=== PATIENT | male | born 1970 | race Caucasian/White ===

== ENCOUNTER 2016-11-11 21:32 | Emergency (ER) | payer BC ==
[2016-11-11] MEDS ORDERED: ONDANSETRON 4 MG/2 ML VIAL IVP STA (22:09)
[2016-11-11] MEDS ORDERED: SODIUM CHLORIDE 0.9% 1,000 ML IV STA (22:09)
[2016-11-11 22:35] LABS: Basophils # (A) 0.1 k/uL (0-0.2); Basophils % (A) 0 %; CH 33.2; Eosinophils # (A) 0.1 k/uL (0-0.7); Eosinophils % (A) 1 %; HCT 47.8 % (39.0-53.0); HDW 1.95; HGB 15.6 gm/dL (13.0-17.5); Luc # (Auto) 0.15; Luc % (Auto) 1; Lymphocytes # (A) 0.9 k/uL (1.0-4.8); Lymphocytes % (A) 7 %; MCH 32.1 pg (25.0-35.0); MCHC 32.7 g/dL (31.0-37.0); MCV 98.2 fL (80.0-100.0); Mean Platelet Volume 6.5; Monocytes # (A) 0.4 k/uL (0-1.0); Monocytes % (A) 3 %; Neutrophils % (A) 87 %; RBC 4.87 m/uL (4.30-5.90); RDW 12.8 % (11.5-15.5); WBC 12.6 k/uL (3.8-10.6)
[2016-11-11 22:44] LABS: ALT 58 U/L (21-72); AST 74 U/L (17-59); Alkaline Phosphatase 114 U/L (38-126); Amylase 127 U/L (30-110); Anion Gap 23 mmol/L; Blood Urea Nitrogen 3 mg/dL (9-20); Calcium 9.1 mg/dL (8.4-10.2); Carbon Dioxide 16 mmol/L (22-30); Chloride 96 mmol/L (98-107); Glucose 131 mg/dL (74-99); Non-African American GFR(MDRD) >60 (>60 ml/min/1.73 sqM); Potassium 3.7 mmol/L (3.5-5.1); Sodium 135 mmol/L (137-145); Total Bilirubin 0.7 mg/dL (0.2-1.3); Total Protein 7.7 g/dL (6.3-8.2)
--- NOTE | 2016-11-11 22:45 | ED ---
Nausea/Vomiting/Diarrhea HPI - General Chief complaint: Nausea/Vomiting/Diarrhea Stated complaint: Vomiting/Tremors Time Seen by Provider: 11/11/16 21:42 Source: patient Mode of arrival: wheelchair Limitations: no limitations - History of Present Illness MD complaint: nausea, vomiting Onset/Timin -: hour(s) Description of Vomiting: food contents, watery Associated Abdominal Pain: No Improves with: none Worsens with: none - Related Data Previous Rx's Medication Instructions Recorded Ondansetron Odt [Zofran ODT] 4 mg PO Q8HR PRN #10 tab 11/12/16 Allergies Allergy/AdvReac Type Severity Reaction Status Date / Time No Known Allergies Allergy Verified 11/11/16 21:53 Review of Systems ROS Statement: Those systems with pertinent positive or pertinent negative responses have been documented in the HPI. ROS Other: All systems not noted in ROS Statement are negative. Constitutional: Denies: fever, chills Respiratory: Denies: cough, dyspnea Cardiovascular: Denies: chest pain, palpitations, edema, syncope Gastrointestinal: Reports: nausea, vomiting. Denies: abdominal pain, diarrhea, hematemesis, melena, hematochezia Genitourinary: Denies: dysuria, hematuria Musculoskeletal: Denies: back pain Skin: Denies: rash Neurological: Denies: headache Past Medical History Past Medical History: No Reported History Additional Past Medical History / Comment(s): alcoholic History of Any Multi-Drug Resistant Organisms: None Reported Past Surgical History: Hernia Repair, Tonsillectomy Past Psychological History: Anxiety, Depression Smoking Status: Current every day smoker Past Alcohol Use History: Occasional Past Drug Use History: Marijuana General Exam Limitations: no limitations General appearance: alert, in no apparent distress, appears intoxicated Head exam: Present: atraumatic, normocephalic Eye exam: Present: normal appearance. Absent: scleral icterus, conjunctival injection Respiratory exam: Present: normal lung sounds bilaterally. Absent: respiratory distress, wheezes, rales, rhonchi, stridor Cardiovascular Exam: Present: normal rhythm, tachycardia (Heart rate is approximately 108 at my exam), normal heart sounds. Absent: systolic murmur, diastolic murmur, rubs, gallop GI/Abdominal exam: Present: soft. Absent: distended, tenderness, guarding, rebound, mass, pulsatile mass, hernia Extremities exam: Present: normal inspection, normal capillary refill. Absent: pedal edema, calf tenderness Back exam: Absent: CVA tenderness (R), CVA tenderness (L) Neurological exam: Present: alert Skin exam: Present: warm, dry, intact, normal color. Absent: rash Course Vital Signs 11/11/16 11/11/16 21:36 23:07 Temperature 96.7 F L Pulse Rate 106 H 90 Respiratory 22 16 Rate Blood Pressure 126/90 113/68 O2 Sat by Pulse 99 98 Oximetry Medical Decision Making - Lab Data Result diagrams: 11/11/16 22:20 11/11/16 22:20 Lab Results 11/11/16 11/11/16 11/11/16 Range/Units 22:20 22:20 23:00 WBC 12.6 H (3.8-10.6) k/uL RBC 4.87 (4.30-5.90) m/uL Hgb 15.6 (13.0-17.5) gm/dL Hct 47.8 (39.0-53.0) % MCV 98.2 (80.0-100.0) fL MCH 32.1 (25.0-35.0) pg MCHC 32.7 (31.0-37.0) g/dL RDW 12.8 (11.5-15.5) % Plt Count 198 (150-450) k/uL Neutrophils % 87 % Lymphocytes % 7 % Monocytes % 3 % Eosinophils % 1 % Basophils % 0 % Neutrophils # 11.0 H (1.3-7.7) k/uL Lymphocytes # 0.9 L (1.0-4.8) k/uL Monocytes # 0.4 (0-1.0) k/uL Eosinophils # 0.1 (0-0.7) k/uL Basophils # 0.1 (0-0.2) k/uL Sodium 135 L (137-145) mmol/L Potassium 3.7 (3.5-5.1) mmol/L Chloride 96 L (98-107) mmol/L Carbon Dioxide 16 L (22-30) mmol/L Anion Gap 23 mmol/L BUN 3 L (9-20) mg/dL Creatinine 0.77 (0.66-1.25) mg/dL Est GFR (MDRD) Af Amer >60 (>60 ml/min/1.73 sqM) Est GFR (MDRD) Non-Af >60 (>60 ml/min/1.73 sqM) Glucose 131 H (74-99) mg/dL Calcium 9.1 (8.4-10.2) mg/dL Total Bilirubin 0.7 (0.2-1.3) mg/dL AST 74 H (17-59) U/L ALT 58 (21-72) U/L Alkaline Phosphatase 114 (38-126) U/L Total Protein 7.7 (6.3-8.2) g/dL Albumin 4.5 (3.5-5.0) g/dL Amylase 127 H (30-110) U/L Lipase 202 (23-300) U/L Urine Color Light Yellow Urine Appearance Clear (Clear) Urine pH 5.5 (5.0-8.0) Ur Specific [place] 1.006 (1.001-1.035) Urine Protein Negative (Negative) Urine Glucose (UA) Negative (Negative) Urine Ketones 1+ H (Negative) Urine Blood Negative (Negative) Urine Nitrate Negative (Negative) Urine Bilirubin Negative (Negative) Urine Urobilinogen <2.0 (<2.0) mg/dL Ur Leukocyte Esterase Negative (Negative) Disposition Clinical Impression: Gastritis, Alcohol intoxication Disposition: HOME SELF-CARE Condition: Fair Instructions: Acute Nausea and Vomiting (ED) Prescriptions: Ondansetron Odt [Zofran ODT] 4 mg PO Q8HR PRN #10 tab PRN Reason: Nausea Referrals: Javon Anaya MD [Primary Care Provider] - 1-2 days
[2016-11-11 23:17] LABS: Appearance,Urine Clear (Clear); Bilirubin,Urine Negative (Negative); Glucose,Urine (UA) Negative (Negative); Ketones,Urine 1+ (Negative); Leukocyte Esterase,Urine Negative (Negative); Nitrite,Urine Negative (Negative); PH, Urine 5.5 (5.0-8.0); Protein,Urine Negative (Negative); Specific Gravity,Urine 1.006 (1.001-1.035); UA Billing (MACRO vs. MICRO) CHEM; Urobilinogen,Urine <2.0 mg/dL (<2.0)
[2016-11-12] MEDS ORDERED: ONDANSETRON 4 MG/2 ML VIAL IVP STA (01:39)
[2016-11-12 03:14] VITALS: BP 125/75; PULSE 84; RESP 18; TEMP 97.9
== END 2016-11-12 03:00 | disposition home or self-care (01) ==
LOC: EC 21:32
DX: K29.70 Gastritis, unspecified, without bleeding (principal); F10.129 Alcohol abuse with intoxication, unspecified; F17.200 Nicotine dependence, unspecified, uncomplicated
CPT/HCPCS: 36415; 80053; 82150; 83690; 85025; 81003; 99284; 96374; 96376; 96361; J2405 ×2

== ENCOUNTER 2017-09-30 07:13 | Emergency (ER) | payer BC, OTHER ==
[2017-09-30] MEDS ORDERED: LORazepam 2 MG/ML INJ IV STA (07:35)
[2017-09-30] MEDS ORDERED: SODIUM CHLORIDE 0.9% 1,000 ML IV STA (07:35)
[2017-09-30] MEDS ORDERED: FAMOTIDINE 20 MG/2 ML VIAL IV STA (07:38)
[2017-09-30] MEDS ORDERED: ONDANSETRON 4 MG/2 ML VIAL IVP STA (07:38)
--- NOTE | 2017-09-30 07:41 | ED ---
General Adult HPI - General Chief complaint: Alcohol Stated complaint: alcohol withdrawl Time Seen by Provider: 09/30/17 07:24 Source: patient, RN notes reviewed, old records reviewed Mode of arrival: ambulatory Limitations: no limitations - History of Present Illness Initial comments: Patient is a 39-year-old male presenting to the emergency department for alcohol withdrawal. Patient is anxious. Patient stopped drinking last night around 8 or 9 PM. Patient usually drinks around 12 beers per day. Patient has had similar problems previously. Patient has some nausea. - Related Data Home Medications Medication Instructions Recorded Confirmed PHENobarbital [Luminal] 16.2 mg PO TID 09/30/17 09/30/17 Previous Rx's Medication Instructions Recorded chlordiazePOXIDE HCl [Librium] 25 mg PO TID #12 capsule 09/30/17 Allergies Allergy/AdvReac Type Severity Reaction Status Date / Time No Known Allergies Allergy Verified 09/30/17 08:09 Review of Systems ROS Statement: Those systems with pertinent positive or pertinent negative responses have been documented in the HPI. ROS Other: All systems not noted in ROS Statement are negative. Constitutional: Denies: fever Eyes: Denies: eye pain ENT: Denies: ear pain Respiratory: Denies: cough Cardiovascular: Denies: chest pain Endocrine: Denies: fatigue Gastrointestinal: Reports: nausea. Denies: abdominal pain Genitourinary: Denies: dysuria Musculoskeletal: Denies: back pain Skin: Denies: rash Neurological: Denies: headache Psychiatric: Reports: anxiety. Denies: auditory hallucinations, visual hallucinations, homicidal thoughts, suicidal thoughts Past Medical History Past Medical History: No Reported History Additional Past Medical History / Comment(s): alcoholic History of Any Multi-Drug Resistant Organisms: None Reported Past Surgical History: Hernia Repair, Tonsillectomy Past Psychological History: Anxiety, Depression Smoking Status: Current every day smoker Past Alcohol Use History: Abuse, Daily, Heavy Past Drug Use History: Marijuana General Exam Limitations: no limitations General appearance: alert, anxious Head exam: Present: atraumatic Eye exam: Present: normal appearance, PERRL ENT exam: Present: normal oropharynx Neck exam: Present: normal inspection Respiratory exam: Present: normal lung sounds bilaterally Cardiovascular Exam: Present: tachycardia GI/Abdominal exam: Present: soft. Absent: tenderness Extremities exam: Present: normal inspection Neurological exam: Present: alert, oriented X3, CN II-XII intact. Absent: motor sensory deficit Psychiatric exam: Present: anxious Skin exam: Present: normal color Course Vital Signs 09/30/17 07:17 Temperature 98.5 F Pulse Rate 118 H Respiratory 24 Rate Blood Pressure 135/95 O2 Sat by Pulse 99 Oximetry Medical Decision Making - Medical Decision Making Patient reevaluated and significantly improved. No shaking. Patient does feel much better. Patient is comfortable with discharge home. Patient updated on results and need for follow-up. Patient is advised to follow-up with [facility] or other detox facility. List was provided. - Lab Data Result diagrams: 09/30/17 07:35 09/30/17 07:35 Lab Results 09/30/17 09/30/17 Range/Units 07:35 07:35 WBC 9.9 (3.8-10.6) k/uL RBC 4.91 (4.30-5.90) m/uL Hgb 17.0 (13.0-17.5) gm/dL Hct 50.5 (39.0-53.0) % MCV 102.8 H (80.0-100.0) fL MCH 34.6 (25.0-35.0) pg MCHC 33.7 (31.0-37.0) g/dL RDW 13.4 (11.5-15.5) % Plt Count 104 L (150-450) k/uL Neutrophils % 77 % Lymphocytes % 14 % Monocytes % 5 % Eosinophils % 1 % Basophils % 1 % Neutrophils # 7.7 (1.3-7.7) k/uL Lymphocytes # 1.4 (1.0-4.8) k/uL Monocytes # 0.5 (0-1.0) k/uL Eosinophils # 0.1 (0-0.7) k/uL Basophils # 0.1 (0-0.2) k/uL Macrocytosis Slight Sodium 136 L (137-145) mmol/L Potassium 4.5 (3.5-5.1) mmol/L Chloride 100 (98-107) mmol/L Carbon Dioxide 20 L (22-30) mmol/L Anion Gap 16 mmol/L BUN 6 L (9-20) mg/dL Creatinine 0.63 L (0.66-1.25) mg/dL Est GFR (MDRD) Af Amer >60 (>60 ml/min/1.73 sqM) Est GFR (MDRD) Non-Af >60 (>60 ml/min/1.73 sqM) Glucose 123 H (74-99) mg/dL Calcium 9.1 (8.4-10.2) mg/dL Magnesium 1.8 (1.6-2.3) mg/dL Total Bilirubin 0.9 (0.2-1.3) mg/dL AST 211 H (17-59) U/L ALT 112 H (21-72) U/L Alkaline Phosphatase 157 H (38-126) U/L Total Protein 7.5 (6.3-8.2) g/dL Albumin 4.5 (3.5-5.0) g/dL Serum Alcohol 30 mg/dL Disposition Clinical Impression: Alcohol withdrawal syndrome Disposition: HOME SELF-CARE Condition: Stable Instructions: Alcohol Withdrawal (ED) Additional Instructions: Discontinue alcohol use. Please follow-up with rehab facility and/or Alcoholics Anonymous. Please also follow-up with regular doctor in the next day or 2 for recheck. Return for hallucinations, confusion, worsening symptoms or other concerns. Prescriptions: chlordiazePOXIDE HCl [Librium] 25 mg PO TID #12 capsule Referrals: Javon Anaya MD [Primary Care Provider] - 1-2 days Time of Disposition: 08:24
[2017-09-30] MEDS ORDERED: SODIUM CHLORIDE 0.9% 1,000 ML with MVI, ADULT NO.4 WITH VIT K 10 ML, THIAMINE 100 MG, F... IV ONE ×4 (08:00)
[2017-09-30 08:10] LABS: ALT 112 U/L (21-72); AST 211 U/L (17-59); Albumin 4.5 g/dL (3.5-5.0); Alcohol 30 mg/dL; Alkaline Phosphatase 157 U/L (38-126); Anion Gap 16 mmol/L; Blood Urea Nitrogen 6 mg/dL (9-20); Calcium 9.1 mg/dL (8.4-10.2); Carbon Dioxide 20 mmol/L (22-30); Chloride 100 mmol/L (98-107); Glucose 123 mg/dL (74-99); Magnesium 1.8 mg/dL (1.6-2.3); Sodium 136 mmol/L (137-145); Total Bilirubin 0.9 mg/dL (0.2-1.3); Total Protein 7.5 g/dL (6.3-8.2)
[2017-09-30 08:11] LABS: Basophils # (A) 0.1 k/uL (0-0.2); Basophils % (A) 1 %; Eosinophils # (A) 0.1 k/uL (0-0.7); Eosinophils % (A) 1 %; HCT 50.5 % (39.0-53.0); Lymphocytes # (A) 1.4 k/uL (1.0-4.8); Lymphocytes % (A) 14 %; MCH 34.6 pg (25.0-35.0); MCHC 33.7 g/dL (31.0-37.0); MCV 102.8 fL (80.0-100.0); Macrocytosis Slight; Mean Platelet Volume 8.1; Monocytes # (A) 0.5 k/uL (0-1.0); Monocytes % (A) 5 %; Neutrophils # (A) 7.7 k/uL (1.3-7.7); Neutrophils % (A) 77 %; Platelet Count 104 k/uL (150-450); RBC 4.91 m/uL (4.30-5.90); RDW 13.4 % (11.5-15.5); WBC 9.9 k/uL (3.8-10.6)
[2017-09-30 08:18] LABS: Potassium 4.5 mmol/L (3.5-5.1)
[2017-09-30 08:47] VITALS: BP 132/78; PULSE 97; RESP 18; TEMP 98.7
== END 2017-09-30 08:45 | disposition home or self-care (01) ==
LOC: EC 07:13
DX: F10.239 Alcohol dependence with withdrawal, unspecified (principal); F17.200 Nicotine dependence, unspecified, uncomplicated; Z79.899 Other long term (current) drug therapy
CPT/HCPCS: 36415; 80053; 83735; 85025; 80320; 99285; 96374; 96375 ×3; J2060; J3411; J2405

== ENCOUNTER 2018-02-22 13:18 | Emergency (ER) | payer OTHER ==
[2018-02-22 13:29] VITALS: TEMP 97.8
[2018-02-22] MEDS ORDERED: SODIUM CHLORIDE 0.9% 1,000 ML IV STA (13:40)
[2018-02-22] MEDS ORDERED: ONDANSETRON 4 MG/2 ML VIAL IVP STA (13:40)
[2018-02-22] MEDS ORDERED: SODIUM CHLORIDE 0.9% 1,000 ML IV ONE (13:48)
[2018-02-22] MEDS ORDERED: LORazepam 2 MG/ML INJ IV STA (13:49)
--- NOTE | 2018-02-22 13:55 | ED ---
General Adult HPI - General Chief complaint: Nausea/Vomiting/Diarrhea Stated complaint: Withdrawls/Bug bite Time Seen by Provider: 02/22/18 13:36 Source: patient, RN notes reviewed, old records reviewed Mode of arrival: ambulatory Limitations: no limitations - History of Present Illness Initial comments: 48-year-old male presents for evaluation of nausea vomiting and diarrhea. Symptoms have been progressive over the past 12 hours. His had multiple episodes of vomiting. Denies any significant abdominal pain. He does have history of alcoholism and is a daily drinker. Last drink was yesterday evening at approximately 8 PM. Patient denies chest pain or shortness of breath. Denies suicidal thoughts. Denies fever or chills. Patient states he is taken Ativan in the past for withdrawal symptoms however he has not had any to take over the past several days. Patient's second complaint is tick bites, he has several on his leg. He believes this may be related to symptoms. - Related Data Home Medications Medication Instructions Recorded Confirmed LORazepam [Ativan] 0.5 mg PO DAILY PRN 02/22/18 02/22/18 Sertraline [Zoloft] 50 mg PO DAILY 02/22/18 02/22/18 Previous Rx's Medication Instructions Recorded Diazepam [Valium] 5 mg PO TID PRN 3 Days #9 tab 02/22/18 Allergies Allergy/AdvReac Type Severity Reaction Status Date / Time No Known Allergies Allergy Verified 02/22/18 13:56 Review of Systems ROS Statement: Those systems with pertinent positive or pertinent negative responses have been documented in the HPI. ROS Other: All systems not noted in ROS Statement are negative. Past Medical History Past Medical History: No Reported History Additional Past Medical History / Comment(s): alcoholic History of Any Multi-Drug Resistant Organisms: None Reported Past Surgical History: Hernia Repair, Tonsillectomy Past Psychological History: Anxiety, Depression Smoking Status: Current every day smoker Past Alcohol Use History: Abuse, Daily, Heavy Past Drug Use History: Marijuana General Exam Limitations: no limitations General appearance: alert, in no apparent distress Head exam: Present: atraumatic, normocephalic Eye exam: Present: normal appearance, PERRL ENT exam: Present: mucous membranes dry Neck exam: Present: normal inspection. Absent: tenderness, meningismus Respiratory exam: Present: normal lung sounds bilaterally Cardiovascular Exam: Present: normal rhythm, tachycardia GI/Abdominal exam: Present: soft. Absent: distended, tenderness, guarding, rebound Extremities exam: Present: other (Multiple bug bites, no surrounding cellulitis) Neurological exam: Present: alert, oriented X3, CN II-XII intact. Absent: motor sensory deficit Psychiatric exam: Present: anxious. Absent: suicidal ideation Skin exam: Present: warm, dry, intact. Absent: cyanosis, diaphoretic Course Vital Signs 02/22/18 02/22/18 02/22/18 13:27 15:06 15:40 Temperature 97.8 F Pulse Rate 109 H 84 Respiratory 20 18 16 Rate Blood Pressure 121/73 127/67 137/78 O2 Sat by Pulse 99 97 Oximetry Medical Decision Making - Medical Decision Making 48-year-old male with nausea vomiting, dehydration, and concern for alcohol withdrawal. No signs of DTs. Initially tachycardic of this resolves with fluid hydration. Initial labs reveal some alcoholic hepatitis. There is an anion gap metabolic acidosis of 26 and a CO2 of 18. This results with IV hydration. White count and hemoglobin are normal. Urinalysis negative for ketones. KUB is negative for obstruction. On reevaluation is feeling better. Normal vital signs. Trauma. He will be prescribed Valium for withdrawal. He will continue oral hydration at home. - Lab Data Result diagrams: 02/22/18 14:05 02/22/18 15:58 Lab Results 02/22/18 02/22/18 02/22/18 Range/Units 13:12 14:05 14:05 WBC 7.4 (3.8-10.6) k/uL RBC 5.18 (4.30-5.90) m/uL Hgb 16.6 (13.0-17.5) gm/dL Hct 48.1 (39.0-53.0) % MCV 92.8 (80.0-100.0) fL MCH 31.9 (25.0-35.0) pg MCHC 34.4 (31.0-37.0) g/dL RDW 14.7 (11.5-15.5) % Plt Count 148 L (150-450) k/uL Neutrophils % 88 % Lymphocytes % 6 % Monocytes % 4 % Eosinophils % 0 % Basophils % 0 % Neutrophils # 6.6 (1.3-7.7) k/uL Lymphocytes # 0.5 L (1.0-4.8) k/uL Monocytes # 0.3 (0-1.0) k/uL Eosinophils # 0.0 (0-0.7) k/uL Basophils # 0.0 (0-0.2) k/uL Sodium 132 L (137-145) mmol/L Potassium 3.9 (3.5-5.1) mmol/L Chloride 88 L (98-107) mmol/L Carbon Dioxide 18 L (22-30) mmol/L Anion Gap 26 mmol/L BUN 9 (9-20) mg/dL Creatinine 0.76 (0.66-1.25) mg/dL Est GFR (CKD-EPI)AfAm >90 (>60 ml/min/1.73 sqM) Est GFR (CKD-EPI)NonAf >90 (>60 ml/min/1.73 sqM) Glucose 150 H (74-99) mg/dL Calcium 9.9 (8.4-10.2) mg/dL Total Bilirubin 1.4 H (0.2-1.3) mg/dL AST 254 H (17-59) U/L ALT 189 H (21-72) U/L Alkaline Phosphatase 133 H (38-126) U/L Total Protein 8.1 (6.3-8.2) g/dL Albumin 5.1 H (3.5-5.0) g/dL Lipase 202 (23-300) U/L Urine Color Yellow Urine Appearance Clear (Clear) Urine pH 7.0 (5.0-8.0) Ur Specific [place] 1.021 (1.001-1.035) Urine Protein 2+ H (Negative) Urine Glucose (UA) Negative (Negative) Urine Ketones 2+ H (Negative) Urine Blood Trace H (Negative) Urine Nitrite Negative (Negative) Urine Bilirubin Negative (Negative) Urine Urobilinogen <2.0 (<2.0) mg/dL Ur Leukocyte Esterase Negative (Negative) Urine RBC 4 (0-5) /hpf Urine WBC 1 (0-5) /hpf Ur Squamous Epith Cells <1 (0-4) /hpf Hyaline Casts 16 H (0-2) /lpf Urine Mucus Occasional H (None) /hpf Urine Opiates Screen Not Detected (NotDetected) Ur Oxycodone Screen Not Detected (NotDetected) Urine Methadone Screen Not Detected (NotDetected) Ur Propoxyphene Screen Not Detected (NotDetected) Ur Barbiturates Screen Not Detected (NotDetected) U Tricyclic Antidepress Not Detected (NotDetected) Ur Phencyclidine Scrn Not Detected (NotDetected) Ur Amphetamines Screen Not Detected (NotDetected) U Methamphetamines Scrn Not Detected (NotDetected) U Benzodiazepines Scrn Not Detected (NotDetected) Urine Cocaine Screen Not Detected (NotDetected) U Marijuana (THC) Screen Not Detected (NotDetected) Serum Alcohol <10 mg/dL 02/22/18 Range/Units 15:58 WBC (3.8-10.6) k/uL RBC (4.30-5.90) m/uL Hgb (13.0-17.5) gm/dL Hct (39.0-53.0) % MCV (80.0-100.0) fL MCH (25.0-35.0) pg MCHC (31.0-37.0) g/dL RDW (11.5-15.5) % Plt Count (150-450) k/uL Neutrophils % % Lymphocytes % % Monocytes % % Eosinophils % % Basophils % % Neutrophils # (1.3-7.7) k/uL Lymphocytes # (1.0-4.8) k/uL Monocytes # (0-1.0) k/uL Eosinophils # (0-0.7) k/uL Basophils # (0-0.2) k/uL Sodium 132 L (137-145) mmol/L Potassium 3.5 (3.5-5.1) mmol/L Chloride 95 L (98-107) mmol/L Carbon Dioxide 22 (22-30) mmol/L Anion Gap 15 mmol/L BUN 8 L (9-20) mg/dL Creatinine 0.66 (0.66-1.25) mg/dL Est GFR (CKD-EPI)AfAm >90 (>60 ml/min/1.73 sqM) Est GFR (CKD-EPI)NonAf >90 (>60 ml/min/1.73 sqM) Glucose 139 H (74-99) mg/dL Calcium 8.2 L (8.4-10.2) mg/dL Total Bilirubin (0.2-1.3) mg/dL AST (17-59) U/L ALT (21-72) U/L Alkaline Phosphatase (38-126) U/L Total Protein (6.3-8.2) g/dL Albumin (3.5-5.0) g/dL Lipase (23-300) U/L Urine Color Urine Appearance (Clear) Urine pH (5.0-8.0) Ur Specific [place] (1.001-1.035) Urine Protein (Negative) Urine Glucose (UA) (Negative) Urine Ketones (Negative) Urine Blood (Negative) Urine Nitrite (Negative) Urine Bilirubin (Negative) Urine Urobilinogen (<2.0) mg/dL Ur Leukocyte Esterase (Negative) Urine RBC (0-5) /hpf Urine WBC (0-5) /hpf Ur Squamous Epith Cells (0-4) /hpf Hyaline Casts (0-2) /lpf Urine Mucus (None) /hpf Urine Opiates Screen (NotDetected) Ur Oxycodone Screen (NotDetected) Urine Methadone Screen (NotDetected) Ur Propoxyphene Screen (NotDetected) Ur Barbiturates Screen (NotDetected) U Tricyclic Antidepress (NotDetected) Ur Phencyclidine Scrn (NotDetected) Ur Amphetamines Screen (NotDetected) U Methamphetamines Scrn (NotDetected) U Benzodiazepines Scrn (NotDetected) Urine Cocaine Screen (NotDetected) U Marijuana (THC) Screen (NotDetected) Serum Alcohol mg/dL Disposition Clinical Impression: Dehydration, Alcohol abuse Disposition: HOME SELF-CARE Condition: Fair Instructions: Acute Nausea and Vomiting (ED) Prescriptions: Diazepam [Valium] 5 mg PO TID PRN 3 Days #9 tab PRN Reason: Alcohol Withdrawal Is patient prescribed a controlled substance at d/c from ED?: No Referrals: Javon Anaya MD [Primary Care Provider] - 1-2 days Time of Disposition: 16:40
[2018-02-22 14:13] LABS: Basophils % (A) 0 %; Eosinophils % (A) 0 %; HCT 48.1 % (39.0-53.0); HGB 16.6 gm/dL (13.0-17.5); Lymphocytes # (A) 0.5 k/uL (1.0-4.8); Lymphocytes % (A) 6 %; MCH 31.9 pg (25.0-35.0); MCHC 34.4 g/dL (31.0-37.0); MCV 92.8 fL (80.0-100.0); Mean Platelet Volume 7.4; Monocytes # (A) 0.3 k/uL (0-1.0); Monocytes % (A) 4 %; Neutrophils # (A) 6.6 k/uL (1.3-7.7); Neutrophils % (A) 88 %; Platelet Count 148 k/uL (150-450); RBC 5.18 m/uL (4.30-5.90); RDW 14.7 % (11.5-15.5); WBC 7.4 k/uL (3.8-10.6)
[2018-02-22 14:25] LABS: ALT 189 U/L (21-72); AST 254 U/L (17-59); Albumin 5.1 g/dL (3.5-5.0); Alcohol <10 mg/dL; Alkaline Phosphatase 133 U/L (38-126); Anion Gap 26 mmol/L; Blood Urea Nitrogen 9 mg/dL (9-20); Calcium 9.9 mg/dL (8.4-10.2); Carbon Dioxide 18 mmol/L (22-30); Chloride 88 mmol/L (98-107); Glucose 150 mg/dL (74-99); Lipase 202 U/L (23-300); Potassium 3.9 mmol/L (3.5-5.1); Sodium 132 mmol/L (137-145); Total Bilirubin 1.4 mg/dL (0.2-1.3); Total Protein 8.1 g/dL (6.3-8.2)
--- NOTE | 2018-02-22 14:51 | XR ---
EXAMINATION TYPE: XR KUB DATE OF EXAM: 02/22/2018 CLINICAL DATA: 48-year-old male complaining of vomiting and diarrhea, pain, PHH COMPARISON: None FINDINGS: Lung bases are clear. No evidence for free intraperitoneal air. No dilated small bowel or air-fluid levels. Scattered air and stool seen throughout the colon extendi ng distally into the rectum. Very mild stool burden. No suspicious calcifications identified. IMPRESSION: No evidence of bowel obstruction or free intraperitoneal air.
[2018-02-22 15:41] LABS: Appearance,Urine Clear (Clear); Bilirubin,Urine Negative (Negative); Blood,Urine Trace (Negative); Color,Urine Yellow; Glucose,Urine (UA) Negative (Negative); Hyaline Casts,Urine 16 /lpf (0-2); Ketones,Urine 2+ (Negative); Leukocyte Esterase,Urine Negative (Negative); Mucus,Urine Occasional /hpf; Nitrite,Urine Negative (Negative); Protein,Urine 2+ (Negative); RBC,Urine 4 /hpf (0-5); Specific Gravity,Urine 1.021 (1.001-1.035); Squamous Epithelial Cell,Urine <1 /hpf (0-4); Urobilinogen,Urine <2.0 mg/dL (<2.0); WBC,Urine 1 /hpf (0-5)
[2018-02-22 15:47] LABS: Amphetamine Screen,Urine Not Detected (NotDetected); Barbiturate Screen,Urine Not Detected (NotDetected); Benzodiazepines Screen,Urine Not Detected (NotDetected); Cocaine Screen,Urine Not Detected (NotDetected); Methadone Screen, Urine Not Detected (NotDetected); Opiate Screen,Urine Not Detected (NotDetected); Oxycodone Screen, Urine Not Detected (NotDetected); Phencyclidine Screen,Urine Not Detected (NotDetected); Tricyclic Antidepressant,Urine Not Detected (NotDetected); Urn Cannabinoid Scrn Not Detected (NotDetected)
[2018-02-22 16:23] LABS: Anion Gap 15 mmol/L; Blood Urea Nitrogen 8 mg/dL (9-20); Calcium 8.2 mg/dL (8.4-10.2); Carbon Dioxide 22 mmol/L (22-30); Chloride 95 mmol/L (98-107); Glucose 139 mg/dL (74-99); Potassium 3.5 mmol/L (3.5-5.1); Sodium 132 mmol/L (137-145)
[2018-02-22 17:17] VITALS: BP 144/78; PULSE 70; RESP 18
== END 2018-02-22 17:14 | disposition home or self-care (01) ==
LOC: EC 13:18
DX: E86.0 Dehydration (principal); F10.10 Alcohol abuse, uncomplicated; R11.2 Nausea with vomiting, unspecified; R19.7 Diarrhea, unspecified; S80.869A Insect bite (nonvenomous), unspecified lower leg, initial encounter; F41.9 Anxiety disorder, unspecified; F32.9 Major depressive disorder, single episode, unspecified; F17.200 Nicotine dependence, unspecified, uncomplicated; Z79.899 Other long term (current) drug therapy; W57.XXXA Bitten or stung by nonvenomous insect and other nonvenomous arthropods, initial encounter
CPT/HCPCS: 36415; 80053; 80048; 83690; 85025; 81001; 80306; 80320; 74018; 99284; 96374; 96375; 96361 ×2; J2060; J2405

== ENCOUNTER 2018-08-21 01:27 | Emergency (ER) | payer OTHER ==
[2018-08-21 01:50] VITALS: BP 133/89; PULSE 86; RESP 16; TEMP 98.1
== END 2018-08-21 03:00 | disposition home or self-care (01) ==
LOC: EC 01:27
DX: Z02.9 Encounter for administrative examinations, unspecified (principal)
CPT/HCPCS: 82075

== ENCOUNTER 2018-09-04 05:16 | Observation (INO) | payer OTHER ==
[2018-09-04] MEDS ORDERED: SODIUM CHLORIDE 0.9% 1,000 ML IV ONE (06:19)
[2018-09-04] MEDS ORDERED: LORazepam 2 MG/ML INJ IV STA ×2 (06:35→08:30)
[2018-09-04 06:38] LABS: Appearance,Urine Clear (Clear); Bilirubin,Urine Negative (Negative); Blood,Urine Negative (Negative); Color,Urine Yellow; Glucose,Urine (UA) Negative (Negative); Ketones,Urine Negative (Negative); Leukocyte Esterase,Urine Negative (Negative); Nitrite,Urine Negative (Negative); PH, Urine 5.5 (5.0-8.0); Protein,Urine Trace (Negative); Specific Gravity,Urine 1.007 (1.001-1.035); Urobilinogen,Urine <2.0 mg/dL (<2.0)
[2018-09-04 06:49] LABS: Amphetamine Screen,Urine Not Detected (NotDetected); Barbiturate Screen,Urine Not Detected (NotDetected); Benzodiazepines Screen,Urine Not Detected (NotDetected); Cocaine Screen,Urine Not Detected (NotDetected); Methadone Screen, Urine Not Detected (NotDetected); Opiate Screen,Urine Not Detected (NotDetected); Oxycodone Screen, Urine Not Detected (NotDetected); Phencyclidine Screen,Urine Not Detected (NotDetected); Tricyclic Antidepressant,Urine Not Detected (NotDetected); Urn Cannabinoid Scrn Not Detected (NotDetected)
[2018-09-04 06:56] LABS: ALT 67 U/L (21-72); AST 89 U/L (17-59); Albumin 4.6 g/dL (3.5-5.0); Alkaline Phosphatase 88 U/L (38-126); Anion Gap 16 mmol/L; Blood Urea Nitrogen 4 mg/dL (9-20); Calcium 9.7 mg/dL (8.4-10.2); Carbon Dioxide 22 mmol/L (22-30); Chloride 101 mmol/L (98-107); Glucose 147 mg/dL (74-99); Sodium 139 mmol/L (137-145); Total Bilirubin 0.7 mg/dL (0.2-1.3); Total Protein 7.9 g/dL (6.3-8.2)
[2018-09-04 07:06] LABS: Basophils % (A) 0 %; Eosinophils # (A) 0.1 k/uL (0-0.7); Eosinophils % (A) 2 %; HCT 51.1 % (39.0-53.0); HGB 17.5 gm/dL (13.0-17.5); Lymphocytes # (A) 1.3 k/uL (1.0-4.8); Lymphocytes % (A) 24 %; MCH 33.8 pg (25.0-35.0); MCHC 34.3 g/dL (31.0-37.0); MCV 98.7 fL (80.0-100.0); Monocytes # (A) 0.4 k/uL (0-1.0); Monocytes % (A) 7 %; Neutrophils # (A) 3.6 k/uL (1.3-7.7); Neutrophils % (A) 64 %; Platelet Count 170 k/uL (150-450); RBC 5.18 m/uL (4.30-5.90); RDW 13.2 % (11.5-15.5); WBC 5.6 k/uL (3.8-10.6)
[2018-09-04 07:08] LABS: Alcohol 231 mg/dL
--- NOTE | 2018-09-04 07:17 | ED ---
General Adult HPI - General Chief complaint: Alcohol Stated complaint: Alcohol withdrawal Source: patient Mode of arrival: wheelchair Limitations: no limitations - History of Present Illness Initial comments: Dictation was produced using [employer] dictation software. please excuse any grammatical, word or spelling errors. Chief Complaint: 48-year-old male presents with chief complaint of feeling as though he is expecting alcohol withdrawals. History of Present Illness: Now. He states he drinks several ounces of beer a day. He states he drinks 5 BEER on a daily basis. Last episode of EtOH withdrawal was 3 months ago. Patient states she's also been having nausea and diarrhea for the last 2-3 days. Patient was last drink was yesterday morning. Patient denies any other medical problems. No fever, chills or night sweats. Denies any pain complaints. The ROS documented in this emergency department record has been reviewed and confirmed by me. Those systems with pertinent positive or negative responses have been documented in the HPI. All other systems are other negative and/or noncontributory. - Related Data Home Medications Medication Instructions Recorded Confirmed Sertraline [Zoloft] 50 mg PO DAILY 02/22/18 09/04/18 Allergies Allergy/AdvReac Type Severity Reaction Status Date / Time No Known Allergies Allergy Verified 09/04/18 08:49 Review of Systems ROS Statement: Those systems with pertinent positive or pertinent negative responses have been documented in the HPI. ROS Other: All systems not noted in ROS Statement are negative. Past Medical History Past Medical History: No Reported History Additional Past Medical History / Comment(s): alcoholic History of Any Multi-Drug Resistant Organisms: None Reported Past Surgical History: Hernia Repair, Tonsillectomy Past Psychological History: Anxiety, Depression Smoking Status: Current every day smoker Past Alcohol Use History: Abuse, Daily, Heavy Past Drug Use History: None Reported, Marijuana - Past Family History Brother(s) Family Medical History: Osteoarthritis (OA) Mother Additional Family Medical History / Comment(s): pulmonary fibrosis General Exam - General Exam Comments Initial Comments: PHYSICAL EXAM: General Impression: Alert and oriented x3, tremulousness HEENT: Normocephalic atraumatic, extra-ocular movements intact, pupils equal and reactive to light bilaterally, mucous membranes moist. Cardiovascular: Heart regular rate and rhythm, S1&S2 audible, no murmurs, rubs or gallops Chest: Lungs clear to auscultation bilaterally, no rhonchi, no wheeze, no rales Abdomen: Bowel sounds present, abdomen soft, non-tender, non-distended, no organomegaly Musculoskeletal: Pulses present and equal in all extremities, no peripheral edema Motor: Power 5/5 bilaterally, no focal deficits noted Neurological: CN II-XII grossly intact, no focal motor or sensory deficits noted Skin: Intact with no visualized rashes Psych: Normal affect and mood Limitations: no limitations Course Vital Signs 09/04/18 05:40 Temperature 98.2 F Pulse Rate 73 Respiratory 36 H Rate Blood Pressure 124/64 O2 Sat by Pulse 98 Oximetry Medical Decision Making - Medical Decision Making ED course: 48-year-old male presents complaining of possible withdrawal symptoms. Patient also reports secondary complaint of feeling ill. Patient has been nausea and diarrhea. Vital signs upon arrival shows respiratory rate of 36, respiratory signs within acceptable limits. Patient given intravenous fluids and Antivert as previous shift physician. Patient appears comfortable at this time.Laboratory evaluation obtained. CBC, metabolic panel is unremarkable. Glucose 147. Urine unremarkable. The. Drug screen negative. Serum alcohol is 231. After couple hours patient began having withdrawal type symptoms. Patient given Ativan. Given that patient is expressing withdrawal symptoms with 2-31 level of alcohol on his blood that patient admitted for alcohol withdrawal. patient given intravenous fluids and ativan. - Lab Data Result diagrams: 09/04/18 06:15 09/04/18 06:15 Lab Results 09/04/18 09/04/18 09/04/18 Range/Units 06:15 06:15 06:15 WBC 5.6 (3.8-10.6) k/uL RBC 5.18 (4.30-5.90) m/uL Hgb 17.5 (13.0-17.5) gm/dL Hct 51.1 (39.0-53.0) % MCV 98.7 (80.0-100.0) fL MCH 33.8 (25.0-35.0) pg MCHC 34.3 (31.0-37.0) g/dL RDW 13.2 (11.5-15.5) % Plt Count 170 (150-450) k/uL Neutrophils % 64 % Lymphocytes % 24 % Monocytes % 7 % Eosinophils % 2 % Basophils % 0 % Neutrophils # 3.6 (1.3-7.7) k/uL Lymphocytes # 1.3 (1.0-4.8) k/uL Monocytes # 0.4 (0-1.0) k/uL Eosinophils # 0.1 (0-0.7) k/uL Basophils # 0.0 (0-0.2) k/uL Sodium 139 (137-145) mmol/L Potassium 4.0 (3.5-5.1) mmol/L Chloride 101 (98-107) mmol/L Carbon Dioxide 22 (22-30) mmol/L Anion Gap 16 mmol/L BUN 4 L (9-20) mg/dL Creatinine 0.80 (0.66-1.25) mg/dL Est GFR (CKD-EPI)AfAm >90 (>60 ml/min/1.73 sqM) Est GFR (CKD-EPI)NonAf >90 (>60 ml/min/1.73 sqM) Glucose 147 H (74-99) mg/dL Calcium 9.7 (8.4-10.2) mg/dL Magnesium (1.6-2.3) mg/dL Total Bilirubin 0.7 (0.2-1.3) mg/dL AST 89 H (17-59) U/L ALT 67 (21-72) U/L Alkaline Phosphatase 88 (38-126) U/L Total Protein 7.9 (6.3-8.2) g/dL Albumin 4.6 (3.5-5.0) g/dL Lipase (23-300) U/L Urine Color Yellow Urine Appearance Clear (Clear) Urine pH 5.5 (5.0-8.0) Ur Specific Ulmer 1.007 (1.001-1.035) Urine Protein Trace H (Negative) Urine Glucose (UA) Negative (Negative) Urine Ketones Negative (Negative) Urine Blood Negative (Negative) Urine Nitrite Negative (Negative) Urine Bilirubin Negative (Negative) Urine Urobilinogen <2.0 (<2.0) mg/dL Ur Leukocyte Esterase Negative (Negative) Urine Opiates Screen Not Detected (NotDetected) Ur Oxycodone Screen Not Detected (NotDetected) Urine Methadone Screen Not Detected (NotDetected) Ur Propoxyphene Screen Not Detected (NotDetected) Ur Barbiturates Screen Not Detected (NotDetected) U Tricyclic Antidepress Not Detected (NotDetected) Ur Phencyclidine Scrn Not Detected (NotDetected) Ur Amphetamines Screen Not Detected (NotDetected) U Methamphetamines Scrn Not Detected (NotDetected) U Benzodiazepines Scrn Not Detected (NotDetected) Urine Cocaine Screen Not Detected (NotDetected) U Marijuana (THC) Screen Not Detected (NotDetected) Serum Alcohol 231 H* mg/dL 09/04/18 Range/Units 06:15 WBC (3.8-10.6) k/uL RBC (4.30-5.90) m/uL Hgb (13.0-17.5) gm/dL Hct (39.0-53.0) % MCV (80.0-100.0) fL MCH (25.0-35.0) pg MCHC (31.0-37.0) g/dL RDW (11.5-15.5) % Plt Count (150-450) k/uL Neutrophils % % Lymphocytes % % Monocytes % % Eosinophils % % Basophils % % Neutrophils # (1.3-7.7) k/uL Lymphocytes # (1.0-4.8) k/uL Monocytes # (0-1.0) k/uL Eosinophils # (0-0.7) k/uL Basophils # (0-0.2) k/uL Sodium (137-145) mmol/L Potassium (3.5-5.1) mmol/L Chloride (98-107) mmol/L Carbon Dioxide (22-30) mmol/L Anion Gap mmol/L BUN (9-20) mg/dL Creatinine (0.66-1.25) mg/dL Est GFR (CKD-EPI)AfAm (>60 ml/min/1.73 sqM) Est GFR (CKD-EPI)NonAf (>60 ml/min/1.73 sqM) Glucose (74-99) mg/dL Calcium (8.4-10.2) mg/dL Magnesium 2.0 (1.6-2.3) mg/dL Total Bilirubin (0.2-1.3) mg/dL AST (17-59) U/L ALT (21-72) U/L Alkaline Phosphatase (38-126) U/L Total Protein (6.3-8.2) g/dL Albumin (3.5-5.0) g/dL Lipase 197 (23-300) U/L Urine Color Urine Appearance (Clear) Urine pH (5.0-8.0) Ur Specific Ulmer (1.001-1.035) Urine Protein (Negative) Urine Glucose (UA) (Negative) Urine Ketones (Negative) Urine Blood (Negative) Urine Nitrite (Negative) Urine Bilirubin (Negative) Urine Urobilinogen (<2.0) mg/dL Ur Leukocyte Esterase (Negative) Urine Opiates Screen (NotDetected) Ur Oxycodone Screen (NotDetected) Urine Methadone Screen (NotDetected) Ur Propoxyphene Screen (NotDetected) Ur Barbiturates Screen (NotDetected) U Tricyclic Antidepress (NotDetected) Ur Phencyclidine Scrn (NotDetected) Ur Amphetamines Screen (NotDetected) U Methamphetamines Scrn (NotDetected) U Benzodiazepines Scrn (NotDetected) Urine Cocaine Screen (NotDetected) U Marijuana (THC) Screen (NotDetected) Serum Alcohol mg/dL Disposition Clinical Impression: Alcohol withdrawal syndrome Disposition: [facility] Condition: Fair Referrals: None,Stated [Primary Care Provider] - 1-2 days Decision Time: 10:11
[2018-09-04] MEDS ORDERED: THIAMINE 100 MG/ML 2 ML VIAL IM STA (09:19)
[2018-09-04] MEDS ORDERED: LORazepam 2 MG/ML INJ IV PRN ×2 (09:19)
[2018-09-04] MEDS ORDERED: NALOXONE 0.4 MG/ML 1 ML VIAL IV PRN (10:08)
[2018-09-04 11:53] VITALS: BMI 20.7
[2018-09-04] MEDS: LORazepam 2 MG/ML INJ IV PRN ×5 (12:05→21:33)
--- NOTE | 2018-09-04 12:07 | P.HPIM ---
History of Present Illness This is a pleasant 48 he sold male with past medical history of alcoholic liver disease and alcoholic hepatitis, alcohol abuse, alcohol withdrawal, mild pancreatitis, who presents because of signs symptoms of alcohol withdrawal-like tremor and nervousness, patient states at feel horrible. Usually he drinks 5- 10 cans of beer every day of the big size. His last drink was 1 day prior to admission. He has some cough with little bit rapid breathing rate. No chest pain he has some stomach upset. On admission his labs including CBC and BMP were unremarkable, his sugars is controlled, on admission he was dehydrated and he got IV fluids, and he was started with Ativan when necessary. I asked patient for urine drug screen and he agrees Review of Systems CONSTITUTIONAL: No fever, no malaise, no fatigue. HEENT: No recent visual problems or hearing problems. Denied any sore throat. CARDIOVASCULAR: No orthopnea, PND, no palpitations, no syncope. PULMONARY: No shortness of breath, no cough, no hemoptysis. GASTROINTESTINAL: No diarrhea, no nausea, no vomiting, no abdominal pain. Normoactive bowel sounds. NEUROLOGICAL: No headaches, no weakness, no numbness. HEMATOLOGICAL: Denies any bleeding or petechiae. GENITOURINARY: Denies any burning micturition, frequency, or urgency. MUSCULOSKELETAL/RHEUMATOLOGICAL: Denies any joint pain, swelling, or any muscle pain. ENDOCRINE: Denies any polyuria or polydipsia. Past Medical History Past Medical History: No Reported History Additional Past Medical History / Comment(s): alcoholic History of Any Multi-Drug Resistant Organisms: None Reported Past Surgical History: Hernia Repair, Tonsillectomy Past Psychological History: Anxiety, Depression Smoking Status: Current every day smoker Past Alcohol Use History: Abuse, Daily, Heavy Past Drug Use History: None Reported, Marijuana - Past Family History Brother(s) Family Medical History: Osteoarthritis (OA) Mother Additional Family Medical History / Comment(s): pulmonary fibrosis Medications and Allergies Home Medications Medication Instructions Recorded Confirmed Type Sertraline [Zoloft] 50 mg PO DAILY 02/22/18 09/04/18 History Allergies Allergy/AdvReac Type Severity Reaction Status Date / Time No Known Allergies Allergy Verified 09/04/18 08:49 Physical Exam Vitals: Vital Signs Temp Pulse Resp BP Pulse Ox 09/04/18 10:46 97.9 F 88 20 122/72 97 09/04/18 05:40 98.2 F 73 36 H 124/64 98 Intake and Output 09/03/18 09/04/18 09/04/18 22:59 06:59 14:59 Other: Weight 65.771 kg GENERAL: The patient is alert and oriented x3, not in any acute distress. Well developed, well nourished. HEENT: Pupils are round and equally reacting to light. EOMI. No scleral icterus. No conjunctival pallor. Normocephalic, atraumatic. No pharyngeal erythema. No thyromegaly. CARDIOVASCULAR: S1 and S2 present. No murmurs, rubs, or gallops. PULMONARY: Chest is clear to auscultation, no wheezing or crackles. ABDOMEN: Soft, nontender, nondistended, normoactive bowel sounds. No palpable organomegaly. MUSCULOSKELETAL: No joint swelling or deformity. EXTREMITIES: No cyanosis, clubbing, or pedal edema. NEUROLOGICAL: Gross neurological examination did not reveal any focal deficits. SKIN: No rashes. Results CBC & Chem 7: 09/04/18 06:15 09/04/18 06:15 Labs: Abnormal Lab Results - Last 24 Hours (Table) 09/04/18 09/04/18 Range/Units 06:15 06:15 BUN 4 L (9-20) mg/dL Glucose 147 H (74-99) mg/dL AST 89 H (17-59) U/L Urine Protein Trace H (Negative) Serum Alcohol 231 H* mg/dL Assessment and Plan Assessment: Acute alcohol intoxication Severe alcohol abuse Currently everyday smoker Plan: This is a pleasant 48 years old male who presents with alcohol withdrawal. Continue with see what protocol, multivitamin, fluid management and consult psych consult. Labs and medication were reviewed.. Continue same treatment. Continue with symptomatic treatment. Resume home medication. Monitor lytes and vitals. DVT and GI prophylaxis. Further recommendations of the clinical course of the patient DVT prophylaxis: Subcutaneous heparin GI Prophylaxis: Pepcid PT/OT: Pending Prognosis is guarded
[2018-09-04] MEDS: HEPARIN SODIUM,PORCINE 5,000 UNIT/ML 1 ML VIAL SQ SCH ×2 (12:17→21:31)
[2018-09-04] MEDS: THIAMINE 100 MG TAB PO SCH (12:46)
[2018-09-04] MEDS: PANTOPRAZOLE 40 MG/10 ML VIAL IVP SCH (12:46)
--- NOTE | 2018-09-04 13:46 | XR ---
EXAMINATION TYPE: XR chest 1V DATE OF EXAM: 09/04/2018 COMPARISON: 04/28/2016 INDICATION: Coughing TECHNIQUE: Single frontal view of the chest is obtained. FINDINGS: The heart size is normal. The pulmonary vasculature is normal. The lungs are clear. IMPRESSION: 1. No acute pulmonary process.
[2018-09-04] MEDS: ONDANSETRON 4 MG/2 ML VIAL IVP PRN (18:08)
[2018-09-04] MEDS: metroNIDAZOLE 500 MG TAB PO SCH (21:31)
[2018-09-05] MEDS: LORazepam 2 MG/ML INJ IV PRN ×7 (03:38→21:14)
[2018-09-05] MEDS: ONDANSETRON 4 MG/2 ML VIAL IVP PRN (03:38)
[2018-09-05] MEDS ORDERED: GABAPENTIN 100 MG CAP PO STA (07:56)
[2018-09-05] MEDS ORDERED: DIAZEPAM 5 MG TAB PO STA (08:01)
[2018-09-05] MEDS: metroNIDAZOLE 500 MG TAB PO SCH ×3 (08:24→21:14)
[2018-09-05] MEDS: HEPARIN SODIUM,PORCINE 5,000 UNIT/ML 1 ML VIAL SQ SCH ×2 (08:24→21:14)
[2018-09-05] MEDS: PANTOPRAZOLE 40 MG/10 ML VIAL IVP SCH (08:24)
[2018-09-05] MEDS: MULTIVITAMINS, THERA 1 EACH TAB PO SCH (08:25)
[2018-09-05 08:27] LABS: Anion Gap 9 mmol/L; Blood Urea Nitrogen 6 mg/dL (9-20); Calcium 9.2 mg/dL (8.4-10.2); Carbon Dioxide 27 mmol/L (22-30); Chloride 100 mmol/L (98-107); Glucose 104 mg/dL (74-99); Magnesium 1.8 mg/dL (1.6-2.3); Potassium 3.9 mmol/L (3.5-5.1); Sodium 136 mmol/L (137-145)
[2018-09-05] MEDS: GABAPENTIN 100 MG CAP PO SCH ×2 (09:24→21:14)
[2018-09-05] MEDS: THIAMINE 100 MG TAB PO SCH ×2 (09:24→15:29)
[2018-09-05] MEDS: FOLIC ACID 1 MG TAB PO SCH (09:24)
--- NOTE | 2018-09-05 11:03 | P.PN ---
Subjective This is a pleasant 48 he sold male with past medical history of alcoholic liver disease and alcoholic hepatitis, alcohol abuse, alcohol withdrawal, mild pancreatitis, who presents because of signs symptoms of alcohol withdrawal-like tremor and nervousness, patient states at feel horrible. Usually he drinks 5- 10 cans of beer every day of the big size. His last drink was 1 day prior to admission. He has some cough with little bit rapid breathing rate. No chest pain he has some stomach upset. On admission his labs including CBC and BMP were unremarkable, his sugars is controlled, on admission he was dehydrated and he got IV fluids, and he was started with Ativan when necessary. I asked patient for urine drug screen and he agrees 09/05/2018 Patient is more agitated and anxious today with shakiness in his hands. Patient states that he wanted to leave because he didn't want to lose his job, I told the patient today is Thursday, however he wants his benzodiazepine dose to be increased, we given 1 extra dose of Valium 5 mg and he agrees to stay today. Patient denies suicidal ideations or hallucinations or delusions. He still have some mild cough but his breathing looks fine. He has still some gastric upset we increased his Protonix dose temporarily. Patient still has diarrhea however his abdominal pain from yesterday is improved. Patient is on Flagyl and C. diff is negative. Further stool studies like leukocytes and culture are still pending. Patient is updated with the treatment plan and he agrees. Sodium is 136. Creatinine 0.7. Magnesium 1.8 Objective - Vital Signs Vital signs: Vital Signs Temp 98.1 F 09/04/18 21:30 Pulse 102 H 09/04/18 21:30 Resp 17 09/04/18 21:30 BP 122/79 09/04/18 21:30 Pulse Ox 98 09/04/18 21:30 Intake & Output 09/04/18 09/05/18 09/05/18 18:59 06:59 18:59 Intake Total 0 Balance 0 Weight 65.771 kg 65.771 kg Intake: Oral 0 Other: Voiding Method Toilet Toilet # Voids 1 - Exam -GENERAL: The patient is alert and oriented x3, not in any acute distress. Patient looks anxious and slightly agitated. HEENT: Pupils are round and equally reacting to light. EOMI. No scleral icterus. No conjunctival pallor. Normocephalic, atraumatic. No pharyngeal erythema. No thyromegaly. CARDIOVASCULAR: S1 and S2 present. No murmurs, rubs, or gallops. PULMONARY: Chest is clear to auscultation, no wheezing or crackles. ABDOMEN: Soft, nontender, nondistended, normoactive bowel sounds. No palpable organomegaly. MUSCULOSKELETAL: No joint swelling or deformity. -EXTREMITIES: No cyanosis, clubbing, or pedal edema. Patient has shakiness and tremor in his arms NEUROLOGICAL: Gross neurological examination did not reveal any focal deficits. SKIN: No rashes. - Labs CBC & Chem 7: 09/04/18 06:15 09/05/18 07:02 Assessment and Plan Assessment: Acute alcohol intoxication Severe alcohol abuse Gastroenteritis Currently everyday smoker Plan: This is a pleasant 48 years old male who presents with alcohol withdrawal. Continue with see what protocol, multivitamin, fluid management and consult psych consult. Labs and medication were reviewed.. Continue same treatment. Continue with symptomatic treatment. Resume home medication. Monitor lytes and vitals. DVT and GI prophylaxis. Further recommendations of the clinical course of the patient DVT prophylaxis: Subcutaneous heparin GI Prophylaxis: Pepcid PT/OT: Pending Prognosis is guarded
[2018-09-05] MEDS ORDERED: PANTOPRAZOLE 40 MG TABLET PO SCH (21:00)
[2018-09-06 07:56] LABS: Anion Gap 7 mmol/L; Blood Urea Nitrogen 7 mg/dL (9-20); Calcium 9.4 mg/dL (8.4-10.2); Carbon Dioxide 27 mmol/L (22-30); Chloride 103 mmol/L (98-107); Glucose 110 mg/dL (74-99); Magnesium 1.9 mg/dL (1.6-2.3); Potassium 4.6 mmol/L (3.5-5.1); Sodium 137 mmol/L (137-145)
[2018-09-06] MEDS: metroNIDAZOLE 500 MG TAB PO SCH (08:12)
[2018-09-06] MEDS: HEPARIN SODIUM,PORCINE 5,000 UNIT/ML 1 ML VIAL SQ SCH (08:12)
[2018-09-06] MEDS: THIAMINE 100 MG TAB PO SCH (08:13)
[2018-09-06] MEDS: GABAPENTIN 100 MG CAP PO SCH (08:13)
[2018-09-06] MEDS: FOLIC ACID 1 MG TAB PO SCH (08:13)
[2018-09-06] MEDS: MULTIVITAMINS, THERA 1 EACH TAB PO SCH (08:13)
--- NOTE | 2018-09-06 09:55 | CONS ---
CONSULTATION DATE OF SERVICE: 09/04/2018 PURPOSE OF CONSULTATION: Evaluate for substance use disorder. HISTORY OF PRESENT ILLNESS: Patient is a 48-year-old male. He was admitted for acute alcohol withdrawal. He has a diagnosis of alcoholic liver disease, alcoholic hepatitis, mild pancreatitis. 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 When I saw the patient, he indicated that he has had alcohol use going back to his late teens. He said that he has not had any significant periods of sobriety, at most he may have stopped drinking for 1 months at a time, though he was not able to tell me the last time he went even for that period of time without drinking. He was vague about how much he has been drinking on a daily basis, though suggested he drinks about 10 large size beers per day. He stated that he has not had substance use issues with any other abusive substances. He was vague about any past treatment. Patient did state that he is not aware of having had a diagnosis of delirium tremens. He says he has had some episodes during withdrawal, where he was shaking quite a bit, though he did not give any information that indicated that he may have had a withdrawal related seizure. One concern he has about his current situation is that he is trying to obtain a new job and that there would be drug testing which would be impacted by his current need to be on Ativan. When I talked to the patient, he was disorganized in his thoughts to where it was difficult to get much reliable information from him. It is noted that since admission, his vital signs have remained stable. His last blood pressure was 125/74 with a pulse of 85. His temperature was 98.9. Since admission, his vital signs have remained in that range. Patient does have some tremors and restlessness. When I reviewed issues with nursing, indicated that the patient has been cooperative. He has not had significant issues with elevated CIWA scores. He has been restless. Nurses also note that he has been disorganized in his thoughts and does not seem to be able to provide very reliable information about his history. MENTAL STATUS: Patient was lying in bed on his side. He was somewhat restless in the bed. He gave fair eye contact. He answered questions with brief responses. His thoughts were clear, though he did not seem to be able to provide much reliable details. He often would hesitate for a minute before responding and then make some comment about not being clear on the details. His affect was anxious, his mood withdrawn. He seemed somewhat distressed. ASSESSMENT: This 48-year-old male is diagnosed with alcohol dependence and acute alcohol withdrawal. He is at significant risk for developing delirium tremens given his long- term alcohol use. Nursing is providing close observation and support. He is on an appropriate withdrawal protocol. Records indicate that he had previously been on Zoloft though it was not clear when his last dose was. At this point, it is reasonable to continue him off antidepressants. The main issue in terms of mood issues relate to alcohol withdrawal, which will persist over the next 4 to 6 weeks. Antidepressants are not likely to be beneficial until after 6 weeks of acute withdrawal. I had a brief mention of use of Vivitrol or Rivea though it was clear the patient was not at a point in his mentation to gain much out of that discussion. That would be an appropriate issue down the road in follow up. I will continue to follow. JANETT / HALIE: [id number] /
--- NOTE | 2018-09-06 10:16 | CONS ---
CONSULTATION DATE OF CONSULTATION: 09/05/2018 PURPOSE OF CONSULTATION: Evaluate for alcohol dependence and alcohol withdrawal. INTERVAL HISTORY: Patient has been doing fair. He had a quiet evening last night. He sleeps fair, he wakes intermittently. When I saw the patient today, he was somewhat calmer than he was yesterday. He continues to be somewhat disorganized in his thoughts and does not provide the most reliable information. He made mention today about hoping to get out of the hospital soon because of job issues. He was unclear on the details. He has not shown significant withdrawal issues other than his general level of distress. Vital signs remain stable. His last blood pressure was 120/73 with a pulse of 84, temperature is 97.1. His highest pulse rate was yesterday evening at 102, otherwise his pulse has been in the normal range as well. He has not shown any elevation in temperature, which is the most concerning vital sign. His CIWA score is close to 0. Patient continues to describe some anxiety and sense of restlessness. Overall, he seems to be managing early acute withdrawal adequately. When I talked to the patient, he talked briefly about some discharge planning issues. We talked some about his drinking history. His manner providing information was not dissimilar from yesterday where he was vague on details. He confirmed again that his level of drinking has been about 10 large beers per day, in addition he reports that he has not had issues with other abusive substances. He has not received any Ativan so far for signs of alcohol withdrawal. When I talked to the patient, he gave fair eye contact. He was a little restless. He did not show tremors or diaphoresis. He answered questions with brief responses. He was vague on most information he provided. His mood was somewhat down. He seemed a little less distressed compared to yesterday. ASSESSMENT: I will continue the current diagnosis and treatment plan. We will continue treatment the same. Nursing is providing close observation support for risks of serious withdrawal issues. The patient has shown no signs of serious withdrawal. I again made mention to the patient of possible use of Vivitrol or Rivea as a help in reducing alcohol relapse. I made mention of treatment options. The patient indicated that he was not looking towards an inpatient substance abuse rehab program because of his job situation. He would consider getting involved in outpatient follow up. I will continue to follow. MMODL / IJN: [id number] /
[2018-09-06 12:26] VITALS: BP 122/79; PULSE 87; RESP 22; TEMP 97.7
--- NOTE | 2018-09-13 22:53 | P.DS ---
Providers Date of admission: 09/04/18 10:10 Expected date of discharge: 09/06/18 Attending physician: Emeterio Marcano Consults: 09/04/18 12:20 Consult Physician Routine Consulting Provider: Kaushik Shay Consult Reason/Comments: ETOH/delirium Do you want consulting provider notified?: Already Contacted Primary care physician: Stated None Hospital Course: Discharge diagnosis Acute alcohol intoxication on admission. Acute alcohol withdrawal symptoms Severe alcohol abuse Gastroenteritis Currently everyday smoker. Counseled extensively Hospital course This is a pleasant 48 he sold male with past medical history of alcoholic liver disease and alcoholic hepatitis, alcohol abuse, alcohol withdrawal, mild pancreatitis, who presents because of signs symptoms of alcohol withdrawal-like tremor and nervousness, patient states at feel horrible. Usually he drinks 5- 10 cans of beer every day of the big size. His last drink was 1 day prior to admission. He has some cough with little bit rapid breathing rate. No chest pain he has some stomach upset. On admission his labs including CBC and BMP were unremarkable, his sugars is controlled, on admission he was dehydrated and he got IV fluids, and he was started with Ativan when necessary. I asked patient for urine drug screen and he agrees 09/05/2018 Patient is more agitated and anxious today with shakiness in his hands. Patient states that he wanted to leave because he didn't want to lose his job, I told the patient today is Thursday, however he wants his benzodiazepine dose to be increased, we given 1 extra dose of Valium 5 mg and he agrees to stay today. Patient denies suicidal ideations or hallucinations or delusions. He still have some mild cough but his breathing looks fine. He has still some gastric upset we increased his Protonix dose temporarily. Patient still has diarrhea however his abdominal pain from yesterday is improved. Patient is on Flagyl and C. diff is negative. Further stool studies like leukocytes and culture are still pending. Patient is updated with the treatment plan and he agrees. Sodium is 136. Creatinine 0.7. Magnesium 1.8 09/06/2018 Patient is more awake and oriented. Requiring less doses of Ativan IV. Denied any complaints of chest pain or shortness of breath. No nausea vomiting or abdominal pain. Patient was be discharged home. Patient will be given Librium 5 mg tablets for next 3 days every 6 hourly when necessary for withdrawal symptoms. Smoking and alcohol abuse has been counseled extensively. PHYSICAL EXAMINATION: Patient is lying in the bed comfortably, no acute distress, awake alert and oriented.. HEENT: Normocephalic. Neck is supple. Pupils reactive. Nostrils clear. Oral cavity is moist. Ears reveal no drainage. Neck reveals no JVD, carotid bruits, or thyromegaly. CHEST EXAMINATION: Trachea is central. Symmetrical expansion. Lung pierre clear to auscultation and percussion. CARDIAC: Normal S1, S2 with no gallops. No murmurs ABDOMEN: Soft. Bowel sounds normal. No organomegaly. No abdominal bruits. Extremities: reveal no edema. No clubbing or cyanosis Neurologically awake, alert, oriented x3 with well-coordinated movements. No focal deficits noted Skin: No rash or skin lesions. Psychiatric: Coperative. Nonsuicidal Musculoskeletal: No joint swelling or deformity. Normal range of motion. Discharge vitals reviewed Patient Condition at Discharge: Fair Plan - Discharge Summary New Discharge Prescriptions: New Folic Acid 1 mg PO DAILY@1200 #30 tab Thiamine [Vitamin B-1] 100 mg PO DAILY #30 tab chlordiazePOXIDE HCL [Librium] 5 mg PO QID 3 Days #12 cap Pantoprazole [Protonix] 40 mg PO AC-BRKFST #30 tablet. Discharge Medication List Folic Acid 1 mg PO DAILY@1200 #30 tab 09/06/18 [Rx] Pantoprazole [Protonix] 40 mg PO AC-BRKFST #30 tablet. 09/06/18 [Rx] Thiamine [Vitamin B-1] 100 mg PO DAILY #30 tab 09/06/18 [Rx] chlordiazePOXIDE HCL [Librium] 5 mg PO QID 3 Days #12 cap 09/06/18 [Rx] Follow up Appointment(s)/Referral(s): None,Stated [Primary Care Provider] - 1-2 days Javon Anaya MD [REFERRING] - 1 Week Patient Instructions/Handouts: Alcohol Withdrawal (DC) Discharge Disposition: HOME SELF-CARE
== END 2018-09-06 14:47 | disposition home or self-care (01) ==
LOC: EC 05:16 → 3NMEDONC 10:10 → INTOOBSV 10:10 → UNDODISIN 09-06 14:47
PROVIDERS: ADMIT Internal Medicine; ATTEND Internal Medicine
DX: F10.239 Alcohol dependence with withdrawal, unspecified (principal); F10.229 Alcohol dependence with intoxication, unspecified; K70.10 Alcoholic hepatitis without ascites; E86.0 Dehydration; K85.90 Acute pancreatitis without necrosis or infection, unspecified; K52.9 Noninfective gastroenteritis and colitis, unspecified; Y90.7 Blood alcohol level of 200-239 mg/100 ml; F17.200 Nicotine dependence, unspecified, uncomplicated; F32.9 Major depressive disorder, single episode, unspecified; F41.9 Anxiety disorder, unspecified; K70.9 Alcoholic liver disease, unspecified; Z79.899 Other long term (current) drug therapy; Z82.61 Family history of arthritis; Z83.6 Family history of other diseases of the respiratory system
CPT/HCPCS: 96376 ×3; 96372 ×2; 96375; 96361; 96374; 99285; 36415; 80053; 80048 ×2; 83690; 83735 ×3; 85025; 81003; 87324; 80306; 71045; G0378 ×3; G0480; J2060 ×2; J1644 ×2; J2405 ×2; C9113 ×2; 80320; 99284

== ENCOUNTER 2018-09-11 06:37 | Emergency (ER) | payer OTHER ==
[2018-09-11 06:45] VITALS: RESP 20; TEMP 98.3
[2018-09-11] MEDS ORDERED: ONDANSETRON 4 MG/2 ML VIAL IVP STA (08:58)
[2018-09-11] MEDS ORDERED: SODIUM CHLORIDE 0.9% 1,000 ML IV STA (08:58)
[2018-09-11] MEDS ORDERED: LORazepam 1 MG TAB PO STA (08:58)
[2018-09-11] MEDS ORDERED: LORazepam 2 MG/ML INJ IV STA (09:05)
--- NOTE | 2018-09-11 09:08 | ED ---
General Adult HPI - General Chief complaint: Recheck/Abnormal Lab/Rx Stated complaint: ETOH Withdrawl Time Seen by Provider: 09/11/18 07:06 Source: patient, RN notes reviewed Mode of arrival: ambulatory Limitations: no limitations - History of Present Illness Initial comments: Patient is a pleasant 48-year-old male presenting to the emergency department concern for alcohol withdrawal. states he normally is a fairly big drinker. Patient last drink yesterday evening. Patient is concerned that he is going to go through withdrawals. Patient feels nauseated. Patient has spit up a little bit. Patient does not feel confused. - Related Data Home Medications Medication Instructions Recorded Confirmed Sertraline [Zoloft] 50 mg PO DAILY 02/22/18 09/04/18 Previous Rx's Medication Instructions Recorded Folic Acid 1 mg PO DAILY@1200 #30 tab 09/06/18 Pantoprazole [Protonix] 40 mg PO AC-BRKFST #30 tablet. 09/06/18 Thiamine [Vitamin B-1] 100 mg PO DAILY #30 tab 09/06/18 chlordiazePOXIDE HCL [Librium] 5 mg PO QID 3 Days #12 cap 09/06/18 Allergies Allergy/AdvReac Type Severity Reaction Status Date / Time No Known Allergies Allergy Verified 09/11/18 06:44 Review of Systems ROS Statement: Those systems with pertinent positive or pertinent negative responses have been documented in the HPI. ROS Other: All systems not noted in ROS Statement are negative. Constitutional: Denies: fever Eyes: Denies: eye pain ENT: Denies: ear pain Respiratory: Denies: cough Cardiovascular: Reports: palpitations. Denies: chest pain Endocrine: Denies: fatigue Gastrointestinal: Reports: nausea, vomiting Genitourinary: Denies: dysuria Musculoskeletal: Denies: back pain Skin: Denies: rash Neurological: Denies: weakness Psychiatric: Reports: anxiety Past Medical History Past Medical History: No Reported History Additional Past Medical History / Comment(s): alcoholic History of Any Multi-Drug Resistant Organisms: None Reported Past Surgical History: Hernia Repair, Tonsillectomy Past Anesthesia/Blood Transfusion Reactions: No Reported Reaction Past Psychological History: Anxiety, Depression Smoking Status: Current every day smoker Past Alcohol Use History: Abuse, Daily, Heavy Past Drug Use History: Marijuana - Past Family History Brother(s) Family Medical History: Osteoarthritis (OA) Mother Additional Family Medical History / Comment(s): pulmonary fibrosis General Exam Limitations: no limitations General appearance: alert, in no apparent distress Head exam: Present: atraumatic Eye exam: Present: normal appearance, PERRL ENT exam: Present: normal oropharynx Neck exam: Present: normal inspection Respiratory exam: Present: normal lung sounds bilaterally Cardiovascular Exam: Present: tachycardia GI/Abdominal exam: Present: soft. Absent: tenderness Extremities exam: Present: normal inspection Neurological exam: Present: alert Psychiatric exam: Present: anxious Skin exam: Present: normal color Course Vital Signs 09/11/18 06:42 Temperature 98.3 F Pulse Rate 121 H Respiratory 20 Rate Blood Pressure 132/90 O2 Sat by Pulse 99 Oximetry Medical Decision Making - Medical Decision Making Patient reevaluated and improved. Patient is comfortable with discharge home. Patient is advised to follow-up with [facility]. Patient Is receptive to this. - Lab Data Result diagrams: 09/11/18 07:06 09/11/18 07:06 Lab Results 09/11/18 09/11/18 Range/Units 07:06 07:06 WBC 7.1 (3.8-10.6) k/uL RBC 5.00 (4.30-5.90) m/uL Hgb 16.6 (13.0-17.5) gm/dL Hct 50.3 (39.0-53.0) % MCV 100.6 H (80.0-100.0) fL MCH 33.2 (25.0-35.0) pg MCHC 33.0 (31.0-37.0) g/dL RDW 13.6 (11.5-15.5) % Plt Count 230 (150-450) k/uL Neutrophils % 60 % Lymphocytes % 28 % Monocytes % 7 % Eosinophils % 2 % Basophils % 0 % Neutrophils # 4.3 (1.3-7.7) k/uL Lymphocytes # 2.0 (1.0-4.8) k/uL Monocytes # 0.5 (0-1.0) k/uL Eosinophils # 0.1 (0-0.7) k/uL Basophils # 0.0 (0-0.2) k/uL Sodium 142 (137-145) mmol/L Potassium 4.8 (3.5-5.1) mmol/L Chloride 106 (98-107) mmol/L Carbon Dioxide 21 L (22-30) mmol/L Anion Gap 15 mmol/L BUN 4 L (9-20) mg/dL Creatinine 0.70 (0.66-1.25) mg/dL Est GFR (CKD-EPI)AfAm >90 (>60 ml/min/1.73 sqM) Est GFR (CKD-EPI)NonAf >90 (>60 ml/min/1.73 sqM) Glucose 89 (74-99) mg/dL Calcium 8.9 (8.4-10.2) mg/dL Total Bilirubin 0.5 (0.2-1.3) mg/dL AST 93 H (17-59) U/L ALT 91 H (21-72) U/L Alkaline Phosphatase 83 (38-126) U/L Total Protein 7.8 (6.3-8.2) g/dL Albumin 4.5 (3.5-5.0) g/dL Disposition Clinical Impression: Alcohol withdrawal syndrome Disposition: HOME SELF-CARE Condition: Stable Instructions: Abuse of Alcohol (ED), Alcohol Withdrawal (ED) Additional Instructions: Gradually discontinue alcohol use. Follow-up with AA or [facility]. Return for confusion or seizures or worsening symptoms or other concerns. Is patient prescribed a controlled substance at d/c from ED?: No Referrals: Radha Lozoya MD [STAFF PHYSICIAN] - 1-2 days Time of Disposition: 10:22
[2018-09-11 09:12] LABS: Basophils % (A) 0 %; Eosinophils # (A) 0.1 k/uL (0-0.7); Eosinophils % (A) 2 %; HCT 50.3 % (39.0-53.0); HGB 16.6 gm/dL (13.0-17.5); Lymphocytes % (A) 28 %; MCH 33.2 pg (25.0-35.0); MCV 100.6 fL (80.0-100.0); Mean Platelet Volume 7.1; Monocytes # (A) 0.5 k/uL (0-1.0); Monocytes % (A) 7 %; Neutrophils # (A) 4.3 k/uL (1.3-7.7); Neutrophils % (A) 60 %; Platelet Count 230 k/uL (150-450); RDW 13.6 % (11.5-15.5); WBC 7.1 k/uL (3.8-10.6)
[2018-09-11 09:21] LABS: ALT 91 U/L (21-72); AST 93 U/L (17-59); Albumin 4.5 g/dL (3.5-5.0); Alkaline Phosphatase 83 U/L (38-126); Anion Gap 15 mmol/L; Blood Urea Nitrogen 4 mg/dL (9-20); Calcium 8.9 mg/dL (8.4-10.2); Carbon Dioxide 21 mmol/L (22-30); Chloride 106 mmol/L (98-107); Glucose 89 mg/dL (74-99); Potassium 4.8 mmol/L (3.5-5.1); Sodium 142 mmol/L (137-145); Total Bilirubin 0.5 mg/dL (0.2-1.3); Total Protein 7.8 g/dL (6.3-8.2)
[2018-09-11 11:01] VITALS: BP 118/76; PULSE 90
== END 2018-09-11 10:55 | disposition home or self-care (01) ==
LOC: EC 06:37
DX: F10.239 Alcohol dependence with withdrawal, unspecified (principal); F41.9 Anxiety disorder, unspecified; F32.9 Major depressive disorder, single episode, unspecified; F17.200 Nicotine dependence, unspecified, uncomplicated; Z79.899 Other long term (current) drug therapy; Z53.8 Procedure and treatment not carried out for other reasons
CPT/HCPCS: 82075; 36415; 80053; 85025; 99284; 96374; 96375; 96361 ×2; J2060; J2405

== ENCOUNTER 2018-09-19 12:53 | Emergency (ER) | payer OTHER ==
[2018-09-19] MEDS ORDERED: LORazepam 2 MG/ML INJ IV STA (13:04)
[2018-09-19] MEDS ORDERED: SODIUM CHLORIDE 0.9% 1,000 ML IV STA (13:04)
[2018-09-19] MEDS ORDERED: ONDANSETRON 4 MG/2 ML VIAL IVP STA (13:04)
[2018-09-19] MEDS ORDERED: FAMOTIDINE 20 MG/2 ML VIAL IV STA (13:04)
--- NOTE | 2018-09-19 13:06 | ED ---
General Adult HPI - General Chief complaint: Nausea/Vomiting/Diarrhea Stated complaint: ETOH Time Seen by Provider: 09/19/18 12:59 Source: patient, RN notes reviewed Mode of arrival: ambulatory Limitations: no limitations - History of Present Illness Initial comments: Patient 48-year-old male with significant past medical history for alcoholism, presenting to the emergency room today with a chief complaint of increased nausea and some vomiting. Patient does admit that he's been trying to stop drinking. He does admit that he's been drinking approximately a case of beer a day. States that he stopped drinking at midnight last night. States he's felt shaky this morning has been nauseated. States he has been spitting up some. Patient denies any specific abdominal pain or any other complaint. Patient denies any recent fever, chills, shortness of breath, chest pain, back pain, numbness or tingling, dysuria or hematuria, constipation, headaches or visual changes, or any other complaints. - Related Data Home Medications Medication Instructions Recorded Confirmed Acetaminophen Tab [Tylenol] 500 mg PO DAILY 09/19/18 09/19/18 Previous Rx's Medication Instructions Recorded Pantoprazole [Protonix] 40 mg PO AC-BRKFST #30 tablet. 09/06/18 Thiamine [Vitamin B-1] 100 mg PO DAILY #30 tab 09/06/18 LORazepam [Ativan] 1 mg PO TID 3 Days #9 tab 09/19/18 Ondansetron Odt [Zofran ODT] 4 mg PO Q8HR PRN #20 tab 09/19/18 cloNIDine HCL [Catapres] 0.1 mg PO BID #6 tab 09/19/18 Allergies Allergy/AdvReac Type Severity Reaction Status Date / Time No Known Allergies Allergy Verified 09/19/18 13:44 Review of Systems ROS Statement: Those systems with pertinent positive or pertinent negative responses have been documented in the HPI. ROS Other: All systems not noted in ROS Statement are negative. Past Medical History Past Medical History: No Reported History Additional Past Medical History / Comment(s): alcoholic History of Any Multi-Drug Resistant Organisms: None Reported Past Surgical History: Hernia Repair, Tonsillectomy Past Anesthesia/Blood Transfusion Reactions: No Reported Reaction Past Psychological History: Anxiety, Depression Smoking Status: Current every day smoker Past Alcohol Use History: Abuse, Daily, Heavy Past Drug Use History: Marijuana - Past Family History Brother(s) Family Medical History: Osteoarthritis (OA) Mother Additional Family Medical History / Comment(s): pulmonary fibrosis General Exam - General Exam Comments Initial Comments: General: The patient is awake and alert, in no distress, and does not appear acutely ill. Eye: There is normal conjunctiva bilaterally. No signs of icterus. Ears, nose, mouth and throat: There are moist mucous membranes and no oral lesions. Neck: The neck is supple, there is no tenderness or JVD. Cardiovascular: There is a regular rate and rhythm. No murmur, rub or gallop is appreciated. Respiratory: Lungs are clear to auscultation, respirations are non-labored, breath sounds are equal. No wheezes, stridor, rales, or rhonchi. Gastrointestinal: Abdomen soft on palpation. Nontender. Musculoskeletal: Normal ROM, no tenderness. Neurological: A&O x 3. CN II-XII intact, There are no obvious motor or sensory deficits. Coordination appears grossly intact. Speech is normal. Skin: Skin is warm and dry and no rashes or lesions are noted. Psychiatric: Cooperative, appropriate mood & affect, normal judgment. Limitations: no limitations Course Vital Signs 09/19/18 12:54 Temperature 98.3 F Pulse Rate 115 H Respiratory 24 Rate Blood Pressure 116/76 O2 Sat by Pulse 100 Oximetry Medical Decision Making - Medical Decision Making Patient reexamined at this time shows no signs of distress. His blood work has been reviewed. Case was discussed with attending physician Dr. Valentino. Patient doing well at this time is resting comfortable. Was discussed with patient that he does want to stop drinking. He is looking into getting into a rehab program. Patient will be given a prescription for Zofran, clonidine, Ativan for withdrawal symptoms. He is advised to follow-up with rehab. Advised return if symptoms increase worsen. - Lab Data Result diagrams: 09/19/18 13:21 09/19/18 13:21 Lab Results 09/19/18 09/19/18 Range/Units 13:21 13:21 WBC 9.0 (3.8-10.6) k/uL RBC 5.19 (4.30-5.90) m/uL Hgb 17.5 (13.0-17.5) gm/dL Hct 50.9 (39.0-53.0) % MCV 98.0 (80.0-100.0) fL MCH 33.7 (25.0-35.0) pg MCHC 34.4 (31.0-37.0) g/dL RDW 15.6 H (11.5-15.5) % Plt Count 128 L (150-450) k/uL Neutrophils % 80 % Lymphocytes % 14 % Monocytes % 3 % Eosinophils % 1 % Basophils % 0 % Neutrophils # 7.2 (1.3-7.7) k/uL Lymphocytes # 1.2 (1.0-4.8) k/uL Monocytes # 0.3 (0-1.0) k/uL Eosinophils # 0.1 (0-0.7) k/uL Basophils # 0.0 (0-0.2) k/uL Sodium 130 L (137-145) mmol/L Potassium 4.0 (3.5-5.1) mmol/L Chloride 95 L (98-107) mmol/L Carbon Dioxide 20 L (22-30) mmol/L Anion Gap 15 mmol/L BUN 5 L (9-20) mg/dL Creatinine 0.62 L (0.66-1.25) mg/dL Est GFR (CKD-EPI)AfAm >90 (>60 ml/min/1.73 sqM) Est GFR (CKD-EPI)NonAf >90 (>60 ml/min/1.73 sqM) Glucose 129 H (74-99) mg/dL Calcium 9.6 (8.4-10.2) mg/dL Total Bilirubin 1.8 H (0.2-1.3) mg/dL AST 298 H (17-59) U/L ALT 193 H (21-72) U/L Alkaline Phosphatase 143 H (38-126) U/L Total Protein 8.1 (6.3-8.2) g/dL Albumin 4.8 (3.5-5.0) g/dL Amylase 121 H (30-110) U/L Lipase 223 (23-300) U/L Disposition Clinical Impression: Alcohol withdrawal Disposition: HOME SELF-CARE Condition: Good Instructions: Alcohol Withdrawal (ED) Additional Instructions: Please use medication as discussed. Please follow-up with rehab program as discussed. Please return to emergency room if the symptoms increase or worsen or for any other concerns. Prescriptions: cloNIDine HCL [Catapres] 0.1 mg PO BID #6 tab LORazepam [Ativan] 1 mg PO TID 3 Days #9 tab Ondansetron Odt [Zofran ODT] 4 mg PO Q8HR PRN #20 tab PRN Reason: Nausea Is patient prescribed a controlled substance at d/c from ED?: No Referrals: None,Stated [Primary Care Provider] - 1-2 days Time of Disposition: 14:42
[2018-09-19 13:35] LABS: Basophils % (A) 0 %; Eosinophils # (A) 0.1 k/uL (0-0.7); Eosinophils % (A) 1 %; HCT 50.9 % (39.0-53.0); HGB 17.5 gm/dL (13.0-17.5); Lymphocytes # (A) 1.2 k/uL (1.0-4.8); Lymphocytes % (A) 14 %; MCH 33.7 pg (25.0-35.0); MCHC 34.4 g/dL (31.0-37.0); Mean Platelet Volume 8.8; Monocytes # (A) 0.3 k/uL (0-1.0); Monocytes % (A) 3 %; Neutrophils # (A) 7.2 k/uL (1.3-7.7); Neutrophils % (A) 80 %; Platelet Count 128 k/uL (150-450); RBC 5.19 m/uL (4.30-5.90); RDW 15.6 % (11.5-15.5)
[2018-09-19 13:44] LABS: ALT 193 U/L (21-72); AST 298 U/L (17-59); Albumin 4.8 g/dL (3.5-5.0); Alkaline Phosphatase 143 U/L (38-126); Amylase 121 U/L (30-110); Anion Gap 15 mmol/L; Blood Urea Nitrogen 5 mg/dL (9-20); Calcium 9.6 mg/dL (8.4-10.2); Carbon Dioxide 20 mmol/L (22-30); Chloride 95 mmol/L (98-107); Glucose 129 mg/dL (74-99); Lipase 223 U/L (23-300); Sodium 130 mmol/L (137-145); Total Bilirubin 1.8 mg/dL (0.2-1.3); Total Protein 8.1 g/dL (6.3-8.2)
[2018-09-19] MEDS ORDERED: LORazepam 1 MG TAB PO STA (14:49)
[2018-09-19 14:50] VITALS: BP 132/81; PULSE 95; RESP 18; TEMP 98.2
[2018-09-19 15:14] LABS: Appearance,Urine Clear (Clear); Bacteria,Urine Rare /hpf; Bilirubin,Urine Negative (Negative); Blood,Urine Negative (Negative); Color,Urine Yellow; Glucose,Urine (UA) Negative (Negative); Hyaline Casts,Urine 4 /lpf (0-2); Ketones,Urine 2+ (Negative); Leukocyte Esterase,Urine Negative (Negative); Mucus,Urine Many /hpf; Nitrite,Urine Negative (Negative); Protein,Urine 1+ (Negative); RBC,Urine 1 /hpf (0-5); Specific Gravity,Urine 1.016 (1.001-1.035)
== END 2018-09-19 14:59 | disposition home or self-care (01) ==
LOC: EC 12:53
DX: F10.239 Alcohol dependence with withdrawal, unspecified (principal); R19.7 Diarrhea, unspecified; F17.200 Nicotine dependence, unspecified, uncomplicated; Z79.899 Other long term (current) drug therapy
CPT/HCPCS: 36415; 80053; 82150; 83690; 85025; 81001; 99284; 96374; 96375 ×2; 96361; J2060; J2405

== ENCOUNTER 2018-12-09 03:08 | Inpatient (IN) | payer OTHER ==
--- NOTE | 2018-12-09 03:12 | ED ---
General Adult HPI - General Stated complaint: Alcohol withdrawl - History of Present Illness Initial comments: Addison is a 48-year-old alcoholic male who presents to the emergency department today for evaluation of alcohol withdrawal. Patient believes his last drink was yesterday morning the night before. He reports at this time he feels very shaky anxious. Patient has been through alcohol withdrawal multiple times in the past. When asked the patient why he hadn't been drinking and if he intended to quit he stated that he didn't know - Related Data Home Medications Medication Instructions Recorded Confirmed Acetaminophen Tab [Tylenol] 500 mg PO DAILY 09/19/18 09/19/18 Previous Rx's Medication Instructions Recorded Pantoprazole [Protonix] 40 mg PO AC-BRKFST #30 tablet. 09/06/18 Thiamine [Vitamin B-1] 100 mg PO DAILY #30 tab 09/06/18 LORazepam [Ativan] 1 mg PO TID 3 Days #9 tab 09/19/18 Ondansetron Odt [Zofran ODT] 4 mg PO Q8HR PRN #20 tab 09/19/18 cloNIDine HCL [Catapres] 0.1 mg PO BID #6 tab 09/19/18 Allergies Allergy/AdvReac Type Severity Reaction Status Date / Time No Known Allergies Allergy Verified 12/09/18 03:16 Review of Systems ROS Statement: Those systems with pertinent positive or pertinent negative responses have been documented in the HPI. ROS Other: All systems not noted in ROS Statement are negative. Past Medical History Past Medical History: No Reported History Additional Past Medical History / Comment(s): alcoholic History of Any Multi-Drug Resistant Organisms: None Reported Past Surgical History: Hernia Repair, Tonsillectomy Past Anesthesia/Blood Transfusion Reactions: No Reported Reaction Past Psychological History: Anxiety, Depression Smoking Status: Current every day smoker Past Alcohol Use History: Abuse, Daily, Heavy Past Drug Use History: Marijuana - Past Family History Brother(s) Family Medical History: Osteoarthritis (OA) Mother Additional Family Medical History / Comment(s): pulmonary fibrosis General Exam - General Exam Comments Initial Comments: Physical Exam GENERAL: Chronically ill appearing, appears older than stated age Plantar acutely distressed patient is sweating and shaking HENT: Normocephalic, Atraumatic. EYES: PERRL, EOMI PULMONARY: Tachypnea CARDIOVASCULAR: There is a regular rate and rhythm without any murmurs gallops or rubs. ABDOMEN: Soft and nontender with normal bowel sounds. Thin SKIN: Skin is clear with no lesions or rashes and otherwise unremarkable. : Deferred NEUROLOGIC: Alert to person and place, Confused about dates and timeline from the past 2 days MUSCULOSKELETAL: Normal extremities with adequate strength and full range of motion. No lower extremity swelling or edema. No calf tenderness. PSYCHIATRIC: Anxious Limitations: no limitations Course Vital Signs 12/09/18 12/09/18 12/09/18 03:12 03:46 04:44 Temperature 98.7 F Pulse Rate 116 H 99 80 Respiratory 24 20 16 Rate Blood Pressure 119/73 128/89 119/83 O2 Sat by Pulse 97 98 97 Oximetry 12/09/18 06:45 Temperature Pulse Rate 79 Respiratory 14 Rate Blood Pressure O2 Sat by Pulse 96 Oximetry EKG Findings - EKG Comments: EKG Findings:: CT was obtained at 3:36 AM, rate is 99 rhythm is sinus there is normal axis are normal intervals, TX 132, QRS 100, QTC 451no acute ST elevations or depressions no evidence of acute ischemia or infarction Medical Decision Making - Medical Decision Making The patient was seen and evaluated upon arrival emergency department, patient's initial evaluation is concerning for acute withdrawal the patient is shaking, confused, diaphoretic though his vital signs do appear well Patient's labs were ordered he has no signs of head trauma to For the confusion at this time and no feel there is any indication for imaging Patient continued to be symptomatic after initial dose of Ativan patient's labs did reveal an elevated alcohol level considering that the patient is exhibiting signs of withdrawal while having such a significant amount of alcohol remaining in his system I do have concern for impending DTs. We'll plan to admit the patient for alcohol withdrawal. - Lab Data Result diagrams: 12/09/18 03:45 12/09/18 03:45 Lab Results 12/09/18 12/09/18 Range/Units 03:45 03:45 WBC 6.2 (3.8-10.6) k/uL RBC 4.64 (4.30-5.90) m/uL Hgb 15.1 (13.0-17.5) gm/dL Hct 44.0 (39.0-53.0) % MCV 94.9 (80.0-100.0) fL MCH 32.5 (25.0-35.0) pg MCHC 34.3 (31.0-37.0) g/dL RDW 15.9 H (11.5-15.5) % Plt Count 131 L (150-450) k/uL Neutrophils % 75 % Lymphocytes % 16 % Monocytes % 5 % Eosinophils % 2 % Basophils % 0 % Neutrophils # 4.7 (1.3-7.7) k/uL Lymphocytes # 1.0 (1.0-4.8) k/uL Monocytes # 0.3 (0-1.0) k/uL Eosinophils # 0.1 (0-0.7) k/uL Basophils # 0.0 (0-0.2) k/uL Sodium 134 L (137-145) mmol/L Potassium 3.7 (3.5-5.1) mmol/L Chloride 93 L (98-107) mmol/L Carbon Dioxide 23 (22-30) mmol/L Anion Gap 18 mmol/L BUN 7 L (9-20) mg/dL Creatinine 0.51 L (0.66-1.25) mg/dL Est GFR (CKD-EPI)AfAm >90 (>60 ml/min/1.73 sqM) Est GFR (CKD-EPI)NonAf >90 (>60 ml/min/1.73 sqM) Glucose 91 (74-99) mg/dL Calcium 9.0 (8.4-10.2) mg/dL Total Bilirubin 0.8 (0.2-1.3) mg/dL AST 298 H (17-59) U/L ALT 187 H (21-72) U/L Alkaline Phosphatase 137 H (38-126) U/L Total Protein 6.9 (6.3-8.2) g/dL Albumin 4.3 (3.5-5.0) g/dL Serum Alcohol 211 H* mg/dL Disposition Clinical Impression: Alcoholic intoxication, Alcohol withdrawal delirium, Smoker Disposition: ADMITTED IP TO THIS HOSP
[2018-12-09] MEDS ORDERED: LORazepam 2 MG/ML INJ IV STA (03:23)
[2018-12-09 03:57] LABS: Basophils % (A) 0 %; Eosinophils # (A) 0.1 k/uL (0-0.7); Eosinophils % (A) 2 %; HGB 15.1 gm/dL (13.0-17.5); Lymphocytes % (A) 16 %; MCH 32.5 pg (25.0-35.0); MCHC 34.3 g/dL (31.0-37.0); MCV 94.9 fL (80.0-100.0); Mean Platelet Volume 7.9; Monocytes # (A) 0.3 k/uL (0-1.0); Monocytes % (A) 5 %; Neutrophils # (A) 4.7 k/uL (1.3-7.7); Neutrophils % (A) 75 %; Platelet Count 131 k/uL (150-450); RBC 4.64 m/uL (4.30-5.90); RDW 15.9 % (11.5-15.5); WBC 6.2 k/uL (3.8-10.6)
[2018-12-09 04:30] LABS: ALT 187 U/L (21-72); AST 298 U/L (17-59); Albumin 4.3 g/dL (3.5-5.0); Alkaline Phosphatase 137 U/L (38-126); Anion Gap 18 mmol/L; Blood Urea Nitrogen 7 mg/dL (9-20); Carbon Dioxide 23 mmol/L (22-30); Chloride 93 mmol/L (98-107); Glucose 91 mg/dL (74-99); Potassium 3.7 mmol/L (3.5-5.1); Sodium 134 mmol/L (137-145); Total Bilirubin 0.8 mg/dL (0.2-1.3); Total Protein 6.9 g/dL (6.3-8.2)
[2018-12-09 04:36] LABS: Alcohol 211 mg/dL
[2018-12-09] MEDS ORDERED: NALOXONE 0.4 MG/ML 1 ML VIAL IV PRN (05:04)
[2018-12-09] MEDS ORDERED: THIAMINE 100 MG/ML 2 ML VIAL IM STA (05:04)
[2018-12-09] MEDS: SODIUM CHLORIDE 0.9% 1,000 ML IV SCH ×2 (07:15→18:28)
[2018-12-09] MEDS: LORazepam 2 MG/ML INJ IV PRN ×6 (11:24→22:52)
[2018-12-09] MEDS: NICOTINE 21MG/24HR PATCH TRANSDERM SCH (12:20)
[2018-12-09] MEDS: MULTIVITAMINS, THERA 1 EACH TAB PO SCH (13:04)
[2018-12-09] MEDS: THIAMINE 100 MG TAB PO SCH ×2 (13:04→18:00)
[2018-12-09] MEDS: ONDANSETRON 4 MG/2 ML VIAL IVP PRN (15:27)
[2018-12-09 17:06] LABS: Glucose,Whole Blood 146 mg/dL (75-99)
--- NOTE | 2018-12-09 22:14 | P.HPIM ---
History of Present Illness H&P Date: 12/09/18 Chief Complaint: Acute alcohol intoxication Patient is a 48-year-old male with a known history of anxiety/depression, nicotine addiction, heavy alcohol abuse, marijuana use was brought to the hospital due to acute alcohol intoxication. Patient came to the hospital due to alcohol withdrawal symptoms. Patient says that his last drink was yesterday night. Patient has been very shaky and anxious and is developing withdrawal symptoms persist made him come to the hospital. Patient says that he lost his truck and felt very depressed. Patient was to quit alcohol. Otherwise denied any complaints of chest pain or shortness of breath. No nausea vomiting or diarrhea. No headache or dizziness or lightheadedness. Patient is still intoxicated but currently waking up. No fever no chills. EKG showed normal sinus rhythm. Review of Systems Constitutional: Patient denies any fever or chills . No generalized weakness or weight loss. Abdomen: Patient denied nausea vomiting and diarrhea and abdominal pain. Cardiovascular: Patient denies any chest pain or short of breath no palpitations. Respiratory: patient denied any cough is from production. No shortness of breath Neurologic: Patient denied any numbness or tingling headache. Musculoskeletal: Patient denies any complaints of joint swelling or deformity. Skin: Negative Psychiatric: Anxious Endocrine: No heat or cold intolerance. No recent weight gain. Genitourinary: No dysuria or hematuria. All other 14 point ROS negative except the above Past Medical History Past Medical History: No Reported History Additional Past Medical History / Comment(s): alcoholic History of Any Multi-Drug Resistant Organisms: None Reported Past Surgical History: Hernia Repair, Tonsillectomy Past Anesthesia/Blood Transfusion Reactions: No Reported Reaction Past Psychological History: Anxiety, Depression Smoking Status: Current every day smoker Past Alcohol Use History: Abuse, Daily, Heavy Past Drug Use History: Marijuana - Past Family History Brother(s) Family Medical History: Osteoarthritis (OA) Mother Additional Family Medical History / Comment(s): pulmonary fibrosis Medications and Allergies Home Medications Medication Instructions Recorded Confirmed Type Multivitamins, Thera [Multivitamin 1 tab PO DAILY 12/09/18 12/09/18 History (formulary)] Allergies Allergy/AdvReac Type Severity Reaction Status Date / Time No Known Allergies Allergy Verified 12/09/18 10:00 Physical Exam Vitals: Vital Signs Temp Pulse Pulse Resp BP BP Pulse Ox 12/09/18 14:12 90 18 12/09/18 13:00 98.1 F 90 18 136/79 96 12/09/18 12:43 80 18 117/89 97 12/09/18 08:25 90 18 12/09/18 07:26 79 18 122/77 97 12/09/18 07:18 88 16 117/79 97 12/09/18 06:45 79 14 96 12/09/18 04:44 80 16 119/83 97 12/09/18 03:46 99 20 128/89 98 12/09/18 03:12 98.7 F 116 H 24 119/73 97 Intake and Output 12/09/18 12/09/18 12/09/18 06:59 14:59 22:59 Intake Total 360 Balance 360 Intake: Oral 360 Other: # Voids 5 Weight 68.039 kg PHYSICAL EXAMINATION: Patient is lying in the bed comfortably, no acute distress, awake alert and oriented.. HEENT: Normocephalic. Neck is supple. Pupils reactive. Nostrils clear. Oral cavity is moist. Ears reveal no drainage. Neck reveals no JVD, carotid bruits, or thyromegaly. CHEST EXAMINATION: Trachea is central. Symmetrical expansion. Lung pierre clear to auscultation and percussion. CARDIAC: Normal S1, S2 with no gallops. No murmurs ABDOMEN: Soft. Bowel sounds normal. No organomegaly. No abdominal bruits. Extremities: reveal no edema. No clubbing or cyanosis Neurologically awake, alert, oriented x3 with well-coordinated movements. No focal deficits noted Skin: No rash or skin lesions. Psychiatric: Coperative. Nonsuicidal. Anxious and shaky. Musculoskeletal: No joint swelling or deformity. Normal range of motion. Results CBC & Chem 7: 12/09/18 03:45 12/09/18 03:45 Labs: Abnormal Lab Results - Last 24 Hours (Table) 12/09/18 12/09/18 Range/Units 03:45 03:45 RDW 15.9 H (11.5-15.5) % Plt Count 131 L (150-450) k/uL Sodium 134 L (137-145) mmol/L Chloride 93 L (98-107) mmol/L BUN 7 L (9-20) mg/dL Creatinine 0.51 L (0.66-1.25) mg/dL AST 298 H (17-59) U/L ALT 187 H (21-72) U/L Alkaline Phosphatase 137 H (38-126) U/L Serum Alcohol 211 H* mg/dL Thrombosis Risk Factor Assmnt - DVT/VTE Prophylaxis DVT/VTE Prophylaxis: Pharmacologic Prophylaxis ordered - Choose All That Apply Each Factor Represents 1 point: Age 41-60 years Thrombosis Risk Factor Assessment Total Risk Factor Score: 1 Thrombosis Risk Factor Assessment Level: Low Risk Assessment and Plan Assessment: Acute alcohol intoxication with level 211 Elevated liver enzymes likely due to alcoholic hepatitis. DVT prophylaxis Acute alcohol withdrawal symptoms Anxiety/depression Nicotine addiction Severe alcohol abuse Marijuana use Mild thrombocytopenia secondary to alcohol abuse DVT prophylaxis Plan: Patient be continued on IV hydration. Continue with thiamine and multivitamins. Monitor for alcohol withdrawal symptoms and follow up closely. Follow up liver enzymes. Further recommendations based on the clinical course. Social work will be consulted for alcohol rehab. Time with Patient: Greater than 30
[2018-12-10 01:04] LABS: Glucose,Whole Blood 95 mg/dL (75-99)
[2018-12-10 02:19] LABS: Glucose,Whole Blood 91 mg/dL (75-99)
[2018-12-10] MEDS: LORazepam 2 MG/ML INJ IV PRN ×8 (02:40→22:20)
[2018-12-10 07:25] LABS: Glucose,Whole Blood 89 mg/dL (75-99)
[2018-12-10] MEDS: NICOTINE 21MG/24HR PATCH TRANSDERM SCH (08:10)
[2018-12-10] MEDS: ONDANSETRON 4 MG/2 ML VIAL IVP PRN ×2 (08:10→14:03)
[2018-12-10 08:33] LABS: Anisocytosis Slight; Basophils % (A) 0 %; Eosinophils # (A) 0.1 k/uL (0-0.7); Eosinophils % (A) 4 %; HCT 44.5 % (39.0-53.0); HGB 14.7 gm/dL (13.0-17.5); Lymphocytes # (A) 0.6 k/uL (1.0-4.8); Lymphocytes % (A) 18 %; MCH 31.5 pg (25.0-35.0); MCV 95.4 fL (80.0-100.0); Mean Platelet Volume 9.6; Monocytes # (A) 0.1 k/uL (0-1.0); Monocytes % (A) 3 %; Neutrophils # (A) 2.6 k/uL (1.3-7.7); Neutrophils % (A) 74 %; RBC 4.67 m/uL (4.30-5.90); RDW 16.1 % (11.5-15.5); WBC 3.5 k/uL (3.8-10.6)
[2018-12-10 08:39] LABS: ALT 281 U/L (21-72); AST 391 U/L (17-59); Albumin 3.7 g/dL (3.5-5.0); Alkaline Phosphatase 132 U/L (38-126); Anion Gap 10 mmol/L; Blood Urea Nitrogen 9 mg/dL (9-20); Calcium 9.1 mg/dL (8.4-10.2); Carbon Dioxide 25 mmol/L (22-30); Chloride 101 mmol/L (98-107); Glucose 89 mg/dL (74-99); Potassium 3.7 mmol/L (3.5-5.1); Sodium 136 mmol/L (137-145); Total Bilirubin 1.4 mg/dL (0.2-1.3); Total Protein 6.4 g/dL (6.3-8.2)
[2018-12-10] MEDS: SODIUM CHLORIDE 0.9% 1,000 ML IV SCH ×2 (10:33→20:35)
[2018-12-10 10:41] LABS: Platelet Count 84 k/uL (150-450); Target Cells Present
[2018-12-10 11:51] LABS: Glucose,Whole Blood 112 mg/dL (75-99)
[2018-12-10] MEDS: MULTIVITAMINS, THERA 1 EACH TAB PO SCH (12:05)
[2018-12-10] MEDS: THIAMINE 100 MG TAB PO SCH ×2 (12:05→16:48)
[2018-12-10] MEDS: PANTOPRAZOLE 40 MG TABLET PO SCH (14:43)
[2018-12-10 17:31] LABS: Glucose,Whole Blood 117 mg/dL (75-99)
[2018-12-10 20:49] LABS: Glucose,Whole Blood 160 mg/dL (75-99)
[2018-12-11] MEDS: LORazepam 2 MG/ML INJ IV PRN ×8 (00:20→23:02)
[2018-12-11] MEDS: SODIUM CHLORIDE 0.9% 1,000 ML IV SCH ×2 (04:30→21:31)
[2018-12-11 06:49] LABS: Glucose,Whole Blood 96 mg/dL (75-99)
[2018-12-11] MEDS: NICOTINE 21MG/24HR PATCH TRANSDERM SCH (09:57)
[2018-12-11] MEDS: PANTOPRAZOLE 40 MG TABLET PO SCH (09:57)
[2018-12-11] MEDS: MULTIVITAMINS, THERA 1 EACH TAB PO SCH (11:26)
[2018-12-11] MEDS: THIAMINE 100 MG TAB PO SCH ×2 (11:26→16:13)
[2018-12-11 11:29] LABS: Glucose,Whole Blood 110 mg/dL (75-99)
[2018-12-11 13:56] VITALS: BMI 21.5
[2018-12-11 17:55] LABS: Glucose,Whole Blood 125 mg/dL (75-99)
[2018-12-11 19:56] LABS: Glucose,Whole Blood 113 mg/dL (75-99)
[2018-12-11 22:21] VITALS: BP 130/85; PULSE 89; RESP 16; TEMP 98
[2018-12-12] MEDS: LORazepam 2 MG/ML INJ IV PRN (00:17)
--- NOTE | 2018-12-12 01:14 | P.PN ---
Subjective Progress Note Date: 12/11/18 Principal diagnosis: Acute alcohol intoxication Alcoholic hepatitis Patient is a 48-year-old male with a known history of anxiety/depression, nicotine addiction, heavy alcohol abuse, marijuana use was brought to the hospital due to acute alcohol intoxication. Patient came to the hospital due to alcohol withdrawal symptoms. Patient says that his last drink was yesterday night. Patient has been very shaky and anxious and is developing withdrawal symptoms persist made him come to the hospital. Patient says that he lost his truck and felt very depressed. Patient was to quit alcohol. Otherwise denied any complaints of chest pain or shortness of breath. No nausea vomiting or diarrhea. No headache or dizziness or lightheadedness. Patient is still intoxicated but currently waking up. No fever no chills. EKG showed normal sinus rhythm. 12/11/2018 Patient is awake and alert and oriented. Did not require IV Ativan and this morning. Otherwise patient is generally weak and unable to ambulate without support. PT OT will be consulted. Continue to monitor for withdrawal symptoms. Repeat LFTs tomorrow. No complaints of chest pain or shortness of breath. No nausea vomiting or diarrhea. Tolerating oral diet. Current medications reviewed. Objective - Vital Signs Vital signs: Vital Signs Temp 98.0 F 12/11/18 21:00 Pulse 89 12/11/18 21:00 Resp 16 12/11/18 21:00 BP 130/85 12/11/18 21:00 Pulse Ox 97 12/11/18 21:00 Intake & Output 12/11/18 12/11/18 12/12/18 06:59 18:59 06:59 Intake Total 1425 240 Output Total 1153 Balance 1425 -913 Weight 68.039 kg Intake: Intake, IV Titration 900 Amount Sodium Chloride 0.9% 1, 900 000 ml @ 100 mls/hr IV . Q10H [facility] Rx#:[id number] Oral 525 240 Output: Urine 1150 Stool 3 Other: Voiding Method Bedside Commode Bedside Commode Diaper Diaper # Voids 1 2 # Bowel Movements 2 - Exam PHYSICAL EXAMINATION: Patient is lying in the bed comfortably, no acute distress, awake alert and oriented. Generalized weakness. HEENT: Normocephalic. Neck is supple. Pupils reactive. Nostrils clear. Oral cav ity is moist. Ears reveal no drainage. Neck reveals no JVD, carotid bruits, or thyromegaly. CHEST EXAMINATION: Trachea is central. Symmetrical expansion. Lung pierre clear to auscultation and percussion. CARDIAC: Normal S1, S2 with no gallops. No murmurs ABDOMEN: Soft. Bowel sounds normal. No organomegaly. No abdominal bruits. Extremities: reveal no edema. No clubbing or cyanosis Neurologically awake, alert, oriented x3 with well-coordinated movements. No focal deficits noted Skin: No rash or skin lesions. Psychiatric: Coperative. Nonsuicidal Musculoskeletal: No joint swelling or deformity. Normal range of motion. - Labs CBC & Chem 7: 12/10/18 07:34 12/10/18 07:34 Labs: Abnormal Lab Results - Last 24 Hours (Table) 12/11/18 12/11/18 12/11/18 Range/Units 11:19 17:54 19:55 POC Glucose (mg/dL) 110 H 125 H 113 H (75-99) mg/dL Microbiology - Last 24 Hours (Table) 12/10/18 17:23 Stool Culture - Preliminary Stool Assessment and Plan Assessment: Acute alcohol intoxication with level 211 Elevated liver enzymes likely due to alcoholic hepatitis. DVT prophylaxis Acute alcohol withdrawal symptoms Anxiety/depression Nicotine addiction Severe alcohol abuse Marijuana use Mild thrombocytopenia secondary to alcohol abuse DVT prophylaxis Plan: Patient be continued on IV hydration. Continue with thiamine and multivitamins. Monitor for alcohol withdrawal symptoms and follow up closely. Follow up liver enzymes. Further recommendations based on the clinical course. Social work will be consulted for alcohol rehab. Time with Patient: Greater than 30
--- NOTE | 2018-12-12 01:15 | P.PN ---
Subjective Progress Note Date: 12/10/18 Principal diagnosis: Acute alcohol intoxication Alcoholic hepatitis Patient is a 48-year-old male with a known history of anxiety/depression, nicotine addiction, heavy alcohol abuse, marijuana use was brought to the hospital due to acute alcohol intoxication. Patient came to the hospital due to alcohol withdrawal symptoms. Patient says that his last drink was yesterday night. Patient has been very shaky and anxious and is developing withdrawal symptoms persist made him come to the hospital. Patient says that he lost his truck and felt very depressed. Patient was to quit alcohol. Otherwise denied any complaints of chest pain or shortness of breath. No nausea vomiting or diarrhea. No headache or dizziness or lightheadedness. Patient is still intoxicated but currently waking up. No fever no chills. EKG showed normal sinus rhythm. 12/10/2018 Patient is awake and alert and oriented. Patient is requiring IV Ativan.. Otherwise patient is generally weak and unable to ambulate without support. PT OT will be consulted. Continue to monitor for withdrawal symptoms. Repeat LFTs tomorrow. No complaints of chest pain or shortness of breath. No nausea vomiting or diarrhea. Tolerating oral diet. Current medications reviewed. Objective - Vital Signs Vital signs: Vital Signs Temp 97.6 F 12/10/18 19:49 Pulse 85 12/10/18 19:49 Resp 16 12/10/18 19:49 BP 123/75 12/10/18 19:49 Pulse Ox 99 12/10/18 19:49 Intake & Output 12/10/18 12/10/18 12/11/18 06:59 18:59 06:59 Intake Total 1140 525 Output Total 8 Balance 1140 -8 525 Intake: Intake, IV Titration 900 Amount Sodium Chloride 0.9% 1, 900 000 ml @ 100 mls/hr IV . Q10H [facility] Rx#:[id number] Oral 240 525 Output: Stool 8 Other: Voiding Method Bedside Commode Bedside Commode Incontinent Diaper # Voids 2 5 1 # Bowel Movements 2 2 - Exam PHYSICAL EXAMINATION: Patient is lying in the bed comfortably, no acute distress, awake alert and oriented. Generalized weakness. HEENT: Normocephalic. Neck is supple. Pupils reactive. Nostrils clear. Oral cavity is moist. Ears reveal no drainage. Neck reveals no JVD, carotid bruits, or thyromegaly. CHEST EXAMINATION: Trachea is central. Symmetrical expansion. Lung pierre clear to auscultation and percussion. CARDIAC: Normal S1, S2 with no gallops. No murmurs ABDOMEN: Soft. Bowel sounds normal. No organomegaly. No abdominal bruits. Extremities: reveal no edema. No clubbing or cyanosis Neurologically awake, alert, oriented x3 with well-coordinated movements. No focal deficits noted Skin: No rash or skin lesions. Psychiatric: Coperative. Nonsuicidal Musculoskeletal: No joint swelling or deformity. Normal range of motion. - Labs CBC & Chem 7: 12/10/18 07:34 12/10/18 07:34 Labs: Abnormal Lab Results - Last 24 Hours (Table) 12/10/18 12/10/18 12/10/18 Range/Units 07:34 07:34 11:48 WBC 3.5 L (3.8-10.6) k/uL RDW 16.1 H (11.5-15.5) % Plt Count 84 L (150-450) k/uL Lymphocytes # 0.6 L (1.0-4.8) k/uL Sodium 136 L (137-145) mmol/L Creatinine 0.57 L (0.66-1.25) mg/dL POC Glucose (mg/dL) 112 H (75-99) mg/dL Total Bilirubin 1.4 H (0.2-1.3) mg/dL AST 391 H (17-59) U/L ALT 281 H (21-72) U/L Alkaline Phosphatase 132 H (38-126) U/L 12/10/18 12/10/18 Range/Units 17:30 20:45 WBC (3.8-10.6) k/uL RDW (11.5-15.5) % Plt Count (150-450) k/uL Lymphocytes # (1.0-4.8) k/uL Sodium (137-145) mmol/L Creatinine (0.66-1.25) mg/dL POC Glucose (mg/dL) 117 H 160 H (75-99) mg/dL Total Bilirubin (0.2-1.3) mg/dL AST (17-59) U/L ALT (21-72) U/L Alkaline Phosphatase (38-126) U/L Microbiology - Last 24 Hours (Table) 12/10/18 17:23 Stool Culture - Preliminary Stool Assessment and Plan Assessment: Acute alcohol intoxication with level 211 Elevated liver enzymes likely due to alcoholic hepatitis. DVT prophylaxis Acute alcohol withdrawal symptoms Anxiety/depression Nicotine addiction Severe alcohol abuse Marijuana use Mild thrombocytopenia secondary to alcohol abuse DVT prophylaxis Plan: Patient be continued on IV hydration. Continue with thiamine and multivitamins. Monitor for alcohol withdrawal symptoms and follow up closely. Follow up liver enzymes. Further recommendations based on the clinical course. Social work will be consulted for alcohol rehab. Time with Patient: Greater than 30
== END 2018-12-12 01:25 | disposition left against medical advice (07) | DRG 894 ==
LOC: EC 03:08 → 3NMEDONC 05:35
PROVIDERS: ADMIT Internal Medicine; ATTEND Internal Medicine
DX: F10.229 Alcohol dependence with intoxication, unspecified (principal); Y90.7 Blood alcohol level of 200-239 mg/100 ml; D69.59 Other secondary thrombocytopenia; F10.231 Alcohol dependence with withdrawal delirium; F17.210 Nicotine dependence, cigarettes, uncomplicated; F32.9 Major depressive disorder, single episode, unspecified; F41.9 Anxiety disorder, unspecified; K70.10 Alcoholic hepatitis without ascites; Z82.61 Family history of arthritis; Z83.6 Family history of other diseases of the respiratory system; Z79.899 Other long term (current) drug therapy
CPT/HCPCS: 36415; 80053; 80320; 83993; 85025; 87045; 87046; 96372; 96374; 96376; 99285

== ENCOUNTER 2018-12-12 03:02 | Emergency (ER) | payer OTHER ==
[2018-12-12 03:10] VITALS: RESP 18; TEMP 97.7
--- NOTE | 2018-12-12 03:17 | ED ---
Alcohol HPI - General Chief Complaint: Alcohol Stated Complaint: ETOH, Returning Post AMA [facility] Time Seen by Provider: 12/12/18 03:16 Source: patient Mode of arrival: ambulatory Limitations: no limitations - History of Present Illness Initial Comments: Addison is a 48-year-old alcoholic gentleman who presents to the emergency department today for evaluation of alcohol withdrawal. Patient was admitted to our hospital 3 days ago, he left AMA from the floor last night stating that he felt like if he just went home and had a drink he would feel better he reports he had one beer but didn't feel much better so he came back to the ER. Patient states he feels like he just needs some medications to help get him through. Patient states he does not want to be admitted at this time. - Related Data Home Medications Medication Instructions Recorded Confirmed Multivitamins, Thera [Multivitamin 1 tab PO DAILY 12/09/18 12/09/18 (formulary)] Previous Rx's Medication Instructions Recorded Thiamine [Vitamin B-1] 100 mg PO DAILY #30 tab 12/11/18 chlordiazePOXIDE HCL [Librium] 5 mg PO QID PRN 3 Days #12 cap 12/11/18 Allergies Allergy/AdvReac Type Severity Reaction Status Date / Time No Known Allergies Allergy Verified 12/09/18 10:00 Review of Systems ROS Statement: Those systems with pertinent positive or pertinent negative responses have been documented in the HPI. ROS Other: All systems not noted in ROS Statement are negative. Past Medical History Past Medical History: No Reported History Additional Past Medical History / Comment(s): alcoholic History of Any Multi-Drug Resistant Organisms: None Reported Past Surgical History: Hernia Repair, Tonsillectomy Past Anesthesia/Blood Transfusion Reactions: No Reported Reaction Past Psychological History: Anxiety, Depression Smoking Status: Current every day smoker Past Alcohol Use History: Abuse, Daily, Heavy Past Drug Use History: Marijuana - Past Family History Brother(s) Family Medical History: Osteoarthritis (OA) Mother Additional Family Medical History / Comment(s): pulmonary fibrosis General Exam - General Exam Comments Initial Comments: Physical Exam GENERAL: Chronically ill appearing, alcoholic Patient is nontoxic and well-hydrated and is in no distress. HENT: Normocephalic, Atraumatic. EYES: PERRL, EOMI PULMONARY: Unlabored respirations. CARDIOVASCULAR: Tachycardic, regular ABDOMEN: Soft and nontender with normal bowel sounds. SKIN: Skin is clear with no lesions or rashes and otherwise unremarkable. No diaphoresis : Deferred NEUROLOGIC: Patient is alert and oriented x3. Moving all extremities spontaneously MUSCULOSKELETAL: Normal extremities with adequate strength and full range of motion. No lower extremity swelling or edema. No calf tenderness. PSYCHIATRIC: Normal psychiatric evaluation. No delirium Limitations: no limitations Limitations: no limitations Course Vital Signs 12/12/18 12/12/18 03:04 04:15 Temperature 97.7 F Pulse Rate 118 H 100 Respiratory 18 18 Rate Blood Pressure 138/88 121/86 O2 Sat by Pulse 98 98 Oximetry Medical Decision Making - Medical Decision Making Patient was seen and evaluated history was obtained from the patient and signed patient is hemodynamically stable concerned that he will have alcohol withdrawal is not treated given that the patient does plan to continue drinking alcohol I will only treat his acute symptoms with a single dose of Librium and discharged home. Patient's agreeable to this plan. All questions pertaining care were answered return parameters were discussed patient was discharged home Disposition Clinical Impression: Alcohol withdrawal syndrome Disposition: HOME SELF-CARE Condition: Stable Instructions (If sedation given, give patient instructions): Alcohol Withdrawal (ED) Is patient prescribed a controlled substance at d/c from ED?: No Referrals: None,Stated [Primary Care Provider] - 1-2 days
[2018-12-12] MEDS ORDERED: chlordiazePOXIDE 25 MG CAP PO ONE (04:00)
[2018-12-12 04:16] VITALS: BP 121/86; PULSE 100
== END 2018-12-12 04:20 | disposition home or self-care (01) ==
LOC: EC 03:02
DX: F10.239 Alcohol dependence with withdrawal, unspecified (principal); F17.200 Nicotine dependence, unspecified, uncomplicated
CPT/HCPCS: 82075; 99284

== ENCOUNTER 2018-12-20 23:08 | Inpatient (IN) | payer OTHER ==
--- NOTE | 2018-12-20 23:30 | ED ---
General Adult HPI - General Stated complaint: ETOH Time Seen by Provider: 12/20/18 23:12 Source: patient, police, EMS Mode of arrival: EMS Limitations: altered mental status - History of Present Illness Initial comments: Addison is a pleasantly intoxicated 48-year-old male very well-known to our emergency department for his frequent visits for alcohol intoxication. Patient was brought in today by EMS after he was found rolling in the street. Police were called because he was laying in the street, upon their arrival he was rolling down the street he stated that he was drunk and he needed to go to the emergency department. Patient complains of abdominal pain from drinking too much alcohol and states that he is thirsty he would like a glass of milk and a sleeping pill. Patient cannot account for his multiple injuries and multiple stages of healing noted on his face, head, hips arms and legs. - Related Data Home Medications Medication Instructions Recorded Confirmed Multivitamins, Thera [Multivitamin 1 tab PO DAILY 12/09/18 12/09/18 (formulary)] Previous Rx's Medication Instructions Recorded Thiamine [Vitamin B-1] 100 mg PO DAILY #30 tab 12/11/18 chlordiazePOXIDE HCL [Librium] 5 mg PO QID PRN 3 Days #12 cap 12/11/18 Allergies Allergy/AdvReac Type Severity Reaction Status Date / Time No Known Allergies Allergy Verified 12/09/18 10:00 Review of Systems ROS Statement: Those systems with pertinent positive or pertinent negative responses have been documented in the HPI. ROS Other: All systems not noted in ROS Statement are negative. Past Medical History Past Medical History: No Reported History Additional Past Medical History / Comment(s): alcoholic History of Any Multi-Drug Resistant Organisms: None Reported Past Surgical History: Hernia Repair, Tonsillectomy Past Anesthesia/Blood Transfusion Reactions: No Reported Reaction Past Psychological History: Anxiety, Depression Smoking Status: Current every day smoker Past Alcohol Use History: Abuse, Daily, Heavy Past Drug Use History: Marijuana - Past Family History Brother(s) Family Medical History: Osteoarthritis (OA) Mother Additional Family Medical History / Comment(s): pulmonary fibrosis General Exam - General Exam Comments Initial Comments: Physical Exam GENERAL: Chronically ill-appearing alcoholic Underweight HENT: Well healing laceration to the pinna of the left ear with surrounding contusion no signs of infection Contusion to the left side of the face with 1.5cm diameter abrasion and fear lateral to the eye Poor dentition EYES: PERRL, EOMI PULMONARY: Unlabored respirations CARDIOVASCULAR: Tachycardic regular ABDOMEN: Scaphoid Soft and nontender with normal bowel sounds. SKIN: Multiple contusions and abrasions on the bilateral upper and lower extremities Stage II pressure ulcer on the right hip which appears to be healing : Normal external genitalia NEUROLOGIC: Oriented to person and place MUSCULOSKELETAL: Generalized muscle atrophy PSYCHIATRIC: Intoxicated nonsuicidal Limitations: no limitations Limitations: altered mental status Course Vital Signs 12/20/18 23:11 Temperature 97.9 F Pulse Rate 113 H Respiratory 19 Rate Blood Pressure 155/97 O2 Sat by Pulse 97 Oximetry Medical Decision Making - Medical Decision Making Patient was seen and evaluated history the patient police and EMS Breath alcohol 320 This is intoxicated 48-year-old gentleman multiple injuries and multiple stages of healing presenting with alcohol intoxication Labs and imaging ordered CT head with no acute findings Labs with multiple significant abnormalities including elevated alcohol level, elevated CPK consistent with acute rhabdo - IVF ordered At this time I will plan to admit the patient for alcohol intoxication with impending withdrawal as well as acute rhabdo CIWA protocol ordered - Lab Data Result diagrams: 12/21/18 00:02 12/21/18 00:02 Lab Results 12/21/18 12/21/18 Range/Units 00:02 00:02 WBC 3.8 (3.8-10.6) k/uL RBC 4.46 (4.30-5.90) m/uL Hgb 14.6 (13.0-17.5) gm/dL Hct 43.3 (39.0-53.0) % MCV 97.1 (80.0-100.0) fL MCH 32.6 (25.0-35.0) pg MCHC 33.6 (31.0-37.0) g/dL RDW 16.4 H (11.5-15.5) % Plt Count 167 D (150-450) k/uL Neutrophils % 71 % Lymphocytes % 19 % Monocytes % 6 % Eosinophils % 1 % Basophils % 1 % Neutrophils # 2.7 (1.3-7.7) k/uL Lymphocytes # 0.7 L (1.0-4.8) k/uL Monocytes # 0.2 (0-1.0) k/uL Eosinophils # 0.0 (0-0.7) k/uL Basophils # 0.0 (0-0.2) k/uL Anisocytosis Slight Sodium 131 L (137-145) mmol/L Potassium 3.6 (3.5-5.1) mmol/L Chloride 91 L (98-107) mmol/L Carbon Dioxide 21 L (22-30) mmol/L Anion Gap 19 mmol/L BUN 10 (9-20) mg/dL Creatinine 0.57 L (0.66-1.25) mg/dL Est GFR (CKD-EPI)AfAm >90 (>60 ml/min/1.73 sqM) Est GFR (CKD-EPI)NonAf >90 (>60 ml/min/1.73 sqM) Glucose 122 H (74-99) mg/dL Calcium 8.3 L (8.4-10.2) mg/dL Total Bilirubin 0.7 (0.2-1.3) mg/dL AST 313 H (17-59) U/L ALT 240 H (21-72) U/L Alkaline Phosphatase 153 H (38-126) U/L Creatine Kinase 2477 H* (55-170) U/L Total Protein 6.7 (6.3-8.2) g/dL Albumin 4.3 (3.5-5.0) g/dL Lipase 471 H (23-300) U/L Serum Alcohol 375 H* mg/dL Disposition Clinical Impression: Alcoholic hepatitis, Elevated ETOH level, Smoker, Alcoholic intoxication, Rhabdomyolysis Disposition: ADMITTED IP TO THIS [facility] Condition: Serious Referrals: None,Stated [Primary Care Provider] - 1-2 days
--- NOTE | 2018-12-21 00:28 | CT ---
History: ITS.REASON CT Reason: drunk, obvious trauma Exam: CT HEAD Without Contrast Technique more: CTDI is 45.2 mGy and DLP is 1137 mGy-cm. Technique more: This CT exam was performed using one or more of the following dose reduction techniques: automated exposure control, adjustment of the mA and/or kV according to patient size, and/or use of iterative reconstruction technique. Comparison: None available FINDINGS: No intracranial hemorrhage, mass effect or calvarial fracture. Left periorbital and facial soft tissue swelling. Ventricles are within limits and midline. The tam-white differentiation appears within limits. The paranasal sinuses, mastoids and orbits appear within limits IMPRESSION: No intracranial hemorrhage, mass effect or calvarial fracture. Left periorbital and facial soft tissue swelling. Exam: CT C SPINE Without Contrast Technique more: CTDI is 6 mGy and DLP is 204.4 mGy-cm. Technique more: This CT exam was performed using one or more of the following dose reduction techniques: automated exposure control, adjustment of the mA and/or kV according to patient size, and/or use of iterative reconstruction technique. Comparison: None available FINDINGS: No fracture or malalignment. The disc spaces appear within limits. No prevertebral soft tissue swelling. Apical emphysema with pleural parenchymal scarring IMPRESSION: No fracture or malalignment. Apical emphysema with pleural parenchymal scarring
[2018-12-21 00:48] LABS: Anisocytosis Slight; Basophils % (A) 1 %; Eosinophils % (A) 1 %; HCT 43.3 % (39.0-53.0); HGB 14.6 gm/dL (13.0-17.5); Lymphocytes # (A) 0.7 k/uL (1.0-4.8); Lymphocytes % (A) 19 %; MCH 32.6 pg (25.0-35.0); MCHC 33.6 g/dL (31.0-37.0); MCV 97.1 fL (80.0-100.0); Monocytes # (A) 0.2 k/uL (0-1.0); Monocytes % (A) 6 %; Neutrophils # (A) 2.7 k/uL (1.3-7.7); Neutrophils % (A) 71 %; RBC 4.46 m/uL (4.30-5.90); RDW 16.4 % (11.5-15.5); WBC 3.8 k/uL (3.8-10.6)
[2018-12-21 00:52] LABS: ALT 240 U/L (21-72); AST 313 U/L (17-59); Albumin 4.3 g/dL (3.5-5.0); Alkaline Phosphatase 153 U/L (38-126); Anion Gap 19 mmol/L; Blood Urea Nitrogen 10 mg/dL (9-20); Calcium 8.3 mg/dL (8.4-10.2); Carbon Dioxide 21 mmol/L (22-30); Chloride 91 mmol/L (98-107); Glucose 122 mg/dL (74-99); Lipase 471 U/L (23-300); Potassium 3.6 mmol/L (3.5-5.1); Sodium 131 mmol/L (137-145); Total Bilirubin 0.7 mg/dL (0.2-1.3); Total Protein 6.7 g/dL (6.3-8.2)
[2018-12-21 01:04] LABS: Platelet Count 167 k/uL (150-450)
[2018-12-21] MEDS ORDERED: SODIUM CHLORIDE 0.9% 2,000 ML IV STA (01:04)
[2018-12-21] MEDS ORDERED: NICOTINE 21MG/24HR PATCH TRANSDERM STA (01:07)
[2018-12-21 01:09] LABS: Creatine Kinase 2477 U/L (55-170)
[2018-12-21 01:10] LABS: Alcohol 375 mg/dL
[2018-12-21] MEDS ORDERED: NALOXONE 0.4 MG/ML 1 ML VIAL IV PRN (01:16)
[2018-12-21] MEDS ORDERED: IBUPROFEN 400 MG TAB PO PRN (01:16)
[2018-12-21] MEDS ORDERED: THIAMINE 100 MG/ML 2 ML VIAL IM STA (01:20)
[2018-12-21] MEDS ORDERED: LORazepam 2 MG/ML INJ IV PRN (01:20)
[2018-12-21] MEDS: LORazepam 2 MG/ML INJ IV PRN ×8 (01:38→22:36)
[2018-12-21] MEDS: SODIUM CHLORIDE 0.9% 1,000 ML IV SCH ×4 (02:48→22:37)
[2018-12-21 06:17] LABS: Appearance,Urine Clear (Clear); Bilirubin,Urine Negative (Negative); Blood,Urine Negative (Negative); Color,Urine Light Yellow; Glucose,Urine (UA) Negative (Negative); Ketones,Urine Trace (Negative); Leukocyte Esterase,Urine Negative (Negative); Nitrite,Urine Negative (Negative); PH, Urine 6.5 (5.0-8.0); Protein,Urine Negative (Negative); Specific Gravity,Urine 1.004 (1.001-1.035); Urobilinogen,Urine <2.0 mg/dL (<2.0)
[2018-12-21 06:23] LABS: Amphetamine Screen,Urine Not Detected (NotDetected); Barbiturate Screen,Urine Not Detected (NotDetected); Benzodiazepines Screen,Urine Not Detected (NotDetected); Cocaine Screen,Urine Not Detected (NotDetected); Methadone Screen, Urine Not Detected (NotDetected); Opiate Screen,Urine Not Detected (NotDetected); Oxycodone Screen, Urine Not Detected (NotDetected); Phencyclidine Screen,Urine Not Detected (NotDetected); Tricyclic Antidepressant,Urine Not Detected (NotDetected); Urn Cannabinoid Scrn Not Detected (NotDetected)
--- NOTE | 2018-12-21 08:05 | P.HPIM ---
History of Present Illness This is a pleasant 48 years old male with past medical history of alcohol abuse, smoker, anxiety depression. History of substance abuse including marijuana. He was brought by the police because patient was found rolling in the Street. Patient was complaining of from abdominal pain. Patient could not remember what happened exactly what he says he drinks usually fifth of whiskey every day besides 2 large chance of beer, he drinks every day through the week. He smokes cigarettes and uses marijuana as well. When I saw him patient denies chest pain or abdominal pain. He had generalized body aches and some shakiness but these are mild, his CIWA score this morning is 7. Has some nausea but no vomiting. He is tolerated his breakfast well. No weakness or abnormal sensation. However patient states that he feels depressed, however he denies current or past suicidal ideation or homicidal ideation however patient was asking to see a psychiatrist Vitas looks stable, however is tachycardic. His CBC was unremarkable. Sodium 131, potassium 3.6. Creatinine 0.5. CPK 2477, liver enzymes mostly elevated with AST 313 and ALT 240. Total bilirubin is within normal limits at 0.7. Mildly elevated lipase at 471. Serum alcohol was elevated at 375. Review of Systems CONSTITUTIONAL: No fever, no malaise, no fatigue. HEENT: No recent visual problems or hearing problems. Denied any sore throat. CARDIOVASCULAR: No orthopnea, PND, no palpitations, no syncope. PULMONARY: No shortness of breath, no cough, no hemoptysis. GASTROINTESTINAL: No diarrhea, no nausea, no vomiting, no abdominal pain. Normoactive bowel sounds. NEUROLOGICAL: No headaches, no weakness, no numbness. HEMATOLOGICAL: Denies any bleeding or petechiae. GENITOURINARY: Denies any burning micturition, frequency, or urgency. MUSCULOSKELETAL/RHEUMATOLOGICAL: Denies any joint pain, swelling, or any muscle pain. ENDOCRINE: Denies any polyuria or polydipsia. Past Medical History Past Medical History: No Reported History Additional Past Medical History / Comment(s): ETOH abuse, smoker, History of Any Multi-Drug Resistant Organisms: None Reported Past Surgical History: Hernia Repair, Tonsillectomy Past Anesthesia/Blood Transfusion Reactions: No Reported Reaction Past Psychological History: Anxiety, Depression Smoking Status: Current every day smoker Past Alcohol Use History: Abuse, Daily, Heavy Additional Past Alcohol Use History / Comment(s): Patient states he has been drinking fifths and cases of beer, he cannot recall how much how often. States his last drink was around noon. Patient states he smokes cigarattes daily, doesn't recall how much. Past Drug Use History: Marijuana Additional Drug Use History / Comment(s): Patient states he last smoked 8 months ago. - Past Family History Brother(s) Family Medical History: Osteoarthritis (OA) Mother Additional Family Medical History / Comment(s): pulmonary fibrosis Medications and Allergies Home Medications Medication Instructions Recorded Confirmed Type Multivitamins, Thera [Multivitamin 1 tab PO DAILY 12/09/18 12/09/18 History (formulary)] Thiamine [Vitamin B-1] 100 mg PO DAILY #30 tab 12/11/18 Rx chlordiazePOXIDE HCL [Librium] 5 mg PO QID PRN 3 Days #12 cap 12/11/18 Rx Allergies Allergy/AdvReac Type Severity Reaction Status Date / Time No Known Allergies Allergy Verified 12/09/18 10:00 Physical Exam Vitals: Vital Signs Temp Pulse Pulse Resp BP BP Pulse Ox 12/21/18 05:00 98 F 102 H 19 130/70 96 12/21/18 02:16 98.1 F 89 12 118/66 99 12/21/18 02:02 19 12/20/18 23:11 97.9 F 113 H 19 155/97 97 Intake and Output 12/20/18 12/21/18 12/21/18 22:59 06:59 14:59 Intake Total 2740 Balance 2740 Intake: Intake, IV Titration 2500 Amount Sodium Chloride 0.9% 1, 500 000 ml @ 125 mls/hr IV . Q8H [facility] Rx#:[id number] Sodium Chloride 0.9% 2, 2000 000 ml @ 999 mls/hr IV . Q2H1M [facility] Rx#:[id number] Oral 240 Other: Voiding Method Urinal Diaper Incontinent # Voids 4 Weight 68.039 kg GENERAL: The patient is alert and oriented x3, not in any acute distress. Well developed, well nourished. HEENT: Pupils are round and equally reacting to light. EOMI. No scleral icterus. No conjunctival pallor. Normocephalic, atraumatic. No pharyngeal erythema. No thyromegaly. CARDIOVASCULAR: S1 and S2 present. No murmurs, rubs, or gallops. PULMONARY: Chest is clear to auscultation, no wheezing or crackles. ABDOMEN: Soft, nontender, nondistended, normoactive bowel sounds. No palpable organomegaly. MUSCULOSKELETAL: No joint swelling or deformity. EXTREMITIES: No cyanosis, clubbing, or pedal edema. -NEUROLOGICAL: Gross neurological examination did not reveal any focal deficits. Tremor SKIN: No rashes. Results CBC & Chem 7: 12/21/18 00:02 12/21/18 00:02 Labs: Abnormal Lab Results - Last 24 Hours (Table) 12/21/18 12/21/18 12/21/18 Range/Units 00:02 00:02 02:40 RDW 16.4 H (11.5-15.5) % Lymphocytes # 0.7 L (1.0-4.8) k/uL Sodium 131 L (137-145) mmol/L Chloride 91 L (98-107) mmol/L Carbon Dioxide 21 L (22-30) mmol/L Creatinine 0.57 L (0.66-1.25) mg/dL Glucose 122 H (74-99) mg/dL Calcium 8.3 L (8.4-10.2) mg/dL AST 313 H (17-59) U/L ALT 240 H (21-72) U/L Alkaline Phosphatase 153 H (38-126) U/L Creatine Kinase 2477 H* (55-170) U/L Lipase 471 H (23-300) U/L Urine Ketones Trace H (Negative) Serum Alcohol 375 H* mg/dL Thrombosis Risk Factor Assmnt - Choose All That Apply Each Factor Represents 1 point: Age 41-60 years Other Risk Factors: No Other congenital or acquired thrombophilia - If yes, enter type in comment: No Thrombosis Risk Factor Assessment Total Risk Factor Score: 1 Thrombosis Risk Factor Assessment Level: Low Risk Assessment and Plan Assessment: Acute pancreatitis Alcohol withdrawal Alcoholic hepatitis Patient film depressed, with no suicidal ideation Generalized weakness Mild hyponatremia Possible rhabdomyolysis. History of alcohol intoxication Cigarette smoker Substance abuse, marijuana Plan: This is a pleasant 48 years old male who presents with mild acute pancreatitis and alcohol intoxication. Continue with IV hydration. Continue with CIWA protocol. Continue with vitamins. Labs and medication were reviewed.. Continue same treatment. Continue with symptomatic treatment. Resume home medication. Monitor lytes and vitals. DVT and GI prophylaxis. Further recommendations of the clinical course of the patient DVT prophylaxis: Subcutaneous heparin GI Prophylaxis: Pepcid PT/OT: Pending Prognosis is guarded
[2018-12-21] MEDS ORDERED: FAMOTIDINE 20 MG/2 ML VIAL IV SCH (09:00)
[2018-12-21] MEDS: THIAMINE 100 MG TAB PO SCH ×2 (09:33→15:13)
[2018-12-21] MEDS: FOLIC ACID 1 MG TAB PO SCH (09:33)
[2018-12-21] MEDS: HEPARIN SODIUM,PORCINE 5,000 UNIT/ML 1 ML VIAL SQ SCH ×2 (09:33→22:36)
[2018-12-21] MEDS: MULTIVITAMINS, THERA 1 EACH TAB PO SCH (09:36)
[2018-12-21 10:45] VITALS: BMI 21.5
[2018-12-21] MEDS: NICOTINE 21MG/24HR PATCH TRANSDERM SCH (12:39)
[2018-12-21] MEDS: FAMOTIDINE 20 MG TAB PO SCH (22:37)
[2018-12-22] MEDS: SODIUM CHLORIDE 0.9% 1,000 ML IV SCH (04:59)
[2018-12-22] MEDS: LORazepam 2 MG/ML INJ IV PRN ×5 (04:59→14:55)
[2018-12-22 06:02] VITALS: RESP 16
[2018-12-22] MEDS: HEPARIN SODIUM,PORCINE 5,000 UNIT/ML 1 ML VIAL SQ SCH (07:37)
[2018-12-22] MEDS: NICOTINE 21MG/24HR PATCH TRANSDERM SCH (07:37)
[2018-12-22] MEDS: FOLIC ACID 1 MG TAB PO SCH (07:37)
[2018-12-22] MEDS: MULTIVITAMINS, THERA 1 EACH TAB PO SCH (07:37)
[2018-12-22] MEDS: FAMOTIDINE 20 MG TAB PO SCH (07:37)
[2018-12-22] MEDS: THIAMINE 100 MG TAB PO SCH ×2 (07:37→14:55)
[2018-12-22 07:39] LABS: ALT 211 U/L (21-72); AST 225 U/L (17-59); Albumin 3.9 g/dL (3.5-5.0); Alkaline Phosphatase 158 U/L (38-126); Anion Gap 7 mmol/L; Blood Urea Nitrogen 7 mg/dL (9-20); Calcium 8.7 mg/dL (8.4-10.2); Carbon Dioxide 31 mmol/L (22-30); Chloride 96 mmol/L (98-107); Creatine Kinase 955 U/L (55-170); Glucose 105 mg/dL (74-99); Potassium 3.2 mmol/L (3.5-5.1); Sodium 134 mmol/L (137-145); Total Protein 6.5 g/dL (6.3-8.2)
[2018-12-22 08:32] LABS: Anisocytosis Slight; Basophils % (A) 0 %; Eosinophils # (A) 0.1 k/uL (0-0.7); Eosinophils % (A) 1 %; HCT 42.4 % (39.0-53.0); Lymphocytes # (A) 0.9 k/uL (1.0-4.8); Lymphocytes % (A) 28 %; MCH 32.9 pg (25.0-35.0); MCV 99.6 fL (80.0-100.0); Macrocytosis Slight; Mean Platelet Volume 8.7; Monocytes # (A) 0.1 k/uL (0-1.0); Monocytes % (A) 3 %; Neutrophils # (A) 2.2 k/uL (1.3-7.7); Neutrophils % (A) 66 %; RBC 4.26 m/uL (4.30-5.90); RDW 16.4 % (11.5-15.5); WBC 3.3 k/uL (3.8-10.6)
[2018-12-22 08:57] LABS: Platelet Count 98 k/uL (150-450)
[2018-12-22 08:58] LABS: Poikilocytosis (M) Present
[2018-12-22] MEDS ORDERED: Potassium Replacement Protocol 1 EACH MISC MISCELLANE PRN (09:01)
[2018-12-22] MEDS ORDERED: SODIUM CHLORIDE 0.9% 500 ML 500 ML IV ONE ×2 (09:28→10:13)
[2018-12-22] MEDS: POTASSIUM CHLORIDE ER 20 MEQ TAB.ER PO SCH ×4 (09:43→17:14)
--- NOTE | 2018-12-22 09:56 | P.PN ---
Subjective Pleasant 48-year-old gentleman with a past medical history significant for multiple admissions in the past for alcohol abuse, history of anxiety and depression is brought in by the police because of he was found rolling in the street. He was complaining of abdominal pain initially. 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 He was admitted for alcohol pancreatitis. He was also admitted for all cause withdrawals and rha bdomyolysis. 12/22/2018 Patient says that he is doing fine. He has some delayed response which I think is his baseline. At this time is denying any abdominal pain, he is not having any nausea vomiting, no diarrhea constipation, no tingling numbness of any extremities, no itch or rash Objective - Vital Signs Vital signs: Vital Signs Temp 97.9 F 12/22/18 06:00 Pulse 88 12/22/18 06:00 Resp 16 12/22/18 06:00 BP 129/75 12/22/18 06:00 Pulse Ox 99 12/22/18 06:00 Intake & Output 12/21/18 12/22/18 12/22/18 18:59 06:59 18:59 Intake Total 1000 Output Total 300 Balance 700 Weight 68.039 kg Intake: Intake, IV Titration 1000 Amount Sodium Chloride 0.9% 1, 1000 000 ml @ 125 mls/hr IV . Q8H [facility] Rx#:[id number] Output: Urine 300 Other: Voiding Method Urinal Bedside Commode Urinal Diaper Urinal Incontinent Diaper Incontinent # Voids 2 3 # Bowel Movements 4 - Exam On exam, alert and oriented x3. HEENT: Conjunctivae normal. eyes normal. NECK: No JVD. No thyroid enlargement. No LNs CARDIOVASCULAR: S1-S2 positive RESPIRATION: Breath sounds diminished in the bases. No rhonchi or crackles. No bronchial breathing. ABDOMEN: Soft, nontender . No guarding. no masses palpable. No ascites, No hepatosplenomegaly.Bowel sounds heard. LEGS: No edema. no swelling NERVOUS SYSTEM: Cranial N 2-12 grossly normal. Moves all 4 limbs. No focal deficits. No sensory deficit. No signs of cerebellar dysfucntion. Skin: no ulcer no rash Lymphatic system. No LN neck axilla or groin. - Labs CBC & Chem 7: 12/22/18 06:53 12/22/18 06:53 Labs: Abnormal Lab Results - Last 24 Hours (Table) 12/22/18 12/22/18 Range/Units 06:53 06:53 WBC 3.3 L (3.8-10.6) k/uL RBC 4.26 L (4.30-5.90) m/uL RDW 16.4 H (11.5-15.5) % Plt Count 98 L (150-450) k/uL Lymphocytes # 0.9 L (1.0-4.8) k/uL Sodium 134 L (137-145) mmol/L Potassium 3.2 L (3.5-5.1) mmol/L Chloride 96 L (98-107) mmol/L Carbon Dioxide 31 H (22-30) mmol/L BUN 7 L (9-20) mg/dL Creatinine 0.50 L (0.66-1.25) mg/dL Glucose 105 H (74-99) mg/dL AST 225 H (17-59) U/L ALT 211 H (21-72) U/L Alkaline Phosphatase 158 H (38-126) U/L Creatine Kinase 955 H (55-170) U/L Assessment and Plan Assessment: - Acute alcoholic pancreatitis - Acute rhabdomyolysis - Alcohol withdrawal - Dehydration - Generalized weakness - Depression Plan: At this time, the patient apparently is doing good. He still on CIWA protocol but is seen a scores are 7-8 He has no more abdominal pain We'll continue the IV fluids Patient will probably go to rehab once stable from the withdrawal point of view We will follow up the patient Time with Patient: Greater than 30
[2018-12-22 11:38] VITALS: BP 144/78; PULSE 77; TEMP 98
[2018-12-22] MEDS ORDERED: SODIUM CHLORIDE 0.9% 1,000 ML IV SCH (13:00)
--- NOTE | 2018-12-22 13:45 | P.CN ---
Psychiatric Consult - . Consult date: 12/22/18 Consult:: 12/22/18 10:08 Alcohol and depression Assessment and Plan Assessment: This is a pleasant 48 years old male with past medical history of alcohol abuse, smoker, anxiety depression. History of substance abuse including marijuana. He was brought by the police because patient was found rolling in the Street. Patient was complaining of from abdominal pain. Patient could not remember what happened exactly what he says he drinks usually fifth of whiskey every day besides 2 large chance of beer, he drinks every day through the week. He smokes cigarettes and uses marijuana as well. When I saw him patient denies chest pain or abdominal pain. He had generalized body aches and some shakiness but these are mild, his CIWA score this morning is 7. Has some nausea but no vomiting. He is tolerated his breakfast well. No weakness or abnormal sensation. However patient states that he feels depressed, however he denies current or past suicidal ideation or homicidal ideation however patient was asking to see a psychiatrist Caesaras looks stable, however is tachycardic. His CBC was unremarkable. Sodium 131, potassium 3.6. Creatinine 0.5. CPK 2477, liver enzymes mostly elevated with AST 313 and ALT 240. Total bilirubin is within normal limits at 0.7. Mildly elevated lipase at 471. Serum alcohol was elevated at 375. Past Medical History Past Medical History: No Reported History Additional Past Medical History / Comment(s): ETOH abuse, smoker, History of Any Multi-Drug Resistant Organisms: None Reported Past Surgical History: Hernia Repair, Tonsillectomy Past Anesthesia/Blood Transfusion Reactions: No Reported Reaction Past Psychological History: Anxiety, Depression Smoking Status: Current every day smoker Past Alcohol Use History: Abuse, Daily, Heavy Additional Past Alcohol Use History / Comment(s): Patient states he has been drinking fifths and cases of beer, he cannot recall how much how often. States h is last drink was around noon. Patient states he smokes cigarattes daily, doesn't recall how much. Past Drug Use History: Marijuana Additional Drug Use History / Comment(s): Patient states he last smoked 8 months ago. - Past Family History Brother(s) Family Medical History: Osteoarthritis (OA) Mother Additional Family Medical History / Comment(s): pulmonary fibrosis Medications and Allergies Home Medications Medication Instructions Recorded Confirmed Type Multivitamins, Thera [Multivitamin 1 tab PO DAILY 12/09/18 12/09/18 History (formulary)] Thiamine [Vitamin B-1] 100 mg PO DAILY #30 tab 12/11/18 Rx chlordiazePOXIDE HCL [Librium] 5 mg PO QID PRN 3 Days #12 cap 12/11/18 Rx Allergies Allergy/AdvReac Type Severity Reaction Status Date / Time No Known Allergies Allergy Verified 12/09/18 10:00 Mental status examination: This is a 48-year-old cachectic looking male who was seen in his room with the sitter due to his inability to focus on concentrate. He states he has a history of depression but is not suicidal homicidal today. He states she's been alcoholic for many years and has difficulty and stopping and has lost numerous jobs due to his alcohol. His general appearance is disheveled bizarre appears older than his stated age. Speech is slow slurred rambling hesitant soft in nature. Attitude and behavior is guarded. Mood depressed and anxious. Affect flat and constricted. He is not oriented to time that he is to person place and situation. When I asked him about has had treatment for alcohol use "well I come to the hospital and get detoxified isn't that treatment" he lacks insight. Thought content does not demonstrate any delusions. Risk factory denies suicidal or homicidal ideation. Perception he denies any auditory visual or tactile hallucinations. Not process concrete and circumstantial. Concentration and attention is impaired per observation and interview with the patient. Remote memory is impaired can't do 0 out of 3 in 3 minutes. Remote memory within normal. His intelligence is below average a stye on history based on vocabulary syntax grammar and content. Judgment is poor per patient's behavior history or pertinent illness. Insight poor he has little understanding of the severity of his alcohol use disorder and history of the present illness. Psychiatric impression: Alcohol use disorder severe and in early remission; alcohol-induced depression Psychiatric recommendations: He is not patient for 3 [facility] and really needs social work to give him referrals to long-term residential substance abuse program such as [facility] in [place]. Thank you for the consult Kaushik Shay D.O. PhD (1) Alcoholic intoxication Current Visit: Yes Status: Acute Priority: Low Code(s): F10.929 - ALCOHOL USE, UNSPECIFIED WITH INTOXICATION, UNSPECIFIED SNOMED Code(s): 55388480 (2) Alcohol withdrawal syndrome Current Visit: No Status: Acute Priority: High Code(s): F10.239 - ALCOHOL DEPENDENCE WITH WITHDRAWAL, UNSPECIFIED SNOMED Code(s): 034742462
== END 2018-12-22 19:30 | disposition left against medical advice (07) | DRG 894 ==
LOC: EC 23:08 → 3NMEDONC 12-21 01:16
PROVIDERS: ADMIT Internal Medicine; ATTEND Internal Medicine
DX: F10.229 Alcohol dependence with intoxication, unspecified (principal); K85.20 Alcohol induced acute pancreatitis without necrosis or infection; E87.1 Hypo-osmolality and hyponatremia; M62.82 Rhabdomyolysis; R64 Cachexia; F10.239 Alcohol dependence with withdrawal, unspecified; F17.210 Nicotine dependence, cigarettes, uncomplicated; F12.10 Cannabis abuse, uncomplicated; E86.0 Dehydration; F10.24 Alcohol dependence with alcohol-induced mood disorder; K70.10 Alcoholic hepatitis without ascites; Y90.8 Blood alcohol level of 240 mg/100 ml or more; F32.9 Major depressive disorder, single episode, unspecified; F41.9 Anxiety disorder, unspecified; Z68.21 Body mass index [BMI] 21.0-21.9, adult; Z82.61 Family history of arthritis; Z83.6 Family history of other diseases of the respiratory system; L89.212 Pressure ulcer of right hip, stage 2; S01.312A Laceration without foreign body of left ear, initial encounter; S01.112A Laceration without foreign body of left eyelid and periocular area, initial encounter; S00.83XA Contusion of other part of head, initial encounter; S80.12XA Contusion of left lower leg, initial encounter; S80.11XA Contusion of right lower leg, initial encounter; S40.022A Contusion of left upper arm, initial encounter; S40.021A Contusion of right upper arm, initial encounter
CPT/HCPCS: 36415; 70450; 72125; 80053; 80306; 80320; 81003; 82075; 82550; 83690; 84132; 85025; 96361; 96372; 96374; 99285

== ENCOUNTER 2018-12-26 08:38 | Observation (INO) | payer OTHER ==
--- NOTE | 2018-12-26 08:49 | ED ---
Alcohol HPI - General Stated Complaint: ETOH Time Seen by Provider: 12/26/18 08:38 Source: patient, EMS, RN notes reviewed, old records reviewed Mode of arrival: EMS Limitations: physical limitation - History of Present Illness Initial Comments: This is a 48-year-old male with a history of alcohol abuse and alcoholism and recent visits to the hospital for the same as well as for rhabdomyolysis recently who is brought in by EMS due to not feeling well after drinking whiskey and beer all last night. He states he has had falls in the past with no recent falls he denies any head neck or back pain. Refuses an IV to be started by paramedics. No nausea vomiting reported after patient contacted did appear to have some dried emesis in his mouth. No other complaints no other modifying factors and again no recent trauma reported. MD Complaint: alcohol intoxication - Related Data Home Medications Medication Instructions Recorded Confirmed Multivitamins, Thera [Multivitamin 1 tab PO DAILY 12/09/18 12/26/18 (formulary)] Previous Rx's Medication Instructions Recorded Thiamine [Vitamin B-1] 100 mg PO DAILY #30 tab 12/11/18 Allergies Allergy/AdvReac Type Severity Reaction Status Date / Time No Known Allergies Allergy Verified 12/26/18 09:43 Review of Systems ROS Statement: Those systems with pertinent positive or pertinent negative responses have been documented in the HPI. ROS Other: All systems not noted in ROS Statement are negative. Past Medical History Past Medical History: No Reported History Additional Past Medical History / Comment(s): ETOH abuse, smoker, History of Any Multi-Drug Resistant Organisms: None Reported Past Surgical History: Hernia Repair, Tonsillectomy Past Anesthesia/Blood Transfusion Reactions: No Reported Reaction Past Psychological History: Anxiety, Depression Smoking Status: Current every day smoker Past Alcohol Use History: Abuse, Daily, Heavy Additional Past Alcohol Use History / Comment(s): Patient states he has been drinking fifths and cases of beer, he cannot recall how much how often. States his last drink was around noon. Patient states he smokes cigarattes daily, doesn't recall how much. Past Drug Use History: Marijuana Additional Drug Use History / Comment(s): Patient states he last smoked 8 months ago. - Past Family History Brother(s) Family Medical History: Osteoarthritis (OA) Mother Additional Family Medical History / Comment(s): pulmonary fibrosis General Exam - General Exam Comments Initial Comments: This is a well-developed asthenic appearing male who does have the smell of alcohol conjoiners on his breath. He is awake alert oriented 3 Limitations: physical limitation General appearance: alert, lethargic Head exam: Present: atraumatic, normocephalic, normal inspection Eye exam: Present: normal appearance, PERRL, EOMI. Absent: scleral icterus, con junctival injection, periorbital swelling ENT exam: Present: mucous membranes dry, other (Healing abrasions of the face and left ear.) Neck exam: Present: normal inspection, full ROM, other (No stridor JVD or bruits). Absent: tenderness, meningismus, lymphadenopathy Respiratory exam: Present: normal lung sounds bilaterally, other (Left lateral chest wall abrasion is no step-off or crepitation no tenderness palpation at t his time). Absent: respiratory distress, wheezes, rales, rhonchi, stridor Cardiovascular Exam: Present: regular rate, normal rhythm, normal heart sounds. Absent: systolic murmur, diastolic murmur, rubs, gallop, clicks GI/Abdominal exam: Present: soft, normal bowel sounds. Absent: distended, tenderness, guarding, rebound, rigid, bruit, pulsatile mass Extremities exam: Present: full ROM, normal capillary refill, other (Multiple abrasions and contusions noted of various ages nothing that appears to be recent). Absent: tenderness, pedal edema, joint swelling, calf tenderness Back exam: Present: normal inspection Neurological exam: Present: alert, oriented X3, CN II-XII intact Psychiatric exam: Present: normal affect, normal mood Skin exam: Present: warm, dry, normal color, other (Multiple abrasions and bruises of various stages seen on the torso and extremities.). Absent: rash Course Vital Signs 12/26/18 08:40 Temperature 97.6 F Pulse Rate 115 H Respiratory 18 Rate Blood Pressure 130/97 O2 Sat by Pulse 97 Oximetry - Reevaluation(s) Reevaluation #1: 12/26/18 09:13 The patient later stated he is suicidal he has no plan at this time. Reevaluation #2: 12/26/18 10:14 Reevaluation patient reveals he is anxious. Alcohol level is 398 and CPK was 27,509. I did discuss case with Dr. Marcano prior to the CPK results. Patient will be admitted for rehydration and evaluation treatment of alcohol intoxication as well as depression and suicidal ideation. Medical Decision Making - Lab Data Result diagrams: 12/26/18 09:00 12/26/18 09:00 Lab Results 12/26/18 12/26/18 12/26/18 Range/Units 09:00 09:00 09:00 WBC (3.8-10.6) k/uL RBC (4.30-5.90) m/uL Hgb (13.0-17.5) gm/dL Hct (39.0-53.0) % MCV (80.0-100.0) fL MCH (25.0-35.0) pg MCHC (31.0-37.0) g/dL RDW (11.5-15.5) % Plt Count (150-450) k/uL Neutrophils % % Lymphocytes % % Monocytes % % Eosinophils % % Basophils % % Neutrophils # (1.3-7.7) k/uL Lymphocytes # (1.0-4.8) k/uL Monocytes # (0-1.0) k/uL Eosinophils # (0-0.7) k/uL Basophils # (0-0.2) k/uL Anisocytosis Sodium 137 (137-145) mmol/L Potassium 4.6 (3.5-5.1) mmol/L Chloride 100 (98-107) mmol/L Carbon Dioxide 21 L (22-30) mmol/L Anion Gap 16 mmol/L BUN 7 L (9-20) mg/dL Creatinine 0.51 L (0.66-1.25) mg/dL Est GFR (CKD-EPI)AfAm >90 (>60 ml/min/1.73 sqM) Est GFR (CKD-EPI)NonAf >90 (>60 ml/min/1.73 sqM) Glucose 150 H (74-99) mg/dL Calcium 8.0 L (8.4-10.2) mg/dL Magnesium 1.7 (1.6-2.3) mg/dL Total Bilirubin 1.0 (0.2-1.3) mg/dL AST 692 H (17-59) U/L ALT 449 H (21-72) U/L Alkaline Phosphatase 159 H (38-126) U/L Ammonia 43 H (<30) umol/L Total Creatine Kinase 63078 H* (55-170) U/L CK-MB (CK-2) 77.0 H (0.0-2.4) ng/mL CK-MB (CK-2) Rel Index Total Protein 7.6 (6.3-8.2) g/dL Albumin 4.4 (3.5-5.0) g/dL Serum Alcohol 398 H* mg/dL 12/26/18 Range/Units 09:00 WBC 7.1 (3.8-10.6) k/uL RBC 5.71 (4.30-5.90) m/uL Hgb 18.7 H D (13.0-17.5) gm/dL Hct 55.8 H (39.0-53.0) % MCV 97.6 (80.0-100.0) fL MCH 32.7 (25.0-35.0) pg MCHC 33.5 (31.0-37.0) g/dL RDW 16.8 H (11.5-15.5) % Plt Count 215 D (150-450) k/uL Neutrophils % 75 % Lymphocytes % 16 % Monocytes % 7 % Eosinophils % 1 % Basophils % 0 % Neutrophils # 5.3 (1.3-7.7) k/uL Lymphocytes # 1.1 (1.0-4.8) k/uL Monocytes # 0.5 (0-1.0) k/uL Eosinophils # 0.1 (0-0.7) k/uL Basophils # 0.0 (0-0.2) k/uL Anisocytosis Slight Sodium (137-145) mmol/L Potassium (3.5-5.1) mmol/L Chloride (98-107) mmol/L Carbon Dioxide (22-30) mmol/L Anion Gap mmol/L BUN (9-20) mg/dL Creatinine (0.66-1.25) mg/dL Est GFR (CKD-EPI)AfAm (>60 ml/min/1.73 sqM) Est GFR (CKD-EPI)NonAf (>60 ml/min/1.73 sqM) Glucose (74-99) mg/dL Calcium (8.4-10.2) mg/dL Magnesium (1.6-2.3) mg/dL Total Bilirubin (0.2-1.3) mg/dL AST (17-59) U/L ALT (21-72) U/L Alkaline Phosphatase (38-126) U/L Ammonia (<30) umol/L Total Creatine Kinase (55-170) U/L CK-MB (CK-2) (0.0-2.4) ng/mL CK-MB (CK-2) Rel Index Total Protein (6.3-8.2) g/dL Albumin (3.5-5.0) g/dL Serum Alcohol mg/dL Critical Care Time Critical Care Time: Yes Critical Care Time: Critical care time: 35 minutes of critical care time which includes initial presentation with history physical labs x-rays multiple re-evaluations of the patient. Review of old charting was available discussed with the lab on 2 occasions regarding findings. Discussion with the admitting physician Dr. Marcano admission orders and documentation of the above Disposition Clinical Impression: Alcoholic intoxication, Rhabdomyolysis, Alcoholic hepatitis, Dehydration, Depression, Suicidal ideation Disposition: ADMITTED IP TO THIS [facility] Condition: Fair Referrals: Javon Anaya MD [Primary Care Provider] - 1-2 days
[2018-12-26] MEDS: 1: MVI, ADULT NO.4 WITH VIT K 10 ML, THIAMINE 100 MG, FOLIC ACID 1 MG in SODIUM CHLORIDE IV SCH ×8 (09:07→19:32)
[2018-12-26 09:17] LABS: Anisocytosis Slight; Basophils % (A) 0 %; Eosinophils # (A) 0.1 k/uL (0-0.7); Eosinophils % (A) 1 %; Lymphocytes # (A) 1.1 k/uL (1.0-4.8); Lymphocytes % (A) 16 %; MCH 32.7 pg (25.0-35.0); MCHC 33.5 g/dL (31.0-37.0); MCV 97.6 fL (80.0-100.0); Mean Platelet Volume 7.7; Monocytes # (A) 0.5 k/uL (0-1.0); Monocytes % (A) 7 %; Neutrophils # (A) 5.3 k/uL (1.3-7.7); Neutrophils % (A) 75 %; Platelet Count 215 k/uL (150-450); RBC 5.71 m/uL (4.30-5.90); RDW 16.8 % (11.5-15.5); WBC 7.1 k/uL (3.8-10.6)
--- NOTE | 2018-12-26 09:19 | XR ---
EXAMINATION TYPE: XR chest 2V DATE OF EXAM: 12/26/2018 COMPARISON: 09/04/18 HISTORY: Shortness of breath TECHNIQUE: Frontal and lateral views of the chest are obtained. FINDINGS: Scattered senescent parenchymal changes noted. Hyperinflation compatible with COPD. No evidence for infiltrate. No evidence for atelectasis. Heart size is stable. Mediastinal structures are stable and grossly unremarkable. No evidence for hilar prominence. Degenerative changes dorsal spine. IMPRESSION: 1. No evidence for acute pulmonary disease.
[2018-12-26 09:21] LABS: HCT 55.8 % (39.0-53.0); HGB 18.7 gm/dL (13.0-17.5)
[2018-12-26 09:22] LABS: Anion Gap 16 mmol/L; Blood Urea Nitrogen 7 mg/dL (9-20); Carbon Dioxide 21 mmol/L (22-30); Chloride 100 mmol/L (98-107); Glucose 150 mg/dL (74-99); Sodium 137 mmol/L (137-145)
[2018-12-26 09:53] LABS: Albumin 4.4 g/dL (3.5-5.0); Magnesium 1.7 mg/dL (1.6-2.3); Potassium 4.6 mmol/L (3.5-5.1); Total Protein 7.6 g/dL (6.3-8.2)
[2018-12-26 09:54] LABS: ALT 449 U/L (21-72); AST 692 U/L (17-59); Alcohol 398 mg/dL; Alkaline Phosphatase 159 U/L (38-126)
[2018-12-26] MEDS ORDERED: LORazepam 2 MG/ML INJ IV STA (09:58)
[2018-12-26] MEDS ORDERED: SODIUM CHLORIDE 0.9% 2,000 ML IV ONE (10:12)
[2018-12-26] MEDS ORDERED: NALOXONE 0.4 MG/ML 1 ML VIAL IV PRN (10:18)
[2018-12-26] MEDS ORDERED: ONDANSETRON 4 MG/2 ML VIAL IVP PRN (10:18)
[2018-12-26] MEDS ORDERED: THIAMINE 100 MG/ML 2 ML VIAL IM STA (10:21)
[2018-12-26] MEDS ORDERED: LORazepam 2 MG/ML INJ IV PRN ×2 (10:21)
[2018-12-26 10:33] LABS: INR 0.9 (<1.2)
[2018-12-26 10:38] LABS: Prothrombin Time 9.5 sec (9.0-12.0)
[2018-12-26] MEDS: SODIUM CHLORIDE 0.9% 1,000 ML IV SCH ×2 (12:01→19:32)
[2018-12-26] MEDS ORDERED: HALOPERIDOL LACTATE 5 MG/ML 1 ML VIAL IM PRN (13:31)
[2018-12-26] MEDS ORDERED: NICOTINE 21MG/24HR PATCH TRANSDERM STA (13:49)
[2018-12-26] MEDS ORDERED: ZIPRASIDONE 20 MG VIAL IM STA (15:37)
[2018-12-26] MEDS: LORazepam 2 MG/ML INJ IV PRN ×2 (19:31→23:45)
[2018-12-26] MEDS: THIAMINE 100 MG TAB PO SCH (23:45)
--- NOTE | 2018-12-27 00:02 | P.HPIM ---
History of Present Illness H&P Date: 12/26/18 Chief Complaint: Acute alcohol intoxication Patient is a 48-year-old male with a known history of anxiety/depression, nicotine addiction, heavy alcohol abuse, marijuana use was brought to the hospital due to acute alcohol intoxication. Patient came to the hospital due to alcohol withdrawal symptoms. Patient was recently admitted to hospital for acute rhabdomyolysis. Denied any trauma. Patient was brought to the hospital by EMS. Patient states that he has had falls in the past. No recent falls. Denied any head injury or back pain and neck pain or any other pain. Patient denied any vomiting. Does have nausea. Otherwise denied any complaints of chest pain or shortness of breath. No nausea vomiting or diarrhea. No headache or dizziness or lightheadedness. Patient is still intoxicated but currently waking up. No fever no chills. Denied any abdominal pain. EKG showed normal sinus rhythm. Chest x-ray showed no acute cardio pulmonary process CPK 27, 509 398 EtOH level Liver enzymes and alk phos elevated. Review of Systems Constitutional: Patient denies any fever or chills . No generalized weakness or weight loss. Abdomen: Patient denied nausea vomiting and diarrhea and abdominal pain. Cardiovascular: Patient denies any chest pain or short of breath no palpitations. Respiratory: patient denied any cough is from production. No shortness of breath Neurologic: Patient denied any numbness or tingling headache. Patient is still drowsy and intoxicated. Complete review of systems could not be obtained from the patient. Past Medical History Past Medical History: No Reported History Additional Past Medical History / Comment(s): ETOH abuse, smoker, History of Any Multi-Drug Resistant Organisms: None Reported Past Surgical History: Hernia Repair, Tonsillectomy Past Anesthesia/Blood Transfusion Reactions: No Reported Reaction Past Psychological History: Anxiety, Depression Smoking Status: Current every day smoker Past Alcohol Use History: Abuse, Daily, Heavy Additional Past Alcohol Use History / Comment(s): Patient states he has been dri nking fifths and cases of beer, he cannot recall how much how often. States his last drink was around noon. Patient states he smokes cigarattes daily, doesn't recall how much. Past Drug Use History: Marijuana Additional Drug Use History / Comment(s): Patient states he last smoked 8 months ago. - Past Family History Brother(s) Family Medical History: Osteoarthritis (OA) Mother Additional Family Medical History / Comment(s): pulmonary fibrosis Medications and Allergies Home Medications Medication Instructions Recorded Confirmed Type Multivitamins, Thera [Multivitamin 1 tab PO DAILY 12/09/18 12/26/18 History (formulary)] Thiamine [Vitamin B-1] 100 mg PO DAILY #30 tab 12/11/18 12/26/18 Rx Allergies Allergy/AdvReac Type Severity Reaction Status Date / Time No Known Allergies Allergy Verified 12/26/18 09:43 Physical Exam Vitals: Vital Signs Temp Pulse Resp BP Pulse Ox 12/26/18 08:40 97.6 F 115 H 18 130/97 97 Intake and Output 12/25/18 12/26/18 12/26/18 22:59 06:59 14:59 Other: Weight 68.039 kg PHYSICAL EXAMINATION: Patient is lying in the bed comfortably, no acute distress, awake alert and oriented. Drowsy lethargic and intoxicated. HEENT: Normocephalic. Neck is supple. Pupils reactive. Nostrils clear. Oral cavity is moist. Ears reveal no drainage. Neck reveals no JVD, carotid bruits, or thyromegaly. CHEST EXAMINATION: Trachea is central. Symmetrical expansion. Lung pierre clear to auscultation and percussion. CARDIAC: Normal S1, S2 with no gallops. No murmurs ABDOMEN: Soft. Bowel sounds normal. No organomegaly. No abdominal bruits. Extremities: reveal no edema. No clubbing or cyanosis Neurologically awake, alert, oriented x3 with well-coordinated movements. No focal deficits noted Skin: No rash or skin lesions. Psychiatric: Coperative. Could not be assessed completely. Musculoskeletal: No joint swelling or deformity. Normal range of motion. Results CBC & Chem 7: 12/26/18 09:00 12/26/18 09:00 Labs: Abnormal Lab Results - Last 24 Hours (Table) 12/26/18 12/26/18 12/26/18 Range/Units 09:00 09:00 09:00 Hgb (13.0-17.5) gm/dL Hct (39.0-53.0) % RDW (11.5-15.5) % Carbon Dioxide 21 L (22-30) mmol/L BUN 7 L (9-20) mg/dL Creatinine 0.51 L (0.66-1.25) mg/dL Glucose 150 H (74-99) mg/dL Calcium 8.0 L (8.4-10.2) mg/dL AST 692 H (17-59) U/L ALT 449 H (21-72) U/L Alkaline Phosphatase 159 H (38-126) U/L Ammonia 43 H (<30) umol/L Total Creatine Kinase 53279 H* (55-170) U/L CK-MB (CK-2) 77.0 H (0.0-2.4) ng/mL Serum Alcohol 398 H* mg/dL 12/26/18 Range/Units 09:00 Hgb 18.7 H D (13.0-17.5) gm/dL Hct 55.8 H (39.0-53.0) % RDW 16.8 H (11.5-15.5) % Carbon Dioxide (22-30) mmol/L BUN (9-20) mg/dL Creatinine (0.66-1.25) mg/dL Glucose (74-99) mg/dL Calcium (8.4-10.2) mg/dL AST (17-59) U/L ALT (21-72) U/L Alkaline Phosphatase (38-126) U/L Ammonia (<30) umol/L Total Creatine Kinase (55-170) U/L CK-MB (CK-2) (0.0-2.4) ng/mL Serum Alcohol mg/dL Thrombosis Risk Factor Assmnt - DVT/VTE Prophylaxis DVT/VTE Prophylaxis: Pharmacologic Prophylaxis ordered Assessment and Plan Assessment: Acute alcohol intoxication with level 398 Acute rhabdomyolysis due to multiple falls Elevated liver enzymes likely due to alcoholic hepatitis. Acute alcohol withdrawal symptoms Anxiety/depression Nicotine addiction Severe alcohol abuse Marijuana use Mild thrombocytopenia secondary to alcohol abuse DVT prophylaxis Plan: Patient be continued on IV hydration. Continue with thiamine and multivitamins. The CPK level. Monitor for alcohol withdrawal symptoms and follow up closely. Follow up liver enzymes. Further recommendations based on the clinical course. Social work will be consulted for alcohol rehab. Time with Patient: Greater than 30
[2018-12-27] MEDS: LORazepam 2 MG/ML INJ IV PRN ×7 (04:47→22:56)
[2018-12-27] MEDS: SODIUM CHLORIDE 0.9% 1,000 ML IV SCH ×4 (04:47→20:36)
[2018-12-27] MEDS: 1: MVI, ADULT NO.4 WITH VIT K 10 ML, THIAMINE 100 MG, FOLIC ACID 1 MG in SODIUM CHLORIDE IV SCH ×8 (05:30→14:37)
[2018-12-27 06:03] VITALS: RESP 16
[2018-12-27 08:30] LABS: Anisocytosis Slight; Basophils % (A) 0 %; Eosinophils # (A) 0.1 k/uL (0-0.7); Eosinophils % (A) 1 %; HCT 39.6 % (39.0-53.0); Lymphocytes # (A) 0.9 k/uL (1.0-4.8); Lymphocytes % (A) 18 %; MCH 33.6 pg (25.0-35.0); MCHC 34.5 g/dL (31.0-37.0); MCV 97.4 fL (80.0-100.0); Mean Platelet Volume 8.1; Monocytes # (A) 0.3 k/uL (0-1.0); Monocytes % (A) 7 %; Neutrophils # (A) 3.7 k/uL (1.3-7.7); Neutrophils % (A) 73 %; Platelet Count 149 k/uL (150-450); RBC 4.06 m/uL (4.30-5.90); RDW 16.3 % (11.5-15.5)
[2018-12-27 08:38] LABS: ALT 319 U/L (21-72); AST 502 U/L (17-59); Albumin 3.3 g/dL (3.5-5.0); Alkaline Phosphatase 147 U/L (38-126); Anion Gap 3 mmol/L; Blood Urea Nitrogen 7 mg/dL (9-20); Calcium 8.3 mg/dL (8.4-10.2); Carbon Dioxide 29 mmol/L (22-30); Chloride 101 mmol/L (98-107); Glucose 113 mg/dL (74-99); Potassium 3.4 mmol/L (3.5-5.1); Sodium 133 mmol/L (137-145); Total Protein 5.8 g/dL (6.3-8.2)
[2018-12-27 08:52] LABS: HGB 13.7 gm/dL (13.0-17.5)
[2018-12-27] MEDS ORDERED: PANTOPRAZOLE 40 MG/10 ML VIAL IV SCH (09:00)
[2018-12-27] MEDS: THIAMINE 100 MG TAB PO SCH ×2 (11:57→17:11)
[2018-12-27] MEDS ORDERED: NICOTINE 14MG/24HR PATCH TRANSDERM SCH (14:30)
--- NOTE | 2018-12-27 15:08 | P.CN ---
Psychiatric Consult - . Consult date: 12/27/18 Consult:: 12/27/18 13:46 alcohol Assessment and Plan Assessment: This is a 48-year-old male with a history of alcohol abuse and alcoholism and recent visits to the hospital for the same as well as for rhabdomyolysis recently who is brought in by EMS due to not feeling well after drinking whiskey and beer all last night. He states he has had falls in the past with no recent falls he denies any head neck or back pain. Refuses an IV to be started by paramedics. No nausea vomiting reported after patient contacted did appear to have some dried emesis in his mouth. No other complaints no other modifying factors and again no recent trauma reported. MD Complaint: alcohol intoxication - Related Data Home Medications Medication Instructions Recorded Confirmed Multivitamins, Thera [Multivitamin 1 tab PO DAILY 12/09/18 12/26/18 (formulary)] Previous Rx's Medication Instructions Recorded Thiamine [Vitamin B-1] 100 mg PO DAILY #30 tab 12/11/18 Allergies Allergy/AdvReac Type Severity Reaction Status Date / Time No Known Allergies Allergy Verified 12/26/18 09:43 Past Medical History Past Medical History: No Reported History Additional Past Medical History / Comment(s): ETOH abuse, smoker, History of Any Multi-Drug Resistant Organisms: None Reported Past Surgical History: Hernia Repair, Tonsillectomy Past Anesthesia/Blood Transfusion Reactions: No Reported Reaction Past Psychological History: Anxiety, Depression Smoking Status: Current every day smoker Past Alcohol Use History: Abuse, Daily, Heavy Additional Past Alcohol Use History / Comment(s): Patient states he has been drinking fifths and cases of beer, he cannot recall how much how often. States his last drink was around noon. Patient states he smokes cigarattes daily, doesn't recall how much. Past Drug Use History: Marijuana Additional Drug Use History / Comment(s): Patient states he last smoked 8 months ago. - Past Family History Brother(s) Family Medical History: Osteoarthritis (OA) Mother Additional Family Medical History / Comment(s): pulmonary fibrosis Mental status examination: same as 5 days ago This is a 48-year-old cachectic looking male who was seen in his room with the sitter due to his inability to focus on concentrate. He states he has a history of depression but is not suicidal homicidal today. He states she's been alcoholic for many years and has difficulty and stopping and has lost numerous jobs due to his alcohol. His general appearance is disheveled bizarre appears older than his stated age. Speech is slow slurred rambling hesitant soft in nature. Attitude and behavior is guarded. Mood depressed and anxious. Affect flat and constricted. He is not oriented to time that he is to person place and situation. When I asked him about has had treatment for alcohol use "well I come to the hospital and get detoxified isn't that treatment" he lacks insight. Thought content does not demonstrate any delusions. [employer] denies suicidal or homicidal ideation. Perception he denies any auditory visual or tactile hallucinations. Not process concrete and circumstantial. Concentration and attention is impaired per observation and interview with the patient. Remote memory is impaired can't do 0 out of 3 in 3 minutes. Remote memory within normal. His intelligence is below average a stye on history based on vocabulary syntax grammar and content. Judgment is poor per patient's behavior history or pertinent illness. Insight poor he has little understanding of the severity of his alcohol use disorder and history of the present illness. Psychiatric impression: Alcohol use disorder severe and in early remission; alcohol-induced depression Psychiatric recommendations: He is not patient for [address] [place] [address] and really needs social work to give him referrals to long-term residential substance abuse program such as [facility] in [place]. Thank you for the consult Kaushik Shay D.O. PhD (1) Alcoholic intoxication Current Visit: Yes Status: Acute Priority: Low Code(s): F10.929 - ALCOHOL USE, UNSPECIFIED WITH INTOXICATION, UNSPECIFIED SNOMED Code(s): 27723473 Time with Patient: Less than 30
[2018-12-27 21:41] VITALS: TEMP 97.9
--- NOTE | 2018-12-27 23:46 | P.PN ---
Subjective Progress Note Date: 12/27/18 Principal diagnosis: Acute alcohol intoxication Patient is a 48-year-old male with a known history of anxiety/depression, nicotine addiction, heavy alcohol abuse, marijuana use was brought to the hospital due to acute alcohol intoxication. Patient came to the hospital due to alcohol withdrawal symptoms. Patient was recently admitted to hospital for acute rhabdomyolysis. Denied any trauma. Patient was brought to the hospital by EMS. Patient states that he has had falls in the past. No recent falls. Denied any head injury or back pain and neck pain or any other pain. Patient denied any vomiting. Does have nausea. Otherwise denied any complaints of chest pain or shortness of breath. No nausea vomiting or diarrhea. No headache or dizziness or lightheadedness. Patient is still intoxicated but currently waking up. No fever no chills. Denied any abdominal pain. EKG showed normal sinus rhythm. Chest x-ray showed no acute cardio pulmonary process CPK 27, 509 398 EtOH level Liver enzymes and alk phos elevated. 12/27/2018 Patient is still very shaky today. Requiring IV Ativan. Nicotine patch was placed. Liver enzymes are still elevated but improving. CK level is still critical. Continue with aggressive IV hydration. Follow up closely. Continued with sitter. No commerce of chest pain or shortness of breath or abdominal pain. No diarrhea. Current medications reviewed. Objective - Vital Signs Vital signs: Vital Signs Temp 97.9 F 12/27/18 21:00 Pulse 98 12/27/18 21:00 Resp 16 12/27/18 21:00 BP 127/76 12/27/18 21:00 Pulse Ox 96 12/27/18 21:00 Intake & Output 12/27/18 12/27/18 12/28/18 06:59 18:59 06:59 Intake Total 1551.2 480 Output Total 350 Balance 1551.2 -350 480 Intake: Intake, IV Titration 1011.2 Amount Mvi, Adult No.4 with Vit 1011.2 K 10 ml Thiamine 100 mg Folic Acid 1 mg In Sodium Chloride 0.9% 1,000 ml @ 100 mls/hr IV .BY DURATION PRASAD Rx#: [id number] Oral 540 480 Output: Urine 350 Other: # Voids 2 3 # Bowel Movements 1 2 - Exam PHYSICAL EXAMINATION: Patient is lying in the bed comfortably, no acute distress, awake alert and oriented. Anxious and shaky. HEENT: Normocephalic. Neck is supple. Pupils reactive. Nostrils clear. Oral cavity is moist. Ears reveal no drainage. Neck reveals no JVD, carotid bruits, or thyromegaly. CHEST EXAMINATION: Trachea is central. Symmetrical expansion. Lung pierre clear to auscultation and percussion. CARDIAC: Normal S1, S2 with no gallops. No murmurs ABDOMEN: Soft. Bowel sounds normal. No organomegaly. No abdominal bruits. Extremities: reveal no edema. No clubbing or cyanosis Neurologically awake, alert, oriented x3 with well-coordinated movements. No focal deficits noted Skin: No rash or skin lesions. Psychiatric: Coperative. Nonsuicidal Musculoskeletal: No joint swelling or deformity. Normal range of motion. - Labs CBC & Chem 7: 12/27/18 07:58 12/27/18 07:58 Labs: Abnormal Lab Results - Last 24 Hours (Table) 12/27/18 12/27/18 Range/Units 07:58 07:58 RBC 4.06 L (4.30-5.90) m/uL RDW 16.3 H (11.5-15.5) % Plt Count 149 L (150-450) k/uL Lymphocytes # 0.9 L (1.0-4.8) k/uL Sodium 133 L (137-145) mmol/L Potassium 3.4 L (3.5-5.1) mmol/L BUN 7 L (9-20) mg/dL Creatinine 0.45 L (0.66-1.25) mg/dL Glucose 113 H (74-99) mg/dL Calcium 8.3 L (8.4-10.2) mg/dL AST 502 H (17-59) U/L ALT 319 H (21-72) U/L Alkaline Phosphatase 147 H (38-126) U/L Total Protein 5.8 L (6.3-8.2) g/dL Albumin 3.3 L (3.5-5.0) g/dL Assessment and Plan Assessment: Acute alcohol intoxication with level 398 Acute rhabdomyolysis due to multiple falls Elevated liver enzymes likely due to alcoholic hepatitis. Acute alcohol withdrawal symptoms Anxiety/depression Nicotine addiction Severe alcohol abuse Marijuana use Mild thrombocytopenia secondary to alcohol abuse DVT prophylaxis Plan: Patient be continued on IV hydration. Continue with thiamine and multivitamins. Repeat CPK level. Continue with Ativan IV for withdrawal symptoms and follow up closely. Follow up liver enzymes. Further recommendations based on the clinical course. Social work will be consulted for alcohol rehab. Patient was seen by psychiatry as well. Time with Patient: Greater than 30
[2018-12-28] MEDS: LORazepam 2 MG/ML INJ IV PRN ×2 (01:02→03:31)
[2018-12-28] MEDS: SODIUM CHLORIDE 0.9% 1,000 ML IV SCH (01:59)
[2018-12-28] MEDS: 1: MVI, ADULT NO.4 WITH VIT K 10 ML, THIAMINE 100 MG, FOLIC ACID 1 MG in SODIUM CHLORIDE IV SCH ×4 (02:00)
[2018-12-28 05:05] VITALS: BP 115/71; PULSE 93
[2018-12-28] MEDS ORDERED: PANTOPRAZOLE 40 MG TABLET PO SCH (07:30)
[2018-12-28] MEDS ORDERED: LACTULOSE 20 GM/30 ML CUP PO ONE (09:00)
--- NOTE | 2019-01-03 10:10 | P.DS ---
Providers Date of admission: 12/26/18 10:18 Expected date of discharge: 12/28/18 Attending physician: Emeterio Marcano Consults: 12/27/18 11:52 Consult Physician Routine Consulting Provider: Kaushik Shay Consult Reason/Comments: depression, suicidal on admission, etoh Do you want consulting provider notified?: Already Contacted Primary care physician: Héctor Alejandro Hospital Course: Discharge diagnosis Acute alcohol intoxication with level 398 Acute rhabdomyolysis due to multiple falls Elevated liver enzymes likely due to alcoholic hepatitis. Acute alcohol withdrawal symptoms Anxiety/depression Nicotine addiction Severe alcohol abuse Marijuana use Mild thrombocytopenia secondary to alcohol abuse DVT prophylaxis Hospital course Patient is a 48-year-old male with a known history of anxiety/depression, nicotine addiction, heavy alcohol abuse, marijuana use was brought to the hospital due to acute alcohol intoxication. Patient came to the hospital due to alcohol withdrawal symptoms. Patient was recently admitted to hospital for acute rhabdomyolysis. Denied any trauma. Patient was brought to the hospital by EMS. Patient states that he has had falls in the past. No recent falls. Denied any head injury or back pain and neck pain or any other pain. Patient denied any vomiting. Does have nausea. Otherwise denied any complaints of chest pain or shortness of breath. No nausea vomiting or diarrhea. No headache or dizziness or lightheadedness. Patient is still intoxicated but currently waking up. No fever no chills. Denied any abdominal pain. EKG showed normal sinus rhythm. Chest x-ray showed no acute cardio pulmonary process CPK 27, [id number] EtOH level Liver enzymes and alk phos elevated. 12/27/2018 Patient is still very shaky today. Requiring IV Ativan. Nicotine patch was placed. Liver enzymes are still elevated but improving. CK level is still critical. Continue with aggressive IV hydration. Follow up closely. Continued with sitter. No commerce of chest pain or shortness of breath or abdominal pain. No diarrhea. 12/28/2018 Patient left AMA Patient Condition at Discharge: Poor Plan - Discharge Summary Discharge Rx Participant: No New Discharge Prescriptions: No Action Thiamine [Vitamin B-1] 100 mg PO DAILY Clindamycin [Cleocin] 150 mg PO QID 7 Days #28 cap Folic Acid 1 mg PO DAILY@1200 #30 tab Multivitamins, Thera [Multivitamin (formulary)] 1 each PO DAILY@1200 #30 tab Famotidine [Pepcid] 20 mg PO Q12HR #60 tab Acetaminophen Tab [Tylenol] 650 mg PO Q6HR PRN #20 tab PRN Reason: Fever And/ Or Pain Thiamine [Vitamin B-1] 100 mg PO BID@1200,1700 30 Days #60 tab Discharge Medication List Thiamine [Vitamin B-1] 100 mg PO DAILY 12/29/18 [History] Acetaminophen Tab [Tylenol] 650 mg PO Q6HR PRN #20 tab 12/31/18 [Rx] Clindamycin [Cleocin] 150 mg PO QID 7 Days #28 cap 12/31/18 [Rx] Famotidine [Pepcid] 20 mg PO Q12HR #60 tab 12/31/18 [Rx] Folic Acid 1 mg PO DAILY@1200 #30 tab 12/31/18 [Rx] Multivitamins, Thera [Multivitamin (formulary)] 1 each PO DAILY@1200 #30 tab 12/31/18 [Rx] Thiamine [Vitamin B-1] 100 mg PO BID@1200,1700 30 Days #60 tab 12/31/18 [Rx] Follow up Appointment(s)/Referral(s): Javon Anaya MD [Primary Care Provider] - 1-2 days Patient Instructions/Handouts: How to Stop Smoking (DC), Depression (DC), Abuse of Alcohol (DC), Anxiety (GEN) Discharge Disposition: Left Against Medical Advice
== END 2018-12-28 06:30 | disposition left against medical advice (07) ==
LOC: EC 08:38 → 4SSUR 10:18 → UNDOADMIN 10:18 → INTOOBSV 10:18 → 4SSUR 17:55 → 3NMEDONC 17:55
PROVIDERS: ADMIT Internal Medicine; ATTEND Internal Medicine
DX: F10.239 Alcohol dependence with withdrawal, unspecified (principal); M62.82 Rhabdomyolysis; R45.851 Suicidal ideations; F10.229 Alcohol dependence with intoxication, unspecified; E86.0 Dehydration; F41.9 Anxiety disorder, unspecified; Y90.8 Blood alcohol level of 240 mg/100 ml or more; F17.210 Nicotine dependence, cigarettes, uncomplicated; K70.10 Alcoholic hepatitis without ascites; R29.6 Repeated falls; F32.9 Major depressive disorder, single episode, unspecified; D69.59 Other secondary thrombocytopenia; F10.24 Alcohol dependence with alcohol-induced mood disorder; T51.0X1A Toxic effect of ethanol, accidental (unintentional), initial encounter; Z82.61 Family history of arthritis; Z83.6 Family history of other diseases of the respiratory system
CPT/HCPCS: 96376 ×3; 96361 ×3; 96366 ×2; 96375 ×2; 96365; 96372; 99291; 36415; 80053 ×2; 82140; 82550 ×2; 82553; 83735; 85025 ×2; 85610; 71046; G0480; S4990 ×2; J2060 ×3; J1630; J3411 ×3; J3486; C9113; 80320

== ENCOUNTER 2018-12-29 02:18 | Observation (INO) | payer OTHER ==
[2018-12-29] MEDS ORDERED: SODIUM CHLORIDE 0.9% 1,000 ML IV STA ×2 (03:11→04:35)
--- NOTE | 2018-12-29 03:28 | ED ---
Alcohol HPI - General Source: patient Mode of arrival: ambulatory <Nathaly Peña - Last Filed: 12/29/18 03:24> <Jase Cárdenas - Last Filed: 12/29/18 04:39> - General Chief Complaint: Alcohol Stated Complaint: Alcohol withdrawl Time Seen by Provider: 12/29/18 02:31 - History of Present Illness Initial Comments: 48-year-old male patient presents to the emergency department today for evaluation of alcohol withdrawal. Patient states that he left AGAINST MEDICAL ADVICE from the selective care unit earlier today. Patient states he did this week ago and have a beer. Patient states he did drink several beers and returned here for alcohol withdrawal. Patient states he would like to be admitted until Thursday when he can go to [facility]. Patient is currently reporting nausea. He denies any recent vomiting. Denies any abdominal pain. Patient was admitted to the selective care unit initially for rhabdomyolysis and alcohol intoxication. Patient denies any recent rash, fever, chills, shortness breath, chest pain, diarrhea, constipation, back pain, numbness, tingling, dizziness, weakness, hematuria, dysuria, urinary urgency, urinary frequency, headache, visual changes, or any other complaints. (Nathaly Peña) - Related Data Home Medications Medication Instructions Recorded Confirmed Multivitamins, Thera [Multivitamin 1 tab PO DAILY 12/09/18 12/26/18 (formulary)] Previous Rx's Medication Instructions Recorded Thiamine [Vitamin B-1] 100 mg PO DAILY #30 tab 12/11/18 Allergies Allergy/AdvReac Type Severity Reaction Status Date / Time No Known Allergies Allergy Verified 12/26/18 09:43 Review of Systems ROS Other: All systems not noted in ROS Statement are negative. <Nathaly Peña - Last Filed: 12/29/18 03:24> ROS Other: All systems not noted in ROS Statement are negative. <Jase Cárdenas - Last Filed: 12/29/18 04:39> ROS Statement: Those systems with pertinent positive or pertinent negative responses have been documented in the HPI. Past Medical History Past Medical History: No Reported History Additional Past Medical History / Comment(s): ETOH abuse, smoker, History of Any Multi-Drug Resistant Organisms: None Reported Past Surgical History: Hernia Repair, Tonsillectomy Past Anesthesia/Blood Transfusion Reactions: No Reported Reaction Past Psychological History: Anxiety, Depression Smoking Status: Current every day smoker Past Alcohol Use History: Abuse, Daily, Heavy Past Drug Use History: Marijuana - Past Family History Brother(s) Family Medical History: Osteoarthritis (OA) Mother Additional Family Medical History / Comment(s): pulmonary fibrosis <Nathaly Peña - Last Filed: 12/29/18 03:24> General Exam General appearance: alert, in no apparent distress, appears intoxicated, other (Physical well-developed, well-nourished adult male patient in no acute distress. Vital signs upon presentation are temperature 98.8F, pulse 113, respirations 18, blood pressure 110/73, pulse ox 99% on room air) Eye exam: Present: normal appearance, PERRL, EOMI. Absent: scleral icterus, conjunctival injection, periorbital swelling ENT exam: Present: normal exam, normal oropharynx, mucous membranes moist Respiratory exam: Present: normal lung sounds bilaterally. Absent: respiratory distress, wheezes, rales, rhonchi, stridor Cardiovascular Exam: Present: normal rhythm, tachycardia, normal heart sounds. Absent: systolic murmur, diastolic murmur, rubs, gallop, clicks GI/Abdominal exam: Present: soft, normal bowel sounds. Absent: distended, tenderness, guarding, rebound, rigid Neurological exam: Present: alert, oriented X3, CN II-XII intact Psychiatric exam: Present: normal affect, normal mood Skin exam: Present: warm, dry, intact, normal color. Absent: rash <Nathaly Peña M - Last Filed: 12/29/18 03:24> Course Vital Signs 12/29/18 12/29/18 02:25 04:06 Temperature 98.8 F Pulse Rate 113 H 86 Respiratory 18 16 Rate Blood Pressure 110/73 114/75 O2 Sat by Pulse 99 100 Oximetry Medical Decision Making - Lab Data Result diagrams: 12/29/18 03:33 12/29/18 03:33 <Jase Cárdenas - Last Filed: 12/29/18 04:39> - Medical Decision Making 48-year-old male history of alcohol abuse presenting with complaint of alcohol withdrawal. Patient recent admission with rhabdomyolysis, CKs repeated in the emergency department, this is 7000. Patient will be admitted for IV fluids. He was laced on Ativan for alcohol withdrawal. (Jase Cárdenas) - Lab Data Lab Results 12/29/18 12/29/18 12/29/18 Range/Units 03:33 03:33 03:33 WBC 4.2 (3.8-10.6) k/uL RBC 4.15 L (4.30-5.90) m/uL Hgb 13.5 (13.0-17.5) gm/dL Hct 41.5 (39.0-53.0) % MCV 99.9 (80.0-100.0) fL MCH 32.6 (25.0-35.0) pg MCHC 32.6 (31.0-37.0) g/dL RDW 16.6 H (11.5-15.5) % Plt Count 200 (150-450) k/uL Neutrophils % 59 % Lymphocytes % 27 % Monocytes % 10 % Eosinophils % 2 % Basophils % 0 % Neutrophils # 2.5 (1.3-7.7) k/uL Lymphocytes # 1.1 (1.0-4.8) k/uL Monocytes # 0.4 (0-1.0) k/uL Eosinophils # 0.1 (0-0.7) k/uL Basophils # 0.0 (0-0.2) k/uL Anisocytosis Slight Macrocytosis Slight Sodium 138 (137-145) mmol/L Potassium 3.4 L (3.5-5.1) mmol/L Chloride 105 (98-107) mmol/L Carbon Dioxide 24 (22-30) mmol/L Anion Gap 9 mmol/L BUN 7 L (9-20) mg/dL Creatinine 0.45 L (0.66-1.25) mg/dL Est GFR (CKD-EPI)AfAm >90 (>60 ml/min/1.73 sqM) Est GFR (CKD-EPI)NonAf >90 (>60 ml/min/1.73 sqM) Glucose 94 (74-99) mg/dL Calcium 8.6 (8.4-10.2) mg/dL Phosphorus 3.9 (2.5-4.5) mg/dL Magnesium 1.8 (1.6-2.3) mg/dL Total Bilirubin 0.7 (0.2-1.3) mg/dL AST 406 H (17-59) U/L ALT 281 H (21-72) U/L Alkaline Phosphatase 122 (38-126) U/L Creatine Kinase 7628 H* (55-170) U/L Total Protein 6.3 (6.3-8.2) g/dL Albumin 3.6 (3.5-5.0) g/dL Amylase 151 H (30-110) U/L Lipase 401 H (23-300) U/L Urine Color Yellow Urine Appearance Clear (Clear) Urine pH 5.5 (5.0-8.0) Ur Specific [place] 1.019 (1.001-1.035) Urine Protein 1+ H (Negative) Urine Glucose (UA) Negative (Negative) Urine Ketones Negative (Negative) Urine Blood Negative (Negative) Urine Nitrite Negative (Negative) Urine Bilirubin Negative (Negative) Urine Urobilinogen <2.0 (<2.0) mg/dL Ur Leukocyte Esterase Negative (Negative) Urine RBC 1 (0-5) /hpf Urine WBC 4 (0-5) /hpf Hyaline Casts 2 (0-2) /lpf Urine Mucus Many H (None) /hpf Disposition <Nathaly Peña - Last Filed: 12/29/18 03:24> Is patient prescribed a controlled substance at d/c from ED?: No Decision to Admit Reason: Admit from EC Decision Date: 12/29/18 Decision Time: 04:39 <Jase Cárdenas - Last Filed: 12/29/18 04:39> Clinical Impression: Rhabdomyolysis, Dehydration, Alcohol withdrawal syndrome Disposition: ADMITTED IP TO THIS [facility] Condition: Stable Referrals: Javon Anaya MD [Primary Care Provider] - 1-2 days
[2018-12-29 03:42] LABS: Anisocytosis Slight; Basophils % (A) 0 %; Eosinophils # (A) 0.1 k/uL (0-0.7); Eosinophils % (A) 2 %; HCT 41.5 % (39.0-53.0); HGB 13.5 gm/dL (13.0-17.5); Lymphocytes # (A) 1.1 k/uL (1.0-4.8); Lymphocytes % (A) 27 %; MCH 32.6 pg (25.0-35.0); MCHC 32.6 g/dL (31.0-37.0); MCV 99.9 fL (80.0-100.0); Macrocytosis Slight; Mean Platelet Volume 7.9; Monocytes # (A) 0.4 k/uL (0-1.0); Monocytes % (A) 10 %; Neutrophils # (A) 2.5 k/uL (1.3-7.7); Neutrophils % (A) 59 %; Platelet Count 200 k/uL (150-450); RBC 4.15 m/uL (4.30-5.90); RDW 16.6 % (11.5-15.5); WBC 4.2 k/uL (3.8-10.6)
[2018-12-29 03:53] LABS: ALT 281 U/L (21-72); AST 406 U/L (17-59); Albumin 3.6 g/dL (3.5-5.0); Alkaline Phosphatase 122 U/L (38-126); Amylase 151 U/L (30-110); Anion Gap 9 mmol/L; Blood Urea Nitrogen 7 mg/dL (9-20); Calcium 8.6 mg/dL (8.4-10.2); Carbon Dioxide 24 mmol/L (22-30); Chloride 105 mmol/L (98-107); Glucose 94 mg/dL (74-99); Lipase 401 U/L (23-300); Magnesium 1.8 mg/dL (1.6-2.3); Phosphorus 3.9 mg/dL (2.5-4.5); Potassium 3.4 mmol/L (3.5-5.1); Sodium 138 mmol/L (137-145); Total Bilirubin 0.7 mg/dL (0.2-1.3); Total Protein 6.3 g/dL (6.3-8.2)
[2018-12-29 04:25] LABS: Appearance,Urine Clear (Clear); Bilirubin,Urine Negative (Negative); Blood,Urine Negative (Negative); Color,Urine Yellow; Glucose,Urine (UA) Negative (Negative); Hyaline Casts,Urine 2 /lpf (0-2); Ketones,Urine Negative (Negative); Leukocyte Esterase,Urine Negative (Negative); Mucus,Urine Many /hpf; Nitrite,Urine Negative (Negative); PH, Urine 5.5 (5.0-8.0); Protein,Urine 1+ (Negative); RBC,Urine 1 /hpf (0-5); Specific Gravity,Urine 1.019 (1.001-1.035); Urobilinogen,Urine <2.0 mg/dL (<2.0); WBC,Urine 4 /hpf (0-5)
[2018-12-29 04:30] LABS: Creatine Kinase 7628 U/L (55-170)
[2018-12-29] MEDS ORDERED: LORazepam 2 MG/ML INJ IV PRN ×2 (04:37)
[2018-12-29] MEDS ORDERED: NALOXONE 0.4 MG/ML 1 ML VIAL IV PRN (04:37)
[2018-12-29] MEDS ORDERED: THIAMINE 100 MG/ML 2 ML VIAL IM STA (04:37)
[2018-12-29] MEDS: POTASSIUM CHLORIDE 10 MEQ in WATER FOR INJECTION 1 100ML.BAG IVPB SCH ×4 (05:31→10:42)
[2018-12-29] MEDS: LORazepam 2 MG/ML INJ IV PRN ×8 (06:53→21:44)
--- NOTE | 2018-12-29 10:17 | P.HPIM ---
History of Present Illness This is a pleasant 48 years old male with past medical history of alcohol abuse and alcohol withdrawal, depression, and cigarette smoker. History of substance abuse with marijuana. He presents with alcohol intoxication and withdrawal. Patient was here in this hospital for the same thing and he signed himself AGAINST MEDICAL ADVICE yesterday, atraumatic. Her only beer and he left yesterday. he came back today and he asked to be treated and stay in the hospital till Thursday when he can go to [place]. Patient denies signs symptoms of depression, no hopelessness or hepatitis. No suicidal or homicidal ideation. No psychosis like no hallucinations. Review of Systems CONSTITUTIONAL: No fever, no malaise, no fatigue. HEENT: No recent visual problems or hearing problems. Denied any sore throat. CARDIOVASCULAR: No orthopnea, PND, no palpitations, no syncope. PULMONARY: No shortness of breath, no cough, no hemoptysis. GASTROINTESTINAL: No diarrhea, no nausea, no vomiting, no abdominal pain. Normoactive bowel sounds. NEUROLOGICAL: No headaches, no weakness, no numbness. HEMATOLOGICAL: Denies any bleeding or petechiae. GENITOURINARY: Denies any burning micturition, frequency, or urgency. MUSCULOSKELETAL/RHEUMATOLOGICAL: Denies any joint pain, swelling, or any muscle pain. ENDOCRINE: Denies any polyuria or polydipsia. Past Medical History Past Medical History: No Reported History Additional Past Medical History / Comment(s): ETOH abuse, smoker, History of Any Multi-Drug Resistant Organisms: None Reported Past Surgical History: Hernia Repair, Tonsillectomy Past Anesthesia/Blood Transfusion Reactions: No Reported Reaction Past Psychological History: Anxiety, Depression Smoking Status: Current every day smoker Past Alcohol Use History: Abuse, Daily, Heavy Additional Past Alcohol Use History / Comment(s): Patient states he has been drinking fifths and cases of beer, he cannot recall how much how often. States his last drink was around noon. Patient states he smokes cigarattes daily, doesn't recall how much. Past Drug Use History: Marijuana Additional Drug Use History / Comment(s): Patient states he last smoked 8 months ago. - Past Family History Brother(s) Family Medical History: Osteoarthritis (OA) Mother Additional Family Medical History / Comment(s): pulmonary fibrosis Medications and Allergies Home Medications Medication Instructions Recorded Confirmed Type Thiamine [Vitamin B-1] 100 mg PO DAILY 12/29/18 12/29/18 History Allergies Allergy/AdvReac Type Severity Reaction Status Date / Time No Known Allergies Allergy Verified 12/29/18 09:03 Physical Exam Vitals: Vital Signs Temp Pulse Pulse Resp BP BP Pulse Ox 12/29/18 07:00 98.9 F 89 20 122/78 98 12/29/18 06:07 98.6 F 84 16 128/76 96 12/29/18 05:32 98.5 F 89 18 120/86 100 12/29/18 04:06 86 16 114/75 100 12/29/18 02:25 98.8 F 113 H 18 110/73 99 Intake and Output 12/28/18 12/29/18 12/29/18 22:59 06:59 14:59 Intake Total 236 Balance 236 Intake: Oral 236 Other: Weight 68.039 kg GENERAL: The patient is alert and oriented x3, not in any acute distress. Well developed, well nourished. HEENT: Pupils are round and equally reacting to light. EOMI. No scleral icterus. No conjunctival pallor. Normocephalic, atraumatic. No pharyngeal erythema. No thyromegaly. CARDIOVASCULAR: S1 and S2 present. No murmurs, rubs, or gallops. PULMONARY: Chest is clear to auscultation, no wheezing or crackles. ABDOMEN: Soft, nontender, nondistended, normoactive bowel sounds. No palpable organomegaly. MUSCULOSKELETAL: No joint swelling or deformity. EXTREMITIES: No cyanosis, clubbing, or pedal edema. NEUROLOGICAL: Gross neurological examination did not reveal any focal deficits. SKIN: No rashes. Results CBC & Chem 7: 12/29/18 03:33 12/29/18 03:33 Labs: Abnormal Lab Results - Last 24 Hours (Table) 12/29/18 12/29/18 12/29/18 Range/Units 03:33 03:33 03:33 RBC 4.15 L (4.30-5.90) m/uL RDW 16.6 H (11.5-15.5) % Potassium 3.4 L (3.5-5.1) mmol/L BUN 7 L (9-20) mg/dL Creatinine 0.45 L (0.66-1.25) mg/dL AST 406 H (17-59) U/L ALT 281 H (21-72) U/L Creatine Kinase 7628 H* (55-170) U/L Amylase 151 H (30-110) U/L Lipase 401 H (23-300) U/L Urine Protein 1+ H (Negative) Urine Mucus Many H (None) /hpf Thrombosis Risk Factor Assmnt - Choose All That Apply Any of the Below Risk Factors Present?: Yes Each Factor Represents 1 point: Age 41-60 years Other Risk Factors: No Thrombosis Risk Factor Assessment Total Risk Factor Score: 1 Thrombosis Risk Factor Assessment Level: Low Risk Assessment and Plan Assessment: Alcohol abuse and alcohol withdrawal Current cigarette smoker History of depression History of substance abuse including marijuana. History of alcoholic pancreatitis and hepatitis Plan: This is a pleasant 48 years old male who presents with alcohol intoxication and withdrawal. Continue with CIWA protocol. Continue with vitamins. 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 Labs and medication were reviewed.. Continue same treatment. Continue with symptomatic treatment. Resume home medication. Monitor lytes and vitals. DVT and GI prophylaxis. Further recommendations of the clinical course of the patient DVT prophylaxis: Subcutaneous heparin GI Prophylaxis: Pepcid PT/OT: Pending Prognosis is guarded
[2018-12-29] MEDS: SODIUM CHLORIDE 0.9% 1,000 ML IV SCH ×2 (10:48→17:28)
[2018-12-29] MEDS: THIAMINE 100 MG TAB PO SCH (17:20)
[2018-12-29] MEDS ORDERED: ACETAMINOPHEN TAB 325 MG TAB PO PRN (20:02)
[2018-12-29] MEDS: FAMOTIDINE 20 MG/2 ML VIAL IV SCH (20:58)
[2018-12-29] MEDS: HEPARIN SODIUM,PORCINE 5,000 UNIT/ML 1 ML VIAL SQ SCH (20:59)
[2018-12-30] MEDS: LORazepam 2 MG/ML INJ IV PRN ×8 (00:04→23:59)
[2018-12-30] MEDS: SODIUM CHLORIDE 0.9% 1,000 ML IV SCH ×5 (00:04→23:59)
[2018-12-30 07:51] LABS: HCT 36.7 % (39.0-53.0); HGB 12.1 gm/dL (13.0-17.5); MCH 34.2 pg (25.0-35.0); MCHC 32.9 g/dL (31.0-37.0); MCV 104.1 fL (80.0-100.0); Macrocytosis Moderate; Mean Platelet Volume 7.8; Platelet Count 193 k/uL (150-450); RBC 3.53 m/uL (4.30-5.90); WBC 4.7 k/uL (3.8-10.6)
[2018-12-30 07:55] LABS: ALT 219 U/L (21-72); AST 216 U/L (17-59); Albumin 3.2 g/dL (3.5-5.0); Alkaline Phosphatase 110 U/L (38-126); Anion Gap 5 mmol/L; Bilirubin, Delta 0.2 mg/dL (0.0-0.2); Bilirubin,Unconjugated 0.6 mg/dL (0.0-1.1); Blood Urea Nitrogen 5 mg/dL (9-20); Calcium 8.4 mg/dL (8.4-10.2); Carbon Dioxide 27 mmol/L (22-30); Chloride 105 mmol/L (98-107); Glucose 96 mg/dL (74-99); Potassium 3.7 mmol/L (3.5-5.1); Sodium 137 mmol/L (137-145); Total Bilirubin 0.8 mg/dL (0.2-1.3); Total Protein 5.8 g/dL (6.3-8.2)
[2018-12-30] MEDS: HEPARIN SODIUM,PORCINE 5,000 UNIT/ML 1 ML VIAL SQ SCH ×2 (08:12→20:07)
[2018-12-30] MEDS: FAMOTIDINE 20 MG/2 ML VIAL IV SCH (08:12)
[2018-12-30] MEDS: THIAMINE 100 MG TAB PO SCH ×2 (08:13→16:16)
[2018-12-30 08:14] LABS: Eosinophils # (M) 0.14 k/uL (0-0.7); Lymphocytes # (M) 0.89 k/uL (1.0-4.8); Monocytes # (M) 0.24 k/uL (0-1.0); Neutrophils # (M) 3.43 k/uL (1.3-7.7); Neutrophils % (M) 73 %; Nucleated Red Blood Cells 0 /100 WBC (0-0); Total Cells Counted 100
[2018-12-30 08:15] LABS: Poikilocytosis (M) Present
[2018-12-30 09:09] LABS: Creatine Kinase 4166 U/L (55-170)
--- NOTE | 2018-12-30 14:08 | P.PN ---
Subjective This is a pleasant 48 years old male with past medical history of alcohol abuse and alcohol withdrawal, depression, and cigarette smoker. History of substance abuse with marijuana. He presents with alcohol intoxication and withdrawal. Patient was here in this hospital for the same thing and he signed himself AGAINST MEDICAL ADVICE one day prior to this admission and he came back, he told me he was drinking at home. Her only beer and he left yesterday. he came back today and he asked to be treated and stay in the hospital till Thursday when he can go to [place]. Patient denies signs symptoms of depression, no hopelessness or hepatitis. No suicidal or homicidal ideation. No psychosis like no hallucinations. 12/30/2018 Patient still have alcohol withdrawal signs or symptoms like a tremor, nausea but no vomiting. He has diarrhea about every hour. No abdominal pain. His heart for him also to concentrate and he has tremors in his hands. Patient feels hungry. Also was complaining of from tooth pain and he told me there was some discharge from it however on examination did not show severe inflammation. Patient was instructed to follow up with his dentist upon discharge and he agreed. We started him on clindamycin, risk of C. diff is extended for the patient and he agrees to it. Also I had a chance to speak to his mother Mrs. Dana Ross at [phone], upon patient request. Patient mother was requesting to be discharged tomorrow before 9:00 because he has a bit in [place] for his alcohol rehab, and if he loses his. He will have to restart the process which will takes him another 3 weeks with and traced of drinking again. I explained for the mother we will reapproximated in the morning however given his severity of his alcohol withdrawal the chances that he will be stable for discharge tomorrow is low. Risks of discharge are explained for the patient and mother including but not limited delirium tremens, and pneumonia, and others and they verbalized understanding and acceptance for the planned for now. CONSTITUTIONAL: No fever, no malaise, no fatigue. HEENT: No recent visual problems or hearing problems. Denied any sore throat. CARDIOVASCULAR: No orthopnea, PND, no palpitations, no syncope. PULMONARY: No shortness of breath, no cough, no hemoptysis. GASTROINTESTINAL: No diarrhea, no nausea, no vomiting, no abdominal pain. Normoactive bowel sounds. NEUROLOGICAL: No headaches, no weakness, no numbness. HEMATOLOGICAL: Denies any bleeding or petechiae. GENITOURINARY: Denies any burning micturition, frequency, or urgency. MUSCULOSKELETAL/RHEUMATOLOGICAL: Denies any joint pain, swelling, or any muscle pain. ENDOCRINE: Denies any polyuria or polydipsia. Medication: Tylenol, Pepcid, heparin, Ativan, normal saline, thiamine Objective - Vital Signs Vital signs: Vital Signs Temp 98.4 F 12/30/18 07:00 Pulse 80 12/30/18 08:00 Resp 16 12/30/18 08:00 BP 137/88 12/30/18 07:00 Pulse Ox 100 12/30/18 07:00 Intake & Output 12/29/18 12/30/18 12/30/18 18:59 06:59 18:59 Intake Total 2168 2900 Output Total 1900 1300 Balance 2168 1000 -1300 Intake: Intake, IV Titration 1200 2400 Amount Sodium Chloride 0.9% 1, 1200 2400 000 ml @ 150 mls/hr IV . Q6H40M [facility] Rx#:[id number] Oral 968 500 Output: Urine 1900 1300 Other: Voiding Method Urinal Urinal Urinal # Voids 2 - Exam GENERAL: The patient is alert and oriented x3, not in any acute distress. Well developed, well nourished. HEENT: Pupils are round and equally reacting to light. EOMI. No scleral icterus. No conjunctival pallor. Normocephalic, atraumatic. No pharyngeal erythema. No thyromegaly. CARDIOVASCULAR: S1 and S2 present. No murmurs, rubs, or gallops. PULMONARY: Chest is clear to auscultation, no wheezing or crackles. ABDOMEN: Soft, nontender, nondistended, normoactive bowel sounds. No palpable organomegaly. MUSCULOSKELETAL: No joint swelling or deformity. -EXTREMITIES: No cyanosis, clubbing, or pedal edema. A proximity tremor NEUROLOGICAL: Gross neurological examination did not reveal any focal deficits. SKIN: No rashes. - Labs CBC & Chem 7: 12/30/18 07:11 12/30/18 07:11 Labs: Abnormal Lab Results - Last 24 Hours (Table) 12/30/18 12/30/18 Range/Units 07:11 07:11 RBC 3.53 L (4.30-5.90) m/uL Hgb 12.1 L (13.0-17.5) gm/dL Hct 36.7 L (39.0-53.0) % MCV 104.1 H (80.0-100.0) fL RDW 16.0 H (11.5-15.5) % Lymphocytes # (Manual) 0.89 L (1.0-4.8) k/uL BUN 5 L (9-20) mg/dL Creatinine 0.45 L (0.66-1.25) mg/dL AST 216 H (17-59) U/L ALT 219 H (21-72) U/L Creatine Kinase 4166 H* (55-170) U/L Total Protein 5.8 L (6.3-8.2) g/dL Albumin 3.2 L (3.5-5.0) g/dL Assessment and Plan Assessment: Alcohol abuse and alcohol withdrawal Delirium tremens Rhabdomyolysis Left upper tooth infection depression without suicidal ideation Current cigarette smoker History of depression History of substance abuse including marijuana. History of alcoholic pancreatitis and hepatitis Plan: This is a pleasant 48 years old male who presents with alcohol intoxication and withdrawal. Continue with CIWA protocol. Continue with vitamins. Nicotine patch social service technician evaluation. Continue with the same Antibiotic. Call psych consult. Continue with IV fluids. Labs and medication were reviewed.. Continue same treatment. Continue with symptomatic treatment. Resume home medication. Monitor lytes and vitals. DVT and GI prophylaxis. Further re commendations of the clinical course of the patient DVT prophylaxis: Subcutaneous heparin GI Prophylaxis: Pepcid PT/OT: Pending Prognosis is guarded
[2018-12-30] MEDS: CLINDAMYCIN 150 MG CAP PO SCH ×2 (16:16→20:20)
[2018-12-30] MEDS: FAMOTIDINE 20 MG TAB PO SCH (20:07)
[2018-12-30 21:21] VITALS: RESP 18
[2018-12-31] MEDS: LORazepam 2 MG/ML INJ IV PRN (05:31)
[2018-12-31] MEDS: CLINDAMYCIN 150 MG CAP PO SCH (08:04)
[2018-12-31] MEDS: FAMOTIDINE 20 MG TAB PO SCH (08:04)
[2018-12-31] MEDS: THIAMINE 100 MG TAB PO SCH (08:04)
[2018-12-31] MEDS: HEPARIN SODIUM,PORCINE 5,000 UNIT/ML 1 ML VIAL SQ SCH (08:04)
[2018-12-31 08:47] VITALS: BP 129/86; PULSE 90; TEMP 98.4
[2018-12-31 09:42] LABS: Anisocytosis Slight; Basophils % (A) 0 %; Eosinophils # (A) 0.1 k/uL (0-0.7); Eosinophils % (A) 1 %; HCT 39.7 % (39.0-53.0); HGB 12.9 gm/dL (13.0-17.5); Lymphocytes % (A) 19 %; MCHC 32.5 g/dL (31.0-37.0); MCV 101.6 fL (80.0-100.0); Macrocytosis Slight; Monocytes # (A) 0.3 k/uL (0-1.0); Monocytes % (A) 7 %; Neutrophils # (A) 3.6 k/uL (1.3-7.7); Neutrophils % (A) 70 %; Platelet Count 218 k/uL (150-450); RBC 3.91 m/uL (4.30-5.90); RDW 16.7 % (11.5-15.5); WBC 5.2 k/uL (3.8-10.6)
[2018-12-31 09:48] LABS: ALT 200 U/L (21-72); AST 164 U/L (17-59); Albumin 3.4 g/dL (3.5-5.0); Alkaline Phosphatase 101 U/L (38-126); Anion Gap 6 mmol/L; Bilirubin, Delta 0.2 mg/dL (0.0-0.2); Bilirubin,Unconjugated 0.5 mg/dL (0.0-1.1); Blood Urea Nitrogen 6 mg/dL (9-20); Calcium 8.9 mg/dL (8.4-10.2); Carbon Dioxide 26 mmol/L (22-30); Chloride 104 mmol/L (98-107); Glucose 152 mg/dL (74-99); Potassium 3.9 mmol/L (3.5-5.1); Sodium 136 mmol/L (137-145); Total Bilirubin 0.7 mg/dL (0.2-1.3); Total Protein 5.9 g/dL (6.3-8.2)
[2018-12-31 09:52] LABS: Creatine Kinase 1493 U/L (55-170)
[2018-12-31] MEDS: SODIUM CHLORIDE 0.9% 1,000 ML IV SCH (09:53)
[2018-12-31] MEDS ORDERED: MULTIVITAMINS, THERA 1 EACH TAB PO SCH (12:00)
[2018-12-31] MEDS ORDERED: FOLIC ACID 1 MG TAB PO SCH (12:00)
--- NOTE | 2018-12-31 19:00 | P.DS ---
Providers Date of admission: 12/29/18 04:37 Attending physician: Vivian Chung Consults: 12/30/18 15:14 Consult Physician Stat Consulting Provider: Kaushik Shay Consult Reason/Comments: ETOH, depression, anxiety Do you want consulting provider notified?: Yes Primary care physician: Héctor Alejandro Hospital Course: Diagnoses: (Patient signed leaving AMA) Alcohol abuse and alcohol withdrawal, improving Rhabdomyolysis, improving Left upper tooth infection Current cigarette smoker History of depression, with no suicidal ideation History of substance abuse including marijuana. History of alcoholic pancreatitis and hepatitis Hospital course This is a pleasant 48 years old male with a known history of alcohol abuse and several times admission for alcohol withdrawal [place] he was admitted a few days ago and signed himself. Leaving AGAINST MEDICAL ADVICE. He presents this time with similar complaint for he was starting drinking for 1 day and then came back to the hospital with similar complaints for alcohol withdrawal. Patient was treated with CIWA protocol, vitamins, IV hydration. And antibiotics for staph infection. Patient showed interval improvement, however he was needing Ativan every 4 hours yesterday evening with CIWA score between 7-8, overnight he skipped doses and his CIWA score was 10, however today patient was more calm less tumor and he could walk in the room. The breathing is fine with no chest pain. No dyspnea. No change in urine or bowel habits. His diarrhea has resolved and this morning he normal bowel movement. He is making good urine. He is fully awake and oriented. His creatinine Was coming down from 7628, 4166, down to 1493 with IV hydration. Patient and family at bedside were insistent on patient not completing the therapy and leaving today to [place] for alcohol rehab otherwise he will lose his bed and he has to apply for it again which might take him another 3 weeks and at that time he would be at risk of going back to drinking alcohol again. So the patient and family did not want to wait and he signed himself AGAINST MEDICAL ADVICE again. However prescription was provided for the patient. Risks including but not limited to alcohol withdrawal worsening, delirium tremens, pneumonia cardiac arrhythmia and or are explained to him and he verbalized understanding and acceptance to take the risk and still wanted to leave AMA. Patient has capacity to make medical decision. He denies hallucination or delusions. No suicidal or homicidal ideation. Patient is made aware that prescription a provided for him would not prevent complication mentioned above 100% and he is aware of this Gen: patient is a AAOx3, no distress CVS: S1-S2, RRR, no murmur Lungs: B/L CTA, no wheezing Abdomen: soft, no distention, no tenderness, positive bowel sounds Extremity: no leg edema or induration. No tremor Time spent more than 35 minutes Patient Condition at Discharge: Stable Plan - Discharge Summary New Discharge Prescriptions: New Clindamycin [Cleocin] 150 mg PO QID 7 Days #28 cap Folic Acid 1 mg PO DAILY@1200 #30 tab Multivitamins, Thera [Multivitamin (formulary)] 1 each PO DAILY@1200 #30 tab Famotidine [Pepcid] 20 mg PO Q12HR #60 tab Acetaminophen Tab [Tylenol] 650 mg PO Q6HR PRN #20 tab PRN Reason: Fever And/ Or Pain Thiamine [Vitamin B-1] 100 mg PO BID@1200,1700 30 Days #60 tab Continue Thiamine [Vitamin B-1] 100 mg PO DAILY Discharge Medication List Thiamine [Vitamin B-1] 100 mg PO DAILY 12/29/18 [History] Acetaminophen Tab [Tylenol] 650 mg PO Q6HR PRN #20 tab 12/31/18 [Rx] Clindamycin [Cleocin] 150 mg PO QID 7 Days #28 cap 12/31/18 [Rx] Famotidine [Pepcid] 20 mg PO Q12HR #60 tab 12/31/18 [Rx] Folic Acid 1 mg PO DAILY@1200 #30 tab 12/31/18 [Rx] Multivitamins, Thera [Multivitamin (formulary)] 1 each PO DAILY@1200 #30 tab 12/31/18 [Rx] Thiamine [Vitamin B-1] 100 mg PO BID@1200,1700 30 Days #60 tab 12/31/18 [Rx] Follow up Appointment(s)/Referral(s): Javon Anaya MD [Primary Care Provider] - 1-2 days Patient Instructions/Handouts: Abuse of Alcohol (DC) Activity/Diet/Wound Care/Special Instructions: No smoking, cessation information provided. No alcohol use. Up with assist, fall precautions. Please follow-up with your dentist within 1 week of discharge, call to make appointment Discharge Disposition: Left Against Medical Advice
== END 2018-12-31 10:06 | disposition left against medical advice (07) ==
LOC: EC 02:18 → 4SSUR 04:37 → INTOOBSV 04:37 → UNDODISIN 12-31 10:06
PROVIDERS: ADMIT Hospitalist; ATTEND Hospitalist
DX: F10.231 Alcohol dependence with withdrawal delirium (principal); M62.82 Rhabdomyolysis; F10.229 Alcohol dependence with intoxication, unspecified; F17.210 Nicotine dependence, cigarettes, uncomplicated; E86.0 Dehydration; R19.7 Diarrhea, unspecified; K04.7 Periapical abscess without sinus; B95.8 Unspecified staphylococcus as the cause of diseases classified elsewhere; Z82.61 Family history of arthritis; Z83.6 Family history of other diseases of the respiratory system; Z86.19 Personal history of other infectious and parasitic diseases; Z53.21 Procedure and treatment not carried out due to patient leaving prior to being seen by health care provider
CPT/HCPCS: 96376 ×3; 96361 ×4; 96366; 96372 ×3; 96375; 82075; 96365; 99285; 36415; 80053; 80048 ×2; 80076 ×2; 82150; 82550 ×3; 83690; 83735; 84100; 85025 ×3; 81001; G0378 ×3; J2060 ×3; J1644 ×2; J3411; J3480; 96360

== ENCOUNTER → 2019-02-28 | Outpatient (CLI) | payer OTHER ==
--- NOTE | 2019-02-28 09:40 | XR ---
EXAMINATION TYPE: XR cervical spine comp DATE OF EXAM: 02/28/2019 TECHNIQUE: Frontal, lateral, oblique, swimmers, and open mouth view of the cervical spine are obtaine d. HISTORY: Myelopathy from DDD / Spondylosis / Neck pain COMPARISON: None FINDINGS: The cervical spine is visualized in its entirety from C1 thru the top of T1 level, it is s atisfactory in alignment without evidence of acute fracture or dislocation. Few small anterior osteop hytes are seen throughout the cervical spine. Very mild uncovertebral hypertrophy is present at multi ple levels, particularly C3-C4, C4-C5 and C5-C6. However no significant neural foraminal narrowing is seen radiographically. Incidental note is made of punctate right carotid arterial atherosclerosis. The pre-vertebral soft tissue appears within normal limits. The C1-C2 articulation is within normal limits on the open mouth view. IMPRESSION: No acute fracture or malalignment is seen in the cervical spine. Mild multilevel degener ative disc disease of the cervical spine.
== END | disposition home or self-care (01) ==
LOC: RADXRMAIN 09:00
PROVIDERS: ATTEND Internal Medicine
DX: M50.30 Other cervical disc degeneration, unspecified cervical region (principal)
CPT/HCPCS: 72050

== ENCOUNTER 2019-08-30 15:46 | Emergency (ER) | payer OTHER ==
[2019-08-30] MEDS ORDERED: diphenhydrAMINE 50 MG/ML 1 ML VIAL IVP STA (16:22)
[2019-08-30] MEDS ORDERED: ONDANSETRON 4 MG/2 ML VIAL IVP STA (16:22)
[2019-08-30] MEDS ORDERED: SODIUM CHLORIDE 0.9% 1,000 ML IV STA (16:22)
[2019-08-30] MEDS ORDERED: LORazepam 2 MG/ML INJ IV STA (16:23)
--- NOTE | 2019-08-30 16:24 | ED ---
General Adult HPI - General Stated complaint: Alcohol withdraw Time Seen by Provider: 08/30/19 16:14 Source: patient, RN notes reviewed Limitations: no limitations - History of Present Illness Initial comments: 49-year-old male presents emergency Department chief complaint of nausea vomiting and alcohol withdrawal. Patient states he drinks 6-12 beers daily and states is also drinking whiskey. Patient's this morning because he felt sick. He denies any chest pain or shortness of breath. Patient is complaining of nausea vomiting abdominal scar for. Patient has had several admissions for alcohol abuse, alcohol withdrawal. Patient states he went to [facility] earlier this year states that he was sober for a while but cannot remember when he started drinking again. - Related Data Home Medications Medication Instructions Recorded Confirmed Thiamine [Vitamin B-1] 100 mg PO DAILY 12/29/18 12/29/18 Previous Rx's Medication Instructions Recorded Acetaminophen Tab [Tylenol] 650 mg PO Q6HR PRN #20 tab 12/31/18 Clindamycin [Cleocin] 150 mg PO QID 7 Days #28 cap 12/31/18 Famotidine [Pepcid] 20 mg PO Q12HR #60 tab 12/31/18 Folic Acid 1 mg PO DAILY@1200 #30 tab 12/31/18 Multivitamins, Thera [Multivitamin 1 each PO DAILY@1200 #30 tab 12/31/18 (formulary)] Thiamine [Vitamin B-1] 100 mg PO BID@1200,1700 30 Days 12/31/18 #60 tab Allergies Allergy/AdvReac Type Severity Reaction Status Date / Time No Known Allergies Allergy Verified 12/29/18 09:03 Review of Systems ROS Statement: Those systems with pertinent positive or pertinent negative responses have been documented in the HPI. ROS Other: All systems not noted in ROS Statement are negative. Past Medical History Past Medical History: No Reported History Additional Past Medical History / Comment(s): ETOH abuse, smoker, History of Any Multi-Drug Resistant Organisms: None Reported Past Surgical History: Hernia Repair, Tonsillectomy Past Anesthesia/Blood Transfusion Reactions: No Reported Reaction Past Psychological History: Anxiety, Depression Smoking Status: Current every day smoker Past Alcohol Use History: Abuse, Daily, Heavy Additional Past Alcohol Use History / Comment(s): Patient states he has been drinking fifths and cases of beer, he cannot recall how much how often. States his last drink was around noon. Patient states he smokes cigarattes daily, doesn't recall how much. Past Drug Use History: Marijuana Additional Drug Use History / Comment(s): Patient states he last smoked 8 months ago. - Past Family History Brother(s) Family Medical History: Osteoarthritis (OA) Mother Additional Family Medical History / Comment(s): pulmonary fibrosis General Exam General appearance: alert, in no apparent distress Head exam: Present: atraumatic, normocephalic, normal inspection Eye exam: Present: normal appearance, PERRL, EOMI. Absent: scleral icterus, conjunctival injection, periorbital swelling ENT exam: Present: normal exam, normal oropharynx, mucous membranes moist, TM's normal bilaterally Neck exam: Present: normal inspection, full ROM. Absent: tenderness, meningismus, lymphadenopathy Respiratory exam: Present: normal lung sounds bilaterally. Absent: respiratory distress, wheezes, rales, rhonchi, stridor Cardiovascular Exam: Present: regular rate, normal rhythm, normal heart sounds. Absent: systolic murmur, diastolic murmur, rubs, gallop, clicks GI/Abdominal exam: Present: soft, tenderness, normal bowel sounds. Absent: distended, guarding, rebound, rigid Neurological exam: Present: alert, oriented X3 Skin exam: Present: warm, dry, intact, normal color. Absent: rash Course Vital Signs 08/30/19 08/30/19 08/30/19 16:16 16:30 17:00 Temperature 97.6 F Pulse Rate 104 H 73 72 Respiratory 25 H 22 20 Rate Blood Pressure 111/82 111/82 120/82 O2 Sat by Pulse 96 98 94 L Oximetry 08/30/19 08/30/19 08/30/19 17:15 17:31 17:45 Temperature Pulse Rate 81 86 85 Respiratory 18 19 18 Rate Blood Pressure 125/85 115/82 120/82 O2 Sat by Pulse 94 L 97 Oximetry 08/30/19 08/30/19 18:00 18:15 Temperature Pulse Rate 87 87 Respiratory 18 20 Rate Blood Pressure 117/81 116/79 O2 Sat by Pulse 97 Oximetry - Reevaluation(s) Reevaluation #1: 08/30/19 18:40 Patient updated and results. Patient is in no distress, sleeping in the room patient is awake and alert and oriented after being aroused his no current withdrawal symptoms. Medical Decision Making - Medical Decision Making Patient labs 15 constipation, dehydration metabolic acidosis. Patient was well hydrated 2 L patient has no signs of withdrawal patient is clinically sober. Patient we discharged with Zofran 1 by mouth Valium patient states he does not intend to stay sober at this time. He was given follow-up for rehab encouragement to stop drinking and controlled environment - Lab Data Result diagrams: 08/30/19 16:07 08/30/19 16:07 Lab Results 08/30/19 08/30/19 Range/Units 16:07 16:07 WBC 9.2 (3.8-10.6) k/uL RBC 5.82 (4.30-5.90) m/uL Hgb 19.1 H* (13.0-17.5) gm/dL Hct 57.8 H* (39.0-53.0) % MCV 99.4 (80.0-100.0) fL MCH 32.9 (25.0-35.0) pg MCHC 33.1 (31.0-37.0) g/dL RDW 13.7 (11.5-15.5) % Plt Count 229 (150-450) k/uL Neutrophils % 62 % Lymphocytes % 28 % Monocytes % 5 % Eosinophils % 1 % Basophils % 2 % Neutrophils # 5.8 (1.3-7.7) k/uL Lymphocytes # 2.6 (1.0-4.8) k/uL Monocytes # 0.5 (0-1.0) k/uL Eosinophils # 0.1 (0-0.7) k/uL Basophils # 0.2 (0-0.2) k/uL Sodium 141 (137-145) mmol/L Potassium 4.8 (3.5-5.1) mmol/L Chloride 103 (98-107) mmol/L Carbon Dioxide 14 L (22-30) mmol/L Anion Gap 24 mmol/L BUN 12 (9-20) mg/dL Creatinine 0.88 (0.66-1.25) mg/dL Est GFR (CKD-EPI)AfAm >90 (>60 ml/min/1.73 sqM) Est GFR (CKD-EPI)NonAf >90 (>60 ml/min/1.73 sqM) Glucose 84 (74-99) mg/dL Calcium 9.7 (8.4-10.2) mg/dL Magnesium 2.1 (1.6-2.3) mg/dL Total Bilirubin 0.5 (0.2-1.3) mg/dL AST 45 (17-59) U/L ALT 22 (4-49) U/L Alkaline Phosphatase 100 (38-126) U/L Creatine Kinase 177 H (55-170) U/L Total Protein 8.7 H (6.3-8.2) g/dL Albumin 5.1 H (3.5-5.0) g/dL Amylase 160 H (30-110) U/L Lipase 164 (23-300) U/L Disposition Clinical Impression: Alcoholic intoxication, Alcohol abuse, Dehydration Disposition: HOME SELF-CARE Condition: Stable Instructions (If sedation given, give patient instructions): Alcohol Intoxication (ED), Alcohol Withdrawal (ED) Additional Instructions: Please return to the Emergency Department if symptoms worsen or any other concerns. Is patient prescribed a controlled substance at d/c from ED?: No Referrals: Javon Anaya MD [Primary Care Provider] - 1-2 days Time of Disposition: 18:57
[2019-08-30 16:43] LABS: ALT 22 U/L (4-49); AST 45 U/L (17-59); African American GFR (CKD) >90 (>60 ml/min/1.73 sqM); Albumin 5.1 g/dL (3.5-5.0); Alkaline Phosphatase 100 U/L (38-126); Amylase 160 U/L (30-110); Anion Gap 24 mmol/L; Blood Urea Nitrogen 12 mg/dL (9-20); Calcium 9.7 mg/dL (8.4-10.2); Carbon Dioxide 14 mmol/L (22-30); Chloride 103 mmol/L (98-107); Creatine Kinase 177 U/L (55-170); Glucose 84 mg/dL (74-99); Magnesium 2.1 mg/dL (1.6-2.3); Non-African American GFR(CKD) >90 (>60 ml/min/1.73 sqM); Potassium 4.8 mmol/L (3.5-5.1); Sodium 141 mmol/L (137-145); Total Bilirubin 0.5 mg/dL (0.2-1.3); Total Protein 8.7 g/dL (6.3-8.2)
[2019-08-30 17:00] LABS: Basophils # (A) 0.2 k/uL (0-0.2); Basophils % (A) 2 %; Eosinophils # (A) 0.1 k/uL (0-0.7); Eosinophils % (A) 1 %; Lymphocytes # (A) 2.6 k/uL (1.0-4.8); Lymphocytes % (A) 28 %; MCH 32.9 pg (25.0-35.0); MCHC 33.1 g/dL (31.0-37.0); MCV 99.4 fL (80.0-100.0); Mean Platelet Volume 6.9; Monocytes # (A) 0.5 k/uL (0-1.0); Monocytes % (A) 5 %; Neutrophils # (A) 5.8 k/uL (1.3-7.7); Neutrophils % (A) 62 %; Platelet Count 229 k/uL (150-450); RBC 5.82 m/uL (4.30-5.90); RDW 13.7 % (11.5-15.5); WBC 9.2 k/uL (3.8-10.6)
[2019-08-30 17:04] LABS: HCT 57.8 % (39.0-53.0); HGB 19.1 gm/dL (13.0-17.5)
[2019-08-30] MEDS ORDERED: SODIUM CHLORIDE 0.9% 1,000 ML IV ONE (18:27)
[2019-08-30] MEDS ORDERED: ONDANSETRON 4 MG ODT STARTER PACK 2 TAB BTL PO STA (18:57)
[2019-08-30] MEDS ORDERED: DIAZEPAM 5 MG TAB PO STA (18:57)
[2019-08-30 19:01] VITALS: RESP 18
[2019-08-30 20:06] VITALS: BP 118/79; PULSE 75; TEMP 98
[2019-08-30 20:10] LABS: Appearance,Urine Clear (Clear); Bilirubin,Urine Negative (Negative); Blood,Urine Trace (Negative); Color,Urine Yellow; Glucose,Urine (UA) Negative (Negative); Hyaline Casts,Urine 10 /lpf (0-2); Ketones,Urine 2+ (Negative); Leukocyte Esterase,Urine Negative (Negative); Mucus,Urine Rare /hpf; Nitrite,Urine Negative (Negative); PH, Urine 5.5 (5.0-8.0); Protein,Urine Trace (Negative); RBC,Urine 1 /hpf (0-5); Specific Gravity,Urine 1.012 (1.001-1.035); Urobilinogen,Urine <2.0 mg/dL (<2.0); WBC,Urine <1 /hpf (0-5)
== END 2019-08-30 20:06 | disposition home or self-care (01) ==
LOC: EC 15:46
DX: F10.129 Alcohol abuse with intoxication, unspecified (principal); E86.0 Dehydration; R11.2 Nausea with vomiting, unspecified; F17.210 Nicotine dependence, cigarettes, uncomplicated
CPT/HCPCS: 82075; 36415; 80053; 82150; 82550; 83690; 83735; 85025; 81001; 99284; 96374; 96375 ×2; 96361 ×2; J2060; J1200; J2405; S0119

== ENCOUNTER 2019-09-19 07:38 | Inpatient (IN) | payer OTHER ==
[2019-09-19] MEDS ORDERED: THIAMINE 100 MG/ML 2 ML VIAL IM STA (08:03)
--- NOTE | 2019-09-19 08:13 | ED ---
Nausea/Vomiting/Diarrhea HPI - General Chief complaint: Nausea/Vomiting/Diarrhea Stated complaint: Withdrawal symptoms Time Seen by Provider: 09/19/19 08:01 Source: patient Mode of arrival: wheelchair Limitations: no limitations - History of Present Illness Initial comments: 49-year-old male with history of chronic alcohol abuse with history of withdrawa l seizures, rhabdomyolysis presenting to the emergency department today for chief complaint of withdrawal. Patient states he is heavily drinking yesterday evening however has not had a drink since he states he felt like his heart was racing he felt nauseous jittery as though he was withdrawing and had a shot of whiskey prior to coming to the emergency department. Patient states he is unsure if he had a seizures but does feel like he is hearing and seeing things that arent there. patient also states he has not ate in 4 days and he feels hunger pains, but denies severe abdominal pain, diarrhea. Patient denies fever, chest pain, shortness of breath. patient has rapid speech, laughs randomly t hroughout the history taking, making statements such as "I love my mom, i love my dad, i love my brother". Patient appears acutely psychotic. HR Noted to be elevated otherwise VS stable. - Related Data Home Medications Medication Instructions Recorded Confirmed Sertraline [Zoloft] 25 mg PO DAILY 09/01/19 09/01/19 Allergies Allergy/AdvReac Type Severity Reaction Status Date / Time No Known Allergies Allergy Verified 09/19/19 07:51 Review of Systems ROS Statement: Those systems with pertinent positive or pertinent negative responses have been documented in the HPI. ROS Other: All systems not noted in ROS Statement are negative. Past Medical History Past Medical History: No Reported History Additional Past Medical History / Comment(s): ETOH abuse, smoker, History of Any Multi-Drug Resistant Organisms: None Reported Past Surgical History: Hernia Repair Past Anesthesia/Blood Transfusion Reactions: No Reported Reaction Past Psychological History: Anxiety, Depression Smoking Status: Current every day smoker Past Alcohol Use History: Abuse, Daily, Heavy Past Drug Use History: Marijuana - Past Family History Brother(s) Family Medical History: Osteoarthritis (OA) Mother Additional Family Medical History / Comment(s): pulmonary fibrosis General Exam - General Exam Comments Initial Comments: General: The patient is awake and alert, in no distress Eye: +3 mm pupils are equal, round and reactive to light, extra-ocular movement s are intact. No nystagmus. There is normal conjunctiva bilaterally. No signs of icterus. Ears, nose, mouth and throat: There are moist mucous membranes and no oral lesi ons. Neck: The neck is supple, there is no tenderness or JVD. Cardiovascular: There is a regular rate and rhythm. No murmur, rub or gallop is appreciated. Respiratory: Lungs are clear to auscultation, respirations are non-labored, breath sounds are equal. No wheezes, stridor, rales, or rhonchi. Gastrointestinal: Soft, non-distended, non-tender abdomen without masses or organomegaly noted. There is no rebound or guarding present. Musculoskeletal: Normal ROM, no tenderness. Strength 5/5. Sensation intact. Radial pulses equal bilaterally 2+. Neurological: A&O x 3. CN II-XII intact, There are no obvious motor or sensory deficits. Coordination appears grossly intact. Speech is normal. No tremors noted. Skin: Skin is warm and dry and no rashes or lesions are noted. Psychiatric: Patient has rapid speech, flight of ideas Limitations: no limitations Course Vital Signs 09/19/19 07:51 Temperature 98.0 F Pulse Rate 105 H Respiratory 24 Rate Blood Pressure 118/81 O2 Sat by Pulse 98 Oximetry Medical Decision Making - Medical Decision Making 49-year-old male presenting today for chief complaint of possible occult trauma patient was drinking last night. Patient states last drink was at 7 AM. Patient states he feels nauseous. Patient smell of alcohol. Patient has no nystagmus, or tremors. No focalized neurological findings. Patient does admit to auditory hallucinations. patient has pressured speech with flight of ideas, denies suicidal or homicidal ideations. Blood alcohol >300. Patient will be [facility] protocols, IV fluids with psychiatric consultation for ETOH intoxication with auditory hallucinations. Discussed case with Dr. Block who is agreeable to care plan and admission-he spoke with admitting providers. - Lab Data Result diagrams: 09/19/19 08:12 09/19/19 08:12 Lab Results 09/19/19 09/19/19 Range/Units 08:12 08:12 WBC 10.2 (3.8-10.6) k/uL RBC 5.60 (4.30-5.90) m/uL Hgb 18.9 H D (13.0-17.5) gm/dL Hct 55.0 H (39.0-53.0) % MCV 98.3 (80.0-100.0) fL MCH 33.8 (25.0-35.0) pg MCHC 34.4 (31.0-37.0) g/dL RDW 13.4 (11.5-15.5) % Plt Count 320 D (150-450) k/uL Neutrophils % 58 % Lymphocytes % 32 % Monocytes % 4 % Eosinophils % 2 % Basophils % 1 % Neutrophils # 5.9 (1.3-7.7) k/uL Lymphocytes # 3.2 (1.0-4.8) k/uL Monocytes # 0.4 (0-1.0) k/uL Eosinophils # 0.2 (0-0.7) k/uL Basophils # 0.1 (0-0.2) k/uL Sodium 142 (137-145) mmol/L Potassium 4.7 (3.5-5.1) mmol/L Chloride 100 (98-107) mmol/L Carbon Dioxide 21 L (22-30) mmol/L Anion Gap 21 mmol/L BUN 15 (9-20) mg/dL Creatinine 0.92 (0.66-1.25) mg/dL Est GFR (CKD-EPI)AfAm >90 (>60 ml/min/1.73 sqM) Est GFR (CKD-EPI)NonAf >90 (>60 ml/min/1.73 sqM) Glucose 105 H (74-99) mg/dL Calcium 9.8 (8.4-10.2) mg/dL Phosphorus 3.6 (2.5-4.5) mg/dL Magnesium 1.9 (1.6-2.3) mg/dL Creatine Kinase 60 (55-170) U/L Lipase 210 (23-300) U/L Serum Alcohol 334 H* mg/dL - EKG Data EKG Comments: Ventricular rate 100 bpm, CO interval 134 ms, QRS duration 84 ms, QT/QTc is 336/433 ms. This is normal sinus no ST elevation or depression. Normal R-wave progression with no acute findings noted Disposition Clinical Impression: ETOH abuse, Auditory hallucinations, Alcohol intoxication Disposition: ADMITTED IP TO THIS HOSP Condition: Stable Is patient prescribed a controlled substance at d/c from ED?: No Referrals: Javon Anaya MD [Primary Care Provider] - 1-2 days Time of Disposition: 09:16 Decision to Admit Reason: Admit from EC Decision Date: 09/19/19 Decision Time: 09:16
[2019-09-19] MEDS: LORazepam 2 MG/ML INJ IV PRN ×6 (08:33→21:33)
[2019-09-19 08:51] LABS: Basophils # (A) 0.1 k/uL (0-0.2); Basophils % (A) 1 %; Eosinophils # (A) 0.2 k/uL (0-0.7); Eosinophils % (A) 2 %; Lymphocytes # (A) 3.2 k/uL (1.0-4.8); Lymphocytes % (A) 32 %; MCH 33.8 pg (25.0-35.0); MCHC 34.4 g/dL (31.0-37.0); MCV 98.3 fL (80.0-100.0); Monocytes # (A) 0.4 k/uL (0-1.0); Monocytes % (A) 4 %; Neutrophils # (A) 5.9 k/uL (1.3-7.7); Neutrophils % (A) 58 %; Platelet Count 320 k/uL (150-450); RDW 13.4 % (11.5-15.5); WBC 10.2 k/uL (3.8-10.6)
[2019-09-19 08:53] LABS: African American GFR (CKD) >90 (>60 ml/min/1.73 sqM); Anion Gap 21 mmol/L; Blood Urea Nitrogen 15 mg/dL (9-20); Calcium 9.8 mg/dL (8.4-10.2); Carbon Dioxide 21 mmol/L (22-30); Chloride 100 mmol/L (98-107); Creatine Kinase 60 U/L (55-170); Glucose 105 mg/dL (74-99); Magnesium 1.9 mg/dL (1.6-2.3); Non-African American GFR(CKD) >90 (>60 ml/min/1.73 sqM); Phosphorus 3.6 mg/dL (2.5-4.5); Potassium 4.7 mmol/L (3.5-5.1); Sodium 142 mmol/L (137-145)
[2019-09-19 08:54] LABS: HGB 18.9 gm/dL (13.0-17.5); Mean Platelet Volume 320
[2019-09-19 09:02] LABS: Alcohol 334 mg/dL
[2019-09-19] MEDS ORDERED: NALOXONE 0.4 MG/ML 1 ML VIAL IV PRN (09:13)
[2019-09-19 11:13] LABS: ALT 28 U/L (4-49); AST 51 U/L (17-59); Alkaline Phosphatase 96 U/L (38-126); Total Bilirubin 0.8 mg/dL (0.2-1.3); Total Protein 8.6 g/dL (6.3-8.2)
[2019-09-19 11:57] LABS: Appearance,Urine Clear (Clear); Bacteria,Urine Rare /hpf; Bilirubin,Urine Negative (Negative); Blood,Urine Trace (Negative); Color,Urine Yellow; Glucose,Urine (UA) Negative (Negative); Granular Casts,Urine 1 /lpf (0); Hyaline Casts,Urine 6 /lpf (0-2); Ketones,Urine 1+ (Negative); Leukocyte Esterase,Urine Negative (Negative); Mucus,Urine Moderate /hpf; Nitrite,Urine Negative (Negative); PH, Urine 5.5 (5.0-8.0); Protein,Urine 1+ (Negative); RBC,Urine 1 /hpf (0-5); Specific Gravity,Urine 1.017 (1.001-1.035); Squamous Epithelial Cell,Urine <1 /hpf (0-4); Urobilinogen,Urine <2.0 mg/dL (<2.0); WBC,Urine <1 /hpf (0-5)
[2019-09-19 12:21] LABS: Amphetamine Screen,Urine Not Detected (NotDetected); Cocaine Screen,Urine Not Detected (NotDetected); Opiate Screen,Urine Not Detected (NotDetected); Phencyclidine Screen,Urine Not Detected (NotDetected); Urn Cannabinoid Scrn Detected (NotDetected)
[2019-09-19 12:22] LABS: Barbiturate Screen,Urine Not Detected (NotDetected); Benzodiazepines Screen,Urine Not Detected (NotDetected); Methadone Screen, Urine Not Detected (NotDetected); Oxycodone Screen, Urine Not Detected (NotDetected); Tricyclic Antidepressant,Urine Not Detected (NotDetected)
--- NOTE | 2019-09-19 12:59 | P.HPIM ---
History of Present Illness Patient is a 49-year-old male with known history of alcohol abuse and alcohol withdrawal seizures can use to drink daily basis about a pint of hard liquor. Comes in alcohol intoxicated and patient is willing to quit and stay in the hospital to become sober and get over withdrawals. Presently not having any withdrawals patient is still sleepy from alcohol his last drink was today morning. Patient denied and depression denied any suicidal ideations. Patient is agreeable to go to inpatient drug rehabilitation program. Patient is not psychotic and appropriate when I evaluated the patient Review of Systems REVIEW OF SYSTEMS: CONSTITUTIONAL: No fever, no malaise, no fatigue. HEENT: No recent visual problems or hearing problems. Denied any sore throat. CARDIOVASCULAR: No chest pain, orthopnea, PND, no palpitations, no syncope. PULMONARY: No shortness of breath, no cough, no hemoptysis. GASTROINTESTINAL: No diarrhea, no nausea, no vomiting, no abdominal pain. NEUROLOGICAL: No headaches, no weakness, no numbness. HEMATOLOGICAL: Denies any bleeding or petechiae. GENITOURINARY: Denies any burning micturition, frequency, or urgency. MUSCULOSKELETAL/RHEUMATOLOGICAL: Denies any joint pain, swelling, or any muscle pain. ENDOCRINE: Denies any polyuria or polydipsia. The rest of the 14-point review of systems is negative. Past Medical History Past Medical History: No Reported History Additional Past Medical History / Comment(s): ETOH abuse, smoker, History of Any Multi-Drug Resistant Organisms: None Reported Past Surgical History: Hernia Repair Past Anesthesia/Blood Transfusion Reactions: No Reported Reaction Past Psychological History: Anxiety, Depression Smoking Status: Current every day smoker Past Alcohol Use History: Abuse, Daily, Heavy Past Drug Use History: Marijuana - Past Family History Brother(s) Family Medical History: Osteoarthritis (OA) Mother Additional Family Medical History / Comment(s): pulmonary fibrosis Medications and Allergies Home Medications Medication Instructions Recorded Confirmed Type No Known Home Medications 09/19/19 09/19/19 History Allergies Allergy/AdvReac Type Severity Reaction Status Date / Time No Known Allergies Allergy Verified 09/19/19 10:14 Physical Exam Vitals: Vital Signs Temp Pulse Resp BP Pulse Ox 09/19/19 12:50 82 20 138/56 99 09/19/19 12:00 110 H 18 124/81 97 09/19/19 11:00 101 H 18 115/85 97 09/19/19 10:58 101 H 18 115/85 97 09/19/19 09:58 103 H 18 120/84 97 09/19/19 08:58 106 H 18 125/85 97 09/19/19 07:58 107 H 18 123/86 97 09/19/19 07:51 98.0 F 105 H 24 118/81 98 Intake and Output 09/18/19 09/19/19 09/19/19 22:59 06:59 14:59 Other: Weight 63.503 kg PHYSICAL EXAMINATION: GENERAL: The patient is drowsy and oriented x3, not in any acute distress. Well developed, well nourished. HEENT: Pupils are round and equally reacting to light. EOMI. No scleral icterus. No conjunctival pallor. Normocephalic, atraumatic. No pharyngeal erythema. No thyromegaly. CARDIOVASCULAR: S1 and S2 present. No murmurs, rubs, or gallops. PULMONARY: Chest is clear to auscultation, no wheezing or crackles. ABDOMEN: Soft, nontender, nondistended, normoactive bowel sounds. No palpable organomegaly. MUSCULOSKELETAL: No joint swelling or deformity. EXTREMITIES: No cyanosis, clubbing, or pedal edema. NEUROLOGICAL: Gross neurological examination did not reveal any focal deficits. SKIN: No rashes. Results CBC & Chem 7: 09/19/19 08:12 09/19/19 08:12 Labs: Abnormal Lab Results - Last 24 Hours (Table) 09/19/19 09/19/19 09/19/19 Range/Units 08:12 08:12 11:35 Hgb 18.9 H D (13.0-17.5) gm/dL Hct 55.0 H (39.0-53.0) % Carbon Dioxide 21 L (22-30) mmol/L Glucose 105 H (74-99) mg/dL Total Protein 8.6 H (6.3-8.2) g/dL Urine Protein 1+ H (Negative) Urine Ketones 1+ H (Negative) Urine Blood Trace H (Negative) Urine Bacteria Rare H (None) /hpf Hyaline Casts 6 H (0-2) /lpf Urine Mucus Moderate H (None) /hpf U Marijuana (THC) Screen Detected H (NotDetected) Serum Alcohol 334 H* mg/dL Assessment and Plan Plan: -Alcohol abuse: Counseling was provided as mentioned above patient is agreeable to quit alcohol. Patient was started on IV fluids thiamine multivitamin supplementation -Alcohol withdrawal patient was started on Ativan CIWA protocol along with GI prophylaxis. -Nicotine abuse and marijuana: Counseling was provided -Acute psychosis and delirium secondary to alcohol intoxication resolved at this time patient had toxic encephalopathy on arrival to ER which resolved at this time -Depression no suicidal ideations DVT prophylaxis with subcutaneous heparin
[2019-09-19] MEDS: SODIUM CHLORIDE 0.9% 1,000 ML IV SCH ×2 (13:07→21:32)
[2019-09-19 15:08] VITALS: RESP 16
[2019-09-19] MEDS: HEPARIN SODIUM,PORCINE 5,000 UNIT/ML 1 ML VIAL SQ SCH (16:17)
[2019-09-19] MEDS: PANTOPRAZOLE 40 MG TABLET PO SCH (16:18)
[2019-09-19] MEDS: THIAMINE 100 MG TAB PO SCH (16:18)
[2019-09-19 19:52] LABS: Hemoglobin A1C 5.6 % (4.0-6.0)
[2019-09-20] MEDS: HEPARIN SODIUM,PORCINE 5,000 UNIT/ML 1 ML VIAL SQ SCH ×2 (00:12→08:40)
[2019-09-20] MEDS: LORazepam 2 MG/ML INJ IV PRN ×4 (01:22→08:41)
[2019-09-20] MEDS: SODIUM CHLORIDE 0.9% 1,000 ML IV SCH (05:06)
[2019-09-20 05:14] VITALS: BP 127/78; PULSE 84; TEMP 97.9
[2019-09-20] MEDS ORDERED: ONDANSETRON 4 MG/2 ML VIAL IVP PRN (05:14)
[2019-09-20] MEDS: PANTOPRAZOLE 40 MG TABLET PO SCH (08:40)
[2019-09-20] MEDS: THIAMINE 100 MG TAB PO SCH (08:46)
[2019-09-20] MEDS ORDERED: NICOTINE 21MG/24HR PATCH TRANSDERM SCH (09:00)
--- NOTE | 2019-09-30 13:27 | P.DS ---
Providers Date of admission: 09/19/19 10:01 Expected date of discharge: 09/20/19 Attending physician: Mariajose Proctor MD Primary care physician: Héctor Alejandro [facility] Course: 49-year-old male with known history of alcohol abuse and alcohol withdrawal seizures can use to drink daily basis about a pint of hard liquor. Comes in alcohol intoxicated and patient is willing to quit and stay in the hospital to become sober and get over withdrawals. Presently not having any withdrawals patient is still sleepy from alcohol his last drink was today morning. Patient denied and depression denied any suicidal ideations. Patient is agreeable to go to inpatient drug rehabilitation program. Patient is not psychotic and appropriate when evaluated Patient was admitted to the hospital with following plan of care ---Alcohol abuse: Counseling was provided as mentioned above patient is agreeable to quit alcohol. Patient was started on IV fluids thiamine multivitamin supplementation -Alcohol withdrawal patient was started on Ativan CIWA protocol along with GI prophylaxis. -Nicotine abuse and marijuana: Counseling was provided -Acute psychosis and delirium secondary to alcohol intoxication resolved at this time patient had toxic encephalopathy on arrival to ER which resolved at this time -Depression no suicidal ideations DVT prophylaxis with subcutaneous heparin Next hospital day, Pt requested to leave AMA. He wa notified of risks of etoh seizure/ and insurance payment issues if he leaves, by nursing staff but he remained adamant and left AMA. Patient Condition at Discharge: Stable Plan - Discharge Summary Discharge Rx Participant: No New Discharge Prescriptions: No Action No Known Home Medications Discharge Medication List No Known Home Medications 09/19/19 [History] Follow up Appointment(s)/Referral(s): Javon Anaya MD [Primary Care Provider] - 1-2 days Patient Instructions/Handouts: Abuse of Alcohol (DC), Alcohol Withdrawal (DC) Discharge Disposition: Left Against Medical Advice
== END 2019-09-20 11:17 | disposition left against medical advice (07) | DRG 894 ==
LOC: EC 07:38 → 6NMEDSUR 10:01
PROVIDERS: ADMIT Internal Medicine; ATTEND Internal Medicine
DX: F10.221 Alcohol dependence with intoxication delirium (principal); G92 Toxic encephalopathy; F23 Brief psychotic disorder; Y90.8 Blood alcohol level of 240 mg/100 ml or more; F10.239 Alcohol dependence with withdrawal, unspecified; F17.210 Nicotine dependence, cigarettes, uncomplicated; F32.9 Major depressive disorder, single episode, unspecified; F41.9 Anxiety disorder, unspecified
CPT/HCPCS: 36415; 80053; 80306; 80320; 81001; 82550; 83036; 83690; 83735; 84100; 85025; 93005; 96372; 96374; 96376; 99285

== ENCOUNTER 2020-02-07 00:55 | Inpatient (IN) | payer OTHER ==
[2020-02-07] MEDS ORDERED: SODIUM CHLORIDE 0.9% 1,000 ML IV ONE (01:29)
[2020-02-07] MEDS ORDERED: LORazepam 2 MG/ML INJ IV STA (01:29)
[2020-02-07 01:36] LABS: Appearance,Urine Clear (Clear); Bilirubin,Urine Negative (Negative); Blood,Urine Trace (Negative); Color,Urine Light Yellow; Glucose,Urine (UA) Negative (Negative); Ketones,Urine Negative (Negative); Leukocyte Esterase,Urine Negative (Negative); Mucus,Urine Rare /hpf; Nitrite,Urine Negative (Negative); PH, Urine 5.5 (5.0-8.0); Protein,Urine Trace (Negative); RBC,Urine <1 /hpf (0-5); Specific Gravity,Urine 1.004 (1.001-1.035); Urobilinogen,Urine <2.0 mg/dL (<2.0); WBC,Urine <1 /hpf (0-5)
[2020-02-07 01:46] LABS: Amphetamine Screen,Urine Not Detected (NotDetected); Barbiturate Screen,Urine Not Detected (NotDetected); Benzodiazepines Screen,Urine Not Detected (NotDetected); Cocaine Screen,Urine Not Detected (NotDetected); Methadone Screen, Urine Not Detected (NotDetected); Opiate Screen,Urine Not Detected (NotDetected); Oxycodone Screen, Urine Not Detected (NotDetected); Phencyclidine Screen,Urine Not Detected (NotDetected); Tricyclic Antidepressant,Urine Not Detected (NotDetected); Urn Cannabinoid Scrn Detected (NotDetected)
[2020-02-07 01:48] LABS: Basophils % (A) 0 %; Eosinophils # (A) 0.3 k/uL (0-0.7); Eosinophils % (A) 3 %; HCT 51.6 % (39.0-53.0); HGB 17.3 gm/dL (13.0-17.5); Lymphocytes # (A) 1.9 k/uL (1.0-4.8); Lymphocytes % (A) 24 %; MCH 33.8 pg (25.0-35.0); MCHC 33.6 g/dL (31.0-37.0); MCV 100.8 fL (80.0-100.0); Macrocytosis Slight; Mean Platelet Volume 7.4; Monocytes # (A) 0.7 k/uL (0-1.0); Monocytes % (A) 8 %; Neutrophils # (A) 4.8 k/uL (1.3-7.7); Neutrophils % (A) 61 %; Platelet Count 150 k/uL (150-450); RBC 5.12 m/uL (4.30-5.90); RDW 14.9 % (11.5-15.5); WBC 7.9 k/uL (3.8-10.6)
--- NOTE | 2020-02-07 02:07 | XR ---
EXAMINATION TYPE: XR chest 2V DATE OF EXAM: 02/07/2020 COMPARISON: 12/26/2018 HISTORY: Cough TECHNIQUE: 2 views FINDINGS: Heart is normal. Lungs are clear of consolidation. There are no hilar masses. Bony thorax i s intact. There is mild pulmonary hyperinflation. There is no evidence of pleural effusion. There is old left-sided healed rib fracture. IMPRESSION: No active cardiopulmonary disease. There is probably some COPD. No change.
[2020-02-07 02:12] LABS: African American GFR (CKD) >90 (>60 ml/min/1.73 sqM); Anion Gap 18 mmol/L; Blood Urea Nitrogen 3 mg/dL (9-20); Calcium 9.1 mg/dL (8.4-10.2); Carbon Dioxide 18 mmol/L (22-30); Chloride 95 mmol/L (98-107); Glucose 118 mg/dL (74-99); Non-African American GFR(CKD) >90 (>60 ml/min/1.73 sqM); Potassium 3.6 mmol/L (3.5-5.1); Sodium 131 mmol/L (137-145)
[2020-02-07] MEDS ORDERED: NALOXONE 0.4 MG/ML 1 ML VIAL IV PRN (04:41)
[2020-02-07] MEDS ORDERED: LORazepam 2 MG/ML INJ IV PRN ×2 (04:43)
[2020-02-07] MEDS ORDERED: THIAMINE 100 MG/ML 2 ML VIAL IM STA (04:43)
--- NOTE | 2020-02-07 04:48 | ED ---
Nausea/Vomiting/Diarrhea HPI - General Chief complaint: Nausea/Vomiting/Diarrhea Stated complaint: Alcohol Time Seen by Provider: 02/07/20 01:01 Source: patient Mode of arrival: ambulatory - History of Present Illness Initial comments: This patient is a 50-year-old man who presents with complaint of alcohol withdrawal. He states that he drinks greater than 12 beers per day. He states that he usually wakes up and drinks. Stop feeling anxious today he was not able to tolerate this. He was having vomiting. The patient feels like he is very anxious and shaky. complaint: nausea, vomiting -: hour(s) Description of Vomiting: food contents Associated Abdominal Pain: No Consistency: constant Improves with: none Worsens with: none - Related Data Home Medications Medication Instructions Recorded Confirmed No Known Home Medications 09/19/19 02/07/20 Allergies Allergy/AdvReac Type Severity Reaction Status Date / Time No Known Allergies Allergy Verified 02/07/20 08:10 Review of Systems ROS Statement: Those systems with pertinent positive or pertinent negative responses have been documented in the HPI. ROS Other: All systems not noted in ROS Statement are negative. Constitutional: Denies: fever, weakness Eyes: Denies: vision change Respiratory: Denies: cough, dyspnea Cardiovascular: Denies: chest pain, palpitations, edema Gastrointestinal: Denies: abdominal pain, vomiting, diarrhea Genitourinary: Denies: dysuria, hematuria Musculoskeletal: Denies: back pain Neurological: Reports: headache. Denies: weakness, numbness Psychiatric: Reports: anxiety. Denies: homicidal thoughts, suicidal thoughts Past Medical History Past Medical History: No Reported History Additional Past Medical History / Comment(s): ETOH abuse, smoker, History of Any Multi-Drug Resistant Organisms: None Reported Past Surgical History: Adenoidectomy, Hernia Repair, Tonsillectomy Past Anesthesia/Blood Transfusion Reactions: No Reported Reaction Past Psychological History: Anxiety, Depression Smoking Status: Current every day smoker Past Alcohol Use History: Abuse, Daily, Heavy Past Drug Use History: Marijuana - Past Family History Brother(s) Family Medical History: Osteoarthritis (OA) Mother Family Medical History: COPD Additional Family Medical History / Comment(s): pulmonary fibrosis General Exam General appearance: alert, in no apparent distress Head exam: Present: atraumatic, normocephalic Eye exam: Present: normal appearance. Absent: scleral icterus, conjunctival injection ENT exam: Present: normal oropharynx Neck exam: Present: normal inspection Respiratory exam: Present: normal lung sounds bilaterally. Absent: respiratory distress, wheezes, rales, rhonchi, stridor Cardiovascular Exam: Present: regular rate, normal rhythm, normal heart sounds. Absent: systolic murmur, diastolic murmur, rubs, gallop GI/Abdominal exam: Present: soft. Absent: distended, tenderness, guarding, rebound, rigid, mass Extremities exam: Present: normal inspection, normal capillary refill. Absent: pedal edema, calf tenderness Back exam: Present: normal inspection. Absent: CVA tenderness (R), CVA tenderness (L) Neurological exam: Present: alert Psychiatric exam: Present: anxious. Absent: homicidal ideation, suicidal ideation Skin exam: Present: warm, dry, intact, normal color. Absent: rash Course Vital Signs 02/07/20 02/07/20 02/07/20 01:14 03:00 04:00 Temperature Pulse Rate 67 Respiratory 17 18 18 Rate Blood Pressure 123/100 O2 Sat by Pulse 97 Oximetry 02/07/20 05:29 Temperature 98.5 F Pulse Rate 90 Respiratory 16 Rate Blood Pressure 119/84 O2 Sat by Pulse 95 Oximetry Medical Decision Making - Lab Data Result diagrams: 02/07/20 01:40 02/07/20 01:40 Lab Results 02/07/20 02/07/20 02/07/20 Range/Units 01:30 01:40 01:40 WBC 7.9 (3.8-10.6) k/uL RBC 5.12 (4.30-5.90) m/uL Hgb 17.3 (13.0-17.5) gm/dL Hct 51.6 (39.0-53.0) % MCV 100.8 H (80.0-100.0) fL MCH 33.8 (25.0-35.0) pg MCHC 33.6 (31.0-37.0) g/dL RDW 14.9 (11.5-15.5) % Plt Count 150 (150-450) k/uL Neutrophils % 61 % Lymphocytes % 24 % Monocytes % 8 % Eosinophils % 3 % Basophils % 0 % Neutrophils # 4.8 (1.3-7.7) k/uL Lymphocytes # 1.9 (1.0-4.8) k/uL Monocytes # 0.7 (0-1.0) k/uL Eosinophils # 0.3 (0-0.7) k/uL Basophils # 0.0 (0-0.2) k/uL Macrocytosis Slight Sodium 131 L (137-145) mmol/L Potassium 3.6 (3.5-5.1) mmol/L Chloride 95 L (98-107) mmol/L Carbon Dioxide 18 L (22-30) mmol/L Anion Gap 18 mmol/L BUN 3 L (9-20) mg/dL Creatinine 0.55 L (0.66-1.25) mg/dL Est GFR (CKD-EPI)AfAm >90 (>60 ml/min/1.73 sqM) Est GFR (CKD-EPI)NonAf >90 (>60 ml/min/1.73 sqM) Glucose 118 H (74-99) mg/dL Calcium 9.1 (8.4-10.2) mg/dL Urine Color Light Yellow Urine Appearance Clear (Clear) Urine pH 5.5 (5.0-8.0) Ur Specific [place] 1.004 (1.001-1.035) Urine Protein Trace H (Negative) Urine Glucose (UA) Negative (Negative) Urine Ketones Negative (Negative) Urine Blood Trace H (Negative) Urine Nitrite Negative (Negative) Urine Bilirubin Negative (Negative) Urine Urobilinogen <2.0 (<2.0) mg/dL Ur Leukocyte Esterase Negative (Negative) Urine RBC <1 (0-5) /hpf Urine WBC <1 (0-5) /hpf Urine Mucus Rare H (None) /hpf Urine Opiates Screen Not Detected (NotDetected) Ur Oxycodone Screen Not Detected (NotDetected) Urine Methadone Screen Not Detected (NotDetected) Ur Propoxyphene Screen Not Detected (NotDetected) Ur Barbiturates Screen Not Detected (NotDetected) U Tricyclic Antidepress Not Detected (NotDetected) Ur Phencyclidine Scrn Not Detected (NotDetected) Ur Amphetamines Screen Not Detected (NotDetected) U Methamphetamines Scrn Not Detected (NotDetected) U Benzodiazepines Scrn Not Detected (NotDetected) Urine Cocaine Screen Not Detected (NotDetected) U Marijuana (THC) Screen Detected H (NotDetected) Disposition Clinical Impression: Alcohol withdrawal syndrome, Hypertension Disposition: ADMITTED IP TO THIS HOSP Condition: Fair
[2020-02-07] MEDS: SODIUM CHLORIDE 0.9% 1,000 ML IV SCH ×3 (05:31→19:43)
[2020-02-07] MEDS ORDERED: ONDANSETRON 4 MG/2 ML VIAL IVP PRN (08:32)
[2020-02-07] MEDS ORDERED: ACETAMINOPHEN TAB 325 MG TAB PO PRN (08:32)
[2020-02-07] MEDS: LORazepam 2 MG/ML INJ IV PRN ×4 (08:33→22:45)
[2020-02-07] MEDS ORDERED: PANTOPRAZOLE 40 MG/10 ML VIAL IVP SCH (09:00)
--- NOTE | 2020-02-07 14:57 | P.HPIM ---
History of Present Illness 50 male came in with complaints epigastric abdominal pain burning sensation. Patient didn't suffer gallops about, with around 4-6 beers a day. Patient denied any fever chills nausea vomiting patient is admitted for alcohol withdraw al and alcohol abuse. Patient was started on Protonix. Review of Systems REVIEW OF SYSTEMS: CONSTITUTIONAL: No fever, no malaise, no fatigue. HEENT: No recent visual problems or hearing problems. Denied any sore throat. CARDIOVASCULAR: No chest pain, orthopnea, PND, no palpitations, no syncope. PULMONARY: No shortness of breath, no cough, no hemoptysis. GASTROINTESTINALas mentioned in HPI NEUROLOGICAL: No headaches, no weakness, no numbness. HEMATOLOGICAL: Denies any bleeding or petechiae. GENITOURINARY: Denies any burning micturition, frequency, or urgency. MUSCULOSKELETAL/RHEUMATOLOGICAL: Denies any joint pain, swelling, or any muscle pain. ENDOCRINE: Denies any polyuria or polydipsia. The rest of the 14-point review of systems is negative. Past Medical History Past Medical History: No Reported History Additional Past Medical History / Comment(s): ETOH abuse, smoker, states po ssible COPD History of Any Multi-Drug Resistant Organisms: None Reported Past Surgical History: Adenoidectomy, Hernia Repair, Tonsillectomy Past Anesthesia/Blood Transfusion Reactions: No Reported Reaction Past Psychological History: Anxiety, Depression Smoking Status: Current every day smoker Past Alcohol Use History: Abuse, Daily, Heavy Additional Past Alcohol Use History / Comment(s): Patient states he has been drinking half gallon of vodka and half gallon of whiskey daily. Patient states he smokes cigarattes daily, doesn't recall how much. 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 and on for alcohol and crack addiction - Past Family History Brother(s) Family Medical History: Osteoarthritis (OA) Mother Family Medical History: COPD Additional Family Medical History / Comment(s): pulmonary fibrosis Medications and Allergies Home Medications Medication Instructions Recorded Confirmed Type No Known Home Medications 09/19/19 02/07/20 History Allergies Allergy/AdvReac Type Severity Reaction Status Date / Time No Known Allergies Allergy Verified 02/07/20 08:10 Physical Exam Vitals: Vital Signs Temp Pulse Pulse Resp BP BP Pulse Ox 02/07/20 11:09 98.5 F 82 16 149/82 95 02/07/20 05:29 98.5 F 90 16 119/84 95 02/07/20 04:00 18 02/07/20 03:00 18 02/07/20 01:14 67 17 123/100 97 Intake and Output 02/06/20 02/07/20 02/07/20 22:59 06:59 14:59 Other: Voiding Method Toilet Weight 63.957 kg PHYSICAL EXAMINATION: GENERAL: The patient is alert and oriented x3, not in any acute distress. Well developed, well nourished. HEENT: Pupils are round and equally reacting to light. EOMI. No scleral icterus. No conjunctival pallor. Normocephalic, atraumatic. No pharyngeal erythema. No thyromegaly. CARDIOVASCULAR: S1 and S2 present. No murmurs, rubs, or gallops. PULMONARY: Chest is clear to auscultation, no wheezing or crackles. ABDOMEN: Soft,midepigastric tenderness, nondistended, normoactive bowel sounds. No palpable organomegaly. MUSCULOSKELETAL: No joint swelling or deformity. EXTREMITIES: No cyanosis, clubbing, or pedal edema. NEUROLOGICAL: Gross neurological examination did not reveal any focal deficits. SKIN: No rashes. Results CBC & Chem 7: 02/07/20 01:40 02/07/20 01:40 Labs: Abnormal Lab Results - Last 24 Hours (Table) 02/07/20 02/07/20 02/07/20 Range/Units 01:30 01:40 01:40 MCV 100.8 H (80.0-100.0) fL Sodium 131 L (137-145) mmol/L Chloride 95 L (98-107) mmol/L Carbon Dioxide 18 L (22-30) mmol/L BUN 3 L (9-20) mg/dL Creatinine 0.55 L (0.66-1.25) mg/dL Glucose 118 H (74-99) mg/dL Urine Protein Trace H (Negative) Urine Blood Trace H (Negative) Urine Mucus Rare H (None) /hpf U Marijuana (THC) Screen Detected H (NotDetected) Thrombosis Risk Factor Assmnt - Choose All That Apply Each Factor Represents 1 point: Age 41-60 years Thrombosis Risk Factor Assessment Total Risk Factor Score: 1 Thrombosis Risk Factor Assessment Level: Low Risk Assessment and Plan Plan: -abdominal pain: Seconded alcoholic gastritis patient was started on Protonix twice a day. -Oncology as -alcohol withdrawal patient will be on Ativan CIWA protocol IV fluids thiamine multivitamin folic acid supplementation -elevated MCV secondary to alcoholism -hyponatremia hypovolemic hyponatremia along with beer potomania, patient will continue on IV fluids and recheck the basic metabolic profile again tomorrow -Anion gap metabolic acidosis secondary to alcohol expected to improve with IV fluids. There may be a competent of all call he Bobby will obtain liver e nzymleslee. -DVT prophylaxis subcutaneous heparin
[2020-02-07] MEDS: THIAMINE 100 MG TAB PO SCH (17:32)
[2020-02-07] MEDS: HEPARIN SODIUM,PORCINE 5,000 UNIT/ML 1 ML VIAL SQ SCH ×3 (17:32→22:47)
[2020-02-07] MEDS: PANTOPRAZOLE 40 MG/10 ML VIAL IVP SCH (19:43)
[2020-02-08 04:03] VITALS: PULSE 73; TEMP 97.8
[2020-02-08] MEDS: SODIUM CHLORIDE 0.9% 1,000 ML IV SCH (05:38)
[2020-02-08 07:33] LABS: ALT 104 U/L (4-49); AST 120 U/L (17-59); African American GFR (CKD) >90 (>60 ml/min/1.73 sqM); Albumin 3.5 g/dL (3.5-5.0); Alkaline Phosphatase 83 U/L (38-126); Anion Gap 10 mmol/L; Blood Urea Nitrogen 6 mg/dL (9-20); Calcium 8.5 mg/dL (8.4-10.2); Carbon Dioxide 23 mmol/L (22-30); Chloride 104 mmol/L (98-107); Glucose 87 mg/dL (74-99); Non-African American GFR(CKD) >90 (>60 ml/min/1.73 sqM); Potassium 4.4 mmol/L (3.5-5.1); Sodium 137 mmol/L (137-145); Total Protein 6.5 g/dL (6.3-8.2)
[2020-02-08] MEDS: PANTOPRAZOLE 40 MG/10 ML VIAL IVP SCH (08:51)
[2020-02-08] MEDS: THIAMINE 100 MG TAB PO SCH (08:52)
[2020-02-08] MEDS: HEPARIN SODIUM,PORCINE 5,000 UNIT/ML 1 ML VIAL SQ SCH (10:33)
[2020-02-08 11:51] VITALS: BP 120/75; RESP 18
--- NOTE | 2020-02-09 15:20 | P.DS ---
Providers Date of admission: 02/07/20 04:43 Expected date of discharge: 02/08/20 Attending physician: Vivian Chung Primary care physician: Héctor Becerra [facility] Course: Final diagnosis -abdominal pain: Secondary to alcoholic gastritis -alcohol withdrawal -elevated MCV secondary to alcoholism -hyponatremia hypovolemic hyponatremia -Anion gap metabolic acidosis secondary to alcohol -DVT prophylaxis Discharge disposition Patient is being discharged in a stable condition with guarded prognosis to home and will follow-up with primary care provider Dr. Anaya in the outpatient setting. Patient will continue on a Librium taper along with thiamine. Total time taken is 35 minutes. History of present illness This is a 50-year-old male who was recently admitted with alcohol intoxication and withdrawal along with some epigastric abdominal pain and was being closely monitored. Patient was started on Protonix along with gentle IV hydration and tolerated well. Patient's abdominal pain resolved and states he is tolerating diet and would like to go home. Discussed with the patient at length about discontinuing any alcohol intake and avoiding all alcohol. Patient was given a prescription for Librium taper and instructed to avoid any alcohol while taking this. Discussed the importance of alcohol rehab with patient and patient verbalized understanding. Currently no reports of chest pain, shortness of breath, or palpitations. Patient is afebrile. No reports of nausea or vomiting and patient is tolerating diet. Patient will be discharged today. Guarded prognosis. On exam vital signs are stable. Temp is 97.8F, pulse is 73, respirations are 18, blood pressure is 120/75, oxygen saturation is 97% on room air. Cardio S1, S2 are present. Respiratory system shows clear to auscultation. Abdomen is soft and nontender. Nervous system shows no focal deficits. Please refer to medication reconciliation sheet for a list of medications. Patient Condition at Discharge: Fair Plan - Discharge Summary Discharge Rx Participant: Yes New Discharge Prescriptions: New chlordiazePOXIDE HCl [Librium] 25 mg PO TID #13 capsule Thiamine [Vitamin B-1] 100 mg PO BID-W/MEALS 30 Days #60 tab Discharge Medication List Thiamine [Vitamin B-1] 100 mg PO BID-W/MEALS 30 Days #60 tab 02/08/20 [Rx] chlordiazePOXIDE HCl [Librium] 25 mg PO TID #13 capsule 02/08/20 [Rx] Follow up Appointment(s)/Referral(s): Javon Anaya MD [Primary Care Provider] - 02/09/20 2:10 pm Patient Instructions/Handouts: Chlordiazepoxide (By mouth), Vitamin B Complex (By mouth), Alcohol Intoxication (DC) Activity/Diet/Wound Care/Special Instructions: Activity Limited until follow-up Follow-up with primary care provider upon discharge Continue current diet Avoid alcohol intake Continue with Librium intake 3 times daily for 2 days, then 2 times daily for 2 days, then daily for 2 days, do not drink alcohol while taking Librium Contact [facility] [place] for alcohol rehab [facility] [phone] [place] [phone] Discharge Disposition: HOME SELF-CARE
== END 2020-02-08 13:34 | disposition home or self-care (01) | DRG 392 ==
LOC: EC 00:55 → 5NMEDONC 04:43
PROVIDERS: ADMIT Hospitalist; ATTEND Hospitalist
DX: K29.20 Alcoholic gastritis without bleeding (principal); F10.239 Alcohol dependence with withdrawal, unspecified; E87.1 Hypo-osmolality and hyponatremia; E87.2 Acidosis; F10.229 Alcohol dependence with intoxication, unspecified; E86.1 Hypovolemia; I10 Essential (primary) hypertension; Z20.828 Contact with and (suspected) exposure to other viral communicable diseases; F17.210 Nicotine dependence, cigarettes, uncomplicated; Z71.6 Tobacco abuse counseling; Z86.59 Personal history of other mental and behavioral disorders; Z82.5 Family history of asthma and other chronic lower respiratory diseases
CPT/HCPCS: 36415; 71046; 80048; 80053; 80306; 81001; 82075; 85025; 96361; 96372; 96374; 99285

== ENCOUNTER 2020-04-01 09:44 | Emergency (ER) | payer OTHER | END 2020-04-01 10:25 | disposition left against medical advice (07) | LOC: EC 09:44 | DX: F19.939 Other psychoactive substance use, unspecified with withdrawal, unspecified (principal) | CPT/HCPCS: 99499 ==

== ENCOUNTER 2020-04-01 14:18 | Emergency (ER) | payer OTHER ==
[2020-04-01 14:23] VITALS: TEMP 98.3
[2020-04-01] MEDS ORDERED: SODIUM CHLORIDE 0.9% 1,000 ML IV STA (15:04)
[2020-04-01] MEDS ORDERED: LORazepam 2 MG/ML INJ IV STA ×2 (15:04→16:55)
[2020-04-01] MEDS ORDERED: ONDANSETRON 4 MG/2 ML VIAL IVP STA (15:06)
--- NOTE | 2020-04-01 15:07 | ED ---
General Adult HPI - General Chief complaint: Alcohol Stated complaint: withdrawals Time Seen by Provider: 04/01/20 14:36 Source: patient, RN notes reviewed Mode of arrival: ambulatory Limitations: no limitations - History of Present Illness Initial comments: 50-year-old male with a past medical history of alcohol abuse presents to the emergency room protocol withdrawal. Patient states he is trying to quit drinking which he has been seen here for before. States that he last drank last night and came to the emergency room. However it was taking too long so he left and drank a beer this morning. He states he has not had anything to drink since that time. Patient states he is very shaky and does not feel well. States she is very nauseous and vomiting.Patient has no other complaints at this time including shortness of breath, chest pain, abdominal pain, nausea or vomiting, headache, or visual changes. - Related Data Previous Rx's Medication Instructions Recorded Thiamine [Vitamin B-1] 100 mg PO BID-W/MEALS 30 Days #60 02/08/20 tab chlordiazePOXIDE HCl [Librium] 25 mg PO TID #13 capsule 02/08/20 Diazepam [Valium] 5 mg PO Q8H 3 Days #9 tab 04/01/20 Magnesium 250 mg PO DAILY #30 tablet 04/01/20 Ondansetron [Zofran ODT] 4 mg PO Q8HR PRN #15 tab 04/01/20 Allergies Allergy/AdvReac Type Severity Reaction Status Date / Time No Known Allergies Allergy Verified 04/01/20 14:23 Review of Systems ROS Statement: Those systems with pertinent positive or pertinent negative responses have been documented in the HPI. ROS Other: All systems not noted in ROS Statement are negative. Past Medical History Past Medical History: No Reported History Additional Past Medical History / Comment(s): ETOH abuse, smoker, History of Any Multi-Drug Resistant Organisms: None Reported Past Surgical History: Adenoidectomy, Hernia Repair, Tonsillectomy Past Anesthesia/Blood Transfusion Reactions: No Reported Reaction Past Psychological History: Anxiety, Depression Past Alcohol Use History: Abuse, Daily, Heavy Past Drug Use History: Marijuana - Past Family History Brother(s) Family Medical History: Osteoarthritis (OA) Mother Family Medical History: COPD Additional Family Medical History / Comment(s): pulmonary fibrosis General Exam Limitations: no limitations General appearance: alert, in no apparent distress, other (Tremulous) Head exam: Present: atraumatic, normocephalic, normal inspection Eye exam: Present: normal appearance, PERRL, EOMI. Absent: scleral icterus, conjunctival injection, periorbital swelling ENT exam: Present: normal exam, mucous membranes moist Neck exam: Present: normal inspection, full ROM. Absent: tenderness, meningismus, lymphadenopathy Respiratory exam: Present: normal lung sounds bilaterally. Absent: respiratory distress, wheezes, rales, rhonchi, stridor Cardiovascular Exam: Present: regular rate, normal rhythm, normal heart sounds. Absent: systolic murmur, diastolic murmur, rubs, gallop, clicks GI/Abdominal exam: Present: soft, normal bowel sounds. Absent: distended, tenderness, guarding, rebound, rigid Neurological exam: Present: alert Course Vital Signs 04/01/20 04/01/20 14:19 16:03 Temperature 98.3 F Pulse Rate 116 H 84 Respiratory 20 18 Rate Blood Pressure 124/87 124/79 O2 Sat by Pulse 98 99 Oximetry Medical Decision Making - Medical Decision Making Patient initially tachycardic and tremulous. However after given IV fluids vitals improved and heart rate is in the 80s. Patient no longer tremulous after Ativan. CBC did show hemoconcentration as well as CMP showing hyponatremia, patient was given 2 L of fluids. Patient does have some mild hypomagnesemia which is likely chronic. Patient was given oral replacement here in the emergency room and written a prescription. On reevaluation patient is no longer tremulousness and is feeling much better. No vomiting. Patient was offered admission to the hospital but preferred to be discharged home with Valium. I did discuss returning here for any worsening symptoms that she is agreeable to. - Lab Data Result diagrams: 04/01/20 15:12 04/01/20 15:12 Lab Results 04/01/20 04/01/20 04/01/20 Range/Units 15:12 15:12 15:12 WBC 6.3 (3.8-10.6) k/uL RBC 5.35 (4.30-5.90) m/uL Hgb 17.9 H (13.0-17.5) gm/dL Hct 52.6 (39.0-53.0) % MCV 98.2 (80.0-100.0) fL MCH 33.5 (25.0-35.0) pg MCHC 34.1 (31.0-37.0) g/dL RDW 13.5 (11.5-15.5) % Plt Count 147 L (150-450) k/uL Neutrophils % 79 % Lymphocytes % 13 % Monocytes % 5 % Eosinophils % 0 % Basophils % 0 % Neutrophils # 5.0 (1.3-7.7) k/uL Lymphocytes # 0.8 L (1.0-4.8) k/uL Monocytes # 0.3 (0-1.0) k/uL Eosinophils # 0.0 (0-0.7) k/uL Basophils # 0.0 (0-0.2) k/uL Sodium 130 L (137-145) mmol/L Potassium 4.2 (3.5-5.1) mmol/L Chloride 92 L (98-107) mmol/L Carbon Dioxide 18 L (22-30) mmol/L Anion Gap 20 mmol/L BUN 6 L (9-20) mg/dL Creatinine 0.69 (0.66-1.25) mg/dL Est GFR (CKD-EPI)AfAm >90 (>60 ml/min/1.73 sqM) Est GFR (CKD-EPI)NonAf >90 (>60 ml/min/1.73 sqM) Glucose 126 H (74-99) mg/dL Calcium 9.5 (8.4-10.2) mg/dL Magnesium 1.5 L (1.6-2.3) mg/dL Total Bilirubin 0.9 (0.2-1.3) mg/dL AST 128 H (17-59) U/L ALT 68 H (4-49) U/L Alkaline Phosphatase 128 H (38-126) U/L Total Protein 8.3 H (6.3-8.2) g/dL Albumin 4.9 (3.5-5.0) g/dL Lipase 197 (23-300) U/L Urine Color Yellow Urine Appearance Clear (Clear) Urine pH 8.5 H (5.0-8.0) Ur Specific [place] 1.017 (1.001-1.035) Urine Protein 2+ H (Negative) Urine Glucose (UA) Negative (Negative) Urine Ketones 1+ H (Negative) Urine Blood Negative (Negative) Urine Nitrite Negative (Negative) Urine Bilirubin Negative (Negative) Urine Urobilinogen <2.0 (<2.0) mg/dL Ur Leukocyte Esterase Trace H (Negative) Urine RBC 2 (0-5) /hpf Urine WBC 1 (0-5) /hpf Ur Squamous Epith Cells 1 (0-4) /hpf Urine Mucus Rare H (None) /hpf Serum Alcohol <10 mg/dL Disposition Clinical Impression: Alcohol withdrawal, Hypomagnesemia Disposition: ADMITTED IP TO THIS [facility] Instructions (If sedation given, give patient instructions): Alcohol Intoxication (ED) Additional Instructions: Please follow-up with your doctor in one to 2 days. Return to the emergency room if you have any worsening symptoms. Prescriptions: Magnesium 250 mg PO DAILY #30 tablet Diazepam [Valium] 5 mg PO Q8H 3 Days #9 tab Ondansetron [Zofran ODT] 4 mg PO Q8HR PRN #15 tab PRN Reason: Nausea Is patient prescribed a controlled substance at d/c from ED?: No Referrals: Javon Anaya MD [Primary Care Provider] - 1-2 days Time of Disposition: 16:25
[2020-04-01 15:25] LABS: Basophils % (A) 0 %; Eosinophils % (A) 0 %; HCT 52.6 % (39.0-53.0); HGB 17.9 gm/dL (13.0-17.5); Lymphocytes # (A) 0.8 k/uL (1.0-4.8); Lymphocytes % (A) 13 %; MCH 33.5 pg (25.0-35.0); MCHC 34.1 g/dL (31.0-37.0); MCV 98.2 fL (80.0-100.0); Mean Platelet Volume 7.6; Monocytes # (A) 0.3 k/uL (0-1.0); Monocytes % (A) 5 %; Neutrophils % (A) 79 %; Platelet Count 147 k/uL (150-450); RBC 5.35 m/uL (4.30-5.90); RDW 13.5 % (11.5-15.5); WBC 6.3 k/uL (3.8-10.6)
[2020-04-01 15:31] LABS: Appearance,Urine Clear (Clear); Bilirubin,Urine Negative (Negative); Blood,Urine Negative (Negative); Color,Urine Yellow; Glucose,Urine (UA) Negative (Negative); Ketones,Urine 1+ (Negative); Leukocyte Esterase,Urine Trace (Negative); Mucus,Urine Rare /hpf; Nitrite,Urine Negative (Negative); PH, Urine 8.5 (5.0-8.0); Protein,Urine 2+ (Negative); RBC,Urine 2 /hpf (0-5); Specific Gravity,Urine 1.017 (1.001-1.035); Squamous Epithelial Cell,Urine 1 /hpf (0-4); Urobilinogen,Urine <2.0 mg/dL (<2.0); WBC,Urine 1 /hpf (0-5)
[2020-04-01 15:39] LABS: AST 128 U/L (17-59); African American GFR (CKD) >90 (>60 ml/min/1.73 sqM); Albumin 4.9 g/dL (3.5-5.0); Alcohol <10 mg/dL; Alkaline Phosphatase 128 U/L (38-126); Anion Gap 20 mmol/L; Blood Urea Nitrogen 6 mg/dL (9-20); Calcium 9.5 mg/dL (8.4-10.2); Carbon Dioxide 18 mmol/L (22-30); Chloride 92 mmol/L (98-107); Glucose 126 mg/dL (74-99); Magnesium 1.5 mg/dL (1.6-2.3); Non-African American GFR(CKD) >90 (>60 ml/min/1.73 sqM); Potassium 4.2 mmol/L (3.5-5.1); Sodium 130 mmol/L (137-145); Total Bilirubin 0.9 mg/dL (0.2-1.3); Total Protein 8.3 g/dL (6.3-8.2)
[2020-04-01 16:02] LABS: ALT 68 U/L (4-49)
[2020-04-01 16:04] VITALS: RESP 18
[2020-04-01] MEDS ORDERED: MAGNESIUM OXIDE 400 MG TAB PO STA (16:24)
[2020-04-01 17:03] VITALS: BP 125/75; PULSE 88
== END 2020-04-01 17:16 | disposition other institution (70) ==
LOC: EC 14:18
DX: F10.239 Alcohol dependence with withdrawal, unspecified (principal); E83.42 Hypomagnesemia; E87.1 Hypo-osmolality and hyponatremia; F17.200 Nicotine dependence, unspecified, uncomplicated
CPT/HCPCS: 82075; 36415; 93005; 80053; 83690; 83735; 85025; 81001; 99285; 96374; 96375; 96376; 96361; G0480; J2060; J2405; 80320

== ENCOUNTER 2020-04-29 11:07 | Inpatient (IN) | payer OTHER ==
[2020-04-29] MEDS ORDERED: ONDANSETRON 4 MG/2 ML VIAL IVP STA (11:22)
[2020-04-29] MEDS ORDERED: LORazepam 2 MG/ML INJ IV STA (11:22)
[2020-04-29] MEDS ORDERED: SODIUM CHLORIDE 0.9% 2,000 ML IV ONE (11:22)
--- NOTE | 2020-04-29 11:28 | ED ---
General Adult HPI - General Chief complaint: Recheck/Abnormal Lab/Rx Stated complaint: alcohol withdrawal Time Seen by Provider: 04/29/20 11:10 Source: patient, RN notes reviewed, old records reviewed Mode of arrival: ambulatory Limitations: no limitations - History of Present Illness Initial comments: This is a 50-year-old male who presents emergency Department stating he is been no fevers. Patient states he stopped drinking last night before he went to bed he woke up this morning with dry heaves diarrhea. Patient states he has the shakes and he believes he is withdrawn. Patient states he can't stop dry heaving and he thinks is getting dehydrated because he can't tolerate keeping any oral fluids or food down. Patient denies any specific area of pain. Patient denies any chest pain palpitations difficulty breathing shortness of breath per patient denies any abdominal pain. Patient denies any headache patient denies numbness weakness. Patient denies any lightheadedness or dizziness. Patient denies any recent fever chills or cough. Patient denies any history of trauma - Related Data Home Medications Medication Instructions Recorded Confirmed PHENobarbitaL [Luminal] 16.2 mg PO ONCE 04/29/20 04/29/20 Previous Rx's Medication Instructions Recorded Magnesium 250 mg PO DAILY #30 tablet 04/01/20 Allergies Allergy/AdvReac Type Severity Reaction Status Date / Time No Known Allergies Allergy Verified 04/29/20 12:58 Review of Systems ROS Statement: Those systems with pertinent positive or pertinent negative responses have been documented in the HPI. ROS Other: All systems not noted in ROS Statement are negative. Past Medical History Past Medical History: No Reported History Additional Past Medical History / Comment(s): ETOH abuse, smoker, History of Any Multi-Drug Resistant Organisms: None Reported Past Surgical History: Adenoidectomy, Hernia Repair, Tonsillectomy Past Anesthesia/Blood Transfusion Reactions: No Reported Reaction Past Psychological History: Anxiety, Depression Smoking Status: Current every day smoker Past Alcohol Use History: Abuse, Daily, Heavy Past Drug Use History: Marijuana - Past Family History Brother(s) Family Medical History: Osteoarthritis (OA) Mother Family Medical History: COPD Additional Family Medical History / Comment(s): pulmonary fibrosis General Exam - General Exam Comments Initial Comments: GENERAL: Patient is well-developed and well-nourished. Patient is nontoxic and well- hydrated and is in mild distress. Patient is has tremors and is agitated. ENT: Neck is soft and supple. No significant lymphadenopathy is noted. Oropharynx is clear. Moist mucous membranes. Neck has full range of motion without eliciting any pain. EYES: The sclera were anicteric and conjunctiva were pink and moist. Extraocular movements were intact and pupils were equal round and reactive to light. Eyelids were unremarkable. PULMONARY: Unlabored respirations. Good breath sounds bilaterally. No audible rales rhonchi or wheezing was noted. CARDIOVASCULAR: Patient is tachycardic at about 125 beats a minute ABDOMEN: Soft and nontender with normal bowel sounds. SKIN: Skin is clear with no lesions or rashes and otherwise unremarkable. NEUROLOGIC: Patient is alert and oriented x3. Cranial nerves II through XII are grossly intact. Motor and sensory are also intact. Normal speech, volume and content. Symmetrical smile. MUSCULOSKELETAL: Normal extremities with adequate strength and full range of motion. LYMPHATICS: No significant lymphadenopathy is noted PSYCHIATRIC: Normal psychiatric evaluation. Limitations: no limitations Course Vital Signs 04/29/20 04/29/20 04/29/20 11:12 12:30 13:12 Temperature 98.1 F 98.2 F Pulse Rate 130 H 97 Pulse Rate [ 104 H Left] Respiratory 20 16 16 Rate Blood Pressure 119/81 121/79 Blood Pressure 117/72 [Left Arm] O2 Sat by Pulse 98 97 97 Oximetry 04/29/20 04/29/20 13:35 14:02 Temperature 98.8 F Pulse Rate 104 H Pulse Rate [ Left] Respiratory 18 Rate Blood Pressure 128/89 Blood Pressure [Left Arm] O2 Sat by Pulse 97 Oximetry Medical Decision Making - Medical Decision Making I spoke with the [facility] hospitalist and they agreed to admit the patient I wrote admitting orders. EKG shows sinus tachycardia at 118 bpm MO interval is 126 QRS is 84 QT interval 318 QTC is 445 per patient's EKG shows no ST segment elevation or depression. - Lab Data Result diagrams: 04/30/20 05:35 04/30/20 05:35 Lab Results 04/29/20 04/29/20 Range/Units 12:04 12:04 WBC 6.4 (3.8-10.6) k/uL RBC 5.67 (4.30-5.90) m/uL Hgb 18.5 H (13.0-17.5) gm/dL Hct 54.8 H (39.0-53.0) % MCV 96.8 (80.0-100.0) fL MCH 32.7 (25.0-35.0) pg MCHC 33.8 (31.0-37.0) g/dL RDW 13.0 (11.5-15.5) % Plt Count 129 L (150-450) k/uL Neutrophils % 69 % Lymphocytes % 20 % Monocytes % 8 % Eosinophils % 2 % Basophils % 0 % Neutrophils # 4.4 (1.3-7.7) k/uL Lymphocytes # 1.3 (1.0-4.8) k/uL Monocytes # 0.5 (0-1.0) k/uL Eosinophils # 0.1 (0-0.7) k/uL Basophils # 0.0 (0-0.2) k/uL Sodium 133 L (137-145) mmol/L Potassium 4.2 (3.5-5.1) mmol/L Chloride 97 L (98-107) mmol/L Carbon Dioxide 20 L (22-30) mmol/L Anion Gap 16 mmol/L BUN 3 L (9-20) mg/dL Creatinine 0.71 (0.66-1.25) mg/dL Est GFR (CKD-EPI)AfAm >90 (>60 ml/min/1.73 sqM) Est GFR (CKD-EPI)NonAf >90 (>60 ml/min/1.73 sqM) Glucose 139 H (74-99) mg/dL Calcium 9.8 (8.4-10.2) mg/dL Magnesium 1.7 (1.6-2.3) mg/dL Total Bilirubin 0.9 (0.2-1.3) mg/dL AST 56 (17-59) U/L ALT 34 (4-49) U/L Alkaline Phosphatase 105 (38-126) U/L Total Protein 8.7 H (6.3-8.2) g/dL Albumin 4.9 (3.5-5.0) g/dL Serum Alcohol <10 mg/dL Disposition Clinical Impression: Alcohol withdrawal Disposition: ADMITTED IP TO THIS [facility] Time of Disposition: 12:48
[2020-04-29] MEDS ORDERED: SODIUM CHLORIDE 0.9% 1,000 ML with MVI, ADULT NO.4 WITH VIT K 10 ML, THIAMINE 100 MG, F... IV ONE ×4 (11:45)
[2020-04-29 12:22] LABS: Basophils % (A) 0 %; Eosinophils # (A) 0.1 k/uL (0-0.7); Eosinophils % (A) 2 %; HCT 54.8 % (39.0-53.0); HGB 18.5 gm/dL (13.0-17.5); Lymphocytes # (A) 1.3 k/uL (1.0-4.8); Lymphocytes % (A) 20 %; MCH 32.7 pg (25.0-35.0); MCHC 33.8 g/dL (31.0-37.0); MCV 96.8 fL (80.0-100.0); Mean Platelet Volume 7.2; Monocytes # (A) 0.5 k/uL (0-1.0); Monocytes % (A) 8 %; Neutrophils # (A) 4.4 k/uL (1.3-7.7); Neutrophils % (A) 69 %; Platelet Count 129 k/uL (150-450); RBC 5.67 m/uL (4.30-5.90); WBC 6.4 k/uL (3.8-10.6)
[2020-04-29 12:34] LABS: ALT 34 U/L (4-49); AST 56 U/L (17-59); African American GFR (CKD) >90 (>60 ml/min/1.73 sqM); Albumin 4.9 g/dL (3.5-5.0); Alcohol <10 mg/dL; Alkaline Phosphatase 105 U/L (38-126); Anion Gap 16 mmol/L; Blood Urea Nitrogen 3 mg/dL (9-20); Calcium 9.8 mg/dL (8.4-10.2); Carbon Dioxide 20 mmol/L (22-30); Chloride 97 mmol/L (98-107); Glucose 139 mg/dL (74-99); Magnesium 1.7 mg/dL (1.6-2.3); Non-African American GFR(CKD) >90 (>60 ml/min/1.73 sqM); Potassium 4.2 mmol/L (3.5-5.1); Sodium 133 mmol/L (137-145); Total Bilirubin 0.9 mg/dL (0.2-1.3); Total Protein 8.7 g/dL (6.3-8.2)
[2020-04-29] MEDS ORDERED: SODIUM CHLORIDE 0.9% 1,000 ML IV ONE (12:49)
[2020-04-29] MEDS ORDERED: LORazepam 2 MG/ML INJ IV PRN ×2 (12:56)
[2020-04-29 13:39] LABS: Appearance,Urine Clear (Clear); Bilirubin,Urine Negative (Negative); Blood,Urine Negative (Negative); Color,Urine Yellow; Glucose,Urine (UA) Negative (Negative); Ketones,Urine Negative (Negative); Leukocyte Esterase,Urine Negative (Negative); Nitrite,Urine Negative (Negative); Protein,Urine Trace (Negative); Specific Gravity,Urine 1.013 (1.001-1.035); Urobilinogen,Urine <2.0 mg/dL (<2.0)
[2020-04-29] MEDS: LORazepam 2 MG/ML INJ IV PRN ×5 (13:41→22:56)
--- NOTE | 2020-04-29 16:06 | P.HPIM ---
History of Present Illness This is a pleasant 50 years old male with past medical history of alcohol abuse, anxiety and depression. He is a patient of Dr. Meyer. Presents with ongoing diarrhea and vomiting associated with his withdrawal symptoms from alcoholism. Patient states for a week is been having diarrhea and associated vomiting however he was team drinking, usually he drinks about 24 cans of beer which is a whole case per day, yesterday it was getting worse, he had frequent bouts of diarrhea about 20, he did not notice any blood, also he was vomiting each time he drinks alcohol which he does frequently. And when he stopped drinking he was noticed getting more shakiness today so he decided to come to the hospital However she denies any abdominal pain, no chest pain, no headache or weakness. No dizziness Patient denies active depression symptoms or suicidal or homicidal ideation, denies hallucination, however he says that he feels very anxious and his alcohol stressors in his life Patient states that he has frequent urination at times it dee He smokes about 1 pack per day for less than a pack per day. And he smokes marijuana Review of Systems CONSTITUTIONAL: No fever, no malaise, no fatigue. HEENT: No recent visual problems or hearing problems. Denied any sore throat. CARDIOVASCULAR: No orthopnea, PND, no palpitations, no syncope. PULMONARY: No shortness of breath, no cough, no hemoptysis. GASTROINTESTINAL: no abdominal pain. Normoactive bowel sounds. NEUROLOGICAL: No headaches, no weakness, no numbness. HEMATOLOGICAL: Denies any bleeding or petechiae. GENITOURINARY: Denies any burning micturition, frequency, or urgency. MUSCULOSKELETAL/RHEUMATOLOGICAL: Denies any joint pain, swelling, or any muscle pain. ENDOCRINE: Denies any polyuria or polydipsia. Past Medical History Past Medical History: No Reported History Additional Past Medical History / Comment(s): ETOH abuse, smoker, History of Any Multi-Drug Resistant Organisms: None Reported Past Surgical History: Adenoidectomy, Hernia Repair, Tonsillectomy Past Anesthesia/Blood Transfusion Reactions: No Reported Reaction Past Psychological History: Anxiety, Depression Smoking Status: Current every day smoker Past Alcohol Use History: Abuse, Daily, Heavy Past Drug Use History: Marijuana - Past Family History Brother(s) Family Medical History: Osteoarthritis (OA) Mother Family Medical History: COPD Additional Family Medical History / Comment(s): pulmonary fibrosis Medications and Allergies Home Medications Medication Instructions Recorded Confirmed Type Magnesium 250 mg PO DAILY #30 tablet 04/01/20 04/29/20 Rx PHENobarbitaL [Luminal] 16.2 mg PO ONCE 04/29/20 04/29/20 History Allergies Allergy/AdvReac Type Severity Reaction Status Date / Time No Known Allergies Allergy Verified 04/29/20 12:58 Physical Exam Vitals: Vital Signs Temp Pulse Pulse Resp BP BP Pulse Ox 04/29/20 15:17 104 H 18 04/29/20 14:02 98.8 F 04/29/20 13:35 104 H 18 128/89 97 04/29/20 13:12 98.2 F 104 H 16 117/72 97 04/29/20 12:30 97 16 121/79 97 04/29/20 11:12 98.1 F 130 H 20 119/81 98 Intake and Output 04/29/20 04/29/20 04/29/20 06:59 14:59 22:59 Other: Voiding Method Toilet # Voids 1 # Bowel Movements 1 1 Weight 63.503 kg -GENERAL: The patient is alert and oriented x3, not in any acute distress. Thin built and he looks tired and dehydrated HEENT: Pupils are round and equally reacting to light. EOMI. No scleral icterus. No conjunctival pallor. Normocephalic, atraumatic. No pharyngeal erythema. No thyromegaly. CARDIOVASCULAR: S1 and S2 present. No murmurs, rubs, or gallops. PULMONARY: Chest is clear to auscultation, no wheezing or crackles. ABDOMEN: Soft, nontender, nondistended, normoactive bowel sounds. No palpable organomegaly. MUSCULOSKELETAL: No joint swelling or deformity. EXTREMITIES: No cyanosis, clubbing, or pedal edema. NEUROLOGICAL: Gross neurological examination did not reveal any focal deficits. SKIN: No rashes. No petechiae Results CBC & Chem 7: 04/29/20 12:04 04/29/20 12:04 Labs: Abnormal Lab Results - Last 24 Hours (Table) 04/29/20 04/29/20 04/29/20 Range/Units 12:04 12:04 13:13 Hgb 18.5 H (13.0-17.5) gm/dL Hct 54.8 H (39.0-53.0) % Plt Count 129 L (150-450) k/uL Sodium 133 L (137-145) mmol/L Chloride 97 L (98-107) mmol/L Carbon Dioxide 20 L (22-30) mmol/L BUN 3 L (9-20) mg/dL Glucose 139 H (74-99) mg/dL Total Protein 8.7 H (6.3-8.2) g/dL Urine Protein Trace H (Negative) Thrombosis Risk Factor Assmnt - Choose All That Apply Each Factor Represents 1 point: Age 41-60 years Thrombosis Risk Factor Assessment Total Risk Factor Score: 1 Thrombosis Risk Factor Assessment Level: Low Risk Assessment and Plan Assessment: Acute Gastroenteritis, computed by cold gastritis Alcohol abuse and alcohol withdrawal at-risk of delirium tremens Depression, and anxiety Nicotine dependence Substance abuse with marijuana Plan: This is a pleasant 50 years old male who presents with left arthritis and alcohol withdrawal. Continue with CIWA protocol with Ativan, banana bag. Keep the patient nothing by mouth with IV hydration. Also call for psychiatrist consult. We'll send for C. diff and stool studies. Also check urine analysis. Patient is counseled to quit drinking alcohol, quit smoking cigarettes and marijuana. 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 Continue same treatment. Continue with symptomatic treatment. Resume home medication. Monitor lytes and vitals. DVT and GI prophylaxis. Further recommendations of the clinical course of the patient DVT prophylaxis: Subcutaneous heparin GI Prophylaxis: Pepcid PT/OT: Pending Prognosis is guarded
[2020-04-29] MEDS ORDERED: Potassium Replacement Protocol 1 EACH MISC MISCELLANE PRN (16:08)
[2020-04-29] MEDS ORDERED: Magnesium Replacement Protocol 1 EACH MISC MISCELLANE PRN (16:08)
[2020-04-29] MEDS: ONDANSETRON 4 MG/2 ML VIAL IVP PRN ×2 (16:17→22:56)
[2020-04-29] MEDS: THIAMINE 100 MG TAB PO SCH (16:17)
[2020-04-29] MEDS: NICOTINE 21MG/24HR PATCH TRANSDERM SCH (16:17)
[2020-04-29] MEDS: HEPARIN SODIUM,PORCINE 5,000 UNIT/ML 1 ML VIAL SQ SCH (20:21)
[2020-04-30] MEDS ORDERED: PANTOPRAZOLE 40 MG/10 ML VIAL IVP ONE (01:39)
[2020-04-30] MEDS: LORazepam 2 MG/ML INJ IV PRN ×7 (02:53→22:40)
[2020-04-30 05:56] LABS: Basophils % (A) 0 %; Eosinophils # (A) 0.2 k/uL (0-0.7); Eosinophils % (A) 4 %; HCT 48.7 % (39.0-53.0); Lymphocytes # (A) 1.5 k/uL (1.0-4.8); Lymphocytes % (A) 24 %; MCH 33.2 pg (25.0-35.0); MCHC 32.8 g/dL (31.0-37.0); MCV 101.2 fL (80.0-100.0); Mean Platelet Volume 7.4; Monocytes # (A) 0.4 k/uL (0-1.0); Monocytes % (A) 7 %; Neutrophils # (A) 3.9 k/uL (1.3-7.7); Neutrophils % (A) 63 %; RBC 4.81 m/uL (4.30-5.90); RDW 13.1 % (11.5-15.5); WBC 6.1 k/uL (3.8-10.6)
[2020-04-30 06:16] LABS: African American GFR (CKD) >90 (>60 ml/min/1.73 sqM); Anion Gap 7 mmol/L; Blood Urea Nitrogen 3 mg/dL (9-20); Calcium 8.7 mg/dL (8.4-10.2); Carbon Dioxide 24 mmol/L (22-30); Chloride 101 mmol/L (98-107); Glucose 100 mg/dL (74-99); Magnesium 1.7 mg/dL (1.6-2.3); Non-African American GFR(CKD) >90 (>60 ml/min/1.73 sqM); Sodium 132 mmol/L (137-145)
[2020-04-30 06:20] LABS: Platelet Count 91 k/uL (150-450)
[2020-04-30 06:36] LABS: Potassium 3.7 mmol/L (3.5-5.1)
[2020-04-30] MEDS: HEPARIN SODIUM,PORCINE 5,000 UNIT/ML 1 ML VIAL SQ SCH ×2 (07:55→21:37)
[2020-04-30] MEDS: THIAMINE 100 MG TAB PO SCH ×2 (07:55→17:38)
[2020-04-30] MEDS: NICOTINE 21MG/24HR PATCH TRANSDERM SCH (07:55)
[2020-04-30] MEDS: ONDANSETRON 4 MG/2 ML VIAL IVP PRN (08:04)
[2020-04-30] MEDS ORDERED: PANTOPRAZOLE 40 MG/10 ML VIAL IVP SCH (09:00)
[2020-04-30] MEDS ORDERED: LOPERAMIDE 2 MG CAP PO STA (11:16)
[2020-04-30] MEDS ORDERED: LORazepam 2 MG/ML INJ IV STA (11:56)
[2020-04-30] MEDS ORDERED: LORazepam 2 MG/ML INJ IV PRN (11:57)
[2020-04-30] MEDS: diazePAM 5 MG TAB PO SCH ×2 (12:06→21:37)
[2020-04-30] MEDS: DEXTROSE 5%-0.9% NACL 1,000 ML IV SCH ×2 (12:07→22:41)
[2020-04-30 16:16] LABS: Hemoglobin A1C 6.1 % (4.0-6.0)
--- NOTE | 2020-04-30 16:27 | CONS ---
CONSULTATION DATE OF CONSULTATION: 04/30/2020 REASON FOR CONSULTATION: Alcohol withdrawal with severe anxiety. HISTORY OF PRESENT ILLNESS: Addison is a 50, single, male who is currently living on his own and collecting unemployment. The patient presented to the emergency room, stated that he has been going through alcohol withdrawal symptoms. Patient stated that he has extensive history of alcohol use since age 24. However, his drinking has been out of control since November as he said "I was not working and the pandemic did make me more anxious." He had 24 cans of beer one day prior to his admission to the hospital ,he presented to ER with severe nausea and vomiting due to alcohol withdrawal. He denied any history of withdrawal seizures or DT He stated that he did have anxiety, but usually it is related to alcohol withdrawal. He denied any feeling of hopeless or helpless or any suicidal or homicidal ideation. According to him, he has been less depressed since he has been getting the stimulants check in addition to unemployment check. He said "even I was able to buy a car ,before pandemic I used my bike." PAST PSYCHIATRIC HISTORY: There is no previous inpatient or outpatient treatment for depression or anxiety. He stated that he used to see Dr. Anaya to get Valium or Ativan either for anxiety or when he does go through alcohol withdrawal. Last time he saw Dr. Anaya who was 6 - 7 months ago. SUBSTANCE USE DISORDER: Nicotine. He has been smoking at least 1 pack a day. Alcohol, his first drink was at age 11. However, starting getting on a regular basis at age 24. According to him, he went to [place] last year only for a couple of days, then "I did not like it." He has been going to outpatient recovery and AA meetings. He used to drink hard liquor, but for the last 6 months, he denied any hard liquor, but he has been drinking on daily basis, up to 24 cans of beer. FAMILY HISTORY OF PSYCHIATRIC ILLNESS: He stated that his step dad used to be alcoholic. One brother and one sister taking pain medication. ALLERGIES: There is no known allergy. BRIEF SOCIAL HISTORY: The patient never . He does not have children. He has one brother and one sister and 2 step-siblings. He used to work with [employer] in [employer] and [employer], but recently he stated that he was fired from his job as he was calling sick for the last couple of months Patient stated that he has saving from the unemployment check in addition to the stimulus check. MENTAL STATUS EXAMINATION: The patient is a male who looks his stated age. He is able to concentrate. He has been cooperative with the interview. He denied any suicidal or homicidal ideation. He denied any feeling of hopeless or helpless. He did report history of anxiety, but usually it is related to his alcohol withdrawal and the fear of "getting very sick when I stop drinking." His speech was coherent, normal in volume and rhythm. His stated mood "anxious." His affect is constricted. He is oriented to person, place, and situation. He denied any delusional thinking or ideas of reference. He denied any hallucination. His concentration and attention are fair. Memory is grossly intact. His insight and judgment are fair. However, the insight regarding his extensive history of alcohol drinking is questionable. PSYCHIATRIC IMPRESSION: Alcohol use disorder severe, alcohol induced anxiety disorder. RECOMMENDATION: The patient does not meet any criteria for inpatient psychiatric hospitalization. I did discuss with him referral to [place] or [facility], but he was very resistant, but he did agree to pursue outpatient substance abuse. 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 Thank you for this consult and psychiatry will sign off. MMODL / IJN: [id number] / GARY
[2020-04-30] MEDS: PANTOPRAZOLE 40 MG TABLET PO SCH (21:37)
--- NOTE | 2020-04-30 23:07 | P.PN ---
Subjective This is a pleasant 50 years old male with past medical history of alcohol abuse, anxiety and depression. He is a patient of Dr. Meyer. Presents with ongoing diarrhea and vomiting associated with his withdrawal symptoms from alcoholism. Patient states for a week is been having diarrhea and associated vomiting however he was team drinking, usually he drinks about 24 cans of beer which is a whole case per day, yesterday it was getting worse, he had frequent bouts of diarrhea about 20, he did not notice any blood, also he was vomiting each time he drinks alcohol which he does frequently. And when he stopped drinking he was noticed getting more shakiness today so he decided to come to the hospital However she denies any abdominal pain, no chest pain, no headache or weakness. No dizziness Patient denies active depression symptoms or suicidal or homicidal ideation, denies hallucination, however he says that he feels very anxious and his alcohol stressors in his life Patient states that he has frequent urination at times it dee He smokes about 1 pack per day for less than a pack per day. And he smokes marijuana 04/30/2020 Patient is awake and alert today, he denies any visual or auditory hallucination, however he still have shakiness, anxiety and tremor from his alcohol withdrawal, and he was with CIWA score of 8, remains on Ativan as needed, Valium 5 mg twice a day was added as well He still reports nausea and vomiting, at breakfast he had only 2 grown is and he couldn't finish because of his decreased appetite and severe nausea, we were with the patient on liquid diet for now. He denies abdominal pain but he still have frequent bowel movement. C. diff is negative and stool studies are pending His labs include a CBC, BMP and magnesium are stable and normal. Hemoglobin A1c is 6.1% Psych" evaluated the patient today, no need for inpatient psychiatric admission he Remains on IV Protonix twice daily Review of Systems CONSTITUTIONAL: No fever, no malaise, no fatigue. HEENT: No recent visual problems or hearing problems. Denied any sore throat. CARDIOVASCULAR: No orthopnea, PND, no palpitations, no syncope. PULMONARY: No shortness of breath, no cough, no hemoptysis. GASTROINTESTINAL: no abdominal pain. Normoactive bowel sounds. NEUROLOGICAL: No headaches, no weakness, no numbness. HEMATOLOGICAL: Denies any bleeding or petechiae. GENITOURINARY: Denies any burning micturition, frequency, or urgency. MUSCULOSKELETAL/RHEUMATOLOGICAL: Denies any joint pain, swelling, or any muscle pain. ENDOCRINE: Denies any polyuria or polydipsia. Active Medications Generic Name Dose Route Start Last Admin Trade Name Freq PRN Reason Stop Dose Admin Diazepam 5 mg 04/30/20 12:00 04/30/20 21:37 Valium PO 5 mg BID PRASAD Administration Heparin Sodium (Porcine) 5,000 unit 04/29/20 21:00 04/30/20 21:37 Heparin SQ 5,000 unit Q12HR PRASAD Administration Dextrose/Sodium Chloride 1,000 mls @ 75 mls/hr 04/30/20 12:00 04/30/20 22:41 Dextrose 5%-Ns Iv Soln IV 75 mls/hr .[id number] PRASAD Administration Lorazepam 1 mg 04/29/20 12:56 04/30/20 22:40 Ativan IV 1 mg Q2HR PRN Administration CIWA 8 or 9 Lorazepam 2 mg 04/29/20 12:56 Ativan IV 05/01/20 12:56 Q10M PRN CIWA 16 or higher Lorazepam 0.5 mg 04/30/20 11:57 Ativan IV Q1HR PRN CIWA 10 to 15 Miscellaneous Information 1 each 04/29/20 16:08 Potassium Per Protocol MISCELLANE DAILY PRN Per Protocol Protocol Miscellaneous Information 1 each 04/29/20 16:08 Magnesium Per Protocol MISCELLANE DAILY PRN Per Protocol Protocol Nicotine 1 patch 04/29/20 16:15 04/30/20 07:55 Habitrol 21mg/24hr Patch TRANSDERM 1 patch DAILY PRASAD Administration Ondansetron HCl 4 mg 04/29/20 16:03 04/30/20 08:04 Zofran IVP 4 mg Q6HR PRN Administration Nausea And Vomiting Pantoprazole Sodium 40 mg 04/30/20 21:00 04/30/20 21:37 Protonix PO 40 mg BID PRASAD Administration Thiamine HCl 100 mg 04/29/20 17:30 04/30/20 17:38 Vitamin B-1 PO 100 mg BID-W/MEALS PRASAD Administration Objective - Vital Signs Vital signs: Vital Signs Temp 97.5 F L 04/30/20 11:34 Pulse 79 04/30/20 11:34 Resp 20 04/30/20 11:34 BP 114/75 04/30/20 11:34 Pulse Ox 97 04/30/20 11:34 Intake & Output 04/29/20 04/30/20 04/30/20 18:59 06:59 18:59 Intake Total 900 150 Balance 900 150 Weight 63.503 kg Intake: Intake, IV Titration 900 150 Amount Dextrose 5%-0.9% NaCl 1, 150 000 ml @ 75 mls/hr IV . [id number] [facility] Rx#:[id number] Sodium Chloride 0.9% 1, 900 000 ml @ 100 mls/hr IV . Q10H7M ONE with Mvi, Adult No.4 with Vit K 10 ml with Thiamine 100 mg with Folic Acid 1 mg Rx#: [id number] Other: Voiding Method Toilet Toilet Toilet # Voids 1 2 1 # Bowel Movements 1 2 1 - Exam -GENERAL: The patient is alert and oriented x3, not in any acute distress. Thin built and he looks tired and dehydrated HEENT: Pupils are round and equally reacting to light. EOMI. No scleral icterus. No conjunctival pallor. Normocephalic, atraumatic. No pharyngeal erythema. No thyromegaly. CARDIOVASCULAR: S1 and S2 present. No murmurs, rubs, or gallops. PULMONARY: Chest is clear to auscultation, no wheezing or crackles. ABDOMEN: Soft, nontender, nondistended, normoactive bowel sounds. No palpable organomegaly. MUSCULOSKELETAL: No joint swelling or deformity. EXTREMITIES: No cyanosis, clubbing, or pedal edema. NEUROLOGICAL: Gross neurological examination did not reveal any focal deficits. SKIN: No rashes. No petechiae - Labs CBC & Chem 7: 04/30/20 05:35 04/30/20 05:35 Labs: Abnormal Lab Results - Last 24 Hours (Table) 04/30/20 04/30/20 04/30/20 Range/Units 05:35 05:35 05:35 MCV 101.2 H (80.0-100.0) fL Plt Count 91 L (150-450) k/uL Sodium 132 L (137-145) mmol/L BUN 3 L (9-20) mg/dL Glucose 100 H (74-99) mg/dL Hemoglobin A1c 6.1 H (4.0-6.0) % Microbiology - Last 24 Hours (Table) 04/29/20 15:00 Stool Culture - Preliminary Stool Assessment and Plan Assessment: Acute Gastroenteritis, computed by alcoholic gastritis and gastroenteritis Alcohol abuse and alcohol withdrawal at-risk of delirium tremens Depression, and anxiety, but an active issue. Evaluated by psychiatrist Nicotine dependence Substance abuse with marijuana Plan: This is a pleasant 50 years old male who presents with left arthritis and alcohol withdrawal. Continue with CIWA protocol with Ativan, banana bag. Keep the patient on liquid diet with IV hydration. Follow-up labs. Follow-up urine culture. Patient is counseled to quit drinking alcohol, quit smoking cigarettes and marijuana. 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 Continue same treatment. Continue with symptomatic treatment. Resume home medication. Monitor lytes and vitals. DVT and GI prophylaxis. Further recommendations of the clinical course of the patient DVT prophylaxis: Subcutaneous heparin GI Prophylaxis: Pepcid PT/OT: Pending Prognosis is guarded
[2020-05-01 05:27] VITALS: RESP 17
[2020-05-01 07:13] LABS: Basophils % (A) 0 %; Eosinophils # (A) 0.2 k/uL (0-0.7); Eosinophils % (A) 4 %; HCT 48.7 % (39.0-53.0); HGB 15.4 gm/dL (13.0-17.5); Lymphocytes # (A) 1.4 k/uL (1.0-4.8); Lymphocytes % (A) 31 %; MCH 32.1 pg (25.0-35.0); MCHC 31.6 g/dL (31.0-37.0); MCV 101.7 fL (80.0-100.0); Macrocytosis Slight; Mean Platelet Volume 7.5; Monocytes # (A) 0.4 k/uL (0-1.0); Monocytes % (A) 8 %; Neutrophils # (A) 2.5 k/uL (1.3-7.7); Neutrophils % (A) 55 %; RBC 4.79 m/uL (4.30-5.90); RDW 13.1 % (11.5-15.5); WBC 4.5 k/uL (3.8-10.6)
[2020-05-01 07:17] LABS: Platelet Count 88 k/uL (150-450)
[2020-05-01 07:29] LABS: ALT 33 U/L (4-49); AST 49 U/L (17-59); African American GFR (CKD) >90 (>60 ml/min/1.73 sqM); Albumin 3.5 g/dL (3.5-5.0); Alkaline Phosphatase 70 U/L (38-126); Anion Gap 4 mmol/L; Blood Urea Nitrogen 3 mg/dL (9-20); Calcium 8.5 mg/dL (8.4-10.2); Carbon Dioxide 28 mmol/L (22-30); Chloride 104 mmol/L (98-107); Glucose 105 mg/dL (74-99); Magnesium 1.8 mg/dL (1.6-2.3); Non-African American GFR(CKD) >90 (>60 ml/min/1.73 sqM); Potassium 4.3 mmol/L (3.5-5.1); Sodium 136 mmol/L (137-145); Total Bilirubin 1.1 mg/dL (0.2-1.3); Total Protein 6.3 g/dL (6.3-8.2)
[2020-05-01] MEDS: diazePAM 5 MG TAB PO SCH (07:35)
[2020-05-01] MEDS: THIAMINE 100 MG TAB PO SCH (07:35)
[2020-05-01] MEDS: HEPARIN SODIUM,PORCINE 5,000 UNIT/ML 1 ML VIAL SQ SCH (07:35)
[2020-05-01] MEDS: NICOTINE 21MG/24HR PATCH TRANSDERM SCH (07:35)
[2020-05-01] MEDS: PANTOPRAZOLE 40 MG TABLET PO SCH (07:35)
[2020-05-01] MEDS ORDERED: ONDANSETRON 4 MG/2 ML VIAL IVP PRN (09:52)
[2020-05-01] MEDS: LORazepam 2 MG/ML INJ IV PRN (10:11)
--- NOTE | 2020-05-01 12:03 | P.PN ---
<Reema Oleary - Last Filed: 05/01/20 16:37> Subjective Progress Note Date: 05/01/20 This is a pleasant 50-year-old male patient with a past medical history of alcohol abuse, anxiety and depression. He came into the emergency department with ongoing diarrhea and vomiting associated with his withdrawal symptoms from alcoholism. He has been on CIWA protocol. He has been seen by psychiatry in which they did discuss referral to [place] or [facility] for rehab, when the patient was resistant but agreeable to pursue outpatient substance abuse programs. Social work consult has been initiated to facilitate referral to [facility] substance abuse program. The patient denies any nausea or vomiting, abdominal pain, or diarrhea. He states he still has some shakes, however is eager to go home. His diet has been advanced to a regular diet for lunch. Objective - Vital Signs Vital signs: Vital Signs Temp 97.8 F 05/01/20 05:00 Pulse 71 05/01/20 05:00 Resp 17 05/01/20 05:00 BP 112/75 05/01/20 05:00 Pulse Ox 99 05/01/20 05:00 Intake & Output 04/30/20 05/01/20 05/01/20 18:59 06:59 18:59 Intake Total 150 2080 Balance 150 2080 Intake: Intake, IV Titration 150 900 Amount Dextrose 5%-0.9% NaCl 1, 150 900 000 ml @ 75 mls/hr IV . [id number] [facility] Rx#:[id number] Oral 1180 Other: Voiding Method Toilet Toilet Toilet # Voids 1 2 # Bowel Movements 1 1 - Exam General appearance: The patient is alert, oriented, in no acute distress. Thin. HET: Head is normocephalic. Conjunctiva pink. Non-icteric. Pupils are equal round and reactive. Neck: Supple. Heart: S1 S2. Regular rate and rhythm. Lungs: No crackles or wheezes are heard. Abdomen: Soft, nontender, nondistended with bowel sounds. Extremities: No pedal edema Neurological: No focal deficits. Bilateral upper extremity tremors. - Labs CBC & Chem 7: 05/01/20 06:42 05/01/20 06:42 Labs: Abnormal Lab Results - Last 24 Hours (Table) 04/30/20 05/01/20 05/01/20 Range/Units 05:35 06:42 06:42 MCV 101.7 H (80.0-100.0) fL Plt Count 88 L (150-450) k/uL Sodium 136 L (137-145) mmol/L BUN 3 L (9-20) mg/dL Glucose 105 H (74-99) mg/dL Hemoglobin A1c 6.1 H (4.0-6.0) % Assessment and Plan Assessment: 1. Nausea and vomiting 2. Alcohol abuse and alcohol withdrawal 3. Anxiety and depression 4. Nicotine dependence Plan: 1. Antiemetics as needed for nausea and vomiting 2. Stool for C. diff collected and negative, stool culture pending 3. Continue CIWA protocol 4. Alcohol abstinence, recommend patient to follow-up with out-patient substance abuse program 5. Recommend tobacco cessation Thank you for this consultation. The above dictated assessment and findings were discussed with Dr. Brewster. The impression and plan of care have been directed as dictated. <Brian Brewster - Last Filed: 05/02/20 06:51> Objective - Vital Signs Vital signs: Vital Signs Temp 97.9 F 05/01/20 12:19 Pulse 76 05/01/20 12:19 Resp 17 05/01/20 12:19 BP 124/81 05/01/20 12:19 Pulse Ox 100 05/01/20 12:19 Intake & Output 05/01/20 05/01/20 05/02/20 06:59 18:59 06:59 Intake Total 0 Balance 0 Intake: Intake, IV Titration 900 Amount Dextrose 5%-0.9% NaCl 1, 900 000 ml @ 75 mls/hr IV . [id number] [facility] Rx#:[id number] Oral 1180 Other: Voiding Method Toilet Toilet # Voids 2 # Bowel Movements 1 - Labs CBC & Chem 7: 05/01/20 06:42 05/01/20 06:42 Labs: Abnormal Lab Results - Last 24 Hours (Table) 05/01/20 05/01/20 Range/Units 06:42 06:42 MCV 101.7 H (80.0-100.0) fL Plt Count 88 L (150-450) k/uL Sodium 136 L (137-145) mmol/L BUN 3 L (9-20) mg/dL Glucose 105 H (74-99) mg/dL Microbiology - Last 24 Hours (Table) 04/29/20 15:00 Stool Culture - Preliminary Stool Assessment and Plan (1) Nausea vomiting and diarrhea Status: Acute Code(s): R11.2 - NAUSEA WITH VOMITING, UNSPECIFIED; R19.7 - DIARRHEA, UNSPECIFIED SNOMED Code(s): 4109679 (2) Alcohol abuse Status: Acute Code(s): F10.10 - ALCOHOL ABUSE, UNCOMPLICATED SNOMED Code(s): 61857594 (3) Alcohol withdrawal syndrome Status: Acute Priority: High Code(s): F10.239 - ALCOHOL DEPENDENCE WITH WITHDRAWAL, UNSPECIFIED SNOMED Code(s): 350797412 Plan: 50-year-old male with a medical history significant for alcoholism presenting for alcohol withdrawal symptoms including nausea, vomiting, abdominal pain and diarrhea. Patient treated with alcohol withdrawal protocol with improved symptoms. Plan is for discharge today.
[2020-05-01 12:19] VITALS: BP 124/81; PULSE 76; TEMP 97.9
[2020-05-01] MEDS ORDERED: LORazepam 0.5 MG TAB PO PRN (13:18)
--- NOTE | 2020-05-01 13:31 | P.DS ---
Providers Date of admission: 05/01/20 08:33 Expected date of discharge: 05/01/20 Attending physician: Vivian Chung Consults: 04/29/20 13:10 Consult Physician Urgent Consulting Provider: Tati Sales Consult Reason/Comments: alcoholic with secer anxiety and stress in life Do you want consulting provider notified?: Yes 04/30/20 12:17 Consult Physician Urgent Consulting Provider: Adenike Greco Consult Reason/Comments: nausea/vomiting, chemical ingestion Do you want consulting provider notified?: Yes Primary care physician: Héctor Alejandro [facility] Course: Final diagnosis Acute Gastroenteritis, secondary to alcoholic gastritis and gastroenteritis Alcohol abuse and alcohol withdrawal at-risk of delirium tremens Depression, and anxiety, but not an active issue. Nicotine dependence Substance abuse with marijuana DVT prophylaxis GI prophylaxis Discharge disposition Patient is being discharged in a stable condition with guarded prognosis to home. Patient will follow-up with Dr. Anaya upon discharge. Patient instructed to follow[facility]up with [facility] for outpatient alcohol rehab. Total time taken is 35 minutes. History of present illness This is an 50-year-old male who was recently admitted with alcohol abuse, anxiety, depression along with diarrhea and nausea and vomiting with abdominal discomfort and was being closely monitored. Patient was seen and evaluated by GI along with psychiatry recommending outpatient follow-up with [facility] for alcohol rehab. GI evaluated the patient recommending to continue refraining from any alcohol intake and follow-up as needed in the outpatient setting. Patient's abdominal pain along with nausea and vomiting have subsided and is tolerating diet. Had a lengthy discussion about refraining from alcohol intake and following up with primary care provider to discuss resources available for alcohol rehab. Patient states he only has a few phenobarbital left and a prescription will be provided. Again patient is instructed to follow-up with primary care provider upon discharge. He would like to go home today. Currently no reports of chest pain, shortness of breath, or palpita tions. Patient is afebrile. No reports of nausea or vomiting and patient is tolerating diet. Patient will be discharged home today. Guarded prognosis. On exam vital signs are stable. Temp is 97.9F, pulse is 76, respirations are 17, blood pressure is 124/81, oxygen saturation is 100% on room air. Cardio S1, S2 are muffled. Respiratory shows diminished breath sounds at the bases with no wheezing or rhonchi noted. Abdomen is soft and nontender. Nervous system shows no focal deficits. Please refer to medication reconciliation sheet for a list of medications. Patient Condition at Discharge: Fair Plan - Discharge Summary Discharge Rx Participant: No New Discharge Prescriptions: New Thiamine [Vitamin B-1] 100 mg PO BID-W/MEALS 30 Days #60 tab Continue Magnesium 250 mg PO DAILY #30 tablet PHENobarbitaL [Luminal] 16.2 mg PO ONCE Discharge Medication List Magnesium 250 mg PO DAILY #30 tablet 04/01/20 [Rx] PHENobarbitaL [Luminal] 16.2 mg PO ONCE 04/29/20 [History] Thiamine [Vitamin B-1] 100 mg PO BID-W/MEALS 30 Days #60 tab 05/01/20 [Rx] Follow up Appointment(s)/Referral(s): Javon Anaya MD [Primary Care Provider] - 1-2 days (Your docotor's office is requiring you, the patient, to call to make a follow-up appointment. Please follow-through with the appointment you schedule.) Patient Instructions/Handouts: How to Stop Smoking (DC), Depression (DC), Abuse of Alcohol (DC) Activity/Diet/Wound Care/Special Instructions: Activity Limited until follow-up Continue current diet Follow-up with primary care provider upon discharge Continue to avoid alcohol intake Follow[facility]up with [facility] for possible alcohol rehab Discharge Disposition: HOME SELF-CARE
--- NOTE | 2020-05-01 14:57 | P.CONS ---
History of Present Illness - Reason for Consult Consult date: 04/30/20 Alcoholic ingestion, nausea and vomiting, abdominal pain Requesting physician: Vivian Chung - Chief Complaint Nausea and vomiting, alcohol abuse - History of Present Illness 50-year-old male with a known history of alcohol abuse who presented to the hospital with a variety of symptoms including nausea, vomiting, alcohol withdrawal and abdominal pain. He has been having abdominal pain over the past week, diffuse and constant across his abdomen. He reported some diarrhea in association with the abdominal pain. Testing for Clostridium difficile was negative and stool occult testing was positive. He reports that the bowel movements have improved today. He also had multiple episodes of nausea and vomiting. The patient has a history of excessive alcohol abuse approximately case of alcohol a day. He is been drinking for over 20 years. He reports being increasingly stressed due to being unemployed and the patient MF which has increased his alcoholism. Laboratory evaluations significant for total bilirubin 0.9, alkaline phosphatase 15, AST 56, ALT 34, WBC 6.1, hemoglobin 16. Review of Systems REVIEW OF SYSTEMS: CONSTITUTIONAL: Denies any fevers, chills, weight change or fatigue. CARDIOVASCULAR: Denies any chest pain, palpitations high or low blood pressures RESPIRATORY: Denies any shortness of breath, hemoptysis or cough. GENITOURINARY: No dysuria or hematuria. MUSCULOSKELETAL: No weakness reported. SKIN: Denies any new rashes or lesions, jaundice or pallor. PSYCHIATRIC: Patient reports a history of anxiety and depression and alcohol abuse. NEUROLOGY: Denies headache, denies any new focal deficits. EARS/NOSE/THROAT: No recent hearing change, congestion, nasal discharge or sore throat. EYES: No pain in eyes, discharge or change in vision. GASTROINTESTINAL: As per HPI. Past Medical History Past Medical History: No Reported History Additional Past Medical History / Comment(s): ETOH abuse, smoker, History of Any Multi-Drug Resistant Organisms: None Reported Past Surgical History: Adenoidectomy, Hernia Repair, Tonsillectomy Past Anesthesia/Blood Transfusion Reactions: No Reported Reaction Past Psychological History: Anxiety, Depression Smoking Status: Current every day smoker Past Alcohol Use History: Abuse, Daily, Heavy Past Drug Use History: Marijuana - Past Family History Brother(s) Family Medical History: Osteoarthritis (OA) Mother Family Medical History: COPD Additional Family Medical History / Comment(s): pulmonary fibrosis Medications and Allergies Home Medications Medication Instructions Recorded Confirmed Type Magnesium 250 mg PO DAILY #30 tablet 04/01/20 04/29/20 Rx LORazepam [Ativan] 1 mg PO TID 3 Days #9 tab 05/01/20 Rx PHENobarbitaL [Luminal] 16.2 mg PO DAILY #12 tab 05/01/20 Rx Thiamine [Vitamin B-1] 100 mg PO BID-W/MEALS 30 Days #60 05/01/20 Rx tab Allergies Allergy/AdvReac Type Severity Reaction Status Date / Time No Known Allergies Allergy Verified 04/29/20 12:58 Physical Exam Vitals: Vital Signs Temp Pulse Resp BP Pulse Ox 04/30/20 11:34 97.5 F L 79 20 114/75 97 04/30/20 05:18 98.1 F 78 16 125/79 97 04/29/20 20:25 98.6 F 93 16 110/72 97 04/29/20 15:17 104 H 18 Intake and Output 04/30/20 04/30/20 04/30/20 06:59 14:59 22:59 Intake Total 600 150 Balance 600 150 Intake: Intake, IV Titration 600 150 Amount Dextrose 5%-0.9% NaCl 1, 150 000 ml @ 75 mls/hr IV . [id number] [facility] Rx#:[id number] Sodium Chloride 0.9% 1, 600 000 ml @ 100 mls/hr IV . Q10H7M ONE with Mvi, Adult No.4 with Vit K 10 ml with Thiamine 100 mg with Folic Acid 1 mg Rx#: [id number] Other: Voiding Method Toilet Toilet # Voids 2 1 # Bowel Movements 2 1 On physical examination, patient appears comfortable in no apparent distress. HEAD: Normocephalic, atraumatic. EYES: No scleral icterus. No conjunctival injection. MOUTH: No lesions, tongue midline. NECK: Trachea midline, no gross abnormalities. CHEST: Clear to auscultation with no wheezing or rhonchi appreciated. HEART: Regular rate and rhythm. ABDOMEN: Soft. Bowel sounds are positive. No organomegaly. No guarding or rigidity. EXTREMITIES: No pedal edema. SKIN: No rashes, no jaundice. NEUROLOGIC: Alert and oriented x3, tremulousness noted but no asterixis. No focal deficits. Results CBC & Chem 7: 05/01/20 06:42 05/01/20 06:42 Labs: Abnormal Lab Results - Last 24 Hours (Table) 04/30/20 04/30/20 Range/Units 05:35 05:35 MCV 101.2 H (80.0-100.0) fL Plt Count 91 L (150-450) k/uL Sodium 132 L (137-145) mmol/L BUN 3 L (9-20) mg/dL Glucose 100 H (74-99) mg/dL Microbiology - Last 24 Hours (Table) 04/29/20 15:00 Stool Culture - Preliminary Stool Assessment and Plan (1) Nausea vomiting and diarrhea Narrative/Plan: 50-year-old male with a known history of alcohol abuse reportedly consuming a case of beer nightly who presented with a constellation of symptoms including abdominal pain, nausea vomiting and diarrhea. Suspicion is that symptoms are related to alcohol abuse and alcoholic gastritis. Testing for question Indocin to seal is been negative. His symptoms diarrhea have improved since presentati on. Currently being treated for alcohol withdrawal. Status: Acute Code(s): R11.2 - NAUSEA WITH VOMITING, UNSPECIFIED; R19.7 - DIARRHEA, UNSPECIFIED SNOMED Code(s): 2013583 (2) Alcohol abuse Status: Acute Code(s): F10.10 - ALCOHOL ABUSE, UNCOMPLICATED SNOMED Code(s): 94175216 (3) Alcohol withdrawal syndrome Status: Acute Priority: High Code(s): F10.239 - ALCOHOL DEPENDENCE WITH WITHDRAWAL, UNSPECIFIED SNOMED Code(s): 018220536 Plan: Supportive care Okay for diet as tolerated Continue antibiotics as needed for nausea and vomiting Stool cultures pending Stool for Clostridium difficile toxin was negative Continue alcohol withdrawal protocol Alcohol abstinence Plan is for patient to be seen by psychiatry service Thank you for allowing us to participate in the care of the patient
== END 2020-05-01 13:45 | disposition home or self-care (01) | DRG 392 ==
LOC: EC 11:07 → 5NMEDONC 12:57 → OBSVTOIN 05-01 08:33
PROVIDERS: ADMIT Hospitalist; ATTEND Hospitalist
DX: K29.20 Alcoholic gastritis without bleeding (principal); F10.239 Alcohol dependence with withdrawal, unspecified; F10.280 Alcohol dependence with alcohol-induced anxiety disorder; K52.9 Noninfective gastroenteritis and colitis, unspecified; F12.10 Cannabis abuse, uncomplicated; F17.210 Nicotine dependence, cigarettes, uncomplicated; F32.9 Major depressive disorder, single episode, unspecified; Z82.5 Family history of asthma and other chronic lower respiratory diseases; Z81.1 Family history of alcohol abuse and dependence; Z79.899 Other long term (current) drug therapy; Z71.41 Alcohol abuse counseling and surveillance of alcoholic; Z71.6 Tobacco abuse counseling; Z71.51 Drug abuse counseling and surveillance of drug abuser
CPT/HCPCS: 36415; 80048; 80053; 80320; 81003; 83036; 83735; 85025; 87045; 87046; 87324; 93005; 96361; 96374; 96375; 96376; 99285

== ENCOUNTER 2020-06-08 20:45 | Inpatient (IN) | payer OTHER ==
[2020-06-08] MEDS ORDERED: THIAMINE 100 MG/ML 2 ML VIAL IM STA (21:21)
[2020-06-08] MEDS ORDERED: SODIUM CHLORIDE 0.9% 1,000 ML IV STA (21:21)
[2020-06-08] MEDS ORDERED: LORazepam 2 MG/ML INJ IV STA (21:22)
[2020-06-08] MEDS ORDERED: LORazepam 2 MG/ML INJ IV PRN ×2 (21:23)
[2020-06-08 21:45] LABS: Glucose,Whole Blood 119 mg/dL (75-99)
[2020-06-08 22:19] LABS: Basophils % (A) 1 %; Eosinophils # (A) 0.2 k/uL (0-0.7); Eosinophils % (A) 3 %; HCT 50.5 % (39.0-53.0); HGB 16.8 gm/dL (13.0-17.5); Lymphocytes # (A) 1.4 k/uL (1.0-4.8); Lymphocytes % (A) 25 %; MCH 32.6 pg (25.0-35.0); MCHC 33.2 g/dL (31.0-37.0); MCV 98.2 fL (80.0-100.0); Mean Platelet Volume 6.6; Monocytes # (A) 0.5 k/uL (0-1.0); Monocytes % (A) 8 %; Neutrophils # (A) 3.5 k/uL (1.3-7.7); Neutrophils % (A) 61 %; RBC 5.14 m/uL (4.30-5.90); RDW 13.9 % (11.5-15.5); WBC 5.7 k/uL (3.8-10.6)
[2020-06-08 22:22] LABS: ALT 32 U/L (4-49); AST 55 U/L (17-59); African American GFR (CKD) >90 (>60 ml/min/1.73 sqM); Albumin 4.7 g/dL (3.5-5.0); Alkaline Phosphatase 85 U/L (38-126); Anion Gap 13 mmol/L; Blood Urea Nitrogen 2 mg/dL (9-20); Calcium 8.9 mg/dL (8.4-10.2); Carbon Dioxide 20 mmol/L (22-30); Chloride 103 mmol/L (98-107); Glucose 113 mg/dL (74-99); Magnesium 2.1 mg/dL (1.6-2.3); Non-African American GFR(CKD) >90 (>60 ml/min/1.73 sqM); Phosphorus 3.8 mg/dL (2.5-4.5); Potassium 3.8 mmol/L (3.5-5.1); Sodium 136 mmol/L (137-145); Total Bilirubin 0.6 mg/dL (0.2-1.3)
[2020-06-08 22:24] LABS: Platelet Count 210 k/uL (150-450)
[2020-06-08 22:27] LABS: Alcohol 247 mg/dL
[2020-06-08 22:27] LABS: Prothrombin Time 10.1 sec (9.0-12.0)
[2020-06-08 22:39] LABS: Amphetamine Screen,Urine Not Detected (NotDetected); Barbiturate Screen,Urine Not Detected (NotDetected); Benzodiazepines Screen,Urine Not Detected (NotDetected); Cocaine Screen,Urine Not Detected (NotDetected); Methadone Screen, Urine Not Detected (NotDetected); Opiate Screen,Urine Not Detected (NotDetected); Oxycodone Screen, Urine Not Detected (NotDetected); Phencyclidine Screen,Urine Not Detected (NotDetected); Tricyclic Antidepressant,Urine Not Detected (NotDetected); Urn Cannabinoid Scrn Detected (NotDetected)
[2020-06-08] MEDS ORDERED: NALOXONE 0.4 MG/ML 1 ML VIAL IV PRN (23:13)
--- NOTE | 2020-06-08 23:15 | ED ---
General Adult HPI - General Chief complaint: Alcohol Stated complaint: NVD, Withdrawl Time Seen by Provider: 06/08/20 20:58 Source: patient, RN notes reviewed, old records reviewed Mode of arrival: ambulatory Limitations: no limitations - History of Present Illness Initial comments: 50-year-old male patient history of substance abuse and alcohol abuse press ED for reported withdrawal. Patient reports that he has not drank in some time and is starting to feel anxious and agitated. He had some nausea and vomiting. Denies any abdominal pain. Denies any recent falls or trauma. Denies any other acute complaints Systemic: Pt denies fatigue, fever/chills, rash. Pt denies weakness, night sweats, weight loss. Neuro: Pt denies headache, visual disturbances, syncope or pre-syncope. HEENT: Pt denies ocular discharge or irritation, otalgia, rhinorrhea, pharyngitis or notable lymphadenopathy. Cardiopulmonary: Pt denies chest pain, SOB, heart palpitations, dyspnea on exertion. Abdominal/GI: Pt denies abdominal pain, n/v/d. : Pt denies dysuria, burning w/ urination, frequency/urgency. Denies new onset urinary or bowel incontinence. MSK: Pt denies myalgia, loss of strength or function in extremities. Neuro: Pt denies new onset weakness, paresthesias. - Related Data Previous Rx's Medication Instructions Recorded Magnesium 250 mg PO DAILY #30 tablet 04/01/20 LORazepam [Ativan] 1 mg PO TID 3 Days #9 tab 05/01/20 PHENobarbitaL [Luminal] 16.2 mg PO DAILY #12 tab 05/01/20 Thiamine [Vitamin B-1] 100 mg PO BID-W/MEALS 30 Days #60 05/01/20 tab Allergies Allergy/AdvReac Type Severity Reaction Status Date / Time No Known Allergies Allergy Verified 06/08/20 20:56 Review of Systems ROS Statement: Those systems with pertinent positive or pertinent negative responses have been documented in the HPI. ROS Other: All systems not noted in ROS Statement are negative. Past Medical History Past Medical History: No Reported History Additional Past Medical History / Comment(s): ETOH abuse, smoker, History of Any Multi-Drug Resistant Organisms: None Reported Past Surgical History: Adenoidectomy, Hernia Repair, Tonsillectomy Past Anesthesia/Blood Transfusion Reactions: No Reported Reaction Past Psychological History: Anxiety, Depression Smoking Status: Current every day smoker Past Alcohol Use History: Abuse, Daily, Heavy Past Drug Use History: Marijuana - Past Family History Brother(s) Family Medical History: Osteoarthritis (OA) Mother Family Medical History: COPD Additional Family Medical History / Comment(s): pulmonary fibrosis General Exam - General Exam Comments Initial Comments: Constitutional: NAD, AOX3, Pt has pleasant affect. HEENT: NC/AT, trachea midline, neck supple, no lymphadenopathy.External ears appear normal, without discharge. Mucous membranes moist. Eyes PERRLA, EOM intact. There is no scleral icterus. No pallor noted. Cardiopulmonary: RRR, no murmurs, rubs or gallops, no JVD noted. Lungs CTAB in anterior and posterior pierre. No peripheral edema. Abdominal exam: Abdomen soft and non-distended. Abdomen non-tender to palpation in all 4 quadrants. Bowel sounds active in LLQ. No hepatosplenomegaly. No ecchymosis Neuro: CN II-XII intact. No nuchal rigidity. No raccon eyes, no adler sign, no nystagmus. No cervical spinal tenderness. MSK: Full active ROM in upper and lower extremities, 5/5 stregnth. Limitations: no limitations Course Vital Signs 06/08/20 06/08/20 20:50 22:15 Temperature 98.8 F Pulse Rate 126 H 88 Respiratory 22 20 Rate Blood Pressure 129/73 114/77 O2 Sat by Pulse 94 L 98 Oximetry Medical Decision Making - Medical Decision Making 50-year-old male patient to ED for alcohol withdrawal reportedly. Patient without signs are stable, afebrile. Physical exam does not smoke acute pathology. Laboratory investigations revealed patient to be intoxicated. Patient placed on CIWA admitted for alcohol intoxication. Case discussed withDr. Nath. - Lab Data Result diagrams: 06/08/20 22:10 06/08/20 21:43 Lab Results 06/08/20 06/08/20 06/08/20 Range/Units 21:43 21:43 21:44 Sodium 136 L (137-145) mmol/L Potassium 3.8 (3.5-5.1) mmol/L Chloride 103 (98-107) mmol/L Carbon Dioxide 20 L (22-30) mmol/L Anion Gap 13 mmol/L BUN 2 L (9-20) mg/dL Creatinine 0.70 (0.66-1.25) mg/dL Est GFR (CKD-EPI)AfAm >90 (>60 ml/min/1.73 sqM) Est GFR (CKD-EPI)NonAf >90 (>60 ml/min/1.73 sqM) Glucose 113 H (74-99) mg/dL POC Glucose (mg/dL) 119 H (75-99) mg/dL POC Glu Mechanical [employer] ID Vianey More Calcium 8.9 (8.4-10.2) mg/dL Phosphorus 3.8 (2.5-4.5) mg/dL Magnesium 2.1 (1.6-2.3) mg/dL Total Bilirubin 0.6 (0.2-1.3) mg/dL AST 55 (17-59) U/L ALT 32 (4-49) U/L Alkaline Phosphatase 85 (38-126) U/L Total Protein 8.0 (6.3-8.2) g/dL Albumin 4.7 (3.5-5.0) g/dL Lipase 214 (23-300) U/L Urine Opiates Screen Not Detected (NotDetected) Ur Oxycodone Screen Not Detected (NotDetected) Urine Methadone Screen Not Detected (NotDetected) Ur Propoxyphene Screen Not Detected (NotDetected) Ur Barbiturates Screen Not Detected (NotDetected) U Tricyclic Antidepress Not Detected (NotDetected) Ur Phencyclidine Scrn Not Detected (NotDetected) Ur Amphetamines Screen Not Detected (NotDetected) U Methamphetamines Scrn Not Detected (NotDetected) U Benzodiazepines Scrn Not Detected (NotDetected) Urine Cocaine Screen Not Detected (NotDetected) U Marijuana (THC) Screen Detected H (NotDetected) Serum Alcohol 247 H* mg/dL Disposition Clinical Impression: Alcohol intoxication Disposition: ADMITTED IP TO THIS HOSP Condition: Fair Is patient prescribed a controlled substance at d/c from ED?: No
[2020-06-09] MEDS: LORazepam 2 MG/ML INJ IV PRN ×7 (03:50→19:19)
[2020-06-09] MEDS: SODIUM CHLORIDE 0.9% 1,000 ML IV SCH ×4 (03:52→23:47)
[2020-06-09] MEDS: PANTOPRAZOLE 40 MG/10 ML VIAL IVP SCH (10:50)
[2020-06-09] MEDS: THIAMINE 100 MG TAB PO SCH ×2 (10:51→17:01)
[2020-06-09 12:19] VITALS: BMI 19.3
[2020-06-09] MEDS ORDERED: HYDROcodone/APAP 5-325MG 1 EACH TAB PO PRN (15:04)
[2020-06-09] MEDS ORDERED: TEMAZEPAM 15 MG CAP PO PRN (15:04)
[2020-06-09] MEDS ORDERED: ONDANSETRON 4 MG/2 ML VIAL IVP PRN (15:58)
--- NOTE | 2020-06-09 16:17 | HP ---
HISTORY AND PHYSICAL DATE OF SERVICE: 06/09/2020 CHIEF COMPLAINT: Alcohol withdrawal. HISTORY OF PRESENT ILLNESS: This is a 50-year-old gentleman with a past medical history of multiple medical problems including COPD, history EtOH abuse, anxiety, depression, being followed by Dr. Anaya. The patient admitted with withdrawal symptoms. However, the alcohol level was found to be 247 on admission and the patient also is complaining of being anxious, jittery, agitated and the patient is admitted for further evaluation and treatment. There is no history of fever, rigors, chills. No headache, loss of consciousness, no seizures. PAST MEDICAL HISTORY: History of ETOH, COPD, anxiety, depression. MEDICATIONS: Prior to admission include thiamine 100 mg daily, magnesium 250 mg daily. ALLERGIES: None. FAMILY HISTORY: History of DJD. History of pulmonary fibrosis. SOCIAL HISTORY: History of alcohol and THC smoking. REVIEW OF SYSTEMS: ENT: No diminished vision or hearing. CARDIOVASCULAR: No angina. RESPIRATORY: No cough or shortness of breath. GI: No nausea or vomiting. : No dysuria or retention. NERVOUS SYSTEM: No numbness or weakness. ALLERGY/IMMUNOLOGY: No asthma or hayfever. MUSCULOSKELETAL: As mentioned earlier. HEMATOLOGY: No history of anemia. ENDOCRINE: No history of diabetes or hypothyroidism. CONSTITUTIONAL: As mentioned earlier. DERMATOLOGY: Negative. RHEUMATOLOGY: Negative. PSYCHIATRY: As mentioned earlier. PHYSICAL EXAMINATION: GENERAL: Patient is alert and oriented times three. VITAL SIGNS: Pulse 94, blood pressure 132/82, respirations 18, temperature 98, pulse ox 94% on room air HEENT: Conjunctivae normal. Oral mucosa is moist. NECK: No jugular venous distention. No carotid bruits. No lymph node enlargement. RESPIRATORY: Breath sounds diminished at the bases. A few scattered rhonchi, no crackles. HEART: S1 and S2, muffled. No S3 or S4. ABDOMEN: Soft, no tenderness. No masses palpable. EXTREMITIES: No edema, no swelling. NERVOUS: Higher functions as mentioned earlier. Diffuse tremors present. Diffuse weakness also present. No focal deficits. SKIN: No ulcers or rashes. JOINTS: No active deforming arthropathy. LYMPHATICS: No lymph nodes in the neck or axillae. LABS: CBC within normal limits. Sodium 136, glucose 113. ASSESSMENT: 1. Acute alcohol intoxication. 2. Acute alcohol withdrawal and early delirium tremens. 3. Hyponatremia. 4. History of the chronic obstructive pulmonary disease. 5. History of nicotine dependence. 6. History of anxiety and depression. 7. History of polysubstance abuse with crack addiction about 20 years ago. 8. Full code. 9. Mild protein calorie malnutrition with body mass index of 19.2. RECOMMENDATION AND DISCUSSION: In this 50-year-old gentleman who presented with multiple complex medical issues, we will monitor the patient closely. Continue the current management and symptomatic treatment. CIWA protocol. I would recommend baseline chest x-ray. Otherwise, UA. Supplement vitamins. Prognosis guarded. Social work consultation for alcohol cessation. Guarded prognosis because of the multiple complex medical issues. Further recommendations to follow. MMODL / IJN: [id number] /
[2020-06-09] MEDS: HEPARIN SODIUM,PORCINE 5,000 UNIT/ML 1 ML VIAL SQ SCH (20:47)
[2020-06-09 20:48] VITALS: RESP 16
[2020-06-09] MEDS: cloNIDine HCL 0.1 MG TAB PO SCH (20:48)
[2020-06-10] MEDS: LORazepam 2 MG/ML INJ IV PRN ×2 (01:47→08:43)
[2020-06-10 05:25] LABS: Basophils % (A) 0 %; Eosinophils # (A) 0.2 k/uL (0-0.7); Eosinophils % (A) 3 %; HCT 46.6 % (39.0-53.0); HGB 14.8 gm/dL (13.0-17.5); Lymphocytes # (A) 1.6 k/uL (1.0-4.8); Lymphocytes % (A) 25 %; MCH 32.1 pg (25.0-35.0); MCHC 31.8 g/dL (31.0-37.0); MCV 100.8 fL (80.0-100.0); Macrocytosis Slight; Mean Platelet Volume 7.2; Monocytes # (A) 0.3 k/uL (0-1.0); Monocytes % (A) 5 %; Neutrophils # (A) 4.3 k/uL (1.3-7.7); Neutrophils % (A) 66 %; Platelet Count 141 k/uL (150-450); RBC 4.62 m/uL (4.30-5.90); RDW 13.8 % (11.5-15.5); WBC 6.6 k/uL (3.8-10.6)
[2020-06-10] MEDS: cloNIDine HCL 0.1 MG TAB PO SCH (08:32)
[2020-06-10] MEDS: THIAMINE 100 MG TAB PO SCH (08:32)
[2020-06-10] MEDS: HEPARIN SODIUM,PORCINE 5,000 UNIT/ML 1 ML VIAL SQ SCH (08:32)
[2020-06-10] MEDS: PANTOPRAZOLE 40 MG/10 ML VIAL IVP SCH (08:33)
[2020-06-10] MEDS ORDERED: MAGNESIUM OXIDE 400 MG TAB PO SCH (09:00)
[2020-06-10 10:24] LABS: African American GFR (CKD) 119.9 (60.0-200.0); Anion Gap 5.9 mmol/L (4.00-12.00); BUN/Creat Ratio 7.5 Ratio (12.00-20.00); Calcium 8.5 mg/dL (8.7-10.3); Carbon Dioxide 24.1 mmol/L (21.6-31.8); Non-African American GFR(CKD) 103.4 (60.0-200.0); Potassium 4.2 mmol/L (3.5-5.5)
[2020-06-10 11:40] VITALS: BP 117/77; PULSE 89; TEMP 98.6
[2020-06-10] MEDS ORDERED: FOLIC ACID 1 MG TAB PO SCH (12:00)
[2020-06-10] MEDS ORDERED: MULTIVITAMINS, THERA 1 EACH TAB PO SCH (12:00)
--- NOTE | 2020-06-11 04:32 | CONS ---
CONSULTATION DATE OF SERVICE: 06/10/2020 PURPOSE FOR CONSULTATION: Evaluate for history of alcohol use problems. HISTORY OF PRESENT ILLNESS: The patient is a 50-year-old male. He was admitted to the medical floor due to alcohol withdrawal issues. He had an alcohol level on admission of 247. He has long-term problems with alcohol abuse. He notes that he has also struggled with depression. The patient acknowledges that he has struggled with alcohol issues for a long time. He states that years ago he was at [facility]. He says he is not inclined to go back to an inpatient treatment program as he did not feel comfortable in that setting. He said he is willing to seek out outpatient services. He was somewhat vague about his current drinking situation. It is noteworthy that he has had multiple admissions including this being his eleventh admission going back to May of 2018, all the admissions have been for alcohol related withdrawal issues. The patient noted that in talking with Dr. Chung who admitted him that he was anticipating being discharged today if he had psychiatric clearance. He said that he has some plans in place to seek out counseling and he was able to name two counseling agencies that he would be willing to contact. He notes that he has been in touch with a girlfriend. He says the two of them have had in and outs, though she is willing to be supportive and help him get into treatment. He said he is quite focused on the idea of not drinking. He says one of the biggest issues he struggled with his social isolation. He had been working though was out of work due to COVID. He has been on unemployment. 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 He also would consider going back to school to get into some class work that would help him get more engaged in the community. In addition he said that he had plans to just take walks frequently on a daily basis to get out around people as he lives in the [facility] area. He denied current problems with depression or anxiety. He does not report any thoughts of harm to himself or others. He has not had problems with hallucinations or delusional thinking. He does not give a history of any bipolar symptoms. He apparently has had a past history of alcohol related withdrawal seizures. He feels comfortable with the plans that he has for getting help and understands his need to stop drinking completely. He notes that he has not had problems with other abusive substances. MENTAL STATUS EXAM: Patient gave good eye contact. Psychomotor activity was a little restless, though not significantly so. He answered questions appropriately. His thoughts were clear and coherent. He was spontaneous and somewhat interactive. His affect was a little constricted though not significantly so. His mood was quiet though not down or depressed. He did not appear to be distressed. There was no indication of thought disorder. Cognition was clear. ASSESSMENT: I would confirm a diagnosis of alcohol dependence and a history of depression. At this point, it is appropriate for the patient to not be on any antidepressant therapy. I discussed withdrawal issues with the patient. I noted that the issues with depression are not able to be addressed until at least 6 to 8 weeks free of alcohol. We discussed management issues in the short term to help deal with acute withdrawal that is likely to be impactful, especially over the next 6 to 8 weeks. The patient seemed to engage productively in the conversation about managing withdrawal. I would recommend the patient be discharged with the plan for the patient to be seeking out AA which he said he has done, which he has considerable experience with along with some substance use counseling. MMODL / IJN: [id number] /
--- NOTE | 2020-06-11 07:54 | DS ---
DISCHARGE SUMMARY DATE OF SERVICE: 06/10/2020 FINAL DIAGNOSIS: 1. Acute alcohol intoxication, improved. 2. Acute alcohol withdrawal and early delirium tremens, improved. 3. Hyponatremia. 4. History of chronic obstructive pulmonary disease. 5. History of nicotine dependence. 6. History of anxiety and depression. 7. History of polysubstance abuse with crack addiction for about 20 years. 8. Mild protein calorie malnutrition with body mass index 19.2. 9. FULL CODE. DISCHARGE DISPOSITION: The patient will be discharged in stable condition with guarded prognosis. HISTORY OF PRESENT ILLNESS: This is a 50-year-old gentleman with a past medical history of multiple medical problems , admitted with acute alcohol intoxication, withdrawals and delirium tremens. Treated symptomatically. [facility] protocol. The patient improved significantly. PHYSICAL EXAMINATION: On exam, vitals are stable. Cardiovascular S1 and S2. Abdomen soft. Nervous system: No focal deficit. DISCHARGE INSTRUCTIONS: Discharge diet is cardiac. Activity is limited until followup. Follow up with Dr. Anaya in 2-3 days. Attend AA. No alcohol. DISCHARGE MEDICATIONS ARE: 1. Ativan 1 mg p.o. t.i.d. p.r.n. 2. Catapres 0.1 mg p.o. b.i.d. 3. Folic acid 1 mg daily. 4. Magnesium 250 mg p.o. daily. 5. Multivitamins 1 daily. 6. Thiamine 100 mg p.o. daily. Once again, the patient will be discharged in a stable condition with a guarded prognosis. MMODL / IJN: [id number] /
== END 2020-06-10 13:08 | disposition home or self-care (01) | DRG 897 ==
LOC: EC 20:45 → 6NMEDSUR 22:09
PROVIDERS: ADMIT Hospitalist; ATTEND Hospitalist
DX: F10.231 Alcohol dependence with withdrawal delirium (principal); E44.1 Mild protein-calorie malnutrition; E87.1 Hypo-osmolality and hyponatremia; Z68.1 Body mass index [BMI] 19.9 or less, adult; F10.220 Alcohol dependence with intoxication, uncomplicated; J44.9 Chronic obstructive pulmonary disease, unspecified; F14.21 Cocaine dependence, in remission; F32.9 Major depressive disorder, single episode, unspecified; F41.9 Anxiety disorder, unspecified; F17.210 Nicotine dependence, cigarettes, uncomplicated; Y90.8 Blood alcohol level of 240 mg/100 ml or more; Z71.3 Dietary counseling and surveillance; Z56.0 Unemployment, unspecified; Z79.899 Other long term (current) drug therapy; Z98.890 Other specified postprocedural states; Z82.5 Family history of asthma and other chronic lower respiratory diseases; Z82.61 Family history of arthritis
CPT/HCPCS: 36415; 80048; 80053; 80306; 80320; 82075; 83690; 83735; 84100; 85025; 85610; 96361; 96372; 96374; 96376; 99285

== ENCOUNTER 2020-06-16 19:04 | Observation (INO) | payer OTHER ==
[2020-06-16] MEDS ORDERED: SODIUM CHLORIDE 0.9% 500 ML 500 ML IV STA (20:24)
[2020-06-16] MEDS ORDERED: LORazepam 2 MG/ML INJ IV PRN (20:25)
[2020-06-16] MEDS ORDERED: THIAMINE 100 MG/ML 2 ML VIAL IM STA (20:25)
--- NOTE | 2020-06-16 20:26 | ED ---
Alcohol HPI - General Chief Complaint: Alcohol Stated Complaint: ETOH/MENTAL HEALTH Time Seen by Provider: 06/16/20 19:57 Source: patient, EMS Mode of arrival: EMS Limitations: altered mental status - History of Present Illness Initial Comments: 50-year-old male presenting today for chief complaint of possible withdrawal. Patient states that he felt like he was withdrawing began drinking large amounts of alcohol he states that he took a small nibble of a phenobarbital tablet to help with withdrawal symptoms every hour. He states he was "deathly not trying to overdose" and laughed. Patient states that he did not take more than 3-4 tablets over the course of 4-5 hours. Patient denies any chest pain shortness of breath nausea vomiting he states he feels shaky and anxious. Patient smells of alcohol, he denies cp/sob/head aches/confusion/falls. Denies suicidal or homicidal duration. - Related Data Home Medications Medication Instructions Recorded Confirmed Multivitamins, Thera [Multivitamin 1 tab PO DAILY@1200 06/16/20 06/16/20 (formulary)] Thiamine [Vitamin B-1] 100 mg PO AC-BID 06/16/20 06/16/20 Previous Rx's Medication Instructions Recorded Magnesium 250 mg PO DAILY #30 tablet 04/01/20 Folic Acid 1 mg PO DAILY@1200 #30 tab 06/10/20 LORazepam [Ativan] 1 mg PO TID 3 Days #9 tab 06/10/20 cloNIDine HCL [Catapres] 0.1 mg PO BID #60 tab 06/10/20 Allergies Allergy/AdvReac Type Severity Reaction Status Date / Time No Known Allergies Allergy Verified 06/16/20 20:11 Review of Systems ROS Statement: Those systems with pertinent positive or pertinent negative responses have been documented in the HPI. ROS Other: All systems not noted in ROS Statement are negative. Past Medical History Past Medical History: COPD Additional Past Medical History / Comment(s): ETOH abuse, smoker, History of Any Multi-Drug Resistant Organisms: None Reported Past Surgical History: Adenoidectomy, Hernia Repair, Tonsillectomy Past Anesthesia/Blood Transfusion Reactions: No Reported Reaction Past Psychological History: Anxiety, Depression Smoking Status: Current every day smoker Past Alcohol Use History: Abuse, Daily, Heavy Past Drug Use History: Marijuana - Past Family History Brother(s) Family Medical History: Osteoarthritis (OA) Mother Family Medical History: COPD Additional Family Medical History / Comment(s): pulmonary fibrosis General Exam - General Exam Comments Initial Comments: General: The patient is awake and alert, in no distress Eye: Pupils are equal, round and reactive to light, extra-ocular movements are intact. No nystagmus. There is normal conjunctiva bilaterally. No signs of icterus. Ears, nose, mouth and throat: There are moist mucous membranes and no oral lesions. Neck: The neck is supple, there is no tenderness or JVD. Cardiovascular: There is a regular rate and rhythm. No murmur, rub or gallop is appreciated. Respiratory: Lungs are clear to auscultation, respirations are non-labored, breath sounds are equal. No wheezes, stridor, rales, or rhonchi. Gastrointestinal: Soft, non-distended, non-tender abdomen without masses or organomegaly noted. There is no rebound or guarding present. Musculoskeletal: Normal ROM, no tenderness. Strength 5/5. Sensation intact. Pulses equal bilaterally 2+. Neurological: A&O x 3. CN II-XII intact grossly, There are no obvious motor or sensory deficits. Coordination appears grossly intact. Speech is normal. No tremor, anxious Skin: Skin is warm and dry and no rashes or lesions are noted. Psychiatric: Cooperative, but does appear intoxicated Limitations: altered mental status Course Vital Signs 06/16/20 06/16/20 19:11 22:05 Temperature 97.4 F L Pulse Rate 104 H 94 Respiratory 20 18 Rate Blood Pressure 142/111 114/73 O2 Sat by Pulse 95 97 Oximetry Medical Decision Making - Medical Decision Making 50-year-old male with history of alcohol abuse presenting for possible drawl. Denies homicidal suicidal ideation. Patient appears acutely intoxicated. Patient will be admitted on [facility] protocol. Bayron is agreeable to admission and care plan. Dr. castañeda spoke with [facility] physician and is agreeable to admission and care plan - Lab Data Result diagrams: 06/16/20 20:28 06/16/20 20:28 Lab Results 06/16/20 06/16/20 06/16/20 Range/Units 20:28 20:28 20:28 WBC 7.7 (3.8-10.6) k/uL RBC 5.07 (4.30-5.90) m/uL Hgb 17.1 (13.0-17.5) gm/dL Hct 51.9 (39.0-53.0) % MCV 102.4 H (80.0-100.0) fL MCH 33.8 (25.0-35.0) pg MCHC 33.0 (31.0-37.0) g/dL RDW 13.9 (11.5-15.5) % Plt Count 250 (150-450) k/uL Neutrophils % 51 % Lymphocytes % 31 % Monocytes % 8 % Eosinophils % 6 % Basophils % 1 % Neutrophils # 3.9 (1.3-7.7) k/uL Lymphocytes # 2.4 (1.0-4.8) k/uL Monocytes # 0.6 (0-1.0) k/uL Eosinophils # 0.5 (0-0.7) k/uL Basophils # 0.1 (0-0.2) k/uL Macrocytosis Slight Sodium 140 (137-145) mmol/L Potassium 5.0 (3.5-5.1) mmol/L Chloride 106 (98-107) mmol/L Carbon Dioxide 18 L (22-30) mmol/L Anion Gap 16 mmol/L BUN 2 L (9-20) mg/dL Creatinine 0.64 L (0.66-1.25) mg/dL Est GFR (CKD-EPI)AfAm >90 (>60 ml/min/1.73 sqM) Est GFR (CKD-EPI)NonAf >90 (>60 ml/min/1.73 sqM) Glucose 93 (74-99) mg/dL Calcium 9.0 (8.4-10.2) mg/dL Total Bilirubin 1.1 (0.2-1.3) mg/dL AST 78 H (17-59) U/L ALT 49 (4-49) U/L Alkaline Phosphatase 81 (38-126) U/L Total Protein 8.6 H (6.3-8.2) g/dL Albumin 5.1 H (3.5-5.0) g/dL Urine Color Light Yellow Urine Appearance Clear (Clear) Urine pH 5.5 (5.0-8.0) Ur Specific Randolph 1.002 (1.001-1.035) Urine Protein Negative (Negative) Urine Glucose (UA) Negative (Negative) Urine Ketones Negative (Negative) Urine Blood Negative (Negative) Urine Nitrite Negative (Negative) Urine Bilirubin Negative (Negative) Urine Urobilinogen <2.0 (<2.0) mg/dL Ur Leukocyte Esterase Negative (Negative) Salicylates <1.0 mg/dL Urine Opiates Screen Not Detected (NotDetected) Ur Oxycodone Screen Not Detected (NotDetected) Urine Methadone Screen Not Detected (NotDetected) Ur Propoxyphene Screen Not Detected (NotDetected) Acetaminophen <10.0 ug/mL Ur Barbiturates Screen Not Detected (NotDetected) U Tricyclic Antidepress Not Detected (NotDetected) Ur Phencyclidine Scrn Not Detected (NotDetected) Ur Amphetamines Screen Not Detected (NotDetected) U Methamphetamines Scrn Not Detected (NotDetected) U Benzodiazepines Scrn Not Detected (NotDetected) Urine Cocaine Screen Not Detected (NotDetected) U Marijuana (THC) Screen Detected H (NotDetected) Serum Alcohol 320 H* mg/dL Disposition Clinical Impression: Alcohol abuse, Alcohol intoxication Disposition: ADMITTED IP TO THIS [facility] Condition: Stable Is patient prescribed a controlled substance at d/c from ED?: No Time of Disposition: 21:52 Decision to Admit Reason: Admit from EC Decision Date: 06/16/20 Decision Time: 21:53
[2020-06-16 20:45] LABS: Appearance,Urine Clear (Clear); Basophils # (A) 0.1 k/uL (0-0.2); Basophils % (A) 1 %; Bilirubin,Urine Negative (Negative); Blood,Urine Negative (Negative); Color,Urine Light Yellow; Eosinophils # (A) 0.5 k/uL (0-0.7); Eosinophils % (A) 6 %; Glucose,Urine (UA) Negative (Negative); HCT 51.9 % (39.0-53.0); HGB 17.1 gm/dL (13.0-17.5); Ketones,Urine Negative (Negative); Leukocyte Esterase,Urine Negative (Negative); Lymphocytes # (A) 2.4 k/uL (1.0-4.8); Lymphocytes % (A) 31 %; MCH 33.8 pg (25.0-35.0); MCV 102.4 fL (80.0-100.0); Macrocytosis Slight; Mean Platelet Volume 6.7; Monocytes # (A) 0.6 k/uL (0-1.0); Monocytes % (A) 8 %; Neutrophils # (A) 3.9 k/uL (1.3-7.7); Neutrophils % (A) 51 %; Nitrite,Urine Negative (Negative); PH, Urine 5.5 (5.0-8.0); Platelet Count 250 k/uL (150-450); Protein,Urine Negative (Negative); RBC 5.07 m/uL (4.30-5.90); RDW 13.9 % (11.5-15.5); Specific Gravity,Urine 1.002 (1.001-1.035); Urobilinogen,Urine <2.0 mg/dL (<2.0); WBC 7.7 k/uL (3.8-10.6)
[2020-06-16 20:56] LABS: ALT 49 U/L (4-49); AST 78 U/L (17-59); Acetaminophen <10.0 ug/mL; African American GFR (CKD) >90 (>60 ml/min/1.73 sqM); Albumin 5.1 g/dL (3.5-5.0); Alkaline Phosphatase 81 U/L (38-126); Amphetamine Screen,Urine Not Detected (NotDetected); Anion Gap 16 mmol/L; Barbiturate Screen,Urine Not Detected (NotDetected); Benzodiazepines Screen,Urine Not Detected (NotDetected); Blood Urea Nitrogen 2 mg/dL (9-20); Carbon Dioxide 18 mmol/L (22-30); Chloride 106 mmol/L (98-107); Cocaine Screen,Urine Not Detected (NotDetected); Glucose 93 mg/dL (74-99); Methadone Screen, Urine Not Detected (NotDetected); Non-African American GFR(CKD) >90 (>60 ml/min/1.73 sqM); Opiate Screen,Urine Not Detected (NotDetected); Oxycodone Screen, Urine Not Detected (NotDetected); Phencyclidine Screen,Urine Not Detected (NotDetected); Salicylate <1.0 mg/dL; Sodium 140 mmol/L (137-145); Total Bilirubin 1.1 mg/dL (0.2-1.3); Total Protein 8.6 g/dL (6.3-8.2); Tricyclic Antidepressant,Urine Not Detected (NotDetected); Urn Cannabinoid Scrn Detected (NotDetected)
[2020-06-16 21:15] LABS: Alcohol 320 mg/dL
[2020-06-16] MEDS ORDERED: NALOXONE 0.4 MG/ML 1 ML VIAL IV PRN (21:48)
[2020-06-16] MEDS ORDERED: hydrALAZINE HCL 20 MG/ML 1 ML VIAL IVP STA (21:53)
[2020-06-16] MEDS: LORazepam 2 MG/ML INJ IV PRN (22:49)
[2020-06-17] MEDS: LORazepam 2 MG/ML INJ IV PRN ×9 (03:15→21:22)
[2020-06-17] MEDS: THIAMINE 100 MG TAB PO SCH ×2 (08:23→18:05)
[2020-06-17] MEDS ORDERED: PANTOPRAZOLE 40 MG/10 ML VIAL IVP SCH (09:00)
[2020-06-17] MEDS ORDERED: FAMOTIDINE 20 MG/2 ML VIAL IV SCH (09:00)
[2020-06-17] MEDS ORDERED: ONDANSETRON 4 MG in SODIUM CHLORIDE 0.9% 50 ML IVPB PRN (09:00)
[2020-06-17] MEDS ORDERED: ONDANSETRON 4 MG/2 ML VIAL IVP PRN (09:01)
--- NOTE | 2020-06-17 09:02 | P.HPIM ---
History of Present Illness This is a pleasant 50 years old male with past medical history of COPD, nicotine dependence and alcohol abuse, anxiety and depression. He was recently discharged from hospital on 06/10 alcohol abuse and withdrawal symptoms with naus ea vomiting and diarrhea. He is a patient of Dr. Velasquez. Last summer he was discharged to his GI symptoms improved as per patient however he resumed drinking alcohol at home, he confirmed to me drinking beers, he did not specify how many however it was recommended 12. Per day in the medical records. His last drink was yesterday. This time he presents because of persistent nausea and vomiting and diarrhea for a few days, he has been vomiting 3 times yesterday with lower appetite. He woke up feeling gagging and vomiting, went back to sleep and woke up with vomiting again. He has 2 bouts of brown yellow bowel movement. Patient denies abdominal pain, no chest pain or dyspnea, however he has occasional coughing patient also states he feels depressed and retracted to call the Hot[facility] of mental health but he did not talk to anybody. Patient denies homicidal or suicidal ideation, he denies hallucinations as well. No chest pain, no headache or weakness or abnormal sensation or palpitations Vitals are stable. Labs including CBC, BMP, INR, urine drug screen and urinalysis are unremarkable. Except for AST is slightly elevated at 78. Serum alcohol level was elevated at 320 upon admission, marijuana was in the urine drug screen EKG showed sinus tachycardia at 109 Emergency room he was started on CIWA protocol and thiamine. MAPs was checked and he was not on Ativan as standing dose, he got 9 pills upon discharge on 06/[address] Chung Patient drinks 12. Per day, and he smokes heavily, also abuses marijuana Last drink was 06/15 at 6 AM No chest x-ray done we will order chest x-ray Review of Systems CONSTITUTIONAL: No fever, no malaise, no fatigue. HEENT: No recent visual problems or hearing problems. Denied any sore throat. CARDIOVASCULAR: No orthopnea, PND, no palpitations, no syncope. PULMONARY: No shortness of breath, no cough, no hemoptysis. GASTROINTESTINAL: No diarrhea, no nausea, no vomiting, no abdominal pain. Normoactive bowel sounds. NEUROLOGICAL: No headaches, no weakness, no numbness. HEMATOLOGICAL: Denies any bleeding or petechiae. GENITOURINARY: Denies any burning micturition, frequency, or urgency. MUSCULOSKELETAL/RHEUMATOLOGICAL: Denies any joint pain, swelling, or any muscle pain. ENDOCRINE: Denies any polyuria or polydipsia. Past Medical History Past Medical History: COPD Additional Past Medical History / Comment(s): ETOH abuse, smoker, History of Any Multi-Drug Resistant Organisms: None Reported Past Surgical History: Adenoidectomy, Hernia Repair, Tonsillectomy Past Anesthesia/Blood Transfusion Reactions: No Reported Reaction Past Psychological History: Anxiety, Depression Smoking Status: Current every day smoker Past Alcohol Use History: Abuse, Daily, Heavy Past Drug Use History: Marijuana - Past Family History Brother(s) Family Medical History: Osteoarthritis (OA) Mother Family Medical History: COPD Additional Family Medical History / Comment(s): pulmonary fibrosis Medications and Allergies Home Medications Medication Instructions Recorded Confirmed Type Magnesium 250 mg PO DAILY #30 tablet 04/01/20 06/16/20 Rx Folic Acid 1 mg PO DAILY@1200 #30 tab 06/10/20 06/16/20 Rx LORazepam [Ativan] 1 mg PO TID 3 Days #9 tab 06/10/20 06/16/20 Rx cloNIDine HCL [Catapres] 0.1 mg PO BID #60 tab 06/10/20 06/16/20 Rx Multivitamins, Thera [Multivitamin 1 tab PO DAILY@1200 06/16/20 06/16/20 History (formulary)] Thiamine [Vitamin B-1] 100 mg PO AC-BID 06/16/20 06/16/20 History Allergies Allergy/AdvReac Type Severity Reaction Status Date / Time No Known Allergies Allergy Verified 06/16/20 20:11 Physical Exam Vitals: Vital Signs Temp Pulse Pulse Resp BP BP Pulse Ox 06/17/20 04:09 98.9 F 95 16 107/72 93 L 06/16/20 22:41 98.8 F 95 13 104/67 95 06/16/20 22:05 94 18 114/73 97 06/16/20 19:11 97.4 F L 104 H 20 142/111 95 Intake and Output 06/16/20 06/17/20 06/17/20 22:59 06:59 14:59 Intake Total 1090 Output Total 800 Balance 290 Intake: Intake, IV Titration 500 Amount Sodium Chloride 0.9% 500 500 ml 500 ml @ 999 mls/hr IV .Q31M STA Rx#:[id number] Oral 590 Output: Urine 800 Other: Voiding Method Incontinent Weight 83.915 kg GENERAL: The patient is alert and oriented x3, not in any acute distress. Well developed, well nourished. HEENT: Pupils are round and equally reacting to light. EOMI. No scleral icterus. No conjunctival pallor. Normocephalic, atraumatic. No pharyngeal erythema. No thyromegaly. CARDIOVASCULAR: S1 and S2 present. No murmurs, rubs, or gallops. PULMONARY: Chest is clear to auscultation, no wheezing or crackles. ABDOMEN: Soft, nontender, nondistended, normoactive bowel sounds. No palpable organomegaly. MUSCULOSKELETAL: No joint swelling or deformity. EXTREMITIES: No cyanosis, clubbing, or pedal edema. NEUROLOGICAL: Gross neurological examination did not reveal any focal deficits. SKIN: No rashes. No petechiae Results CBC & Chem 7: 06/16/20 20:28 06/16/20 20:28 Labs: Abnormal Lab Results - Last 24 Hours (Table) 06/16/20 06/16/20 06/16/20 Range/Units 20:28 20:28 20:28 MCV 102.4 H (80.0-100.0) fL Carbon Dioxide 18 L (22-30) mmol/L BUN 2 L (9-20) mg/dL Creatinine 0.64 L (0.66-1.25) mg/dL AST 78 H (17-59) U/L Total Protein 8.6 H (6.3-8.2) g/dL Albumin 5.1 H (3.5-5.0) g/dL U Marijuana (THC) Screen Detected H (NotDetected) Serum Alcohol 320 H* mg/dL Thrombosis Risk Factor Assmnt - Choose All That Apply Each Factor Represents 1 point: Abnormal pulmonary function (COPD), Age 41-60 years Other Risk Factors: No Other congenital or acquired thrombophilia - If yes, enter type in comment: No Thrombosis Risk Factor Assessment Total Risk Factor Score: 2 Thrombosis Risk Factor Assessment Level: Low Risk Assessment and Plan Assessment: Alcohol abuse at-risk of alcohol withdrawal and DVT Nicotine dependence Substance abuse with tetrahydrocannabinol Anxiety and depressionWith no suicidal ideation COPD, not acute process Plan: This is a pleasant 50 years old male who presents with alcohol abuse and risk of withdrawal. Continue with CIWA protocol and thiamine. Monitor for signs and symptoms of withdrawal. Psychiatric consult. With the patient on liquid diet and advanced as tolerated Labs and medication were reviewed.. Continue same treatment. Continue with symptomatic treatment. Resume home medication. Monitor lytes and vitals. DVT and GI prophylaxis. Further recommendations depends on the clinical course of the patient DVT prophylaxis: Subcutaneous heparin GI Prophylaxis: Ppi
[2020-06-17] MEDS: NICOTINE 21MG/24HR PATCH TRANSDERM SCH (09:11)
[2020-06-17] MEDS: SODIUM CHLORIDE 0.9% 1,000 ML IV SCH ×2 (09:11→20:59)
[2020-06-17] MEDS: cloNIDine HCL 0.1 MG TAB PO SCH ×2 (09:11→20:59)
[2020-06-17] MEDS: MAGNESIUM OXIDE 400 MG TAB PO SCH (09:11)
[2020-06-17] MEDS: HEPARIN SODIUM,PORCINE 5,000 UNIT/ML 1 ML VIAL SQ SCH ×2 (09:11→20:59)
--- NOTE | 2020-06-17 10:48 | XR ---
EXAMINATION TYPE: XR chest 2V DATE OF EXAM: 06/17/2020 HISTORY: Shortness of breath. COMPARISON: 02/07/2020 TECHNIQUE: Single view of the chest is submitted. FINDINGS: Demonstrated are scattered senescent parenchymal change. There is no evidence for focal infiltrate. The heart is stable. Hilar and mediastinal structures are within normal limits. Degenerative changes are seen of the dorsal spine. IMPRESSION: 1. Chronic changes without evidence for acute pulmonary disease.
--- NOTE | 2020-06-17 12:28 | P.CN ---
Psychiatric Consult - . Consult date: 06/17/20 Consult:: IDENTIFYING DATA: This patient is a a 50-year-old male with significant history of COPD, nicotine dependence, alcohol abuse, anxiety and depression with a consult for depression. HISTORY OF PRESENT ILLNESS: The patient presented to the hospital on 06/16/2020 with complaints of alcohol withdrawal. A consultation has been placed to address depression. He endorses significant symptoms of depression including low mood, helplessness, and increased desire for alcohol. At this time patient denies any suicidal or homicidal ideations, intent or plan. He reports no prior attempt at suicide. Patient denies any auditory, visual hallucinations and denies any paranoia or delusions. Patients admits to using 1 PPD of tobacco and occasionally uses marijuana. He drinks heavily approximately 24 beers per day. He reports he has increased his use since COVID pandemic started. He was recently sober for months prior to COVID starting. He has since been unable to attend his AA groups. He reports no desire for inpatient alcohol rehab at this time due to concerns for COVID. PAST PSYCHIATRIC HISTORY: Patient has a a history of depression and alcohol use disorder. He reports previously trying zoloft for depression years ago. He state s it caused him to feel sedated. Patient denies any previous psychiatric hospitalizations. Patient denies any psychiatric outpatient follow-up. Patient denies any history of suicide attempts in the past. PAST MEDICAL HISTORY: denies. ALLERGIES: as per EMR. CHEMICAL DEPENDENCY HISTORY: as per HPI. FAMILY PSYCHIATRIC/SUBSTANCE USE HISTORY: Reports maternal-side family members with alcohol use disorder. SOCIAL HISTORY: Patient was born and raised in [place]. He lives in his own home and his girlfriend of 15 years occasionally stays with him. He is currently unemployed. His girlfriend has 2 kids. MENTAL STATUS EXAM: General Appearance: Patient appears to be stated age is alert, pleasant, and cooperative. Patient appears to have fair hygiene and grooming wearing hospital gown with fair eye contact. Behavior: Patient is calmly lying in bed without any agitated behavior. Speech: Patient's speech is fluent and nonpressured. Mood/Affect: Patient reports their mood is "depressed", affect is congruent, constricted. Suicidality/Homicidality: Patient denies having any suicidal or homicidal ideation intent or plan. Perceptions: Patient denies any visual hallucinations and denies any auditory hallucinations Though content/process: There is no evidence of any delusional thought content and thought process is linear and goal-directed. Memory and concentration: AOX3, grossly intact for the purposes of this session. Can spell "WORLD" backwards Judgment and insight: fair IMPRESSIONS: Major Depressive Disorder, recurrent Alcohol Use Disorder PLAN: -At this time patient DOES NOT meet criteria for inpatient psychiatric admission. -Would recommend the following medication changes/additions: Start Lexapro 5 mg po daily for depression/anxiety. -Recommend outpatient psychiatry and psychotherapy follow-up - Consider Naltrexone but will hold at this time due to elevated liver enzymes. -Psychiatry will sign off at this point, please contact with any questions. 06/17/20 12:26 06/17/20 13:24
[2020-06-17 12:49] VITALS: BMI 25.7
[2020-06-17] MEDS: ESCITALOPRAM 5 MG TAB PO SCH (13:19)
[2020-06-17] MEDS: MULTIVITAMINS, THERA 1 EACH TAB PO SCH (13:23)
[2020-06-17] MEDS: PANTOPRAZOLE 40 MG TABLET PO SCH (21:22)
[2020-06-17] MEDS ORDERED: diazePAM 5 MG TAB PO STA (22:14)
[2020-06-18 04:52] VITALS: BP 124/79; PULSE 81; RESP 18; TEMP 97.9
[2020-06-18] MEDS: NICOTINE 21MG/24HR PATCH TRANSDERM SCH (08:52)
[2020-06-18] MEDS: ESCITALOPRAM 5 MG TAB PO SCH (08:52)
[2020-06-18] MEDS: THIAMINE 100 MG TAB PO SCH (08:52)
[2020-06-18] MEDS: MAGNESIUM OXIDE 400 MG TAB PO SCH (08:52)
[2020-06-18] MEDS: cloNIDine HCL 0.1 MG TAB PO SCH (08:52)
[2020-06-18] MEDS: HEPARIN SODIUM,PORCINE 5,000 UNIT/ML 1 ML VIAL SQ SCH (08:53)
[2020-06-18] MEDS: PANTOPRAZOLE 40 MG TABLET PO SCH (08:53)
[2020-06-18] MEDS: MULTIVITAMINS, THERA 1 EACH TAB PO SCH (08:53)
[2020-06-18 09:37] LABS: African American GFR (CKD) 134.9 (60.0-200.0); BUN/Creat Ratio 13.33 Ratio (12.00-20.00); Calcium 8.8 mg/dL (8.7-10.3); Non-African American GFR(CKD) 116.4 (60.0-200.0); Potassium 3.9 mmol/L (3.5-5.5)
[2020-06-18] MEDS ORDERED: diazePAM 5 MG TAB PO STA (11:46)
--- NOTE | 2020-06-18 23:57 | P.DS ---
Providers Date of admission: 06/16/20 21:39 Attending physician: Vivian Chung Consults: 06/17/20 08:57 Consult Physician Urgent Consulting Provider: Aba Damon Consult Reason/Comments: depression Do you want consulting provider notified?: Yes Primary care physician: Héctor Alejandro [facility] Course: Diagnoses: Alcohol abuse at-risk of alcohol withdrawal and delirium tremens, DT Non-compliance to medical regimen, left AMA Alcohol-induced gastroenteritis, was improving prior to leaving he may Nicotine dependence Substance abuse with tetrahydrocannabinol Anxiety and depressionWith no suicidal ideation COPD, not acute process Hospital course: This is a pleasant 50 years old male with past medical history of COPD, nicotine dependence and alcohol abuse, anxiety and depression. He was recently d ischarged from hospital on 06/10 alcohol abuse and withdrawal symptoms with nausea vomiting and diarrhea. He is a patient of Dr. Velasquez. Last summer he was discharged to his GI symptoms improved as per patient however he resumed drinking alcohol at home, he confirmed to me drinking beers, he did not specify how many however it was documented 12 beers Per day in the medical records. His last drink was 1 day prior to admission. This time he presents because of persistent nausea and vomiting and diarrhea for a few days, which were improving with the treatment and patient was able to finish his meal today. Patient was admitted for alcohol withdrawal and he was treated with CIWA protocol with Ativan as needed, last night he was given 1 time dose of Valium 5 mg, after that he slept well, his CIWA score this morning was 4-7. Patient has minimal shakiness and anxiety, he was fully awake and oriented to time place and person and he was ordered to the surrounding and to the reason for his hospitalization and management plan, however patient wanted to be discharged today. Patient already has been evaluated by psychiatrist for depression, admitted Lexapro for him and signed off the case. I told the patient to monitor his CIWA score today and escape improvement or remains stable then we can discharge him, however patient refused to wait and wanted to leave AMA. Risks of leaving AGAINST MEDICAL ADVICE is explained extensively to the patient including but not limited to the risk of worsening alcohol withdrawal, cardiac arrhythmia, pneumonia, mental confusion, metabolic encephalopathy, syncope, respiratory depression, organ dysfunction and/or , he verbalized understanding however he refused to stay. I told the patient there anything that I can do to hold it from leaving AMA and he said no. Patient stood up, dressed himself and walked to the front desk agent to sign AMA papers. He had mild shakiness/hand tremor Based upon my evaluation patient has capacity to make medical decision. Medical team cannot hold him from leaving AM. 1 time dose of Valium as prescribed for the patient prior to leaving however he declined to take it. Patient was advised not to drive or to consume alcohol while he recently took volume, he told me his house is close by and he just needs to walk a few blocks. Prescription for Protonix and Lexapro as provided for the patient. Patient was instructed to follow up with his PCP Dr. Velasquez as soon as possible and he agreed to me. Examination prior to leaving AM Gen: patient is a AAOx3, no distress. CVS: S1-S2, RRR, no murmur Lungs: B/L CTA, no wheezing Abdomen: soft, no distention, no tenderness, positive bowel sounds Extremity: no leg edema or induration Neuro: Fully awake and oriented, logic number sedation, and understandable, rika ented to the surrounding. An endocervical grossly intact, strength is symmetrical and intact in all extremities, no sensory loss, mild and a tremor. No unsteady gait Psychiatric: Denies depression, hopelessness helplessness, denies suicidal or homicidal ideation, denies hallucination or delusions. No abnormal mood effec noted. Time spent more than 35 minutes t Patient Condition at Discharge: Stable Plan - Discharge Summary Discharge Rx Participant: No New Discharge Prescriptions: New Escitalopram [Lexapro] 5 mg PO DAILY #30 tab Pantoprazole [Protonix] 40 mg PO BID #30 tablet. No Action Magnesium 250 mg PO DAILY #30 tablet LORazepam [Ativan] 1 mg PO TID 3 Days #9 tab cloNIDine HCL [Catapres] 0.1 mg PO BID #60 tab Folic Acid 1 mg PO DAILY@1200 #30 tab Multivitamins, Thera [Multivitamin (formulary)] 1 tab PO DAILY@1200 Thiamine [Vitamin B-1] 100 mg PO AC-BID Discharge Medication List Magnesium 250 mg PO DAILY #30 tablet 04/01/20 [Rx] Folic Acid 1 mg PO DAILY@1200 #30 tab 06/10/20 [Rx] LORazepam [Ativan] 1 mg PO TID 3 Days #9 tab 06/10/20 [Rx] cloNIDine HCL [Catapres] 0.1 mg PO BID #60 tab 06/10/20 [Rx] Multivitamins, Thera [Multivitamin (formulary)] 1 tab PO DAILY@1200 06/16/20 [History] Thiamine [Vitamin B-1] 100 mg PO AC-BID 06/16/20 [History] Escitalopram [Lexapro] 5 mg PO DAILY #30 tab 06/18/20 [Rx] Pantoprazole [Protonix] 40 mg PO BID #30 tablet. 06/18/20 [Rx] Follow up Appointment(s)/Referral(s): Javon Anaya MD [Primary Care Provider] - 1-2 days Discharge Disposition: Left Against Medical Advice
== END 2020-06-18 12:22 | disposition left against medical advice (07) ==
LOC: EC 19:04 → 6NMEDSUR 21:39
PROVIDERS: ADMIT Hospitalist; ATTEND Hospitalist
DX: F10.129 Alcohol abuse with intoxication, unspecified (principal); K52.89 Other specified noninfective gastroenteritis and colitis; F17.200 Nicotine dependence, unspecified, uncomplicated; F12.10 Cannabis abuse, uncomplicated; Z53.29 Procedure and treatment not carried out because of patient's decision for other reasons; F41.9 Anxiety disorder, unspecified; F32.9 Major depressive disorder, single episode, unspecified; J44.9 Chronic obstructive pulmonary disease, unspecified; Z91.19 Patient's noncompliance with other medical treatment and regimen; Z79.899 Other long term (current) drug therapy
CPT/HCPCS: 96376 ×2; 96361 ×3; 96372; 96375; 82075; 96374; 99285; 36415; 93005; 80184 ×2; 80053; 80048; 83735; 85025; 81003; 80306; 83520; 71046; G0378 ×3; G0480 ×2; S4990 ×2; J2060 ×2; J1644; J3411; J2405; C9113; 80320; 80329

== ENCOUNTER 2020-06-20 14:34 | Emergency (ER) | payer OTHER ==
[2020-06-20] MEDS ORDERED: SODIUM CHLORIDE 0.9% 1,000 ML IV STA (15:08)
[2020-06-20] MEDS ORDERED: SODIUM CHLORIDE 0.9% 1,000 ML with MVI, ADULT NO.4 WITH VIT K 10 ML, THIAMINE 100 MG, F... IV ONE ×4 (15:09)
[2020-06-20] MEDS ORDERED: THIAMINE 100 MG/ML 2 ML VIAL IM STA (15:14)
[2020-06-20] MEDS ORDERED: LORazepam 2 MG/ML INJ IV PRN ×3 (15:14)
--- NOTE | 2020-06-20 15:32 | ED ---
Alcohol HPI - General Chief Complaint: Alcohol Stated Complaint: ETOH Fall Injury Time Seen by Provider: 06/20/20 15:08 Source: patient, RN notes reviewed, old records reviewed Mode of arrival: ambulatory Limitations: no limitations - History of Present Illness Initial Comments: This Patient is a 50-year-old male with a history of alcohol abuse. He states that he is here in the ER today with treatment plan withdrawal symptoms. He said shaking. He reports he drinks 3 beers this morning and did take a leftover phenobarbital medication. Patient was admitted and recently left AMA. Patient states that today he isn't having episodes of diarrhea and foul-smelling urine. He reports that he also fell hitting his head and neck. - Related Data Home Medications Medication Instructions Recorded Confirmed Multivitamins, Thera [Multivitamin 1 tab PO DAILY@1200 06/16/20 06/20/20 (formulary)] Thiamine [Vitamin B-1] 100 mg PO AC-BID 06/16/20 06/20/20 Previous Rx's Medication Instructions Recorded Magnesium 250 mg PO DAILY #30 tablet 04/01/20 Folic Acid 1 mg PO DAILY@1200 #30 tab 06/10/20 LORazepam [Ativan] 1 mg PO TID 3 Days #9 tab 06/10/20 cloNIDine HCL [Catapres] 0.1 mg PO BID #60 tab 06/10/20 Escitalopram [Lexapro] 5 mg PO DAILY #30 tab 06/18/20 Pantoprazole [Protonix] 40 mg PO BID #30 tablet.dr 06/18/20 chlordiazePOXIDE HCl [Librium] 10 mg PO TID 3 Days #9 capsule 06/20/20 chlordiazePOXIDE HCl [Librium] 10 mg PO TID 3 Days #9 capsule 06/20/20 Allergies Allergy/AdvReac Type Severity Reaction Status Date / Time No Known Allergies Allergy Verified 06/20/20 17:13 Review of Systems ROS Statement: Those systems with pertinent positive or pertinent negative responses have been documented in the HPI. ROS Other: All systems not noted in ROS Statement are negative. Past Medical History Past Medical History: COPD Additional Past Medical History / Comment(s): ETOH abuse, smoker, History of Any Multi-Drug Resistant Organisms: None Reported Past Surgical History: Adenoidectomy, Hernia Repair, Tonsillectomy Past Anesthesia/Blood Transfusion Reactions: No Reported Reaction Past Psychological History: Anxiety, Depression Smoking Status: Current every day smoker Past Alcohol Use History: Abuse, Daily, Heavy Past Drug Use History: Marijuana - Past Family History Brother(s) Family Medical History: Osteoarthritis (OA) Mother Family Medical History: COPD Additional Family Medical History / Comment(s): pulmonary fibrosis General Exam - General Exam Comments Initial Comments: 50-year-old male. Intoxicated. Limitations: no limitations General appearance: alert, in no apparent distress Head exam: Present: atraumatic, normocephalic, normal inspection Eye exam: Present: normal appearance, PERRL, EOMI. Absent: scleral icterus, conjunctival injection, periorbital swelling ENT exam: Present: normal exam, mucous membranes moist Neck exam: Present: normal inspection. Absent: tenderness, meningismus, lymphadenopathy Respiratory exam: Present: normal lung sounds bilaterally. Absent: respiratory distress, wheezes, rales, rhonchi, stridor Cardiovascular Exam: Present: regular rate, normal rhythm, normal heart sounds. Absent: systolic murmur, diastolic murmur, rubs, gallop, clicks GI/Abdominal exam: Present: soft, normal bowel sounds. Absent: distended, tenderness, guarding, rebound, rigid Extremities exam: Present: normal inspection, full ROM, normal capillary refill. Absent: tenderness, pedal edema, joint swelling, calf tenderness Back exam: Present: normal inspection Neurological exam: Present: alert, oriented X3, CN II-XII intact Psychiatric exam: Present: normal affect, normal mood Skin exam: Present: warm, dry, intact, normal color. Absent: rash Course Vital Signs 06/20/20 06/20/20 06/20/20 14:47 17:17 19:00 Temperature 97.1 F L 98.0 F Pulse Rate 125 H 95 97 Respiratory 25 H 20 16 Rate Blood Pressure 140/108 136/90 138/72 O2 Sat by Pulse 95 99 99 Oximetry Medical Decision Making - Medical Decision Making PT is a 50 year old male with ETOH abuse, and recent admission for ETOH withdrawls. Pt reportedly hit his head. Pt has normal labs, and was given ativan. PT CT brain and cspine are within normal limits. Pt was at this time will be dishcharged with outpt referrals and librium for withdrawls. - Lab Data Result diagrams: 06/20/20 15:40 06/20/20 15:40 Lab Results 06/20/20 06/20/20 06/20/20 Range/Units 15:40 15:40 15:40 WBC 7.1 (3.8-10.6) k/uL RBC 4.87 (4.30-5.90) m/uL Hgb 16.9 (13.0-17.5) gm/dL Hct 49.6 (39.0-53.0) % MCV 102.0 H (80.0-100.0) fL MCH 34.8 (25.0-35.0) pg MCHC 34.1 (31.0-37.0) g/dL RDW 13.9 (11.5-15.5) % Plt Count 216 (150-450) k/uL Neutrophils % 59 % Lymphocytes % 28 % Monocytes % 6 % Eosinophils % 4 % Basophils % 0 % Neutrophils # 4.1 (1.3-7.7) k/uL Lymphocytes # 2.0 (1.0-4.8) k/uL Monocytes # 0.5 (0-1.0) k/uL Eosinophils # 0.3 (0-0.7) k/uL Basophils # 0.0 (0-0.2) k/uL Macrocytosis Slight PT 9.4 (9.0-12.0) sec INR 0.9 (<1.2) Sodium 139 (137-145) mmol/L Potassium 4.1 (3.5-5.1) mmol/L Chloride 107 (98-107) mmol/L Carbon Dioxide 18 L (22-30) mmol/L Anion Gap 14 mmol/L BUN <2 L (9-20) mg/dL Creatinine 0.61 L (0.66-1.25) mg/dL Est GFR (CKD-EPI)AfAm >90 (>60 ml/min/1.73 sqM) Est GFR (CKD-EPI)NonAf >90 (>60 ml/min/1.73 sqM) Glucose 76 (74-99) mg/dL Calcium 9.3 (8.4-10.2) mg/dL Magnesium 2.1 (1.6-2.3) mg/dL Total Bilirubin 0.5 (0.2-1.3) mg/dL AST 101 H (17-59) U/L ALT 79 H (4-49) U/L Alkaline Phosphatase 65 (38-126) U/L Total Protein 8.2 (6.3-8.2) g/dL Albumin 4.7 (3.5-5.0) g/dL Amylase 125 H (30-110) U/L Lipase 163 (23-300) U/L Urine Color Urine Appearance (Clear) Urine pH (5.0-8.0) Ur Specific [place] (1.001-1.035) Urine Protein (Negative) Urine Glucose (UA) (Negative) Urine Ketones (Negative) Urine Blood (Negative) Urine Nitrite (Negative) Urine Bilirubin (Negative) Urine Urobilinogen (<2.0) mg/dL Ur Leukocyte Esterase (Negative) Urine Opiates Screen (NotDetected) Ur Oxycodone Screen (NotDetected) Urine Methadone Screen (NotDetected) Ur Propoxyphene Screen (NotDetected) Ur Barbiturates Screen (NotDetected) U Tricyclic Antidepress (NotDetected) Ur Phencyclidine Scrn (NotDetected) Ur Amphetamines Screen (NotDetected) U Methamphetamines Scrn (NotDetected) U Benzodiazepines Scrn (NotDetected) Urine Cocaine Screen (NotDetected) U Marijuana (THC) Screen (NotDetected) Serum Alcohol 177 mg/dL 06/20/20 06/20/20 Range/Units 16:11 16:11 WBC (3.8-10.6) k/uL RBC (4.30-5.90) m/uL Hgb (13.0-17.5) gm/dL Hct (39.0-53.0) % MCV (80.0-100.0) fL MCH (25.0-35.0) pg MCHC (31.0-37.0) g/dL RDW (11.5-15.5) % Plt Count (150-450) k/uL Neutrophils % % Lymphocytes % % Monocytes % % Eosinophils % % Basophils % % Neutrophils # (1.3-7.7) k/uL Lymphocytes # (1.0-4.8) k/uL Monocytes # (0-1.0) k/uL Eosinophils # (0-0.7) k/uL Basophils # (0-0.2) k/uL Macrocytosis PT (9.0-12.0) sec INR (<1.2) Sodium (137-145) mmol/L Potassium (3.5-5.1) mmol/L Chloride (98-107) mmol/L Carbon Dioxide (22-30) mmol/L Anion Gap mmol/L BUN (9-20) mg/dL Creatinine (0.66-1.25) mg/dL Est GFR (CKD-EPI)AfAm (>60 ml/min/1.73 sqM) Est GFR (CKD-EPI)NonAf (>60 ml/min/1.73 sqM) Glucose (74-99) mg/dL Calcium (8.4-10.2) mg/dL Magnesium (1.6-2.3) mg/dL Total Bilirubin (0.2-1.3) mg/dL AST (17-59) U/L ALT (4-49) U/L Alkaline Phosphatase (38-126) U/L Total Protein (6.3-8.2) g/dL Albumin (3.5-5.0) g/dL Amylase (30-110) U/L Lipase (23-300) U/L Urine Color Light Yellow Urine Appearance Clear (Clear) Urine pH 5.5 (5.0-8.0) Ur Specific [place] 1.005 (1.001-1.035) Urine Protein Negative (Negative) Urine Glucose (UA) 1+ H (Negative) Urine Ketones Negative (Negative) Urine Blood Negative (Negative) Urine Nitrite Negative (Negative) Urine Bilirubin Negative (Negative) Urine Urobilinogen <2.0 (<2.0) mg/dL Ur Leukocyte Esterase Negative (Negative) Urine Opiates Screen Not Detected (NotDetected) Ur Oxycodone Screen Not Detected (NotDetected) Urine Methadone Screen Not Detected (NotDetected) Ur Propoxyphene Screen Not Detected (NotDetected) Ur Barbiturates Screen Detected H (NotDetected) U Tricyclic Antidepress Not Detected (NotDetected) Ur Phencyclidine Scrn Not Detected (NotDetected) Ur Amphetamines Screen Not Detected (NotDetected) U Methamphetamines Scrn Not Detected (NotDetected) U Benzodiazepines Scrn Detected H (NotDetected) Urine Cocaine Screen Not Detected (NotDetected) U Marijuana (THC) Screen Detected H (NotDetected) Serum Alcohol mg/dL - Radiology Data Radiology results: report reviewed Age-related atrophy and chronic small vessel ischemic changes on intracranial process at this time. CT of the cervical spine shows no evidence for fracture subluxation. Disposition Clinical Impression: ETOH abuse, Fall Disposition: HOME SELF-CARE Instructions (If sedation given, give patient instructions): Alcohol Withdrawal (ED) Additional Instructions: Patient advised to follow-up with outpatient resources for EtOH abuse and help with withdrawal. Use the prescription of Librium to help with withdrawal. Prescriptions: chlordiazePOXIDE HCl [Librium] 10 mg PO TID 3 Days #9 capsule chlordiazePOXIDE HCl [Librium] 10 mg PO TID 3 Days #9 capsule Is patient prescribed a controlled substance at d/c from ED?: Yes If prescribed controlled substance>3 days was MAPS reviewed?: Prescribed <3 Days If opioid is for acute pain is fill amount 7 days or less?: Yes If Rx opioid, was Start Talking consent form obtained?: Yes Referrals: Javon Anaya MD [Primary Care Provider] - 1-2 days Time of Disposition: 18:15
[2020-06-20] MEDS ORDERED: NICOTINE 21MG/24HR PATCH TRANSDERM STA (15:41)
[2020-06-20 15:50] LABS: Basophils % (A) 0 %; Eosinophils # (A) 0.3 k/uL (0-0.7); Eosinophils % (A) 4 %; HCT 49.6 % (39.0-53.0); HGB 16.9 gm/dL (13.0-17.5); Lymphocytes % (A) 28 %; MCH 34.8 pg (25.0-35.0); MCHC 34.1 g/dL (31.0-37.0); Macrocytosis Slight; Mean Platelet Volume 6.8; Monocytes # (A) 0.5 k/uL (0-1.0); Monocytes % (A) 6 %; Neutrophils # (A) 4.1 k/uL (1.3-7.7); Neutrophils % (A) 59 %; Platelet Count 216 k/uL (150-450); RBC 4.87 m/uL (4.30-5.90); RDW 13.9 % (11.5-15.5); WBC 7.1 k/uL (3.8-10.6)
[2020-06-20 16:01] LABS: ALT 79 U/L (4-49); AST 101 U/L (17-59); African American GFR (CKD) >90 (>60 ml/min/1.73 sqM); Albumin 4.7 g/dL (3.5-5.0); Alkaline Phosphatase 65 U/L (38-126); Amylase 125 U/L (30-110); Anion Gap 14 mmol/L; Blood Urea Nitrogen <2 mg/dL (9-20); Calcium 9.3 mg/dL (8.4-10.2); Carbon Dioxide 18 mmol/L (22-30); Chloride 107 mmol/L (98-107); Glucose 76 mg/dL (74-99); Magnesium 2.1 mg/dL (1.6-2.3); Non-African American GFR(CKD) >90 (>60 ml/min/1.73 sqM); Potassium 4.1 mmol/L (3.5-5.1); Sodium 139 mmol/L (137-145); Total Bilirubin 0.5 mg/dL (0.2-1.3); Total Protein 8.2 g/dL (6.3-8.2)
[2020-06-20 16:06] LABS: Alcohol 177 mg/dL
[2020-06-20 16:10] LABS: INR 0.9 (<1.2); Prothrombin Time 9.4 sec (9.0-12.0)
--- NOTE | 2020-06-20 16:21 | CT ---
EXAMINATION TYPE: CT brain ebenezer wo con DATE OF EXAM: 06/20/2020 COMPARISON: 12/20/2018 HISTORY: Fall today with injury. Head and neck pain. CT DLP: 1316.[address] of the brain was performed. The ventricles, basal cisterns and sulci overlying the cerebral convexities demonstrate minimal enlar gement. There is no evidence for intracranial hemorrhage or sulcal effacement. There is decreased attenuatio n about the periventricular white matter and deep white matter of both cerebral hemispheres, compatib le with chronic small vessel ischemia. No mass effects are seen. If symptoms persist consider MRI. Osseous calvarium is intact. IMPRESSION: 1. Age related atrophic and chronic small vessel ischemic change without acute intracranial process seen at this time. CT Cervical Spine: Unenhanced CT of the cervical spine was performed with bone and soft tissue window settings submitted . Coronal and sagittal reconstruction is obtained. There is normal alignment and prevertebral soft tissues. No evidence for acute cervical fracture . Scattered degenerative disc disease and spondylosis. Biapical scarring. IMPRESSION: 1. No evidence for acute fracture or subluxation of the cervical spine.
[2020-06-20 16:23] LABS: Appearance,Urine Clear (Clear); Bilirubin,Urine Negative (Negative); Blood,Urine Negative (Negative); Color,Urine Light Yellow; Glucose,Urine (UA) 1+ (Negative); Ketones,Urine Negative (Negative); Leukocyte Esterase,Urine Negative (Negative); Nitrite,Urine Negative (Negative); PH, Urine 5.5 (5.0-8.0); Protein,Urine Negative (Negative); Specific Gravity,Urine 1.005 (1.001-1.035); Urobilinogen,Urine <2.0 mg/dL (<2.0)
[2020-06-20 16:39] LABS: Amphetamine Screen,Urine Not Detected (NotDetected); Barbiturate Screen,Urine Detected (NotDetected); Benzodiazepines Screen,Urine Detected (NotDetected); Cocaine Screen,Urine Not Detected (NotDetected); Methadone Screen, Urine Not Detected (NotDetected); Opiate Screen,Urine Not Detected (NotDetected); Oxycodone Screen, Urine Not Detected (NotDetected); Phencyclidine Screen,Urine Not Detected (NotDetected); Tricyclic Antidepressant,Urine Not Detected (NotDetected); Urn Cannabinoid Scrn Detected (NotDetected)
[2020-06-20] MEDS ORDERED: THIAMINE 100 MG TAB PO SCH (17:30)
[2020-06-20] MEDS ORDERED: LORazepam 1 MG TAB PO STA (18:22)
[2020-06-20 19:01] VITALS: BP 138/72; PULSE 97; RESP 16; TEMP 98
== END 2020-06-20 19:01 | disposition home or self-care (01) ==
LOC: EC 14:34
DX: F10.10 Alcohol abuse, uncomplicated (principal); F17.200 Nicotine dependence, unspecified, uncomplicated
CPT/HCPCS: 99285; 96365; 96366; 96375; 96361 ×2; 96372; 36415; 80053; 82150; 83690; 83735; 85025; 85610; 81003; 80306; 72125; 70450; G0480; S4990; J2060; J3411; 80320

== ENCOUNTER 2020-06-22 22:26 | Emergency (ER) | payer OTHER ==
[2020-06-22] MEDS ORDERED: LORazepam 1 MG TAB PO STA (23:55)
[2020-06-23 00:43] LABS: Amphetamine Screen,Urine Not Detected (NotDetected); Barbiturate Screen,Urine Detected (NotDetected); Benzodiazepines Screen,Urine Detected (NotDetected); Cocaine Screen,Urine Not Detected (NotDetected); Methadone Screen, Urine Not Detected (NotDetected); Opiate Screen,Urine Not Detected (NotDetected); Oxycodone Screen, Urine Not Detected (NotDetected); Phencyclidine Screen,Urine Not Detected (NotDetected); Tricyclic Antidepressant,Urine Not Detected (NotDetected); Urn Cannabinoid Scrn Detected (NotDetected)
--- NOTE | 2020-06-23 07:14 | ED ---
Psych HPI - General Source: patient Mode of arrival: ambulatory - History of Present Illness MD Complaint: feels depressed, other -: days(s) Associated Psychiatric Symptoms: racing thoughts History of same: Yes Quality: getting worse Improves With: medication Worsens With: none Context: recent alcohol abuse Associated Symptoms: denies other symptoms <Jalen Fitch - Last Filed: 06/23/20 07:09> <Isidro Cartagena - Last Filed: 06/23/20 10:34> - General Chief Complaint: Psychiatric Symptoms Stated Complaint: Mental Health Time Seen by Provider: 06/22/20 22:36 - History of Present Illness Initial Comments: This patient is a 50-year-old man who presents with complaint of depression and also of anxiety. Patient states that his mood has worsened over the past on nearly 2 days as he quit drinking alcohol. He states that he is subject to have severe withdrawal and he is very anxious about this. He had contacted his physician and been given some Librium but states that this was not helping him much. (Jalen Fitch) - Related Data Home Medications Medication Instructions Recorded Confirmed Multivitamins, Thera [Multivitamin 1 tab PO DAILY@1200 06/16/20 06/23/20 (formulary)] Thiamine [Vitamin B-1] 100 mg PO AC-BID 06/16/20 06/23/20 PHENobarbitaL [Luminal] See Taper PO DIRECTED 06/23/20 06/23/20 Vivitrol 380 Mg Inject 380 mg IM Q30D 06/23/20 06/23/20 Previous Rx's Medication Instructions Recorded Magnesium 250 mg PO DAILY #30 tablet 04/01/20 Folic Acid 1 mg PO DAILY@1200 #30 tab 06/10/20 LORazepam [Ativan] 1 mg PO TID 3 Days #9 tab 06/10/20 cloNIDine HCL [Catapres] 0.1 mg PO BID #60 tab 06/10/20 Escitalopram [Lexapro] 5 mg PO DAILY #30 tab 06/18/20 Pantoprazole [Protonix] 40 mg PO BID #30 tablet.dr 06/18/20 chlordiazePOXIDE HCl [Librium] 10 mg PO TID 3 Days #9 capsule 06/20/20 LORazepam [Ativan] 1 mg PO DAILY PRN 3 Days #2 tab 06/23/20 Allergies Allergy/AdvReac Type Severity Reaction Status Date / Time No Known Allergies Allergy Verified 06/23/20 10:00 Review of Systems ROS Other: All systems not noted in ROS Statement are negative. Constitutional: Denies: fever, chills, weakness Eyes: Denies: vision change Respiratory: Denies: cough, dyspnea Cardiovascular: Denies: chest pain, palpitations, syncope Gastrointestinal: Denies: abdominal pain, nausea, vomiting, diarrhea Genitourinary: Denies: dysuria, hematuria Musculoskeletal: Denies: back pain Skin: Denies: rash Neurological: Denies: headache, weakness Psychiatric: Reports: anxiety, depression, suicidal thoughts. Denies: auditory hallucinations, visual hallucinations, homicidal thoughts <LittleJalen - Last Filed: 06/23/20 07:09> ROS Other: All systems not noted in ROS Statement are negative. <Isidro Cartagena - Last Filed: 06/23/20 10:34> ROS Statement: Those systems with pertinent positive or pertinent negative responses have been documented in the HPI. Past Medical History Past Medical History: COPD Additional Past Medical History / Comment(s): ETOH abuse, smoker, History of Any Multi-Drug Resistant Organisms: None Reported Past Surgical History: Adenoidectomy, Hernia Repair, Tonsillectomy Past Anesthesia/Blood Transfusion Reactions: No Reported Reaction Past Psychological History: Anxiety, Depression Smoking Status: Current every day smoker Past Alcohol Use History: Abuse, Daily, Heavy Past Drug Use History: Marijuana - Past Family History Brother(s) Family Medical History: Osteoarthritis (OA) Mother Family Medical History: COPD Additional Family Medical History / Comment(s): pulmonary fibrosis <LittleJalen - Last Filed: 06/23/20 07:09> General Exam Limitations: no limitations General appearance: alert, in no apparent distress, anxious Head exam: Present: atraumatic, normocephalic Eye exam: Present: normal appearance. Absent: scleral icterus, conjunctival injection ENT exam: Present: normal oropharynx Neck exam: Present: normal inspection Respiratory exam: Present: normal lung sounds bilaterally. Absent: respiratory distress, wheezes, rales, rhonchi, stridor Cardiovascular Exam: Present: regular rate, normal rhythm, normal heart sounds. Absent: systolic murmur, diastolic murmur, rubs, gallop GI/Abdominal exam: Present: soft. Absent: distended, guarding Extremities exam: Present: normal inspection, normal capillary refill. Absent: pedal edema, calf tenderness Back exam: Present: normal inspection. Absent: CVA tenderness (R), CVA tenderness (L) Neurological exam: Present: alert, CN II-XII intact. Absent: motor sensory deficit Psychiatric exam: Present: depressed, anxious. Absent: agitated, flat affect, manic, homicidal ideation Skin exam: Present: warm, dry, intact, normal color. Absent: rash <Jalen Fitch - Last Filed: 06/23/20 07:09> Course Vital Signs 06/22/20 06/23/20 22:29 06:30 Temperature 98.3 F 98.2 F Pulse Rate 98 74 Respiratory 20 17 Rate Blood Pressure 121/80 109/66 O2 Sat by Pulse 99 98 Oximetry Medical Decision Making <Isidro Cartagena - Last Filed: 06/23/20 10:34> - Medical Decision Making Patient care was signed out to me by previous shift physician Dr. Nieves. Briefly, patient is 50-year-old male he has not had any alcoholic beverage approximate 4 days. He presents today with depression and some anxiety. Patient did not show any overlying symptoms of alcohol withdrawal. At time of s ign out there was pending EPS evaluation for depression. Patient is better by EPS and cleared for discharge. Patient reevaluated bedside found to be in stable medical condition. Showing signs of withdrawal. Patient is cooperative and in no acute distress. Patient is agreeable for discharge. She given 1 tablet of Ativan to take at home if he develops any withdrawal symptoms however considering he has not had any alcohol in 4 days and is well-appearing currently patient is unlikely develop any worsening withdrawal symptoms. Return parameters discussed. Patient be discharged. (Isidro Cartagena) - Lab Data Lab Results 06/23/20 Range/Units 00:26 Urine Opiates Screen Not Detected (NotDetected) Ur Oxycodone Screen Not Detected (NotDetected) Urine Methadone Screen Not Detected (NotDetected) Ur Propoxyphene Screen Not Detected (NotDetected) Ur Barbiturates Screen Detected H (NotDetected) U Tricyclic Antidepress Not Detected (NotDetected) Ur Phencyclidine Scrn Not Detected (NotDetected) Ur Amphetamines Screen Not Detected (NotDetected) U Methamphetamines Scrn Not Detected (NotDetected) U Benzodiazepines Scrn Detected H (NotDetected) Urine Cocaine Screen Not Detected (NotDetected) U Marijuana (THC) Screen Detected H (NotDetected) Disposition <Jalen Fitch - Last Filed: 06/23/20 07:09> Is patient prescribed a controlled substance at d/c from ED?: Yes Time of Disposition: 10:34 <Isidro Cartagena - Last Filed: 06/23/20 10:34> Clinical Impression: Anxiety Disposition: HOME SELF-CARE Condition: Good Instructions (If sedation given, give patient instructions): Alcohol Withdrawal (ED) Prescriptions: LORazepam [Ativan] 1 mg PO DAILY PRN 3 Days #2 tab PRN Reason: alcohol withdrawal symptoms Referrals: Javon Anaya MD [Primary Care Provider] - 1-2 days
[2020-06-23] MEDS ORDERED: LORazepam 2 MG/ML INJ IV PRN ×3 (07:28)
[2020-06-23] MEDS ORDERED: LORazepam 2 MG/ML INJ IM PRN ×3 (07:34)
[2020-06-23 10:47] VITALS: BP 113/72; PULSE 84; RESP 18; TEMP 98.1
[2020-06-23] MEDS ORDERED: THIAMINE 100 MG TAB PO SCH (17:30)
== END 2020-06-23 10:41 | disposition home or self-care (01) ==
LOC: EC 22:26
DX: F41.9 Anxiety disorder, unspecified (principal); F32.9 Major depressive disorder, single episode, unspecified; F17.200 Nicotine dependence, unspecified, uncomplicated; F10.11 Alcohol abuse, in remission
CPT/HCPCS: 82075; 80306; 96372; 99284; J2060

== ENCOUNTER 2020-08-06 05:48 | Emergency (ER) | payer OTHER ==
[2020-08-06] MEDS ORDERED: LORazepam 2 MG/ML INJ IV PRN ×3 (06:09)
[2020-08-06] MEDS ORDERED: THIAMINE 100 MG/ML 2 ML VIAL IM STA (06:09)
[2020-08-06 06:14] LABS: Glucose,Whole Blood 144 mg/dL (75-99)
--- NOTE | 2020-08-06 06:17 | ED ---
Alcohol HPI - General Chief Complaint: Alcohol Stated Complaint: alcohol withdrawal Time Seen by Provider: 08/06/20 05:59 Source: patient Mode of arrival: wheelchair Limitations: no limitations - History of Present Illness Initial Comments: 50-year-old male presents to the emergency department with complaints of alcohol withdrawal. Patient states his last beer was this morning and attempted to take the edge off his withdrawal symptoms. States he typically drinks 18-24 beers per day and is unsure of when his last binge was. Patient states he was h ospitalized a week ago with similar complaints and does have Ativan at home, but did not take any prior to arrival. He denies history of seizure activity during withdrawal states he is unable to lay still or focus. Complaints of upper abdominal pain, nausea, vomiting, diarrhea, and foul smelling urine. Patient denies any recent rash, fever, chills, cough, shortness of breath, chest pain, constipation, back pain, numbness, tingling, dizziness, weakness, hematuria, urinary urgency, urinary frequency, headache, visual changes, or any other complaints. - Related Data Home Medications Medication Instructions Recorded Confirmed Multivitamins, Thera [Multivitamin 1 tab PO DAILY@1200 06/16/20 08/06/20 (formulary)] Thiamine [Vitamin B-1] 100 mg PO AC-BID 06/16/20 08/06/20 Previous Rx's Medication Instructions Recorded Magnesium 250 mg PO DAILY #30 tablet 04/01/20 Folic Acid 1 mg PO DAILY@1200 #30 tab 06/10/20 LORazepam [Ativan] 1 mg PO DAILY PRN 3 Days #2 tab 06/23/20 Allergies Allergy/AdvReac Type Severity Reaction Status Date / Time No Known Allergies Allergy Verified 08/06/20 07:54 Review of Systems ROS Statement: Those systems with pertinent positive or pertinent negative responses have been documented in the HPI. ROS Other: All systems not noted in ROS Statement are negative. Past Medical History Past Medical History: COPD Additional Past Medical History / Comment(s): ETOH abuse, smoker, History of Any Multi-Drug Resistant Organisms: None Reported Past Surgical History: Adenoidectomy, Hernia Repair, Tonsillectomy Past Anesthesia/Blood Transfusion Reactions: No Reported Reaction Past Psychological History: Anxiety, Depression Smoking Status: Current every day smoker Past Alcohol Use History: Abuse, Daily, Heavy Past Drug Use History: Marijuana - Past Family History Brother(s) Family Medical History: Osteoarthritis (OA) Mother Family Medical History: COPD Additional Family Medical History / Comment(s): pulmonary fibrosis General Exam Limitations: no limitations General appearance: alert, appears intoxicated (Well-developed, fairly well- nourished male who appears restless and anxious. Doess state he is withdrawing from alcohol. Initial temperature 97.7F, pulse 125, respirations 16, blood pressure 133/61, pulse ox 96% on room air.) Head exam: Present: atraumatic, normocephalic, normal inspection Eye exam: Present: normal appearance, PERRL Respiratory exam: Present: normal lung sounds bilaterally. Absent: respiratory distress, wheezes, rales, rhonchi, stridor Cardiovascular Exam: Present: regular rate, tachycardia, normal heart sounds GI/Abdominal exam: Present: soft, normal bowel sounds. Absent: distended, tenderness Neurological exam: Present: alert, oriented X3, other (difficulty focusing during exam; moving all four extremities constantly in a coordinated manner but is able to lay still briefly during exam) Psychiatric exam: Present: anxious Skin exam: Present: warm, dry, intact, pallor Course Vital Signs 08/06/20 08/06/20 08/06/20 05:54 06:56 08:08 Temperature 97.7 F 98.2 F 98.7 F Pulse Rate 125 H 92 94 Respiratory 16 16 18 Rate Blood Pressure 133/61 128/71 121/82 O2 Sat by Pulse 96 98 96 Oximetry Medical Decision Making - Medical Decision Making 50-year-old male with a history of alcoholism presents to the emergency department complaining of withdrawal symptoms. Patient states he typically consumes between 18 and 24 beers daily and has decided he wants to quit drinking. Patient states he began experiencing withdrawal symptoms, including abdominal pain, nausea, headache, and restlessness this morning. Did drink another beer in attempt to treat his symptoms. He does have Ativan at home but did not take any prior to arrival. Patient does verbalize the desire to fully sober up and enter a rehab facility. Patient was given 1 mg of Ativan IV and received IV infusion of a banana bag. Patient's serum EtOH was 125. Discussed patient's care with my attending who agrees the patient can be discharged home to follow up on an outpatient basis. Patient was counseled to have a plan for ridding his house of alcohol and encouraged to follow-up with his primary care doctor. Return parameters were discussed. Patient verbalizes understanding and agrees with this plan. Cab transport was arranged for patient's ride home. - Lab Data Result diagrams: 08/06/20 06:20 08/06/20 06:20 Lab Results 08/06/20 08/06/20 08/06/20 Range/Units 06:12 06:20 06:20 WBC 9.0 (3.8-10.6) k/uL RBC 5.37 (4.30-5.90) m/uL Hgb 18.0 H (13.0-17.5) gm/dL Hct 55.1 H (39.0-53.0) % MCV 102.5 H (80.0-100.0) fL MCH 33.6 (25.0-35.0) pg MCHC 32.7 (31.0-37.0) g/dL RDW 13.6 (11.5-15.5) % Plt Count 283 (150-450) k/uL MPV 6.8 Neutrophils % 66 % Lymphocytes % 22 % Monocytes % 5 % Eosinophils % 5 % Basophils % 1 % Neutrophils # 5.9 (1.3-7.7) k/uL Lymphocytes # 1.9 (1.0-4.8) k/uL Monocytes # 0.4 (0-1.0) k/uL Eosinophils # 0.5 (0-0.7) k/uL Basophils # 0.1 (0-0.2) k/uL Macrocytosis Slight Sodium 139 (137-145) mmol/L Potassium 4.6 (3.5-5.1) mmol/L Chloride 107 (98-107) mmol/L Carbon Dioxide 15 L (22-30) mmol/L Anion Gap 17 mmol/L BUN 3 L (9-20) mg/dL Creatinine 0.81 (0.66-1.25) mg/dL Est GFR (CKD-EPI)AfAm >90 (>60 ml/min/1.73 sqM) Est GFR (CKD-EPI)NonAf >90 (>60 ml/min/1.73 sqM) Glucose 141 H (74-99) mg/dL POC Glucose (mg/dL) 144 H (75-99) mg/dL POC Glu [employer] ID [place] Calcium 9.7 (8.4-10.2) mg/dL Phosphorus 3.5 (2.5-4.5) mg/dL Magnesium 2.0 (1.6-2.3) mg/dL Total Bilirubin 0.5 (0.2-1.3) mg/dL AST 40 (17-59) U/L ALT 22 (4-49) U/L Alkaline Phosphatase 79 (38-126) U/L Total Protein 8.2 (6.3-8.2) g/dL Albumin 4.8 (3.5-5.0) g/dL Serum Alcohol 125 mg/dL Disposition Clinical Impression: Alcohol intoxication Disposition: HOME SELF-CARE Condition: Good Instructions (If sedation given, give patient instructions): Alcohol Intoxication (ED), Alcohol Withdrawal (ED) Additional Instructions: Take home Ativan as needed for symptom relief. Once sober consider going to [place] for rehabilitation. Follow up with her primary care physician for recheck in 1-2 days. Return to the emergency department immediately for any new, worsening, or concerning symptoms Is patient prescribed a controlled substance at d/c from ED?: No Referrals: Javon Anaya MD [Primary Care Provider] - 1-2 days Time of Disposition: 08:00
[2020-08-06] MEDS ORDERED: ONDANSETRON 4 MG/2 ML VIAL IVP STA (06:21)
[2020-08-06] MEDS ORDERED: SODIUM CHLORIDE 0.9% 1,000 ML with MVI, ADULT NO.4 WITH VIT K 10 ML, THIAMINE 100 MG, F... IV ONE ×4 (06:30)
[2020-08-06 06:40] LABS: Basophils # (A) 0.1 k/uL (0-0.2); Basophils % (A) 1 %; Eosinophils # (A) 0.5 k/uL (0-0.7); Eosinophils % (A) 5 %; Lymphocytes # (A) 1.9 k/uL (1.0-4.8); Lymphocytes % (A) 22 %; MCH 33.6 pg (25.0-35.0); MCHC 32.7 g/dL (31.0-37.0); MCV 102.5 fL (80.0-100.0); Macrocytosis Slight; Mean Platelet Volume 6.8; Monocytes # (A) 0.4 k/uL (0-1.0); Monocytes % (A) 5 %; Neutrophils # (A) 5.9 k/uL (1.3-7.7); Neutrophils % (A) 66 %; Platelet Count 283 k/uL (150-450); RBC 5.37 m/uL (4.30-5.90); RDW 13.6 % (11.5-15.5)
[2020-08-06 06:43] LABS: HCT 55.1 % (39.0-53.0)
[2020-08-06 06:54] LABS: African American GFR (CKD) >90 (>60 ml/min/1.73 sqM); Albumin 4.8 g/dL (3.5-5.0); Alkaline Phosphatase 79 U/L (38-126); Blood Urea Nitrogen 3 mg/dL (9-20); Carbon Dioxide 15 mmol/L (22-30); Chloride 107 mmol/L (98-107); Glucose 141 mg/dL (74-99); Non-African American GFR(CKD) >90 (>60 ml/min/1.73 sqM); Potassium 4.6 mmol/L (3.5-5.1)
[2020-08-06 07:17] LABS: ALT 22 U/L (4-49); AST 40 U/L (17-59); Anion Gap 17 mmol/L; Calcium 9.7 mg/dL (8.4-10.2); Phosphorus 3.5 mg/dL (2.5-4.5); Sodium 139 mmol/L (137-145); Total Bilirubin 0.5 mg/dL (0.2-1.3); Total Protein 8.2 g/dL (6.3-8.2)
[2020-08-06 07:28] LABS: Alcohol 125 mg/dL
[2020-08-06 08:09] VITALS: BP 121/82; PULSE 94; RESP 18; TEMP 98.7
[2020-08-06 08:41] LABS: Appearance,Urine Clear (Clear); Bacteria,Urine Rare /hpf; Bilirubin,Urine Negative (Negative); Blood,Urine Small (Negative); Color,Urine Yellow; Glucose,Urine (UA) Negative (Negative); Hyaline Casts,Urine 18 /lpf (0-2); Ketones,Urine Trace (Negative); Leukocyte Esterase,Urine Negative (Negative); Mucus,Urine Many /hpf; Nitrite,Urine Negative (Negative); PH, Urine 5.5 (5.0-8.0); Protein,Urine 1+ (Negative); RBC,Urine 1 /hpf (0-5); Specific Gravity,Urine 1.021 (1.001-1.035); Squamous Epithelial Cell,Urine 1 /hpf (0-4); Urobilinogen,Urine <2.0 mg/dL (<2.0); WBC,Urine 1 /hpf (0-5)
[2020-08-06 08:44] LABS: Cocaine Screen,Urine Not Detected (NotDetected); Opiate Screen,Urine Not Detected (NotDetected); Phencyclidine Screen,Urine Not Detected (NotDetected); Urn Cannabinoid Scrn Detected (NotDetected)
[2020-08-06 08:45] LABS: Amphetamine Screen,Urine Not Detected (NotDetected); Barbiturate Screen,Urine Not Detected (NotDetected); Benzodiazepines Screen,Urine Detected (NotDetected); Methadone Screen, Urine Not Detected (NotDetected); Oxycodone Screen, Urine Not Detected (NotDetected); Tricyclic Antidepressant,Urine Not Detected (NotDetected)
[2020-08-06] MEDS ORDERED: THIAMINE 100 MG TAB PO SCH (17:30)
== END 2020-08-06 08:12 | disposition home or self-care (01) ==
LOC: EC 05:48
DX: F10.239 Alcohol dependence with withdrawal, unspecified (principal); F10.229 Alcohol dependence with intoxication, unspecified; R10.10 Upper abdominal pain, unspecified; R51.9 Headache, unspecified; R00.0 Tachycardia, unspecified; R19.7 Diarrhea, unspecified; F17.200 Nicotine dependence, unspecified, uncomplicated; Y90.6 Blood alcohol level of 120-199 mg/100 ml
CPT/HCPCS: 99284; 96365; 96375 ×2; 96372; 36415; 80053; 83735; 84100; 85025; 81001; 80306; G0480; J2060; J3411; J2405; 80320

== ENCOUNTER 2020-08-22 07:34 | Observation (INO) | payer OTHER ==
[2020-08-22] MEDS ORDERED: SODIUM CHLORIDE 0.9% 1,000 ML IV ONE (07:51)
[2020-08-22] MEDS ORDERED: LORazepam 2 MG/ML INJ IV STA (07:51)
--- NOTE | 2020-08-22 07:55 | ED ---
General Adult HPI - General Chief complaint: Alcohol Stated complaint: ETOH Time Seen by Provider: 08/22/20 07:37 Source: patient, EMS, RN notes reviewed, old records reviewed Mode of arrival: EMS Limitations: no limitations - History of Present Illness Initial comments: 50-year-old male presenting with alcohol intoxication, fall. Patient is a known alcoholic. He admits to heavy consumption of alcohol. He called EMS because he was not feeling well, vomiting and diarrhea. He also had a fall striking the left side of his head. Uncertain if he was unconscious secondary to the fall. Patient denies suicidal ideation or suicide attempt. He does report that he has been drinking more. No abdominal pain. No fever. - Related Data Home Medications Medication Instructions Recorded Confirmed Multivitamins, Thera [Multivitamin 1 tab PO DAILY@1200 06/16/20 08/22/20 (formulary)] Thiamine [Vitamin B-1] 100 mg PO AC-BID 06/16/20 08/22/20 LORazepam [Ativan] 0.5 mg PO BID PRN 08/22/20 08/22/20 Previous Rx's Medication Instructions Recorded Magnesium 250 mg PO DAILY #30 tablet 04/01/20 Folic Acid 1 mg PO DAILY@1200 #30 tab 06/10/20 Allergies Allergy/AdvReac Type Severity Reaction Status Date / Time No Known Allergies Allergy Verified 08/22/20 08:27 Review of Systems ROS Statement: Those systems with pertinent positive or pertinent negative responses have been documented in the HPI. ROS Other: All systems not noted in ROS Statement are negative. Past Medical History Past Medical History: COPD Additional Past Medical History / Comment(s): ETOH abuse, smoker, History of Any Multi-Drug Resistant Organisms: None Reported Past Surgical History: Adenoidectomy, Hernia Repair, Tonsillectomy Past Anesthesia/Blood Transfusion Reactions: No Reported Reaction Past Psychological History: Anxiety, Depression Smoking Status: Current every day smoker Past Alcohol Use History: Abuse, Daily, Heavy Past Drug Use History: Marijuana - Past Family History Brother(s) Family Medical History: Osteoarthritis (OA) Mother Family Medical History: COPD Additional Family Medical History / Comment(s): pulmonary fibrosis General Exam Limitations: no limitations General appearance: alert, appears intoxicated Head exam: Present: normocephalic, other (Abrasion left forehead) Eye exam: Present: normal appearance, PERRL ENT exam: Present: normal exam Neck exam: Present: normal inspection. Absent: tenderness, meningismus Respiratory exam: Present: normal lung sounds bilaterally. Absent: respiratory distress, wheezes, rales Cardiovascular Exam: Present: normal rhythm, tachycardia GI/Abdominal exam: Present: soft. Absent: distended, tenderness, guarding Extremities exam: Present: normal inspection, normal capillary refill. Absent: pedal edema Neurological exam: Present: alert. Absent: motor sensory deficit Psychiatric exam: Present: agitated, anxious Skin exam: Present: warm, dry, intact Course Vital Signs 08/22/20 07:39 Temperature 98 F Pulse Rate 116 H Respiratory 18 Rate Blood Pressure 140/109 O2 Sat by Pulse 98 Oximetry Medical Decision Making - Medical Decision Making 50-year-old male presenting with alcohol intoxication. Patient has no cold level CCCL. He did have head trauma, head CT negative for intracranial hemorrhage or mass effect. Additional laboratory testing is essentially unremarkable. Given the high alcohol he will be admitted for alcohol poisoning, alcohol intoxication. Case discussed with Dr. Crane who will admit. - Lab Data Result diagrams: 08/22/20 07:58 08/22/20 07:58 Lab Results 08/22/20 08/22/20 08/22/20 Range/Units 07:58 07:58 07:58 WBC 6.2 (3.8-10.6) k/uL RBC 5.25 (4.30-5.90) m/uL Hgb 18.2 H (13.0-17.5) gm/dL Hct 52.8 (39.0-53.0) % MCV 100.7 H (80.0-100.0) fL MCH 34.7 (25.0-35.0) pg MCHC 34.4 (31.0-37.0) g/dL RDW 13.1 (11.5-15.5) % Plt Count 182 (150-450) k/uL MPV 6.6 Neutrophils % 58 % Lymphocytes % 28 % Monocytes % 7 % Eosinophils % 3 % Basophils % 1 % Neutrophils # 3.6 (1.3-7.7) k/uL Lymphocytes # 1.7 (1.0-4.8) k/uL Monocytes # 0.5 (0-1.0) k/uL Eosinophils # 0.2 (0-0.7) k/uL Basophils # 0.1 (0-0.2) k/uL PT 9.7 (9.0-12.0) sec INR 0.9 (<1.2) APTT 25.5 (22.0-30.0) sec Sodium 137 (137-145) mmol/L Potassium 3.8 (3.5-5.1) mmol/L Chloride 99 (98-107) mmol/L Carbon Dioxide 21 L (22-30) mmol/L Anion Gap 17 mmol/L BUN <2 L (9-20) mg/dL Creatinine 0.62 L (0.66-1.25) mg/dL Est GFR (CKD-EPI)AfAm >90 (>60 ml/min/1.73 sqM) Est GFR (CKD-EPI)NonAf >90 (>60 ml/min/1.73 sqM) Glucose 170 H (74-99) mg/dL Calcium 8.8 (8.4-10.2) mg/dL Magnesium 2.0 (1.6-2.3) mg/dL Total Bilirubin 0.6 (0.2-1.3) mg/dL AST 94 H (17-59) U/L ALT 52 H (4-49) U/L Alkaline Phosphatase 97 (38-126) U/L Total Protein 8.2 (6.3-8.2) g/dL Albumin 4.9 (3.5-5.0) g/dL Serum Alcohol 352 H* mg/dL Disposition Clinical Impression: Alcoholic intoxication, Alcohol abuse Disposition: ADMITTED IP TO THIS [facility] Condition: Stable Is patient prescribed a controlled substance at d/c from ED?: No Referrals: Javon Anaya MD [Primary Care Provider] - 1-2 days Decision to Admit Reason: Admit from EC Decision Date: 08/22/20 Decision Time: 09:03
[2020-08-22 08:11] LABS: Basophils # (A) 0.1 k/uL (0-0.2); Basophils % (A) 1 %; Eosinophils # (A) 0.2 k/uL (0-0.7); Eosinophils % (A) 3 %; HCT 52.8 % (39.0-53.0); HGB 18.2 gm/dL (13.0-17.5); Lymphocytes # (A) 1.7 k/uL (1.0-4.8); Lymphocytes % (A) 28 %; MCH 34.7 pg (25.0-35.0); MCHC 34.4 g/dL (31.0-37.0); MCV 100.7 fL (80.0-100.0); Mean Platelet Volume 6.6; Monocytes # (A) 0.5 k/uL (0-1.0); Monocytes % (A) 7 %; Neutrophils # (A) 3.6 k/uL (1.3-7.7); Neutrophils % (A) 58 %; Platelet Count 182 k/uL (150-450); RBC 5.25 m/uL (4.30-5.90); RDW 13.1 % (11.5-15.5); WBC 6.2 k/uL (3.8-10.6)
[2020-08-22 08:21] LABS: INR 0.9 (<1.2); Prothrombin Time 9.7 sec (9.0-12.0)
[2020-08-22 08:22] LABS: Partial Thromboplastin Time 25.5 sec (22.0-30.0)
[2020-08-22 08:24] LABS: ALT 52 U/L (4-49); AST 94 U/L (17-59); African American GFR (CKD) >90 (>60 ml/min/1.73 sqM); Albumin 4.9 g/dL (3.5-5.0); Alkaline Phosphatase 97 U/L (38-126); Anion Gap 17 mmol/L; Blood Urea Nitrogen <2 mg/dL (9-20); Calcium 8.8 mg/dL (8.4-10.2); Carbon Dioxide 21 mmol/L (22-30); Chloride 99 mmol/L (98-107); Glucose 170 mg/dL (74-99); Non-African American GFR(CKD) >90 (>60 ml/min/1.73 sqM); Potassium 3.8 mmol/L (3.5-5.1); Sodium 137 mmol/L (137-145); Total Bilirubin 0.6 mg/dL (0.2-1.3); Total Protein 8.2 g/dL (6.3-8.2)
--- NOTE | 2020-08-22 08:45 | CT ---
EXAMINATION TYPE: CT brain cspine wo con DATE OF EXAM: 08/22/2020 COMPARISON: CT from June 20, 2020 HISTORY: fall/etoh with headache and neck pain. CT DLP: 1409.5 mGycm. Automated Exposure Control for Dose Reduction was Utilized. TECHNIQUE: CT scan of the head and cervical spine are performed without contrast. FINDINGS: There is no acute intracranial hemorrhage, mass effect, or midline shift identified. The ventricles and sulci are within normal limits in size. There is mucosal thickening and partial opaci fication of the ethmoid sinuses bilaterally and mild to moderate mucosal thickening in the maxillary sinuses left greater than right redemonstrated. The calvarium is intact. Cervical spine is visualized in its entirety from C1 through upper thoracic levels and redemonstrates slight scoliotic curvature on coronal images without evidence of acute fracture or dislocation. Pre vertebral soft tissue appears within normal limits. The C1-C2 articulation is within normal limits o n the coronal images. Vertebral body heights and disc space heights are fairly well-maintained. Spina l canal is preserved. Axial images show no suspicious abnormality. Thyroid gland is stable and within normal limits. Mild to moderate emphysematous change visualized upper lungs is redemonstrated. IMPRESSION: 1. There is no acute fracture or dislocation evident in the cervical spine. 2. No acute intracranial hemorrhage or midline shift is seen. No significant change from prior.
[2020-08-22 08:46] LABS: Alcohol 352 mg/dL
[2020-08-22] MEDS ORDERED: LORazepam 2 MG/ML INJ IV PRN (09:04)
[2020-08-22] MEDS ORDERED: NALOXONE 0.4 MG/ML 1 ML VIAL IV PRN (09:04)
[2020-08-22] MEDS ORDERED: THIAMINE 100 MG/ML 2 ML VIAL IM STA (09:04)
[2020-08-22] MEDS: SODIUM CHLORIDE 0.9% 1,000 ML IV SCH ×2 (10:16→22:46)
[2020-08-22] MEDS: LORazepam 2 MG/ML INJ IV PRN ×7 (10:16→22:05)
[2020-08-22] MEDS: diazePAM 5 MG TAB PO SCH ×2 (12:44→21:56)
--- NOTE | 2020-08-22 15:59 | P.HPIM ---
History of Present Illness H&P Date: 08/22/20 Chief Complaint: Acute alcohol intoxication Patient is a 50-year-old male with a known history of severe alcohol abuse, currently with a smoker, anxiety/depression and marijuana use presents to ER due to alcohol intoxication and fall. Patient called EMS because he was not feeling well and has been having nausea vomiting and diarrhea. Patient had a fall and hit heat head on the left side. Patient is currently intoxicated and drowsy and unable to provide much history. Patient denied any complains of fever or chills. No cough or sputum production. No complaints of chest pain or shortness of breath. Denied any recent illnesses. Laboratory data showed WBC 6.2, hemoglobin 18.2 and platelets 100.7 Sodium 137, potassium 3.8, bicarb is 21, BUN less than 2 and creatinine 0.62 and glucose is 170 AST 94, ALT 52, serum alcohol level is 352 Patient was tachycardic on admission CT head and cervical spine was done in the ER showed no acute fracture or dislocation evident in the cervical spine. No acute intracranial hemorrhage or midline shift is noted. Review of Systems Complete review of systems could not be obtained from the patient. Past Medical History Past Medical History: COPD Additional Past Medical History / Comment(s): ETOH abuse, smoker, History of Any Multi-Drug Resistant Organisms: None Reported Past Surgical History: Adenoidectomy, Hernia Repair, Tonsillectomy Past Anesthesia/Blood Transfusion Reactions: No Reported Reaction Past Psychological History: Anxiety, Depression Smoking Status: Current every day smoker Past Alcohol Use History: Abuse, Daily, Heavy Additional Past Alcohol Use History / Comment(s): Patient states he smokes cigarattes. Last drink last night 06/15/2020 at 0600 and has been drinking 12 beers a day per patient. Past Drug Use History: Marijuana Additional Drug Use History / Comment(s): Crack addiction at age 19 until encarcerated for 15 years off and on for alcohol and crack addiction. Denies any crack addiction recently, states it "was years ago". Does state he smokes marijuana when he feels like it. - Past Family History Brother(s) Family Medical History: Osteoarthritis (OA) Mother Family Medical History: COPD Additional Family Medical History / Comment(s): pulmonary fibrosis Medications and Allergies Home Medications Medication Instructions Recorded Confirmed Type Magnesium 250 mg PO DAILY #30 tablet 04/01/20 08/22/20 Rx Folic Acid 1 mg PO DAILY@1200 #30 tab 06/10/20 08/22/20 Rx Multivitamins, Thera [Multivitamin 1 tab PO DAILY@1200 06/16/20 08/22/20 History (formulary)] Thiamine [Vitamin B-1] 100 mg PO AC-BID 06/16/20 08/22/20 History LORazepam [Ativan] 0.5 mg PO BID PRN 08/22/20 08/22/20 History Allergies Allergy/AdvReac Type Severity Reaction Status Date / Time No Known Allergies Allergy Verified 08/22/20 08:27 Physical Exam Vitals: Vital Signs Temp Pulse Pulse Resp BP BP Pulse Ox 08/22/20 14:51 97.9 F 90 16 132/84 99 08/22/20 09:55 98 F 93 16 126/85 99 08/22/20 09:51 98 F 112 H 18 137/90 98 08/22/20 07:39 98 F 116 H 18 140/109 98 Intake and Output 08/22/20 08/22/20 08/22/20 06:59 14:59 22:59 Other: # Bowel Movements 1 Weight 58.967 kg PHYSICAL EXAMINATION: Patient is lying in the bed comfortably, no acute distress, patient is drowsy and lethargic.. HEENT: Normocephalic. Neck is supple. Pupils reactive. Nostrils clear. Oral cavity is moist. Ears reveal no drainage. Neck reveals no JVD, carotid bruits, or thyromegaly. CHEST EXAMINATION: Trachea is central. Symmetrical expansion. Bibasilar diminished air entry. Lung pierre clear to auscultation and percussion. CARDIAC: Normal S1, S2 with no gallops. No murmurs ABDOMEN: Soft. Bowel sounds normal. No organomegaly. No abdominal bruits. Extremities: reveal no edema. No clubbing or cyanosis Neurologically awake, alert, oriented x3 but drowsy. No focal deficits noted Skin: No rash or skin lesions. Psychiatric: Coperative. Could not be assessed completely. Musculoskeletal: No joint swelling or deformity. Normal range of motion. Results CBC & Chem 7: 08/22/20 07:58 08/22/20 07:58 Labs: Abnormal Lab Results - Last 24 Hours (Table) 12/16/20 12/16/20 Range/Units 07:58 07:58 Hgb 18.2 H (13.0-17.5) gm/dL MCV 100.7 H (80.0-100.0) fL Carbon Dioxide 21 L (22-30) mmol/L BUN <2 L (9-20) mg/dL Creatinine 0.62 L (0.66-1.25) mg/dL Glucose 170 H (74-99) mg/dL AST 94 H (17-59) U/L ALT 52 H (4-49) U/L Serum Alcohol 352 H* mg/dL Thrombosis Risk Factor Assmnt - DVT/VTE Prophylaxis DVT/VTE Prophylaxis: Pharmacologic Prophylaxis ordered - Choose All That Apply Any of the Below Risk Factors Present?: Yes Each Factor Represents 1 point: Abnormal pulmonary function (COPD) Thrombosis Risk Factor Assessment Total Risk Factor Score: 1 Thrombosis Risk Factor Assessment Level: Low Risk Assessment and Plan Assessment: Acute alcohol intoxication monitor for alcohol withdrawal symptoms Severe alcohol abuse and previous admissions with intoxication. COPD not in exacerbation Ongoing nicotine addiction Anxiety/depression Macrocytosis secondary to alcohol abuse Mild transaminitis AST greater than ALT Marijuana and history of crack cocaine use previously. DVT prophylaxis with heparin subcu Plan: patient will be continued on IV hydration and thiamine and multivitamins. Monitor for withdrawal symptoms. Breathing treatments as needed. Continue with home medications and follow up closely. Further recommendations based on the clinical course. Time with Patient: Greater than 30
[2020-08-22] MEDS: THIAMINE 100 MG TAB PO SCH (17:59)
[2020-08-23] MEDS: LORazepam 2 MG/ML INJ IV PRN ×7 (04:58→20:05)
[2020-08-23] MEDS: THIAMINE 100 MG TAB PO SCH ×2 (06:35→17:29)
[2020-08-23] MEDS: diazePAM 5 MG TAB PO SCH ×3 (07:50→21:01)
[2020-08-23] MEDS: SODIUM CHLORIDE 0.9% 1,000 ML IV SCH (10:19)
[2020-08-23] MEDS: NICOTINE 21MG/24HR PATCH TRANSDERM SCH (10:41)
[2020-08-23] MEDS: FAMOTIDINE 20 MG/2 ML VIAL IV SCH ×2 (14:05→20:09)
[2020-08-23] MEDS ORDERED: CHOLESTYRAMINE (WITH SUGAR) 4 GM PACKET PO SCH (15:00)
[2020-08-23] MEDS: HEPARIN SODIUM,PORCINE 5,000 UNIT/ML 1 ML VIAL SQ SCH ×2 (15:27→23:06)
[2020-08-23] MEDS: CHOLESTYRAMINE (WITH SUGAR) 4 GM PACKET PO PRN (15:51)
[2020-08-24] MEDS: SODIUM CHLORIDE 0.9% 1,000 ML IV SCH (01:40)
[2020-08-24] MEDS: THIAMINE 100 MG TAB PO SCH (06:26)
[2020-08-24 07:43] VITALS: BP 127/82; PULSE 81; RESP 16; TEMP 98
[2020-08-24] MEDS: diazePAM 5 MG TAB PO SCH (07:44)
[2020-08-24] MEDS: FAMOTIDINE 20 MG/2 ML VIAL IV SCH (07:44)
[2020-08-24] MEDS: NICOTINE 21MG/24HR PATCH TRANSDERM SCH (07:44)
[2020-08-24] MEDS: HEPARIN SODIUM,PORCINE 5,000 UNIT/ML 1 ML VIAL SQ SCH (07:44)
[2020-08-24] MEDS: CHOLESTYRAMINE (WITH SUGAR) 4 GM PACKET PO PRN (09:03)
[2020-08-24 09:07] LABS: ALT 94 U/L (4-49); AST 124 U/L (17-59); African American GFR (CKD) >90 (>60 ml/min/1.73 sqM); Albumin 3.8 g/dL (3.5-5.0); Alkaline Phosphatase 96 U/L (38-126); Anion Gap 5 mmol/L; Blood Urea Nitrogen 2 mg/dL (9-20); Calcium 8.6 mg/dL (8.4-10.2); Carbon Dioxide 27 mmol/L (22-30); Chloride 103 mmol/L (98-107); Glucose 102 mg/dL (74-99); Non-African American GFR(CKD) >90 (>60 ml/min/1.73 sqM); Potassium 3.6 mmol/L (3.5-5.1); Sodium 135 mmol/L (137-145); Total Bilirubin 1.2 mg/dL (0.2-1.3); Total Protein 6.7 g/dL (6.3-8.2)
[2020-08-24 09:16] LABS: Basophils % (A) 1 %; Eosinophils # (A) 0.4 k/uL (0-0.7); Eosinophils % (A) 9 %; HCT 48.3 % (39.0-53.0); HGB 15.7 gm/dL (13.0-17.5); Lymphocytes % (A) 24 %; MCH 33.4 pg (25.0-35.0); MCHC 32.5 g/dL (31.0-37.0); MCV 102.9 fL (80.0-100.0); Macrocytosis Slight; Mean Platelet Volume 8.3; Monocytes # (A) 0.2 k/uL (0-1.0); Monocytes % (A) 6 %; Neutrophils # (A) 2.4 k/uL (1.3-7.7); Neutrophils % (A) 59 %; Platelet Count 114 k/uL (150-450); RDW 13.6 % (11.5-15.5); WBC 4.1 k/uL (3.8-10.6)
[2020-08-24 10:29] VITALS: BMI 18.6
--- NOTE | 2020-08-24 14:04 | P.PN ---
Subjective Progress Note Date: 08/23/20 Principal diagnosis: Acute alcohol withdrawal symptoms Patient is a 50-year-old male with a known history of severe alcohol abuse, currently with a smoker, anxiety/depression and marijuana use presents to ER due to alcohol intoxication and fall. Patient called EMS because he was not feeling well and has been having nausea vomiting and diarrhea. Patient had a fall and hit heat head on the left side. Patient is currently intoxicated and drowsy and unable to provide much history. Patient denied any complains of fever or chills. No cough or sputum production. No complaints of chest pain or shortness of breath. Denied any recent illnesses. Laboratory data showed WBC 6.2, hemoglobin 18.2 and platelets 100.7 Sodium 137, potassium 3.8, bicarb is 21, BUN less than 2 and creatinine 0.62 and glucose is 170 AST 94, ALT 52, serum alcohol level is 352 Patient was tachycardic on admission CT head and cervical spine was done in the ER showed no acute fracture or dislocation evident in the cervical spine. No acute intracranial hemorrhage or midline shift is noted. 08 23 2020 Patient is more awake today. Denied any complaints of chest pain or shortness of breath. Complains of diarrhea with loose stools. No fever no chills. No nausea vomiting. Patient is being treated for alcohol withdrawal symptoms. Current medications reviewed. Objective - Vital Signs Vital signs: Vital Signs Temp 97.8 F 08/23/20 07:56 Pulse 103 H 08/23/20 07:56 Resp 20 08/23/20 09:00 BP 144/81 08/23/20 07:56 Pulse Ox 97 08/23/20 07:56 Intake & Output 08/22/20 08/23/20 08/23/20 18:59 06:59 18:59 Intake Total 1000 700 Balance 1000 700 Weight 58.967 kg Intake: IV 600 Sodium Chloride 0.9% 1, 600 000 ml @ 75 mls/hr IV . [id number] PRASAD Rx#:[id number] Intake, IV Titration 600 Amount Sodium Chloride 0.9% 1, 600 000 ml @ 75 mls/hr IV . [id number] PRASAD Rx#:[id number] Oral 400 100 Other: Voiding Method Toilet Toilet # Voids 3 2 1 # Bowel Movements 1 1 - Exam PHYSICAL EXAMINATION: Patient is lying in the bed comfortably, no acute distress, awake alert and oriented.. HEENT: Normocephalic. Neck is supple. Pupils reactive. Nostrils clear. Oral cavity is moist. Ears reveal no drainage. Neck reveals no JVD, carotid bruits, or thyromegaly. CHEST EXAMINATION: Trachea is central. Symmetrical expansion. Lung pierre clear to auscultation and percussion. CARDIAC: Normal S1, S2 with no gallops. No murmurs ABDOMEN: Soft. Bowel sounds normal. No organomegaly. No abdominal bruits. Extremities: reveal no edema. No clubbing or cyanosis Neurologically awake, alert, oriented x3 with well-coordinated movements. No focal deficits noted Skin: No rash or skin lesions. Psychiatric: Coperative. Nonsuicidal Musculoskeletal: No joint swelling or deformity. Normal range of motion. - Labs CBC & Chem 7: 08/24/20 08:06 08/24/20 08:06 Assessment and Plan Assessment: Acute alcohol intoxication alcohol withdrawal symptoms Diarrhea. Rule out C. diff. Severe alcohol abuse and previous admissions with intoxication. COPD not in exacerbation Ongoing nicotine addiction Anxiety/depression Macrocytosis secondary to alcohol abuse Mild transaminitis AST greater than ALT Marijuana and history of crack cocaine use previously. DVT prophylaxis with heparin subcu Plan: patient will be continued on IV hydration and thiamine and multivitamins. Monitor for withdrawal symptoms. Breathing treatments as needed. Rule out C. diff and symptomatic management. Encourage oral intake. Continue with home medications and follow up closely. Further recommendations based on the clinical course. Time with Patient: Greater than 30
--- NOTE | 2020-08-24 15:37 | P.DS ---
Providers Date of admission: 08/22/20 09:26 Expected date of discharge: 08/24/20 Attending physician: Ariadna Crane Primary care physician: H[facility]ctor [facility] Course: Final diagnosis Acute alcohol intoxication alcohol withdrawal symptoms Diarrhea. Ruled out C. diff. Severe alcohol abuse and previous admissions with intoxication. COPD not in exacerbation Ongoing nicotine addiction Anxiety/depression Macrocytosis secondary to alcohol abuse Mild transaminitis AST greater than ALT Marijuana and history of crack cocaine use previously. DVT prophylaxis Discharge disposition Patient is being discharged in a stable condition with guarded prognosis to home. Patient will follow-up with Dr. Anaya in the outpatient setting upon discharge. Total time taken is greater than 35 minutes. History of present illness This is a 50-year-old male who was recently admitted with acute alcohol withdrawal, alcohol intoxication, and recent fall and was being closely monitored. Initially patient was having some nausea vomiting and diarrhea and had recently fallen and hit his head on the left due to alcohol intoxication. PT of the brain was done along with cervical spine showing no acute fracture or dislocation and no acute intracranial hemorrhage or midline shift noted. Patient was maintained on CIWA protocol and continued to have some nausea vomiting and diarrhea. C. diff testing was done which was negative and patient was placed on Questran. Bowel movements have improved and are less frequent and more formed. Patient is also tolerating diet with no reports of nausea or vomiting noted. Patient has not required any Ativan since last night and stating he feels much better and is ready to go home. Currently no reports of chest pain, worsening shortness of breath, or palpitations. Patient is afebrile. No reports of nausea or vomiting and patient is tolerating diet. Patient will be going home today. On exam vital signs are stable. Temp is 98.0F, pulse is 81, respirations are 16, blood pressure is 127/82, oxygen saturation is 99% on room air. Cardio S1, S2 are muffled. Respiratory system shows diminished breath sounds at the bases with no wheezing or rhonchi noted. Abdomen is soft and nontender. Nervous system shows no focal deficits. Please refer to medication reconciliation sheet for a list of medications. Patient Condition at Discharge: Stable Plan - Discharge Summary Discharge Rx Participant: Yes New Discharge Prescriptions: Continue Magnesium 250 mg PO DAILY #30 tablet Folic Acid 1 mg PO DAILY@1200 #30 tab Multivitamins, Thera [Multivitamin (formulary)] 1 tab PO DAILY@1200 Thiamine [Vitamin B-1] 100 mg PO AC-BID Changed LORazepam [Ativan] 0.5 mg PO BID PRN #10 tab PRN Reason: Withdrawal Symptoms Discharge Medication List Magnesium 250 mg PO DAILY #30 tablet 04/01/20 [Rx] Folic Acid 1 mg PO DAILY@1200 #30 tab 06/10/20 [Rx] Multivitamins, Thera [Multivitamin (formulary)] 1 tab PO DAILY@1200 06/16/20 [History] Thiamine [Vitamin B-1] 100 mg PO AC-BID 06/16/20 [History] LORazepam [Ativan] 0.5 mg PO BID PRN #10 tab 08/24/20 [Rx] Follow up Appointment(s)/Referral(s): Javon Anaya MD [Primary Care Provider] - 08/29/20 2:00 pm (If need to be seen sooner, walk in and see Pankaj PANTOJA) Patient Instructions/Handouts: How to Stop Smoking (DC), Regular Diet (DC), Abuse of Alcohol (DC), Alcohol Withdrawal (DC) Activity/Diet/Wound Care/Special Instructions: Activity Limited until follow-up Follow-up with primary care provider continue current diet Avoid alcohol Discharge Disposition: HOME SELF-CARE
== END 2020-08-24 12:12 | disposition home or self-care (01) ==
LOC: EC 07:34 → 1SOBS 09:26 → OBSVTOIN 09:26 → INTOOBSV 09:26 → 1SOBS 09:42
PROVIDERS: ADMIT Internal Medicine; ATTEND Internal Medicine
DX: T51.0X1A Toxic effect of ethanol, accidental (unintentional), initial encounter (principal); F10.229 Alcohol dependence with intoxication, unspecified; F10.230 Alcohol dependence with withdrawal, uncomplicated; Y90.8 Blood alcohol level of 240 mg/100 ml or more; S00.81XA Abrasion of other part of head, initial encounter; R19.7 Diarrhea, unspecified; J44.9 Chronic obstructive pulmonary disease, unspecified; F17.210 Nicotine dependence, cigarettes, uncomplicated; F41.9 Anxiety disorder, unspecified; F32.9 Major depressive disorder, single episode, unspecified; D75.89 Other specified diseases of blood and blood-forming organs; R74.01 Elevation of levels of liver transaminase levels; W19.XXXA Unspecified fall, initial encounter; Z90.89 Acquired absence of other organs; Z98.890 Other specified postprocedural states; Z82.61 Family history of arthritis; Z83.6 Family history of other diseases of the respiratory system; Z79.899 Other long term (current) drug therapy
CPT/HCPCS: 96361 ×2; 96372 ×3; 96375; 96376 ×3; 96374; 99285; 36415; 80053 ×2; 83735; 85025 ×2; 85610; 85730; 87324; 72125; 70450; G0378 ×3; G0480; S4990 ×2; J2060 ×2; J1644 ×2; J3411; 80320

== ENCOUNTER 2020-08-29 22:52 | Emergency (ER) | payer OTHER ==
--- NOTE | 2020-08-29 23:04 | ED ---
Alcohol HPI <Cas Da Sivla - Last Filed: 08/30/20 11:15> - General Source: RN notes reviewed, old records reviewed Mode of arrival: EMS Limitations: altered mental status - History of Present Illness MD Complaint: alcohol intoxication, alcohol dependence Last Drink: just [employer] -: minute(s) Previous Visits for Alcohol Intoxication?: Yes Recent Trauma: No Associated Symptoms: nausea Treatments Prior to Arrival: none Chronic Alcohol Use: Yes <Cas Nath - Last Filed: 08/30/20 22:19> - General Stated Complaint: ETOH Time Seen by Provider: 08/29/20 23:03 - History of Present Illness Initial Comments: This is a 50-year-old male DF for severe alcohol intoxication and depression and anxiety. Patient is significantly inebriated and intoxicated and just asking for Ativan secondary to alcohol withdrawal a patient's alcohol is significantly elevated (Cas Nath) - Related Data Home Medications Medication Instructions Recorded Confirmed Multivitamins, Thera [Multivitamin 1 tab PO DAILY@1200 06/16/20 08/29/20 (formulary)] Thiamine [Vitamin B-1] 100 mg PO AC-BID 06/16/20 08/29/20 Previous Rx's Medication Instructions Recorded Magnesium 250 mg PO DAILY #30 tablet 04/01/20 Folic Acid 1 mg PO DAILY@1200 #30 tab 06/10/20 LORazepam [Ativan] 0.5 mg PO BID PRN #10 tab 08/24/20 Allergies Allergy/AdvReac Type Severity Reaction Status Date / Time No Known Allergies Allergy Verified 08/22/20 08:27 Review of Systems ROS Other: All systems not noted in ROS Statement are negative. <Cas Da Silav - Last Filed: 08/30/20 11:15> ROS Other: All systems not noted in ROS Statement are negative. <Cas Nath - Last Filed: 08/30/20 22:19> ROS Statement: Those systems with pertinent positive or pertinent negative responses have been documented in the HPI. Past Medical History Past Medical History: COPD Additional Past Medical History / Comment(s): ETOH abuse, smoker, History of Any Multi-Drug Resistant Organisms: None Reported Past Surgical History: Adenoidectomy, Hernia Repair, Tonsillectomy Past Anesthesia/Blood Transfusion Reactions: No Reported Reaction Past Psychological History: Anxiety, Depression Smoking Status: Current every day smoker Past Alcohol Use History: Abuse, Daily, Heavy Additional Past Alcohol Use History / Comment(s): Patient states he smokes cigarattes. Last drink last night 06/15/2020 at 0600 and has been drinking 12 beers a day per patient. Past Drug Use History: Marijuana Additional Drug Use History / Comment(s): Crack addiction at age 19 until encarcerated for 15 years off and on for alcohol and crack addiction. Denies any crack addiction recently, states it "was years ago". Does state he smokes marijuana when he feels like it. - Past Family History Brother(s) Family Medical History: Osteoarthritis (OA) Mother Family Medical History: COPD Additional Family Medical History / Comment(s): pulmonary fibrosis <Cas Nath - Last Filed: 08/30/20 22:19> General Exam General appearance: appears intoxicated, anxious Head exam: Present: atraumatic, normocephalic, normal inspection Eye exam: Present: normal appearance, PERRL, EOMI. Absent: scleral icterus, conjunctival injection, periorbital swelling ENT exam: Present: normal exam, mucous membranes moist Neck exam: Present: normal inspection. Absent: tenderness, meningismus, lymphadenopathy Respiratory exam: Present: normal lung sounds bilaterally. Absent: respiratory distress, wheezes, rales, rhonchi, stridor Cardiovascular Exam: Present: normal rhythm, tachycardia, normal heart sounds. Absent: systolic murmur, diastolic murmur, rubs, gallop, clicks GI/Abdominal exam: Present: soft, normal bowel sounds. Absent: distended, tenderness, guarding, rebound, rigid Extremities exam: Present: normal inspection, full ROM, normal capillary refill. Absent: tenderness, pedal edema, joint swelling, calf tenderness Back exam: Present: normal inspection Neurological exam: Present: alert, oriented X3, CN II-XII intact Psychiatric exam: Present: normal affect, normal mood Skin exam: Present: warm, dry, intact, normal color. Absent: rash <Cas Nath - Last Filed: 08/30/20 22:19> Course <Cas Nath - Last Filed: 08/30/20 22:19> Vital Signs 08/29/20 08/30/20 23:05 10:00 Temperature 98.1 F 98.0 F Pulse Rate 114 H 100 Respiratory 19 18 Rate Blood Pressure 149/65 126/90 O2 Sat by Pulse 97 100 Oximetry - Reevaluation(s) Reevaluation #1: 08/30/20 05:21 Medical record is reviewed (Cas Nath) Medical Decision Making <Cas Nath - Last Filed: 08/30/20 22:19> - Medical Decision Making 50 male presents DF for evaluation, patient was significantly alcohol intoxicated, depressed will be discharged home (Cas Nath) - Lab Data Lab Results 08/29/20 Range/Units 23:46 Urine Color Light Yellow Urine Appearance Clear (Clear) Urine pH 5.0 (5.0-8.0) Ur Specific [place] 1.004 (1.001-1.035) Urine Protein Negative (Negative) Urine Glucose (UA) Negative (Negative) Urine Ketones Negative (Negative) Urine Blood Negative (Negative) Urine Nitrite Negative (Negative) Urine Bilirubin Negative (Negative) Urine Urobilinogen <2.0 (<2.0) mg/dL Ur Leukocyte Esterase Negative (Negative) Urine Opiates Screen Not Detected (NotDetected) Ur Oxycodone Screen Not Detected (NotDetected) Urine Methadone Screen Not Detected (NotDetected) Ur Propoxyphene Screen Not Detected (NotDetected) Ur Barbiturates Screen Not Detected (NotDetected) U Tricyclic Antidepress Not Detected (NotDetected) Ur Phencyclidine Scrn Not Detected (NotDetected) Ur Amphetamines Screen Not Detected (NotDetected) U Methamphetamines Scrn Not Detected (NotDetected) U Benzodiazepines Scrn Detected H (NotDetected) Urine Cocaine Screen Not Detected (NotDetected) U Marijuana (THC) Screen Detected H (NotDetected) Disposition Time of Disposition: 11:16 <Cas Da Silva - Last Filed: 08/30/20 11:15> Is patient prescribed a controlled substance at d/c from ED?: No <Cas Nath - Last Filed: 08/30/20 22:19> Clinical Impression: Acute anxiety, Elevated ETOH level, Alcoholic intoxication Disposition: HOME SELF-CARE Condition: Fair Referrals: Javon Anaya MD [Primary Care Provider] - 1-2 days
[2020-08-29] MEDS ORDERED: LORazepam 2 MG/ML INJ IM STA (23:55)
[2020-08-29 23:58] LABS: Appearance,Urine Clear (Clear); Bilirubin,Urine Negative (Negative); Blood,Urine Negative (Negative); Color,Urine Light Yellow; Glucose,Urine (UA) Negative (Negative); Ketones,Urine Negative (Negative); Leukocyte Esterase,Urine Negative (Negative); Nitrite,Urine Negative (Negative); Protein,Urine Negative (Negative); Specific Gravity,Urine 1.004 (1.001-1.035); Urobilinogen,Urine <2.0 mg/dL (<2.0)
[2020-08-30 00:11] LABS: Amphetamine Screen,Urine Not Detected (NotDetected); Barbiturate Screen,Urine Not Detected (NotDetected); Benzodiazepines Screen,Urine Detected (NotDetected); Cocaine Screen,Urine Not Detected (NotDetected); Methadone Screen, Urine Not Detected (NotDetected); Opiate Screen,Urine Not Detected (NotDetected); Oxycodone Screen, Urine Not Detected (NotDetected); Phencyclidine Screen,Urine Not Detected (NotDetected); Tricyclic Antidepressant,Urine Not Detected (NotDetected); Urn Cannabinoid Scrn Detected (NotDetected)
[2020-08-30] MEDS ORDERED: LORazepam 1 MG TAB PO STA ×2 (06:59→10:31)
[2020-08-30 10:11] VITALS: BP 126/90; PULSE 100; RESP 18; TEMP 98
[2020-08-30] MEDS ORDERED: FAMOTIDINE 20 MG TAB PO STA (10:31)
== END 2020-08-30 11:24 | disposition home or self-care (01) ==
LOC: EC 22:52
DX: F10.129 Alcohol abuse with intoxication, unspecified (principal); F41.9 Anxiety disorder, unspecified; F32.9 Major depressive disorder, single episode, unspecified; F17.210 Nicotine dependence, cigarettes, uncomplicated; Y90.9 Presence of alcohol in blood, level not specified
CPT/HCPCS: 82075; 81003; 80306; 99285; 96372; J2060

== ENCOUNTER 2020-09-01 15:07 | Inpatient (IN) | payer OTHER ==
--- NOTE | 2020-09-01 15:21 | ED ---
Alcohol HPI - General Source: patient, EMS Mode of arrival: EMS Limitations: no limitations <Dwight Denney - Last Filed: 09/01/20 16:45> <Kristina Lujan - Last Filed: 09/08/20 23:03> - General Chief Complaint: Alcohol Stated Complaint: Withdrawl Time Seen by Provider: 09/01/20 15:18 - History of Present Illness Initial Comments: 50-year-old male with history of alcohol intoxication presenting to the emergency department chief complaint of alcohol withdrawal. Patient states he has been drinking more than usual over the last few days. Patient states he typically goes through 18-24 beers daily. He states he is not completely sure how much she had today. States he does have Ativan at home prescribed but has not taken any today. He denies any homicidal, suicidal thoughts or ideations. Patient does report nausea vomiting and continuous diarrhea. Patient believes he is going through withdrawal. He does report some tremors in his hands. (Dwight Denney) - Related Data Home Medications Medication Instructions Recorded Confirmed Multivitamins, Thera [Multivitamin 1 tab PO DAILY@1200 06/16/20 09/08/20 (formulary)] Thiamine [Vitamin B-1] 100 mg PO AC-BID 06/16/20 09/08/20 Previous Rx's Medication Instructions Recorded Magnesium 250 mg PO DAILY #30 tablet 04/01/20 Folic Acid 1 mg PO DAILY@1200 #30 tab 06/10/20 LORazepam [Ativan] 0.5 mg PO BID PRN #10 tab 08/24/20 Allergies Allergy/AdvReac Type Severity Reaction Status Date / Time No Known Allergies Allergy Verified 09/08/20 05:26 Review of Systems ROS Other: All systems not noted in ROS Statement are negative. <Dwight Denney - Last Filed: 09/01/20 16:45> ROS Other: All systems not noted in ROS Statement are negative. <Kristina Lujan - Last Filed: 09/08/20 23:03> ROS Statement: Those systems with pertinent positive or pertinent negative responses have been documented in the HPI. Past Medical History Past Medical History: COPD Additional Past Medical History / Comment(s): ETOH abuse, smoker, History of Any Multi-Drug Resistant Organisms: None Reported Past Surgical History: Adenoidectomy, Hernia Repair, Tonsillectomy Past Anesthesia/Blood Transfusion Reactions: No Reported Reaction Past Psychological History: Anxiety, Depression Smoking Status: Current every day smoker Past Alcohol Use History: Abuse, Daily, Heavy Past Drug Use History: Marijuana - Past Family History Brother(s) Family Medical History: Osteoarthritis (OA) Mother Family Medical History: COPD Additional Family Medical History / Comment(s): pulmonary fibrosis <Dwight Denney Last Filed: 09/01/20 16:45> General Exam Limitations: no limitations General appearance: alert, in no apparent distress, appears intoxicated Head exam: Present: atraumatic, normocephalic, normal inspection Eye exam: Present: normal appearance, PERRL, EOMI Pupils: Present: normal accommodation ENT exam: Present: normal exam, normal oropharynx, mucous membranes dry, TM's normal bilaterally, normal external ear exam Neck exam: Present: normal inspection, full ROM. Absent: tenderness Respiratory exam: Present: normal lung sounds bilaterally. Absent: respiratory distress, wheezes, rales Cardiovascular Exam: Present: regular rate, normal rhythm, normal heart sounds GI/Abdominal exam: Present: soft. Absent: distended, tenderness, guarding, rebound Extremities exam: Present: normal inspection, full ROM, normal capillary refill. Absent: tenderness, pedal edema, joint swelling, calf tenderness Back exam: Present: normal inspection, full ROM. Absent: tenderness, CVA tenderness (R), CVA tenderness (L) Neurological exam: Present: alert, oriented X3, normal gait Psychiatric exam: Present: normal affect, normal mood Skin exam: Present: warm, dry, intact, normal color <Dwight Denney Last Filed: 09/01/20 16:45> Course Vital Signs 09/01/20 09/01/20 09/01/20 15:12 17:34 19:26 Temperature 98.3 F Pulse Rate 115 H 95 93 Respiratory 18 16 18 Rate Blood Pressure 125/103 118/86 119/87 O2 Sat by Pulse 96 97 97 Oximetry Medical Decision Making - Lab Data Result diagrams: 09/01/20 15:50 09/01/20 15:50 <Dwight Denney Last Filed: 09/01/20 16:45> - Lab Data Result diagrams: 09/02/20 06:25 09/02/20 06:25 <Kristina Lujan - Last Filed: 09/08/20 23:03> - Medical Decision Making 50-year-old male with history of alcohol abuse presenting to the emergency department with a chief complaint of alcohol withdrawal. Patient has had multip le beers today but is not aware of exactly how many. Patient states that he is withdrawing at this time. He does report some hand tremors. He denies any homicidal, suicidal thoughts or ideations. On initial evaluation, patient is clearly intoxicated and yelling. Patient had a breath alcohol of 0.25. Blood alcohol level is 0.280. CBC unremarkable. CMP reveals low BUN and creatinine levels. Ciwa assessed. Ativan protocol ordered. Patient will be admitted for further medical management. I spoke to who will admit. case discussed with dr lujan Psychiatry consult. (Dwight Denney) I was available for consultation in the emergency department. The history and physical exam were done by the midlevel provider. I was consulted for this patients care. I reviewed the case with the midlevel provider and based on their presentation of the patient, I agree with the assessment, medical decision making and plan of care as documented. Chart was dictated using [employer] dictation software. Attempts were made to correct any dictation errors however some typographical errors may persist. Patient was seen during a national state of emergency due to the Covid-19 pandemic. (Kristina Lujan) - Lab Data Lab Results 09/01/20 09/01/20 09/01/20 Range/Units 15:50 15:50 15:50 WBC 5.4 (3.8-10.6) k/uL RBC 5.07 (4.30-5.90) m/uL Hgb 17.8 H (13.0-17.5) gm/dL Hct 50.8 (39.0-53.0) % MCV 100.2 H (80.0-100.0) fL MCH 35.1 H (25.0-35.0) pg MCHC 35.0 (31.0-37.0) g/dL RDW 13.1 (11.5-15.5) % Plt Count 276 D (150-450) k/uL MPV 6.6 Neutrophils % 65 % Lymphocytes % 20 % Monocytes % 9 % Eosinophils % 2 % Basophils % 2 % Neutrophils # 3.5 (1.3-7.7) k/uL Lymphocytes # 1.1 (1.0-4.8) k/uL Monocytes # 0.5 (0-1.0) k/uL Eosinophils # 0.1 (0-0.7) k/uL Basophils # 0.1 (0-0.2) k/uL Macrocytosis Sodium 136 L (137-145) mmol/L Potassium 4.5 (3.5-5.1) mmol/L Chloride 100 (98-107) mmol/L Carbon Dioxide 21 L (22-30) mmol/L Anion Gap 15 mmol/L BUN 2 L (9-20) mg/dL Creatinine 0.60 L (0.66-1.25) mg/dL Est GFR (CKD-EPI)AfAm >90 (>60 ml/min/1.73 sqM) Est GFR (CKD-EPI)NonAf >90 (>60 ml/min/1.73 sqM) Glucose 119 H (74-99) mg/dL Calcium 9.1 (8.4-10.2) mg/dL Magnesium (1.6-2.3) mg/dL Total Bilirubin 0.5 (0.2-1.3) mg/dL AST 71 H (17-59) U/L ALT 56 H (4-49) U/L Alkaline Phosphatase 94 (38-126) U/L Total Protein 8.0 (6.3-8.2) g/dL Albumin 4.5 (3.5-5.0) g/dL Globulin g/dL Albumin/Globulin Ratio Urine Opiates Screen Not Detected (NotDetected) Ur Oxycodone Screen Not Detected (NotDetected) Urine Methadone Screen Not Detected (NotDetected) Ur Propoxyphene Screen Not Detected (NotDetected) Ur Barbiturates Screen Not Detected (NotDetected) U Tricyclic Antidepress Not Detected (NotDetected) Ur Phencyclidine Scrn Not Detected (NotDetected) Ur Amphetamines Screen Not Detected (NotDetected) U Methamphetamines Scrn Not Detected (NotDetected) U Benzodiazepines Scrn Detected H (NotDetected) Urine Cocaine Screen Not Detected (NotDetected) U Marijuana (THC) Screen Detected H (NotDetected) Serum Alcohol 280 H* mg/dL C. difficile (EIA) Intrp (Negative) Coronavirus (PCR) (Not Detectd) 09/02/20 09/02/20 09/02/20 Range/Units 06:25 06:25 10:50 WBC 8.3 (3.8-10.6) k/uL RBC 4.88 (4.30-5.90) m/uL Hgb 16.7 (13.0-17.5) gm/dL Hct 49.9 (39.0-53.0) % MCV 102.3 H (80.0-100.0) fL MCH 34.3 (25.0-35.0) pg MCHC 33.6 (31.0-37.0) g/dL RDW 13.4 (11.5-15.5) % Plt Count 245 (150-450) k/uL MPV 7.0 Neutrophils % 78 % Lymphocytes % 11 % Monocytes % 6 % Eosinophils % 3 % Basophils % 1 % Neutrophils # 6.5 (1.3-7.7) k/uL Lymphocytes # 0.9 L (1.0-4.8) k/uL Monocytes # 0.5 (0-1.0) k/uL Eosinophils # 0.2 (0-0.7) k/uL Basophils # 0.1 (0-0.2) k/uL Macrocytosis Slight Sodium 136 L (137-145) mmol/L Potassium 4.2 (3.5-5.1) mmol/L Chloride 102 (98-107) mmol/L Carbon Dioxide 29 (22-30) mmol/L Anion Gap 5 mmol/L BUN 3 L (9-20) mg/dL Creatinine 0.64 L (0.66-1.25) mg/dL Est GFR (CKD-EPI)AfAm >90 (>60 ml/min/1.73 sqM) Est GFR (CKD-EPI)NonAf >90 (>60 ml/min/1.73 sqM) Glucose 108 H (74-99) mg/dL Calcium 9.3 (8.4-10.2) mg/dL Magnesium 2.1 (1.6-2.3) mg/dL Total Bilirubin 0.8 (0.2-1.3) mg/dL AST 66 H (17-59) U/L ALT 52 H (4-49) U/L Alkaline Phosphatase 93 (38-126) U/L Total Protein 7.4 (6.3-8.2) g/dL Albumin 4.2 (3.5-5.0) g/dL Globulin 3.2 g/dL Albumin/Globulin Ratio 1.3 Urine Opiates Screen (NotDetected) Ur Oxycodone Screen (NotDetected) Urine Methadone Screen (NotDetected) Ur Propoxyphene Screen (NotDetected) Ur Barbiturates Screen (NotDetected) U Tricyclic Antidepress (NotDetected) Ur Phencyclidine Scrn (NotDetected) Ur Amphetamines Screen (NotDetected) U Methamphetamines Scrn (NotDetected) U Benzodiazepines Scrn (NotDetected) Urine Cocaine Screen (NotDetected) U Marijuana (THC) Screen (NotDetected) Serum Alcohol <10 mg/dL C. difficile (EIA) Intrp (Negative) Coronavirus (PCR) Not Detected (Not Detectd) 09/02/20 Range/Units 10:55 WBC (3.8-10.6) k/uL RBC (4.30-5.90) m/uL Hgb (13.0-17.5) gm/dL Hct (39.0-53.0) % MCV (80.0-100.0) fL MCH (25.0-35.0) pg MCHC (31.0-37.0) g/dL RDW (11.5-15.5) % Plt Count (150-450) k/uL MPV Neutrophils % % Lymphocytes % % Monocytes % % Eosinophils % % Basophils % % Neutrophils # (1.3-7.7) k/uL Lymphocytes # (1.0-4.8) k/uL Monocytes # (0-1.0) k/uL Eosinophils # (0-0.7) k/uL Basophils # (0-0.2) k/uL Macrocytosis Sodium (137-145) mmol/L Potassium (3.5-5.1) mmol/L Chloride (98-107) mmol/L Carbon Dioxide (22-30) mmol/L Anion Gap mmol/L BUN (9-20) mg/dL Creatinine (0.66-1.25) mg/dL Est GFR (CKD-EPI)AfAm (>60 ml/min/1.73 sqM) Est GFR (CKD-EPI)NonAf (>60 ml/min/1.73 sqM) Glucose (74-99) mg/dL Calcium (8.4-10.2) mg/dL Magnesium (1.6-2.3) mg/dL Total Bilirubin (0.2-1.3) mg/dL AST (17-59) U/L ALT (4-49) U/L Alkaline Phosphatase (38-126) U/L Total Protein (6.3-8.2) g/dL Albumin (3.5-5.0) g/dL Globulin g/dL Albumin/Globulin Ratio Urine Opiates Screen (NotDetected) Ur Oxycodone Screen (NotDetected) Urine Methadone Screen (NotDetected) Ur Propoxyphene Screen (NotDetected) Ur Barbiturates Screen (NotDetected) U Tricyclic Antidepress (NotDetected) Ur Phencyclidine Scrn (NotDetected) Ur Amphetamines Screen (NotDetected) U Methamphetamines Scrn (NotDetected) U Benzodiazepines Scrn (NotDetected) Urine Cocaine Screen (NotDetected) U Marijuana (THC) Screen (NotDetected) Serum Alcohol mg/dL C. difficile (EIA) Intrp Negative (Negative) Coronavirus (PCR) (Not Detectd) Disposition Is patient prescribed a controlled substance at d/c from ED?: No Time of Disposition: 16:49 <Dwight Denney - Last Filed: 09/01/20 16:45> <Kristina Lujan - Last Filed: 09/08/20 23:03> Clinical Impression: Elevated ETOH level, Alcoholic intoxication Disposition: ADMITTED IP TO THIS HOSP Condition: Fair
[2020-09-01] MEDS ORDERED: LORazepam 2 MG/ML INJ IV STA (15:33)
[2020-09-01 16:06] LABS: Basophils # (A) 0.1 k/uL (0-0.2); Basophils % (A) 2 %; Eosinophils # (A) 0.1 k/uL (0-0.7); Eosinophils % (A) 2 %; HCT 50.8 % (39.0-53.0); HGB 17.8 gm/dL (13.0-17.5); Lymphocytes # (A) 1.1 k/uL (1.0-4.8); Lymphocytes % (A) 20 %; MCH 35.1 pg (25.0-35.0); MCV 100.2 fL (80.0-100.0); Mean Platelet Volume 6.6; Monocytes # (A) 0.5 k/uL (0-1.0); Monocytes % (A) 9 %; Neutrophils # (A) 3.5 k/uL (1.3-7.7); Neutrophils % (A) 65 %; RBC 5.07 m/uL (4.30-5.90); RDW 13.1 % (11.5-15.5); WBC 5.4 k/uL (3.8-10.6)
[2020-09-01 16:16] LABS: ALT 56 U/L (4-49); AST 71 U/L (17-59); African American GFR (CKD) >90 (>60 ml/min/1.73 sqM); Albumin 4.5 g/dL (3.5-5.0); Alkaline Phosphatase 94 U/L (38-126); Anion Gap 15 mmol/L; Blood Urea Nitrogen 2 mg/dL (9-20); Calcium 9.1 mg/dL (8.4-10.2); Carbon Dioxide 21 mmol/L (22-30); Chloride 100 mmol/L (98-107); Glucose 119 mg/dL (74-99); Non-African American GFR(CKD) >90 (>60 ml/min/1.73 sqM); Potassium 4.5 mmol/L (3.5-5.1); Sodium 136 mmol/L (137-145); Total Bilirubin 0.5 mg/dL (0.2-1.3)
[2020-09-01 16:19] LABS: Amphetamine Screen,Urine Not Detected (NotDetected); Barbiturate Screen,Urine Not Detected (NotDetected); Benzodiazepines Screen,Urine Detected (NotDetected); Cocaine Screen,Urine Not Detected (NotDetected); Methadone Screen, Urine Not Detected (NotDetected); Opiate Screen,Urine Not Detected (NotDetected); Oxycodone Screen, Urine Not Detected (NotDetected); Phencyclidine Screen,Urine Not Detected (NotDetected); Tricyclic Antidepressant,Urine Not Detected (NotDetected); Urn Cannabinoid Scrn Detected (NotDetected)
[2020-09-01 16:21] LABS: Alcohol 280 mg/dL
[2020-09-01 16:22] LABS: Platelet Count 276 k/uL (150-450)
[2020-09-01] MEDS ORDERED: LORazepam 2 MG/ML INJ IV PRN (16:45)
[2020-09-01] MEDS ORDERED: THIAMINE 100 MG/ML 2 ML VIAL IM STA (16:45)
[2020-09-01] MEDS ORDERED: NALOXONE 0.4 MG/ML 1 ML VIAL IV PRN (16:50)
[2020-09-01] MEDS ORDERED: ONDANSETRON 4 MG/2 ML VIAL IVP PRN (16:50)
[2020-09-01] MEDS: LORazepam 2 MG/ML INJ IV PRN ×3 (17:28→21:22)
[2020-09-02] MEDS: LORazepam 2 MG/ML INJ IV PRN ×3 (00:11→21:13)
[2020-09-02] MEDS: FAMOTIDINE 20 MG/2 ML VIAL IV SCH ×2 (01:25→08:49)
[2020-09-02] MEDS: HEPARIN SODIUM,PORCINE 5,000 UNIT/ML 1 ML VIAL SQ SCH ×3 (01:25→21:11)
[2020-09-02 07:08] LABS: Basophils # (A) 0.1 k/uL (0-0.2); Basophils % (A) 1 %; Eosinophils # (A) 0.2 k/uL (0-0.7); Eosinophils % (A) 3 %; HCT 49.9 % (39.0-53.0); HGB 16.7 gm/dL (13.0-17.5); Lymphocytes # (A) 0.9 k/uL (1.0-4.8); Lymphocytes % (A) 11 %; MCH 34.3 pg (25.0-35.0); MCHC 33.6 g/dL (31.0-37.0); MCV 102.3 fL (80.0-100.0); Macrocytosis Slight; Monocytes # (A) 0.5 k/uL (0-1.0); Monocytes % (A) 6 %; Neutrophils # (A) 6.5 k/uL (1.3-7.7); Neutrophils % (A) 78 %; Platelet Count 245 k/uL (150-450); RBC 4.88 m/uL (4.30-5.90); RDW 13.4 % (11.5-15.5); WBC 8.3 k/uL (3.8-10.6)
[2020-09-02 07:17] LABS: ALT 52 U/L (4-49); AST 66 U/L (17-59); African American GFR (CKD) >90 (>60 ml/min/1.73 sqM); Albumin 4.2 g/dL (3.5-5.0); Albumin/Globulin Ratio 1.3; Alcohol <10 mg/dL; Alkaline Phosphatase 93 U/L (38-126); Anion Gap 5 mmol/L; Blood Urea Nitrogen 3 mg/dL (9-20); Calcium 9.3 mg/dL (8.4-10.2); Carbon Dioxide 29 mmol/L (22-30); Chloride 102 mmol/L (98-107); Globulin 3.2 g/dL; Glucose 108 mg/dL (74-99); Magnesium 2.1 mg/dL (1.6-2.3); Non-African American GFR(CKD) >90 (>60 ml/min/1.73 sqM); Potassium 4.2 mmol/L (3.5-5.1); Sodium 136 mmol/L (137-145); Total Bilirubin 0.8 mg/dL (0.2-1.3); Total Protein 7.4 g/dL (6.3-8.2)
[2020-09-02] MEDS: THIAMINE 100 MG TAB PO SCH ×2 (08:47→16:51)
[2020-09-02] MEDS: MAGNESIUM OXIDE 400 MG TAB PO SCH (08:47)
[2020-09-02] MEDS ORDERED: ACETAMINOPHEN TAB 325 MG TAB PO PRN (10:07)
[2020-09-02] MEDS ORDERED: diazePAM 5 MG TAB PO STA (10:08)
[2020-09-02] MEDS ORDERED: guaiFENesin-DM 100-10MG/5ML 10 ML CUP PO PRN (10:11)
--- NOTE | 2020-09-02 10:14 | P.HPIM ---
History of Present Illness Patient is a 50-year-old male with a known history of severe alcohol abuse, nicotine dependence, anxiety/depression and marijuana use presents to ER due to alcohol intoxication . Patient states that he drinks about a case of beer every day about 18-24 beers daily. He came in because of abdominal pain and nausea and diarrhea for about a week. His pain is. Umbilical, felt like burning, nonradiating, associated with bowel movement, currently he does not have bowel pain as more talking. He has 3-4 loose bowel movements a day with small amount, light brown with no blood. He has significant nausea but no vomiting. Patient is unable to eat this morning because of his severe nausea. Yesterday he was intoxicated with alcohol and his level was high at 280, today he is awake and alert and his alcohol level less than 10. He denies dyspnea. However he has coughing with white phlegm since last February. No chest pain. He has some headache probably from alcohol intoxication He smokes about 1 pack per day, patient was consult but he does not want to quit. However he agrees to nicotine patch while in house. He smokes little marijuana Vitals stable. Labs including CBC and BMP are unremarkable, liver enzymes slightly elevated mostly secondary to alcohol affect with trending down. Urine drug screen is positive for benzodiazepines and marijuana. Alcohol level is elevated at 280 Review of Systems CONSTITUTIONAL: No fever, no malaise, no fatigue. HEENT: No recent visual problems or hearing problems. Denied any sore throat. CARDIOVASCULAR: No orthopnea, PND, no palpitations, no syncope. PULMONARY: No shortness of breath, no hemoptysis. GASTROINTESTINAL: No dysphagia. Normoactive bowel sounds. NEUROLOGICAL: No headaches, no weakness, no numbness. HEMATOLOGICAL: Denies any bleeding or petechiae. GENITOURINARY: Denies any burning micturition, frequency, or urgency. MUSCULOSKELETAL/RHEUMATOLOGICAL: Denies any joint pain, swelling, or any muscle pain. ENDOCRINE: Denies any polyuria or polydipsia. Past Medical History Past Medical History: COPD Additional Past Medical History / Comment(s): ETOH abuse, smoker, History of Any Multi-Drug Resistant Organisms: None Reported Past Surgical History: Adenoidectomy, Hernia Repair, Tonsillectomy Past Anesthesia/Blood Transfusion Reactions: No Reported Reaction Past Psychological History: Anxiety, Depression Smoking Status: Current every day smoker Past Alcohol Use History: Abuse, Daily, Heavy Additional Past Alcohol Use History / Comment(s): Patient states he smokes cigarattes. Last drink last night 06/15/2020 at 0600 and has been drinking 12 beers a day per patient. Past Drug Use History: Marijuana Additional Drug Use History / Comment(s): Crack addiction at age 19 until encarcerated for 15 years off and on for alcohol and crack addiction. Denies any crack addiction recently, states it "was years ago". Does state he smokes marijuana when he feels like it. - Past Family History Brother(s) Family Medical History: Osteoarthritis (OA) Mother Family Medical History: COPD Additional Family Medical History / Comment(s): pulmonary fibrosis Medications and Allergies Home Medications Medication Instructions Recorded Confirmed Type Magnesium 250 mg PO DAILY #30 tablet 04/01/20 09/01/20 Rx Folic Acid 1 mg PO DAILY@1200 #30 tab 06/10/20 09/01/20 Rx Multivitamins, Thera [Multivitamin 1 tab PO DAILY@1200 06/16/20 09/01/20 History (formulary)] Thiamine [Vitamin B-1] 100 mg PO AC-BID 06/16/20 09/01/20 History LORazepam [Ativan] 0.5 mg PO BID PRN #10 tab 08/24/20 09/01/20 Rx Allergies Allergy/AdvReac Type Severity Reaction Status Date / Time No Known Allergies Allergy Verified 08/22/20 08:27 Physical Exam Vitals: Vital Signs Temp Pulse Pulse Resp BP BP BP 09/02/20 07:45 97.8 F 101 H 18 126/82 09/02/20 01:55 98.2 F 87 16 136/84 09/01/20 21:15 97.8 F 89 18 114/77 09/01/20 19:26 93 18 119/87 09/01/20 17:34 95 16 118/86 09/01/20 15:12 98.3 F 115 H 18 125/103 Pulse Ox 09/02/20 07:45 97 09/02/20 01:55 96 09/01/20 21:15 97 09/01/20 19:26 97 09/01/20 17:34 97 09/01/20 15:12 96 Intake and Output 09/01/20 09/02/20 09/02/20 22:59 06:59 14:59 Output Total 450 Balance -450 Output: Urine 450 Other: # Voids 3 # Bowel Movements 1 Weight 58.967 kg GENERAL: The patient is alert and oriented x3, not in any acute distress. Well developed, well nourished. HEENT: Pupils are round and equally reacting to light. EOMI. No scleral icterus. No conjunctival pallor. Normocephalic, atraumatic. No pharyngeal erythema. No thyromegaly. CARDIOVASCULAR: S1 and S2 present. No murmurs, rubs, or gallops. PULMONARY: Chest is clear to auscultation, no wheezing or crackles. ABDOMEN: Soft, nontender, nondistended, normoactive bowel sounds. No palpable organomegaly. MUSCULOSKELETAL: No joint swelling or deformity. EXTREMITIES: No cyanosis, clubbing, or pedal edema. NEUROLOGICAL: Gross neurological examination did not reveal any focal deficits. SKIN: No rashes. No petechiae Results CBC & Chem 7: 09/02/20 06:25 09/02/20 06:25 Labs: Abnormal Lab Results - Last 24 Hours (Table) 09/01/20 09/01/20 09/01/20 Range/Units 15:50 15:50 15:50 Hgb 17.8 H (13.0-17.5) gm/dL MCV 100.2 H (80.0-100.0) fL MCH 35.1 H (25.0-35.0) pg Lymphocytes # (1.0-4.8) k/uL Sodium 136 L (137-145) mmol/L Carbon Dioxide 21 L (22-30) mmol/L BUN 2 L (9-20) mg/dL Creatinine 0.60 L (0.66-1.25) mg/dL Glucose 119 H (74-99) mg/dL AST 71 H (17-59) U/L ALT 56 H (4-49) U/L U Benzodiazepines Scrn Detected H (NotDetected) U Marijuana (THC) Screen Detected H (NotDetected) Serum Alcohol 280 H* mg/dL 09/02/20 09/02/20 Range/Units 06:25 06:25 Hgb (13.0-17.5) gm/dL MCV 102.3 H (80.0-100.0) fL MCH (25.0-35.0) pg Lymphocytes # 0.9 L (1.0-4.8) k/uL Sodium 136 L (137-145) mmol/L Carbon Dioxide (22-30) mmol/L BUN 3 L (9-20) mg/dL Creatinine 0.64 L (0.66-1.25) mg/dL Glucose 108 H (74-99) mg/dL AST 66 H (17-59) U/L ALT 52 H (4-49) U/L U Benzodiazepines Scrn (NotDetected) U Marijuana (THC) Screen (NotDetected) Serum Alcohol mg/dL Thrombosis Risk Factor Assmnt - Choose All That Apply Each Factor Represents 1 point: Age 41-60 years Thrombosis Risk Factor Assessment Total Risk Factor Score: 1 Thrombosis Risk Factor Assessment Level: Low Risk Assessment and Plan Assessment: Acute alcohol intoxication, at-risk of for alcohol withdrawal symptoms Severe alcohol abuse and previous admissions with intoxication. Acute gastroenteritis, mostly related to alcohol. Rule out C. diff. Rule out viral and call. Ongoing cough and phlegm for a few months. Rule out aspiration pneumonia. COPD not in exacerbation Ongoing nicotine addiction Anxiety/depression. Patient denies suicidal ideation, associated with some panic attacks Macrocytosis secondary to alcohol abuse Mild transaminitis AST greater than ALT, mostly secondary to alcohol effect. Trending down Marijuana and history of crack cocaine use previously. Plan: This is a pleasant 50 years old male who presents with alcohol intoxication, continue with vitamins and thiamine, continue with CIWA protocol. Psych consult ordered from the emergency room and we will follow the recommendation. Also we'll start the patient on IV fluid, bowel rest, nausea treatment with Zofran. Tylenol for pain management. Also we'll check chest x-ray. Chest: Red and C. diff. Labs and medication were reviewed.. Continue same treatment. Continue with symptomatic treatment. Resume home medication. Monitor lytes and vitals. DVT and GI prophylaxis. Further recommendations depends on the clinical course of the patient DVT prophylaxis: Subcutaneous heparin GI Prophylaxis: Protonix terminologist Prognosis is guarded
--- NOTE | 2020-09-02 10:37 | XR ---
EXAMINATION TYPE: XR chest 2V DATE OF EXAM: 09/02/2020 COMPARISON: 06/17/2020 HISTORY: 50-year-old male alcoholic with vomiting TECHNIQUE: Frontal and lateral views FINDINGS: Heart normal size. Aorta and pulmonary vasculature within normal limits. Hyperinflation. Old healed l eft posterior rib fracture deformity. No consolidation or pleural effusion. IMPRESSION: COPD. No acute cardiopulmonary process.
[2020-09-02] MEDS: PANTOPRAZOLE 40 MG/10 ML VIAL IVP SCH (11:35)
[2020-09-02] MEDS ORDERED: MULTIVITAMINS, THERA 1 EACH TAB PO SCH (12:00)
[2020-09-02] MEDS ORDERED: FOLIC ACID 1 MG TAB PO SCH (12:00)
[2020-09-02] MEDS: SODIUM CHLORIDE 0.9% 1,000 ML IV SCH (12:33)
[2020-09-02 15:11] VITALS: BMI 18.6
--- NOTE | 2020-09-02 16:49 | CONS ---
CONSULTATION DATE OF SERVICE: 09/02/2020 PURPOSE FOR CONSULTATION: Evaluate for alcohol-related issues and acute alcohol withdrawal. The patient has a history of depression. HISTORY OF PRESENT ILLNESS: The patient is a 50-year-old male. He presented to the ED with nausea, vomiting, and continued diarrhea. He has had a recent increase in his drinking, though has been drinking on a daily basis pretty much throughout 2019. He described that typically he drinks 18-24 beers daily. He had tried cutting down just in the last day or two. He said his last use of alcohol was on the in the morning time when he drank two beers. He said he started vomiting teen which was part of him coming to the hospital. He has had various bouts of going through withdrawal and recognized the problems he was having. He said in regard to his drinking history that he was in [place] a couple of years ago. He said his drinking would get very intense and he would make an effort to sober up and would stay away from alcohol for a few weeks to maybe a month and he might go back to slowly starting to drink again, which would build up to serious drinking. He said his last period of sobriety was in August of 2019. He said he stopped drinking and started working at [employer]. He said when COVID hit he lost his job and then just started drinking regularly. He says pretty much he has been drinking since then. He was vague about whether he has experienced delirium tremens, though he did note some episodes in withdrawal when he hallucinated and was disconnected from the immediate situation. He did not believe that he has had any withdrawal related seizures. He acknowledges drinking pretty much continuously throughout the last nine months. The patient also notes that he smokes marijuana he says "a little bit most days." He denies use of any other abusive substances including no street drugs or prescription addictive medications. He lives alone. Currently he is on unemployment. He was last seen in psychiatric consultation on 06/17/[address] Mc for similar issues when he was admitted to the medical floor for acute alcohol withdrawal. Dr. Mc noted a history of depression, though no issues of suicidality. The patient acknowledges currently that he has some depression mainly related to his struggles over alcohol. He denies any thoughts of harm to self or others. Noted that I saw the patient in psychiatric consultation 06/08/2020. I refer the reader to that consultation note for details. In addition, I had previously seen the patient in consultation on 09/04 and 09/05/2018 under similar circumstances. MENTAL STATUS EXAM: Patient was sitting half up in bed. He gave fair eye contact/ He was restless. He answered questions with brief responses. He did say a lot. His affect was quite anxious. His mood was depressed. He was significantly distressed. There was no indication of thought disorder. The patient denied any thoughts of harm to self or others. He was oriented and alert. ASSESSMENT: I will continue a diagnosis of alcohol dependence, acute alcohol withdrawal and depression. At this point, the patient continues to be at some risk for delirium tremens and needs to be followed with CIWA and vital signs with adjunctive use of Ativan. It is noted that his blood pressure and temperature have been stable with his last readings at 7:45 am of BP 126/82, pulse 101, temperature 97.8, respirations 18, oxygen saturation 97. His pulse is slightly elevated. He continues at risk for DTs for the first 3-5 days in withdrawal. After that he could be taken off of Ativan. I will start the patient on Zyprexa 5 mg 3 times a day. The aim of Zyprexa is to help reduce physiologic stress response relating to acute alcohol withdrawal. I discussed the time course of withdrawal over six weeks and beyond. I discussed with the patient that the main focus is to help him get through the first six weeks of withdrawal and then evaluate for mood difficulties or other mental health issues beyond that. The patient did say that he would be interested in getting outpatient followup through [facility]. He was unclear about the option of an inpatient program. I provided the patient with information in a handout about alcohol withdrawal and nonpharmacologic interventions to help him manage early acute withdrawal. I will discontinue psychiatric followup at this point, though for any further issues please re- consult Psychiatry. MMODL / IJN: [id number] /
[2020-09-02] MEDS: OLANZapine 5 MG TAB PO SCH ×2 (21:11→22:23)
[2020-09-03 01:20] VITALS: RESP 17
[2020-09-03] MEDS: THIAMINE 100 MG TAB PO SCH (07:59)
[2020-09-03] MEDS: OLANZapine 5 MG TAB PO SCH (07:59)
[2020-09-03] MEDS: MAGNESIUM OXIDE 400 MG TAB PO SCH (08:00)
[2020-09-03] MEDS: HEPARIN SODIUM,PORCINE 5,000 UNIT/ML 1 ML VIAL SQ SCH (08:00)
[2020-09-03] MEDS: PANTOPRAZOLE 40 MG/10 ML VIAL IVP SCH (08:01)
[2020-09-03] MEDS: SODIUM CHLORIDE 0.9% 1,000 ML IV SCH (08:01)
[2020-09-03] MEDS ORDERED: NICOTINE 21MG/24HR PATCH TRANSDERM SCH (09:00)
[2020-09-03] MEDS ORDERED: LORazepam 2 MG/ML INJ IV STA (09:50)
[2020-09-03] MEDS ORDERED: diazePAM 5 MG TAB PO STA (09:50)
--- NOTE | 2020-09-03 12:20 | P.PN ---
Subjective Patient is a 50-year-old male with a known history of severe alcohol abuse, nicotine dependence, anxiety/depression and marijuana use presents to ER due to alcohol intoxication . Patient states that he drinks about a case of beer every day about 18-24 beers daily. He came in because of abdominal pain and nausea and diarrhea for about a week. His pain is. Umbilical, felt like burning, nonradiating, associated with bowel movement, currently he does not have bowel pain as more talking. He has 3-4 loose bowel movements a day with small amount, light brown with no blood. He has significant nausea but no vomiting. Patient is unable to eat this morning because of his severe nausea. Yesterday he was intoxicated with alcohol and his level was high at 280, today he is awake and alert and his alcohol level less than 10. He denies dyspnea. However he has coughing with white phlegm since last February. No chest pain. He has some headache probably from alcohol intoxication He smokes about 1 pack per day, patient was consult but he does not want to quit. However he agrees to nicotine patch while in house. He smokes little marijuana Vitals stable. Labs including CBC and BMP are unremarkable, liver enzymes slightly elevated mostly secondary to alcohol affect with trending down. Urine drug screen is positive for benzodiazepines and marijuana. Alcohol level is elevated at 280 09/03/2020 Patient is a pleasant 50 years old male who presents with alcohol withdrawal acute gastroenteritis-like picture. His nausea vomiting and abdominal pain are improved today, he wants to start regular diet which is ordered. Psychiatrist evaluated the patient and ordered Zyprexa, please refer to their note for more details. Chest x-ray: No acute process, patient with no respiratory symptoms today Patient was feeling better today and he wanted to be discharged to his CIWA score was 0 this morning I expected to be get worse, given the degree of alcohol he was drinking about 18-24 beers per day which is almost all cases, explained the risks and benefits for him and he decided to stay in hospital for now. Patient is kept on CIWA protocol and virtamins and one dose of valium is given as well C. diff and bravo virus tests were negative Review of Systems CONSTITUTIONAL: No fever, no malaise, no fatigue. HEENT: No recent visual problems or hearing problems. Denied any sore throat. CARDIOVASCULAR: No orthopnea, PND, no palpitations, no syncope. PULMONARY: No shortness of breath, no hemoptysis. GASTROINTESTINAL: No dysphagia. Normoactive bowel sounds. NEUROLOGICAL: No headaches, no weakness, no numbness. Active Medications Generic Name Dose Route Start Last Admin Trade Name Freq PRN Reason Stop Dose Admin Acetaminophen 325 mg 09/02/20 10:07 Acetaminophen Tab 325 Mg Tab PO Q6HR PRN Fever and/ or Pain Folic Acid 1 mg 09/02/20 12:00 09/02/20 08:48 Folic Acid 1 Mg Tab PO 1 mg DAILY@1200 PRASAD Administration Guaifenesin/Dextromethorphan 10 ml 09/02/20 10:11 Guaifenesin-Dm 100-10mg/5ml 10 Ml Cup PO Q6H PRN Cough Heparin Sodium (Porcine) 5,000 unit 09/01/20 21:15 09/03/20 08:00 Heparin Sodium,Porcine 5,000 Unit/Ml 1 Ml Vial SQ Not Given Q12HR PRASAD Sodium Chloride 1,000 mls @ 75 mls/hr 09/02/20 10:15 09/03/20 08:01 Saline 0.9% IV 75 mls/hr .[id number] PRASAD Administration Lorazepam 1 mg 09/01/20 16:45 09/02/20 18:12 Lorazepam 2 Mg/Ml Inj IV 1 mg Q2HR PRN Administration CIWA 8 or 9 Lorazepam 1 mg 09/01/20 16:45 09/02/20 21:13 Lorazepam 2 Mg/Ml Inj IV 1 mg Q1HR PRN Administration CIWA 10 to 15 Magnesium Oxide 200 mg 09/02/20 09:00 09/03/20 08:00 Magnesium Oxide 400 Mg Tab PO 200 mg DAILY PRASAD Administration Multivitamins 1 each 09/02/20 12:00 09/02/20 08:48 Multivitamins, Thera 1 Each Tab PO 1 each DAILY@1200 PRASAD Administration Naloxone HCl 0.2 mg 09/01/20 16:50 Naloxone 0.4 Mg/Ml 1 Ml Vial IV Q2M PRN Opioid Reversal Nicotine 1 patch 09/03/20 09:00 09/03/20 08:00 Nicotine 21mg/24hr Patch TRANSDERM 1 patch DAILY PRASAD Administration Olanzapine 5 mg 09/02/20 18:15 09/03/20 07:59 Olanzapine 5 Mg Tab PO 5 mg TID PRASAD Administration Ondansetron HCl 4 mg 09/01/20 16:50 09/01/20 17:28 Ondansetron 4 Mg/2 Ml Vial IVP 4 mg Q8HR PRN Administration Nausea And Vomiting Pantoprazole Sodium 40 mg 09/02/20 10:15 09/03/20 08:01 Pantoprazole 40 Mg/10 Ml Vial IVP Not Given DAILY [facility] Thiamine HCl 100 mg 09/02/20 07:30 09/03/20 07:59 Thiamine 100 Mg Tab PO 100 mg BID-W/MEALS PRASAD Administration Objective - Vital Signs Vital signs: Vital Signs Temp 98.0 F 09/03/20 06:35 Pulse 87 09/03/20 08:00 Resp 17 09/03/20 08:00 BP 123/84 09/03/20 06:35 Pulse Ox 98 09/03/20 06:35 Intake & Output 09/02/20 09/03/20 09/03/20 18:59 06:59 18:59 Intake Total 200 320 Output Total 250 Balance 200 -250 320 Weight 58.967 kg Intake: Oral 320 Other 200 Output: Urine 250 - Exam GENERAL: The patient is alert and oriented x3, not in any acute distress. Well developed, well nourished. HEENT: Pupils are round and equally reacting to light. EOMI. No scleral icterus. No conjunctival pallor. Normocephalic, atraumatic. No pharyngeal erythema. No thyromegaly. CARDIOVASCULAR: S1 and S2 present. No murmurs, rubs, or gallops. PULMONARY: Chest is clear to auscultation, no wheezing or crackles. ABDOMEN: Soft, nontender, nondistended, normoactive bowel sounds. No palpable organomegaly. MUSCULOSKELETAL: No joint swelling or deformity. EXTREMITIES: No cyanosis, clubbing, or pedal edema. NEUROLOGICAL: Gross neurological examination did not reveal any focal deficits. SKIN: No rashes. no petechiae. - Labs CBC & Chem 7: 09/02/20 06:25 09/02/20 06:25 Assessment and Plan Assessment: Acute alcohol intoxication, at-risk of for alcohol withdrawal symptoms Severe alcohol abuse and previous admissions with intoxication. Acute gastroenteritis, mostly related to alcohol. Resolved Ongoing cough and phlegm for a few months. Resolved. No pneumonia COPD not in exacerbation Ongoing nicotine addiction Anxiety/depression. Patient denies suicidal ideation, associated with some panic attacks Macrocytosis secondary to alcohol abuse Mild transaminitis AST greater than ALT, mostly secondary to alcohol effect. Trending down Marijuana and history of crack cocaine use previously. Plan: This is a pleasant 50 years old male who presents with alcohol intoxication, continue with vitamins and thiamine, continue with CIWA protocol. Psych consult ordered from the emergency room and we will follow the recommendation. Also we'll start the patient on IV fluid, bowel rest, nausea treatment with Zofran. Tylenol for pain management. Also we'll check chest x-ray. Chest: Red and C. diff. Labs and medication were reviewed.. Continue same treatment. Continue with symptomatic treatment. Resume home medication. Monitor lytes and vitals. DVT and GI prophylaxis. Further recommendations depends on the clinical course of the patient DVT prophylaxis: Subcutaneous heparin GI Prophylaxis: Protonix assisted Prognosis is guarded
[2020-09-03 15:20] VITALS: BP 127/81; PULSE 94; TEMP 97.6
--- NOTE | 2020-09-03 22:05 | P.DS ---
Providers Date of admission: 09/03/20 09:06 Attending physician: Amando Delgado MD Consults: 09/01/20 16:50 Consult Physician Stat Consulting Provider: Ross Cline Consult Reason/Comments: Alcohol intoxication, depression Do you want consulting provider notified?: Yes [facility] Course: Please note patient was not discharged but he left AMA Patient asked me to discharge the morning I told him he might go on to more severe alcohol withdrawal given extensive multifocal he was drinking alcohol he was looking pretty much stable with normal symptoms and mild withdrawal from alcohol, He is at high risk of severe alcohol and delirium tremens especially he told me he is planning to quit drinking alcohol, explained to him the risks i ncluding but not limited to risk of aspiration pneumonia, cardiac arrhythmia and/or , then he agrees to stay and I provided him with oral Valium 1, 1 dose of Ativan and advanced diet to regular meal On the afternoon and was approached by the psychiatric abdomen. Patient wants to be discharged for leave AMA . I went and up to the patient and explained to him the situation again and the same risks as above, he was adamant on leaving. Patient was fully awake and oriented to time place and person and his illness, he was inside. Based upon my evaluation patient has capacity to make medical decision. I asked the patient. There is anything I can do to prevent him from leaving he said "no" . I explained for the patient to see his PCP as soon as possible and if he changed his mind to call 911 and to come to emergency room right away. He verbalized understanding however he refused to stay of note psychiatric already evaluated the patient and no need for inpatient psychiatric illness, patient is not suicidal, and they discontinued further follow-up. Please refer to my progress note from today for more details Patient Condition at Discharge: Fair Plan - Discharge Summary Discharge Rx Participant: Yes New Discharge Prescriptions: No Action RX: Magnesium 250 mg PO DAILY #30 tablet RX: Folic Acid 1 mg PO DAILY@1200 #30 tab RX: Multivitamins, Thera [Multivitamin (formulary)] 1 tab PO DAILY@1200 RX: Thiamine [Vitamin B-1] 100 mg PO AC-BID RX: LORazepam [Ativan] 0.5 mg PO BID PRN #10 tab PRN Reason: Withdrawal Symptoms Discharge Medication List RX: Magnesium 250 mg PO DAILY #30 tablet 04/01/20 [Rx] RX: Folic Acid 1 mg PO DAILY@1200 #30 tab 06/10/20 [Rx] RX: Multivitamins, Thera [Multivitamin (formulary)] 1 tab PO DAILY@1200 06/16/20 [History] RX: Thiamine [Vitamin B-1] 100 mg PO AC-BID 06/16/20 [History] RX: LORazepam [Ativan] 0.5 mg PO BID PRN #10 tab 08/24/20 [Rx] Follow up Appointment(s)/Referral(s): Javon Anaya MD [Primary Care Provider] - 1-2 days Patient Instructions/Handouts: Alcohol Intoxication (ED) Discharge Disposition: Left Against Medical Advice
[2020-09-04] MEDS ORDERED: PANTOPRAZOLE 40 MG TABLET PO SCH (09:00)
== END 2020-09-03 15:48 | disposition left against medical advice (07) | DRG 894 ==
LOC: EC 15:07 → 5NMEDONC 16:58 → OBSVTOIN 09-03 09:06
PROVIDERS: ADMIT Internal Medicine; ATTEND Internal Medicine
DX: F10.229 Alcohol dependence with intoxication, unspecified (principal); F10.239 Alcohol dependence with withdrawal, unspecified; F17.210 Nicotine dependence, cigarettes, uncomplicated; F32.9 Major depressive disorder, single episode, unspecified; F41.9 Anxiety disorder, unspecified; J44.9 Chronic obstructive pulmonary disease, unspecified; Y90.8 Blood alcohol level of 240 mg/100 ml or more; K52.89 Other specified noninfective gastroenteritis and colitis; Z56.0 Unemployment, unspecified; Z79.899 Other long term (current) drug therapy; Z82.5 Family history of asthma and other chronic lower respiratory diseases; Z20.828 Contact with and (suspected) exposure to other viral communicable diseases; Z60.2 Problems related to living alone; R45.1 Restlessness and agitation; R51.9 Headache, unspecified; R94.5 Abnormal results of liver function studies; F14.21 Cocaine dependence, in remission; Z82.61 Family history of arthritis
CPT/HCPCS: 36415; 71046; 80053; 80306; 80320; 83735; 85025; 87324; 87635; 96374; 96375; 96376; 99285

== ENCOUNTER 2020-09-05 00:10 | Emergency (ER) | payer OTHER ==
[2020-09-05 00:16] VITALS: RESP 20; TEMP 98.3
[2020-09-05] MEDS ORDERED: LORazepam 1 MG TAB PO STA ×2 (00:28→00:45)
[2020-09-05] MEDS ORDERED: THIAMINE 100 MG/ML 2 ML VIAL IM STA (00:45)
[2020-09-05] MEDS ORDERED: LORazepam 2 MG/ML INJ IV PRN ×3 (00:45→04:46)
[2020-09-05] MEDS: LORazepam 2 MG/ML INJ IV PRN ×2 (01:12→02:41)
[2020-09-05 01:22] LABS: ALT 70 U/L (4-49); AST 102 U/L (17-59); African American GFR (CKD) >90 (>60 ml/min/1.73 sqM); Albumin 4.2 g/dL (3.5-5.0); Alkaline Phosphatase 110 U/L (38-126); Anion Gap 11 mmol/L; Basophils # (A) 0.1 k/uL (0-0.2); Basophils % (A) 1 %; Blood Urea Nitrogen 4 mg/dL (9-20); Calcium 8.8 mg/dL (8.4-10.2); Carbon Dioxide 23 mmol/L (22-30); Chloride 110 mmol/L (98-107); Eosinophils # (A) 0.5 k/uL (0-0.7); Eosinophils % (A) 6 %; Glucose 81 mg/dL (74-99); HCT 50.4 % (39.0-53.0); HGB 16.6 gm/dL (13.0-17.5); Lymphocytes # (A) 2.7 k/uL (1.0-4.8); Lymphocytes % (A) 35 %; MCH 34.8 pg (25.0-35.0); MCV 105.5 fL (80.0-100.0); Macrocytosis Moderate; Mean Platelet Volume 9.2; Monocytes # (A) 0.5 k/uL (0-1.0); Monocytes % (A) 6 %; Neutrophils # (A) 3.7 k/uL (1.3-7.7); Neutrophils % (A) 49 %; Non-African American GFR(CKD) >90 (>60 ml/min/1.73 sqM); Phosphorus 4.4 mg/dL (2.5-4.5); Platelet Count 147 k/uL (150-450); Potassium 4.2 mmol/L (3.5-5.1); RBC 4.78 m/uL (4.30-5.90); RDW 14.3 % (11.5-15.5); Sodium 144 mmol/L (137-145); Total Bilirubin 0.3 mg/dL (0.2-1.3); Total Protein 7.3 g/dL (6.3-8.2); WBC 7.6 k/uL (3.8-10.6)
[2020-09-05 01:27] LABS: Alcohol 204 mg/dL
[2020-09-05 01:46] LABS: Amphetamine Screen,Urine Not Detected (NotDetected); Barbiturate Screen,Urine Not Detected (NotDetected); Benzodiazepines Screen,Urine Detected (NotDetected); Cocaine Screen,Urine Not Detected (NotDetected); Methadone Screen, Urine Not Detected (NotDetected); Opiate Screen,Urine Not Detected (NotDetected); Oxycodone Screen, Urine Not Detected (NotDetected); Phencyclidine Screen,Urine Not Detected (NotDetected); Tricyclic Antidepressant,Urine Not Detected (NotDetected); Urn Cannabinoid Scrn Detected (NotDetected)
[2020-09-05] MEDS ORDERED: SODIUM CHLORIDE 0.9% 1,000 ML with MVI, ADULT NO.4 WITH VIT K 10 ML, THIAMINE 100 MG, F... IV ONE ×4 (02:10)
--- NOTE | 2020-09-05 02:51 | ED ---
General Adult HPI - General Source: patient, RN notes reviewed, old records reviewed Mode of arrival: ambulatory Limitations: no limitations <Dale Myers - Last Filed: 09/05/20 02:51> <Cas Nath - Last Filed: 09/05/20 04:48> - General Chief complaint: Anxiety Stated complaint: Anxiety Time Seen by Provider: 09/05/20 00:20 - History of Present Illness Initial comments: 50-year-old male patient ED for evaluation. Patient reports that he is intoxicated K with alcohol. Reports he is very anxious. Please that he may possibly be withdrawing. Denies any other acute complaints. Systemic: Pt denies fatigue, fever/chills, rash. Pt denies weakness, night sweats, weight loss. Neuro: Pt denies headache, visual disturbances, syncope or pre-syncope. HEENT: Pt denies ocular discharge or irritation, otalgia, rhinorrhea, pharyngitis or notable lymphadenopathy. Cardiopulmonary: Pt denies chest pain, SOB, heart palpitations, dyspnea on exertion. Abdominal/GI: Pt denies abdominal pain, n/v/d. : Pt denies dysuria, burning w/ urination, frequency/urgency. Denies new onset urinary or bowel incontinence. MSK: Pt denies myalgia, loss of strength or function in extremities. Neuro: Pt denies new onset weakness, paresthesias. (Dale Myers) - Related Data Home Medications Medication Instructions Recorded Confirmed Multivitamins, Thera [Multivitamin 1 tab PO DAILY@1200 06/16/20 09/01/20 (formulary)] Thiamine [Vitamin B-1] 100 mg PO AC-BID 06/16/20 09/01/20 Previous Rx's Medication Instructions Recorded Magnesium 250 mg PO DAILY #30 tablet 04/01/20 Folic Acid 1 mg PO DAILY@1200 #30 tab 06/10/20 LORazepam [Ativan] 0.5 mg PO BID PRN #10 tab 08/24/20 Allergies Allergy/AdvReac Type Severity Reaction Status Date / Time No Known Allergies Allergy Verified 09/05/20 00:16 Review of Systems ROS Other: All systems not noted in ROS Statement are negative. <Dale Myers - Last Filed: 09/05/20 02:51> ROS Other: All systems not noted in ROS Statement are negative. <Cas Nath - Last Filed: 09/05/20 04:48> ROS Statement: Those systems with pertinent positive or pertinent negative responses have been documented in the HPI. Past Medical History Past Medical History: COPD Additional Past Medical History / Comment(s): ETOH abuse, smoker, History of Any Multi-Drug Resistant Organisms: None Reported Past Surgical History: Adenoidectomy, Hernia Repair, Tonsillectomy Past Anesthesia/Blood Transfusion Reactions: No Reported Reaction Past Psychological History: Anxiety, Depression Smoking Status: Current every day smoker Past Alcohol Use History: Abuse, Daily, Heavy Past Drug Use History: Marijuana - Past Family History Brother(s) Family Medical History: Osteoarthritis (OA) Mother Family Medical History: COPD Additional Family Medical History / Comment(s): pulmonary fibrosis <Dale Myers - Last Filed: 09/05/20 02:51> General Exam Limitations: no limitations <Dale Myers - Last Filed: 09/05/20 02:51> General appearance: alert, in no apparent distress Head exam: Present: atraumatic, normocephalic, normal inspection Eye exam: Present: normal appearance, PERRL, EOMI. Absent: scleral icterus, conjunctival injection, periorbital swelling ENT exam: Present: normal exam, mucous membranes moist Neck exam: Present: normal inspection. Absent: tenderness, meningismus, lymphadenopathy Respiratory exam: Present: normal lung sounds bilaterally. Absent: respiratory distress, wheezes, rales, rhonchi, stridor Cardiovascular Exam: Present: regular rate, normal rhythm, normal heart sounds. Absent: systolic murmur, diastolic murmur, rubs, gallop, clicks GI/Abdominal exam: Present: soft, normal bowel sounds. Absent: distended, tenderness, guarding, rebound, rigid Extremities exam: Present: normal inspection, full ROM, normal capillary refill. Absent: tenderness, pedal edema, joint swelling, calf tenderness Back exam: Present: normal inspection Neurological exam: Present: alert, oriented X3, CN II-XII intact Psychiatric exam: Present: normal affect, normal mood Skin exam: Present: warm, dry, intact, normal color. Absent: rash <Cas Nath - Last Filed: 09/05/20 04:48> - General Exam Comments Initial Comments: Constitutional: NAD, AOX3, Pt has pleasant affect. HEENT: NC/AT, trachea midline, neck supple, no lymphadenopathy. External ears appear normal, without discharge. Mucous membranes moist. Eyes PERRLA, EOM intact. There is no scleral icterus. No pallor noted. Cardiopulmonary: RRR, no murmurs, rubs or gallops, no JVD noted. Lungs CTAB in anterior and posterior pierre. No peripheral edema. Abdominal exam: Abdomen soft and non-distended. Abdomen non-tender to palpation in all 4 quadrants. Bowel sounds active in LLQ. No hepatosplenomegaly. No ecchymosis Neuro: CN II-XII grossly intact. No nuchal rigidity. No raccon eyes, no adler sign, no hemotympanum. No cervical spinal tenderness. MSK: Full active ROM in upper and lower extremities, 5/5 stregnth. (Dale Myers) Course <Cas Nath - Last Filed: 09/05/20 04:48> Vital Signs 09/05/20 00:12 Temperature 98.3 F Pulse Rate 125 H Respiratory 20 Rate Blood Pressure 151/87 O2 Sat by Pulse 98 Oximetry - Reevaluation(s) Reevaluation #1: 09/05/20 04:02 Medical record is reviewed (Cas Nath) Reevaluation #2: 09/05/20 04:02 Patient anxiety is improving, alcohol intoxication is improving (Cas Nath) Medical Decision Making - Lab Data Result diagrams: 09/05/20 00:44 09/05/20 00:44 <Dale Myers - Last Filed: 09/05/20 02:51> - Lab Data Result diagrams: 09/05/20 00:44 09/05/20 00:44 <Cas Nath - Last Filed: 09/05/20 04:48> - Medical Decision Making 50-year-old male patient ED for evaluation of all clot intoxication. Patient was doing very anxious and somewhat tremulous. Physical exam is otherwise negative for acute pathology. Laboratory investigations are obtained displayed very mild transaminitis, ETOH 204. Patient signed out to Dr. Nath at shift change. (Dale Myers) 50 male DF for evaluation. Alcohol intoxication anxiety. Patient is stable for discharge home itchy 1 male for alcohol intoxication anxiety (Roskobebo,Chri stophe B) - Lab Data Lab Results 09/05/20 09/05/20 09/05/20 Range/Units 00:44 00:44 01:20 WBC 7.6 (3.8-10.6) k/uL RBC 4.78 (4.30-5.90) m/uL Hgb 16.6 (13.0-17.5) gm/dL Hct 50.4 (39.0-53.0) % MCV 105.5 H (80.0-100.0) fL MCH 34.8 (25.0-35.0) pg MCHC 33.0 (31.0-37.0) g/dL RDW 14.3 (11.5-15.5) % Plt Count 147 L (150-450) k/uL MPV 9.2 Neutrophils % 49 % Lymphocytes % 35 % Monocytes % 6 % Eosinophils % 6 % Basophils % 1 % Neutrophils # 3.7 (1.3-7.7) k/uL Lymphocytes # 2.7 (1.0-4.8) k/uL Monocytes # 0.5 (0-1.0) k/uL Eosinophils # 0.5 (0-0.7) k/uL Basophils # 0.1 (0-0.2) k/uL Macrocytosis Moderate Sodium 144 (137-145) mmol/L Potassium 4.2 (3.5-5.1) mmol/L Chloride 110 H (98-107) mmol/L Carbon Dioxide 23 (22-30) mmol/L Anion Gap 11 mmol/L BUN 4 L (9-20) mg/dL Creatinine 0.67 (0.66-1.25) mg/dL Est GFR (CKD-EPI)AfAm >90 (>60 ml/min/1.73 sqM) Est GFR (CKD-EPI)NonAf >90 (>60 ml/min/1.73 sqM) Glucose 81 (74-99) mg/dL Calcium 8.8 (8.4-10.2) mg/dL Phosphorus 4.4 (2.5-4.5) mg/dL Magnesium 2.0 (1.6-2.3) mg/dL Total Bilirubin 0.3 (0.2-1.3) mg/dL AST 102 H (17-59) U/L ALT 70 H (4-49) U/L Alkaline Phosphatase 110 (38-126) U/L Total Protein 7.3 (6.3-8.2) g/dL Albumin 4.2 (3.5-5.0) g/dL Urine Opiates Screen Not Detected (NotDetected) Ur Oxycodone Screen Not Detected (NotDetected) Urine Methadone Screen Not Detected (NotDetected) Ur Propoxyphene Screen Not Detected (NotDetected) Ur Barbiturates Screen Not Detected (NotDetected) U Tricyclic Antidepress Not Detected (NotDetected) Ur Phencyclidine Scrn Not Detected (NotDetected) Ur Amphetamines Screen Not Detected (NotDetected) U Methamphetamines Scrn Not Detected (NotDetected) U Benzodiazepines Scrn Detected H (NotDetected) Urine Cocaine Screen Not Detected (NotDetected) U Marijuana (THC) Screen Detected H (NotDetected) Serum Alcohol 204 H* mg/dL Disposition <Dale Myers J - Last Filed: 09/05/20 02:51> Is patient prescribed a controlled substance at d/c from ED?: No <Cas Nath - Last Filed: 09/05/20 04:48> Clinical Impression: Elevated ETOH level, Alcoholic intoxication Disposition: HOME SELF-CARE Condition: Fair Instructions (If sedation given, give patient instructions): Generalized Anxiety Disorder (ED), Abuse of Alcohol (ED) Referrals: None,Stated [Primary Care Provider] - 1-2 days
[2020-09-05 06:22] VITALS: BP 121/74; PULSE 98
[2020-09-05] MEDS ORDERED: THIAMINE 100 MG TAB PO SCH (17:30)
== END 2020-09-05 07:24 | disposition home or self-care (01) ==
LOC: EC 00:10
DX: F10.129 Alcohol abuse with intoxication, unspecified (principal); R74.01 Elevation of levels of liver transaminase levels; F41.9 Anxiety disorder, unspecified; F17.200 Nicotine dependence, unspecified, uncomplicated
CPT/HCPCS: 82075; 36415; 80053; 83735; 84100; 85025; 80306; 99284; 96365; 96366 ×4; 96375; 96376 ×2; 96372; G0480; J2060; J3411; 80320

== ENCOUNTER 2020-09-07 23:00 | Inpatient (IN) | payer MEDICAID, OTHER ==
[~2020-09-07 23:00] MED LIST: THIAMINE 100 MG TAB PO SCH
[2020-09-07] MEDS ORDERED: chlordiazePOXIDE 25 MG CAP PO STA (23:29)
[2020-09-07] MEDS ORDERED: LORazepam 2 MG/ML INJ IM STA (23:29)
[2020-09-07] MEDS ORDERED: THIAMINE 100 MG TAB PO STA (23:29)
[2020-09-07] MEDS ORDERED: LORazepam 2 MG/ML INJ IM PRN ×2 (23:30)
[2020-09-07 23:31] LABS: Appearance,Urine Clear (Clear); Bilirubin,Urine Negative (Negative); Blood,Urine Negative (Negative); Color,Urine Light Yellow; Glucose,Urine (UA) Negative (Negative); Ketones,Urine Negative (Negative); Leukocyte Esterase,Urine Negative (Negative); Nitrite,Urine Negative (Negative); Protein,Urine Negative (Negative); Specific Gravity,Urine 1.006 (1.001-1.035); Urobilinogen,Urine <2.0 mg/dL (<2.0)
--- NOTE | 2020-09-07 23:35 | ED ---
Psych HPI - General Chief Complaint: Psychiatric Symptoms Stated Complaint: Mental health Time Seen by Provider: 09/07/20 23:10 Source: patient, police Mode of arrival: ambulatory Limitations: no limitations - History of Present Illness Initial Comments: This patient is a 50-year-old man who states he feels like he is going into withdrawal from alcohol and benzodiazepines. The patient states he is feeling anxious and starting to get the shakes. He states that he has previously had seizures due to withdrawal. MD Complaint: suicidal ideation, other Onset/Timin -: days(s) Associated Psychiatric Symptoms: depression, suicidal ideation, other History of same: Yes Improves With: none Worsens With: none Context: recent alcohol abuse - Related Data Home Medications Medication Instructions Recorded Confirmed Multivitamins, Thera [Multivitamin 1 tab PO DAILY@1200 06/16/20 09/08/20 (formulary)] Thiamine [Vitamin B-1] 100 mg PO AC-BID 06/16/20 09/08/20 Previous Rx's Medication Instructions Recorded Magnesium 250 mg PO DAILY #30 tablet 04/01/20 Folic Acid 1 mg PO DAILY@1200 #30 tab 06/10/20 LORazepam [Ativan] 0.5 mg PO BID PRN #10 tab 08/24/20 Allergies Allergy/AdvReac Type Severity Reaction Status Date / Time No Known Allergies Allergy Verified 09/08/20 05:26 Review of Systems ROS Statement: Those systems with pertinent positive or pertinent negative responses have been documented in the HPI. ROS Other: All systems not noted in ROS Statement are negative. Constitutional: Denies: fever, chills Respiratory: Denies: cough, dyspnea Cardiovascular: Reports: palpitations. Denies: chest pain, orthopnea, edema, syncope Gastrointestinal: Reports: nausea. Denies: abdominal pain, vomiting, diarrhea, constipation, hematemesis, melena, hematochezia Genitourinary: Denies: dysuria Musculoskeletal: Denies: back pain Skin: Denies: rash Neurological: Denies: headache, weakness, numbness Psychiatric: Reports: anxiety, depression, suicidal thoughts. Denies: auditory hallucinations, visual hallucinations, homicidal thoughts Past Medical History Past Medical History: COPD Additional Past Medical History / Comment(s): ETOH abuse, smoker, History of Any Multi-Drug Resistant Organisms: None Reported Past Surgical History: Adenoidectomy, Hernia Repair, Tonsillectomy Past Anesthesia/Blood Transfusion Reactions: No Reported Reaction Past Psychological History: Anxiety, Depression Smoking Status: Current every day smoker Past Alcohol Use History: Abuse, Daily, Heavy Past Drug Use History: Marijuana - Past Family History Brother(s) Family Medical History: Osteoarthritis (OA) Mother Family Medical History: COPD Additional Family Medical History / Comment(s): pulmonary fibrosis General Exam Limitations: no limitations General appearance: alert, appears intoxicated, anxious Head exam: Present: atraumatic, normocephalic Eye exam: Present: normal appearance. Absent: scleral icterus, conjunctival injection ENT exam: Present: mucous membranes dry Neck exam: Present: normal inspection, full ROM. Absent: meningismus Respiratory exam: Present: normal lung sounds bilaterally. Absent: respiratory distress, wheezes, rales, rhonchi, stridor Cardiovascular Exam: Present: normal rhythm, tachycardia, normal heart sounds. Absent: systolic murmur, diastolic murmur, rubs, gallop GI/Abdominal exam: Present: soft. Absent: distended, tenderness, guarding, rebound, rigid Extremities exam: Present: normal inspection, normal capillary refill. Absent: pedal edema, calf tenderness Back exam: Present: normal inspection Neurological exam: Present: alert Psychiatric exam: Present: anxious, suicidal ideation. Absent: agitated, flat affect, manic, homicidal ideation Skin exam: Present: warm, dry, intact, normal color. Absent: rash Course Vital Signs 09/07/20 09/08/20 09/08/20 23:02 04:23 06:47 Temperature 98.5 F 97.9 F 97.3 F L Pulse Rate 128 H 107 H Pulse Rate [ 115 H Right Sitting] Respiratory 18 20 15 Rate Blood Pressure 156/96 117/78 Blood Pressure 122/88 [Right Arm Sitting] O2 Sat by Pulse 97 96 97 Oximetry - Reevaluation(s) Reevaluation #1: 09/07/20 23:35 Patient is refusing to have IV placed on arrival Medical Decision Making - Lab Data Result diagrams: 09/08/20 07:52 09/08/20 07:52 Lab Results 09/07/20 09/08/20 Range/Units 23:23 01:44 Urine Color Light Yellow Urine Appearance Clear (Clear) Urine pH 5.0 (5.0-8.0) Ur Specific [place] 1.006 (1.001-1.035) Urine Protein Negative (Negative) Urine Glucose (UA) Negative (Negative) Urine Ketones Negative (Negative) Urine Blood Negative (Negative) Urine Nitrite Negative (Negative) Urine Bilirubin Negative (Negative) Urine Urobilinogen <2.0 (<2.0) mg/dL Ur Leukocyte Esterase Negative (Negative) Urine Opiates Screen Not Detected (NotDetected) Ur Oxycodone Screen Not Detected (NotDetected) Urine Methadone Screen Not Detected (NotDetected) Ur Propoxyphene Screen Not Detected (NotDetected) Ur Barbiturates Screen Not Detected (NotDetected) U Tricyclic Antidepress Not Detected (NotDetected) Ur Phencyclidine Scrn Not Detected (NotDetected) Ur Amphetamines Screen Not Detected (NotDetected) U Methamphetamines Scrn Not Detected (NotDetected) U Benzodiazepines Scrn Detected H (NotDetected) Urine Cocaine Screen Not Detected (NotDetected) U Marijuana (THC) Screen Detected H (NotDetected) Coronavirus (PCR) Not Detected (Not Detectd) Disposition Clinical Impression: Alcohol withdrawal syndrome, Acute anxiety Disposition: ADMITTED IP TO THIS [facility] Condition: Serious Is patient prescribed a controlled substance at d/c from ED?: No
[2020-09-07 23:38] LABS: Amphetamine Screen,Urine Not Detected (NotDetected); Barbiturate Screen,Urine Not Detected (NotDetected); Benzodiazepines Screen,Urine Detected (NotDetected); Cocaine Screen,Urine Not Detected (NotDetected); Methadone Screen, Urine Not Detected (NotDetected); Opiate Screen,Urine Not Detected (NotDetected); Oxycodone Screen, Urine Not Detected (NotDetected); Phencyclidine Screen,Urine Not Detected (NotDetected); Tricyclic Antidepressant,Urine Not Detected (NotDetected); Urn Cannabinoid Scrn Detected (NotDetected)
[2020-09-08] MEDS: LORazepam 2 MG/ML INJ IM PRN ×2 (01:42→05:00)
[2020-09-08] MEDS ORDERED: ACETAMINOPHEN TAB 325 MG TAB PO PRN (06:45)
[2020-09-08] MEDS ORDERED: MAGNESIUM HYDROXIDE 2,400 MG/10 ML CUP PO PRN (06:45)
[2020-09-08] MEDS ORDERED: LORazepam 1 MG TAB PO PRN (06:45)
[2020-09-08] MEDS ORDERED: MAG HYDROX/AL HYDROX/SIMETH 30 ML CUP PO PRN (06:45)
[2020-09-08] MEDS ORDERED: HALOPERIDOL LACTATE 5 MG/ML 1 ML VIAL IM PRN (07:02)
[2020-09-08] MEDS ORDERED: haloperidoL 5 MG TAB PO PRN (07:02)
[2020-09-08] MEDS ORDERED: LORazepam 2 MG/ML INJ IM PRN ×2 (07:02→10:37)
[2020-09-08 08:17] LABS: Basophils # (A) 0.1 k/uL (0-0.2); Basophils % (A) 1 %; Eosinophils # (A) 0.3 k/uL (0-0.7); Eosinophils % (A) 4 %; HCT 52.7 % (39.0-53.0); HGB 17.1 gm/dL (13.0-17.5); Lymphocytes # (A) 2.1 k/uL (1.0-4.8); Lymphocytes % (A) 30 %; MCH 33.5 pg (25.0-35.0); MCHC 32.5 g/dL (31.0-37.0); MCV 103.3 fL (80.0-100.0); Macrocytosis Slight; Mean Platelet Volume 6.9; Monocytes # (A) 0.5 k/uL (0-1.0); Monocytes % (A) 7 %; Neutrophils # (A) 3.7 k/uL (1.3-7.7); Neutrophils % (A) 55 %; Platelet Count 226 k/uL (150-450); RDW 14.3 % (11.5-15.5); WBC 6.8 k/uL (3.8-10.6)
[2020-09-08 08:27] LABS: ALT 63 U/L (4-49); AST 69 U/L (17-59); African American GFR (CKD) >90 (>60 ml/min/1.73 sqM); Albumin 4.5 g/dL (3.5-5.0); Alkaline Phosphatase 85 U/L (38-126); Anion Gap 9 mmol/L; Bilirubin, Delta 0.3 mg/dL (0.0-0.2); Bilirubin,Unconjugated 0.4 mg/dL (0.0-1.1); Blood Urea Nitrogen 4 mg/dL (9-20); Calcium 9.3 mg/dL (8.4-10.2); Carbon Dioxide 30 mmol/L (22-30); Chloride 101 mmol/L (98-107); Cholesterol 231 mg/dL (<200); Glucose 109 mg/dL (74-99); HDL Cholesterol 69 mg/dL (40-60); LDL Cholesterol,Calculated 112 mg/dL (0-99); Non-African American GFR(CKD) >90 (>60 ml/min/1.73 sqM); Potassium 4.1 mmol/L (3.5-5.1); Sodium 140 mmol/L (137-145); Total Bilirubin 0.7 mg/dL (0.2-1.3); Triglycerides 251 mg/dL (<150)
[2020-09-08] MEDS: NICOTINE 14MG/24HR PATCH TRANSDERM SCH (08:53)
[2020-09-08] MEDS: THIAMINE 100 MG TAB PO SCH ×2 (08:56→18:23)
[2020-09-08] MEDS ORDERED: chlordiazePOXIDE 25 MG CAP PO STA (10:07)
[2020-09-08] MEDS ORDERED: LORazepam 1 MG TAB PO STA (10:08)
[2020-09-08] MEDS: ONDANSETRON ODT 4 MG TAB PO PRN ×2 (10:14→17:43)
[2020-09-08] MEDS: LOPERAMIDE 2 MG CAP PO PRN ×3 (10:33→20:50)
--- NOTE | 2020-09-08 11:44 | P.HP ---
Psychiatric H&P - . H&P Date: 09/08/20 History & Physical: IDENTIFYING DATA: He i a 50-year-old single male admitted to psychiatric unit involuntarily. The police patrol lieutenant completed the petition stating that Addison expressed a plan to tie an anchor around his neck and jump into the [place]. HISTORY OF PRESENT ILLNESS: I reviewed the medical record and interviewed the patient. He has a history of an alcohol use disorder with multiple presentations to the emergency room and admissions to medical for the treatment of alcohol intoxication and alcohol withdrawal. Last year, he was admitted 7 times to the medicine unit for alcohol withdrawal or alcohol intoxication. In addition he's had 8 presentations to the emergency room for the same. He complained that he became acutely distressed the evening of admission. He was drinking all day and became markedly anxious and overwhelmed. He began having thoughts of suicide and called the emergency services. He drinks every day as soon as he gets up in the morning until he falls asleep at night. He states he wakes up in the morning anxious, nauseous and unsteady. He has been drinking on a daily basis for all of his adult life. He cannot recall a period of sustained abstinence since he was 17 years old. He is only able stop drinking when he is made to the hospital. He is usually abstinent for a few weeks and no more than a month after discharge. He has had moderate to severe alcohol withdrawal symptoms since admission with CIWA scores ranging from 5-18. The symptoms include nausea, vomiting, tremor, sweating, increased anxiety, restlessness, headache and increased sensitivity to light and sound. He denied experiencing auditory, visual or olfactory hallucinations. He feels depressed and anxious but denied that he is currently experiencing suicidal ideation, thought or plan. His blood alcohol level on presentation to the ED was 204. On presentation to ED or admission to medicine and arrange for him 32 to 398. He has other signs of chronic alcohol use including elevated AST, ALT and MCV. He smokes marijuana but denied use of other drugs. His UDS was positive for benzodiazepines and marijuana. He alleged that he is unaware whether she is having withdrawal seizures or withdrawal delirium. We talked about treatment options and she declined referral to a residential substance abuse treatment program. PAST PSYCHIATRIC HISTORY: He is had no prior psychiatric hospitalizations. He met with a mental health professional "many years ago." PAST MEDICAL HISTORY: COPD ALLERGIES: NO KNOWN DRUG ALLERGIES SUBSTANCE USE HISTORY: He was in a [place] "many years ago". He attended Alcoholics Anonymous while he was in [place] and "for a time after" he was discharged. He is not involved with Alcoholics Anonymous. He is never had a sponsor and doesn't have a home group. FAMILY PSYCHIATRIC/SUBSTANCE USE HISTORY: He is family history of alcohol use problems LEGAL HISTORY: He denied current legal problems. SOCIAL HISTORY: His born and raised in [place]. He is currently unemployed and receives unemployment assistance. 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 He lives in his own apartment. He is never and has no children. MENTAL STATUS EXAM: He presented as a disheveled and tremulous 50-year-old male. He made eye contact and appeared to attend to the interview. He had no distinguishing features or prominent physical abnormalities. He had a distressed facial expression. He was alert and oriented to person, place and time. He had psychomotor retardation. His gait was slow but steady. His speech was spontaneous with decreased rate and rhythm. His affect was flat. He denied current suicidal ideation or wishes. He expressed feelings of hopelessness and helplessness regarding his chronic alcohol use and alcohol use problems. He did not express ideas reference, paranoid ideation or delusions. Her thinking was concrete but his associations were goal-directed. He denied hallucinations did not appear to responding to internal stimuli. Global impression of intellect is average. He recognizes that he has an alcohol use problem is ambivalent about his treatment. STRENGTHS: Stable income, stable housing, relatively good health WEAKNESSES: Chronic alcohol use, unemployment IMPRESSION: He is a 50-year-old male who has a chronic alcohol use disorder. [facility] and complaining of suicidal thoughts and suicidal ideation. Since admission to the unit he is had moderate to severe alcohol withdrawal symptoms uncomplicated by hallucinations, seizures or delirium. The best be treated inpatient basis, elation of psychopharmacology and multimodal therapy. He would benefit from re- admission to residential substance abuse treatment program. PRINCIPLE DIAGNOSIS: Alcohol use disorder severe, alcohol withdrawal, rule out alcohol withdrawal delirium, alcohol induced depressive disorder, rule out major depressive disorder, cannabis use disorder unspecified RECOMMENDATION: Admit the psychiatric unit. Patient can sign a voluntary admission. Consult medicine for initial physical exam and medical history. disposal worker to complete initial psychosocial assessment coordinate discharge and aftercare services. Treat the alcohol withdrawal symptoms with Ativan 1-2 mg by mouth or IM when necessary. Monitor for signs and symptoms of alcohol withdrawal delirium. In case of either transfer to medicine service. Reevaluate psychiatric needs after he recovers from his alcohol withdrawal. Encourage participation in therapeutic groups and activities. Evaluate clinical status response to treatment daily basis. Allergies Allergy/AdvReac Type Severity Reaction Status Date / Time No Known Allergies Allergy Verified 09/08/20 05:26 Vital Signs Temp 98.2 F 09/08/20 09:40 Pulse 117 H 09/08/20 09:40 Resp 20 09/08/20 09:40 BP 129/81 09/08/20 09:40 Pulse Ox 97 09/08/20 06:47 Intake & Output 09/07/20 09/08/20 09/08/20 18:59 06:59 18:59 Weight 74.843 kg 59.959 kg Laboratory Last Values WBC 6.8 k/uL (3.8-10.6) 09/08/20 07:52 RBC 5.10 m/uL (4.30-5.90) 09/08/20 07:52 Hgb 17.1 gm/dL (13.0-17.5) 09/08/20 07:52 Hct 52.7 % (39.0-53.0) 09/08/20 07:52 MCV 103.3 fL (80.0-100.0) H 09/08/20 07:52 MCH 33.5 pg (25.0-35.0) 09/08/20 07:52 MCHC 32.5 g/dL (31.0-37.0) 09/08/20 07:52 RDW 14.3 % (11.5-15.5) 09/08/20 07:52 Plt Count 226 k/uL (150-450) 09/08/20 07:52 MPV 6.9 09/08/20 07:52 Neutrophils % 55 % 09/08/20 07:52 Lymphocytes % 30 % 09/08/20 07:52 Monocytes % 7 % 09/08/20 07:52 Eosinophils % 4 % 09/08/20 07:52 Basophils % 1 % 09/08/20 07:52 Neutrophils # 3.7 k/uL (1.3-7.7) 09/08/20 07:52 Lymphocytes # 2.1 k/uL (1.0-4.8) 09/08/20 07:52 Monocytes # 0.5 k/uL (0-1.0) 09/08/20 07:52 Eosinophils # 0.3 k/uL (0-0.7) 09/08/20 07:52 Basophils # 0.1 k/uL (0-0.2) 09/08/20 07:52 Macrocytosis Slight 09/08/20 07:52 Sodium 140 mmol/L (137-145) 09/08/20 07:52 Potassium 4.1 mmol/L (3.5-5.1) 09/08/20 07:52 Chloride 101 mmol/L (98-107) 09/08/20 07:52 Carbon Dioxide 30 mmol/L (22-30) 09/08/20 07:52 Anion Gap 9 mmol/L 09/08/20 07:52 BUN 4 mg/dL (9-20) L 09/08/20 07:52 Creatinine 0.73 mg/dL (0.66-1.25) 09/08/20 07:52 Est GFR (CKD-EPI)AfAm >90 (>60 ml/min/1.73 sqM) 09/08/20 07:52 Est GFR (CKD-EPI)NonAf >90 (>60 ml/min/1.73 sqM) 09/08/20 07:52 Glucose 109 mg/dL (74-99) H 09/08/20 07:52 Calcium 9.3 mg/dL (8.4-10.2) 09/08/20 07:52 Total Bilirubin 0.7 mg/dL (0.2-1.3) 09/08/20 07:52 Conjugated Bilirubin 0.0 mg/dL (0.0-0.3) 09/08/20 07:52 Unconjugated Bilirubin 0.4 mg/dL (0.0-1.1) 09/08/20 07:52 Delta Bilirubin 0.3 mg/dL (0.0-0.2) H 09/08/20 07:52 AST 69 U/L (17-59) H 09/08/20 07:52 ALT 63 U/L (4-49) H 09/08/20 07:52 Alkaline Phosphatase 85 U/L (38-126) 09/08/20 07:52 Total Protein 8.0 g/dL (6.3-8.2) 09/08/20 07:52 Albumin 4.5 g/dL (3.5-5.0) 09/08/20 07:52 Triglycerides 251 mg/dL (<150) H 09/08/20 07:52 Cholesterol 231 mg/dL (<200) H 09/08/20 07:52 LDL Cholesterol, Calc 112 mg/dL (0-99) H 09/08/20 07:52 HDL Cholesterol 69 mg/dL (40-60) H 09/08/20 07:52 TSH 1.600 mIU/L (0.465-4.680) 09/08/20 07:52 Urine Color Light Yellow 09/07/20 23:23 Urine Appearance Clear (Clear) 09/07/20 23:23 Urine pH 5.0 (5.0-8.0) 09/07/20 23:23 Ur Specific [place] 1.006 (1.001-1.035) 09/07/20 23:23 Urine Protein Negative (Negative) 09/07/20 23:23 Urine Glucose (UA) Negative (Negative) 09/07/20 23:23 Urine Ketones Negative (Negative) 09/07/20 23:23 Urine Blood Negative (Negative) 09/07/20 23:23 Urine Nitrite Negative (Negative) 09/07/20 23:23 Urine Bilirubin Negative (Negative) 09/07/20 23:23 Urine Urobilinogen <2.0 mg/dL (<2.0) 09/07/20 23:23 Ur Leukocyte Esterase Negative (Negative) 09/07/20 23:23 Urine Opiates Screen Not Detected (NotDetected) 09/07/20 23:23 Ur Oxycodone Screen Not Detected (NotDetected) 09/07/20 23:23 Urine Methadone Screen Not Detected (NotDetected) 09/07/20 23:23 Ur Propoxyphene Screen Not Detected (NotDetected) 09/07/20 23:23 Ur Barbiturates Screen Not Detected (NotDetected) 09/07/20 23:23 U Tricyclic Antidepress Not Detected (NotDetected) 09/07/20 23:23 Ur Phencyclidine Scrn Not Detected (NotDetected) 09/07/20 23:23 Ur Amphetamines Screen Not Detected (NotDetected) 09/07/20 23:23 U Methamphetamines Scrn Not Detected (NotDetected) 09/07/20 23:23 U Benzodiazepines Scrn Detected (NotDetected) H 09/07/20 23:23 Urine Cocaine Screen Not Detected (NotDetected) 09/07/20 23:23 U Marijuana (THC) Screen Detected (NotDetected) H 09/07/20 23:23 Coronavirus (PCR) Not Detected (Not Detectd) 09/08/20 01:44 09/08/20 11:18
[2020-09-08] MEDS ORDERED: ALBUTEROL INHALER 60 PUFF/8 GM INHALER (MHU) INHALATION PRN (11:47)
--- NOTE | 2020-09-08 11:48 | P.HPMEDMHU ---
History of Present Illness H&P Date: 09/08/20 Chief Complaint: Alcohol withdrawal 50 year old man with alcohol abuse disorder, COPD, nicotine dependence, anxiety/depression presented for alcohol withdrawal and was admitted to the [facility]. Medicine was consulted by [facility] for help in treating alcohol withdrawal. Pt says that he drinks 20+ drinks per day, mostly beer. He says that he has tremors upon waking up and he has to drink several beers until he feels better. He tells me the first couple beers he drinks, he vomits up due to stomach uneasiness. Pt reports symptoms chills, nausea, vomiting, abdominal pain and uneasiness, diarrhea. He denies chest pain, dyspnea, fevers, numbness/weakness of extremities. By the time of my evaluation, patient had had 100mg PO librium + 2mg IM ativan + 1mg IM ativan; with these medications, patient reported improvement in tremors. He denies visual hallucinations, tactile hallucinations. He reports that in the past he has had auditory hallucinations. Review of Systems All Systems reviewed and pertinent positives and negatives noted in HPI, all other symptoms are negative Past Medical History Past Medical History: COPD Additional Past Medical History / Comment(s): ETOH abuse, smoker, History of Any Multi-Drug Resistant Organisms: None Reported Past Surgical History: Adenoidectomy, Hernia Repair, Tonsillectomy Past Anesthesia/Blood Transfusion Reactions: No Reported Reaction Smoking Status: Current every day smoker - Past Family History Brother(s) Family Medical History: Osteoarthritis (OA) Mother Family Medical History: COPD Additional Family Medical History / Comment(s): pulmonary fibrosis Medications and Allergies Home Medications Medication Instructions Recorded Confirmed Type Magnesium 250 mg PO DAILY #30 tablet 04/01/20 09/08/20 Rx Folic Acid 1 mg PO DAILY@1200 #30 tab 06/10/20 09/08/20 Rx Multivitamins, Thera [Multivitamin 1 tab PO DAILY@1200 06/16/20 09/08/20 History (formulary)] Thiamine [Vitamin B-1] 100 mg PO AC-BID 06/16/20 09/08/20 History LORazepam [Ativan] 0.5 mg PO BID PRN #10 tab 08/24/20 09/08/20 Rx Allergies Allergy/AdvReac Type Severity Reaction Status Date / Time No Known Allergies Allergy Verified 09/08/20 05:26 Physical Exam Osteopathic Statement: *. No significant issues noted on an osteopathic structural exam other than those noted in the History and Physical/Consult. Vitals: Vital Signs Temp Pulse Pulse Resp BP BP Pulse Ox 09/08/20 09:40 98.2 F 117 H 20 129/81 09/08/20 06:47 97.3 F L 115 H 15 122/88 97 09/08/20 04:23 97.9 F 107 H 20 117/78 96 09/07/20 23:02 98.5 F 128 H 18 156/96 97 Intake and Output 09/07/20 09/08/20 09/08/20 22:59 06:59 14:59 Other: Weight 74.843 kg 59.959 kg Gen: awake, alert HEENT: normocephalic, atraumatic, good hearing acuity, moist mucous membranes Resp: good air exchange, breathing comfortably with no accessory muscle use, clear to auscultation bilaterally, no wheezes CVS: good distal perfusion x 4, is tachycardic, no murmurs, regular rhythm GI: soft, NTTP, ND : no SPT, no CVAT, smith catheter is notpresent MSK: no pitting edema, no clubbing Neuro: non-focal, moving all extremities Psych: cooperative, Anxious mood Cranial Nerve Examination - Cranial Nerves Cranial Nerve II- Optic: Intact Cranial Nerve III- Oculomotor: Intact Cranial Nerve IV- Trochlear: Intact Cranial Nerve V- Trigeminal: Intact Cranial Nerve - Abducens: Intact Cranial Nerve VII- Facial: Intact Cranial Nerve VIII- Auditory: Intact Cranial Nerve IX- Glossopharyngeal: Intact Cranial Nerve X- Vagus: Intact Cranial Nerve XI- Accessory: Intact Cranial Nerve XII- Hypoglossal: Intact Results CBC & Chem 7: 09/08/20 07:52 09/08/20 07:52 Labs: Abnormal Lab Results - Last 24 Hours (Table) 09/07/20 09/08/20 09/08/20 Range/Units 23:23 07:52 07:52 MCV 103.3 H (80.0-100.0) fL BUN 4 L (9-20) mg/dL Glucose 109 H (74-99) mg/dL Delta Bilirubin 0.3 H (0.0-0.2) mg/dL AST 69 H (17-59) U/L ALT 63 H (4-49) U/L Triglycerides 251 H (<150) mg/dL Cholesterol 231 H (<200) mg/dL LDL Cholesterol, Calc 112 H (0-99) mg/dL HDL Cholesterol 69 H (40-60) mg/dL U Benzodiazepines Scrn Detected H (NotDetected) U Marijuana (THC) Screen Detected H (NotDetected) Assessment and Plan Assessment: 1. Alcohol Withdrawal Syndrome 2. Alcohol Abuse Disorder 3. COPD without exacerbation 4. Anxiety and Depression 5. Nicotine Dependence 50 year old man with Nicotine/Alcohol Dependence, COPD, Anxiety/Depression presented for alcohol withdrawal symptoms. Medicine consulted by [facility] for medical management. Plan: - continue CIWA protocol - librium 25mg TID - ativan 1mg PO q2h PRN for CIWA > 8 - ativan 2mg IM q1h PRN for CIWA > 10 - can consider transfer to medical floor for IV ativan if high IM ativan requirements - zofran PRN + imodium PRN for nausea/diarrhea - thiamine/folate/MVI daily - albuterol PRN - nicotine patch daily Full Code
[2020-09-08] MEDS: FOLIC ACID 1 MG TAB PO SCH ×2 (12:47→18:23)
[2020-09-08] MEDS: MULTIVITAMINS, THERA 1 EACH TAB PO SCH ×2 (12:47→18:23)
[2020-09-08] MEDS: LORazepam 1 MG TAB PO PRN ×4 (12:50→20:50)
[2020-09-08] MEDS ORDERED: chlordiazePOXIDE 25 MG CAP PO SCH (16:00)
[2020-09-08 17:29] LABS: Hemoglobin A1C 5.2 % (4.0-6.0)
[2020-09-08] MEDS: chlordiazePOXIDE 25 MG CAP PO SCH ×2 (18:23→22:18)
[2020-09-09] MEDS: NICOTINE 14MG/24HR PATCH TRANSDERM SCH (08:56)
[2020-09-09] MEDS: THIAMINE 100 MG TAB PO SCH ×2 (08:56→18:39)
[2020-09-09] MEDS: chlordiazePOXIDE 25 MG CAP PO SCH ×3 (08:57→22:54)
[2020-09-09] MEDS: ONDANSETRON ODT 4 MG TAB PO PRN (09:00)
[2020-09-09] MEDS: MULTIVITAMINS, THERA 1 EACH TAB PO SCH (12:12)
[2020-09-09] MEDS: FOLIC ACID 1 MG TAB PO SCH (12:12)
[2020-09-09] MEDS: LOPERAMIDE 2 MG CAP PO PRN (12:13)
[2020-09-09] MEDS: LORazepam 1 MG TAB PO PRN ×3 (12:13→20:50)
--- NOTE | 2020-09-09 13:09 | P.PN ---
Progress Note - Text Progress Note Date: 09/09/20 Clinical Problems: Alcohol use disorder severe, alcohol withdrawal, rule out alcohol withdrawal delirium, alcohol induced depressive disorder, rule out major depressive disorder, cannabis use disorder unspecified Interim history: I reviewed the medical record and interviewed the patient. Medical consult appreciated. The hospitalist prescribed Librium 50 mg 3 times a day in addition to when necessary Ativan. The patient reported that he is "feeling better". However he continues to experience nausea and diarrhea for which she requests when necessary Zofran and Imodium. He has had no episodes of agitation or confusion. He denies that he's been experiencing auditory, visual or olfactory hallucinations. Her last 24 hours to [facility] scores range from 0-14. He was intermittently attending therapeutic groups and activities. Mental status exam: He presented as a disheveled appearing 50-year-old male who was pleasant on approach. He made eye contact and attended to the interview. He was not restless or diaphoretic. He has slight hand tremor. He had a blunted facial expression. Speech was spontaneous with decreased rate and volume. His affect was blunted but appropriate. He denied suicidal ideation or wishes. He denied homicidal ideation. He is express helplessness over his alcohol use but denied helplessness or worthlessness. He did not express ideas reference, paranoid ideation or delusions. His sleeping was concrete but his associations were coherent and logical. He denied hallucinations and did not appear to responding to internal stimuli. Assessment: He is having minimal to moderate alcohol withdrawal symptoms uncomplicated by delirium or seizures. Plan: Continue inpatient treatment. Continue safety precautions. Continue Librium 50 mg 3 times a day and taper prior to discharge. Continue when necessary use of Maalox, Imodium, Ativan and Zofran for alcohol withdrawal symptoms. Haldol and/or Ativan for agitation or aggression. Discuss referral for residential substance abuse treatment. Encourage participation in therapeutic groups and activities. Evaluate clinical status response to treatment daily basis.
[2020-09-10] MEDS: THIAMINE 100 MG TAB PO SCH ×2 (08:03→17:19)
[2020-09-10] MEDS: ONDANSETRON ODT 4 MG TAB PO PRN (08:03)
[2020-09-10] MEDS: NICOTINE 14MG/24HR PATCH TRANSDERM SCH (08:03)
[2020-09-10] MEDS: chlordiazePOXIDE 25 MG CAP PO SCH ×2 (08:03→20:50)
[2020-09-10] MEDS: LORazepam 1 MG TAB PO PRN (08:03)
[2020-09-10] MEDS ORDERED: hydrOXYzine pamoate 25 MG CAP PO PRN (11:28)
[2020-09-10] MEDS ORDERED: ESCITALOPRAM 10 MG TAB PO STA (11:31)
--- NOTE | 2020-09-10 11:53 | P.PN ---
Progress Note - Text Progress Note Date: 09/10/20 Interval History: Patient was seen resting in bed and was directable and agreeable to speak with flex o writer operator in the office. Patient expresses that he is eager for discharge. He does report that he was suicidal on admission after watching the [employer] [place] he had thoughts about wrapping heavyweight around his neck and going into the water. He is now currently not endorsing any suicidal or homicidal ideation, intention, and/or plan. He reports no access to firearms or other weapons. He has been requesting Ativan frequently to aid with his withdrawals. He reports his primary concern is his tremors. He is agreeable to starting an antidepressant today to address his depressive symptoms. When presented with the option for inpatient rehabilitation for his alcohol use, the patient reports that he wants to go home and would rather try outpatient therapy and counseling. He is not reporting any auditory or visual hallucinations. He denies any paranoia or delusions. Mental Status Exam: General Appearance: Patient appears to be stated age is alert, directable, and cooperative. Behavior: Patient is calmly seated without any agitated behavior. Speech: Patient's speech is fluent and nonpressured. Patient is often repetitive. Mood/Affect: Mood is improving mildly, affect appears anxious. Constricted in range. Suicidality/Homicidality: Patient is denying any suicidal or homicidal ideation, intention and/or plan. Perceptions: Patient denies any visual hallucinations and denies any auditory hallucinations Though content/process: There is no evidence of any delusional thought content and thought process is linear and goal-directed. Memory and concentration: AOX3, grossly intact for the purposes of this session Judgment and insight: Improving mildly Assessment Alcohol use disorder, severe - CIWA score of 11 Major depressive disorder versus alcohol-induced depressive disorder Plan: -Patient continues to meet criteria for inpatient psychiatric admission for symptom stabilization and safety. Patient has signed adult voluntary form and medication consent and was placed in patient's chart. -Medications: We will taper the patient's Librium to 50 mg by mouth twice a day. Continue ativan PRN for withdrawal. Start lexapro 10 mg by mouth daily for depression/anxiety Start Vistaril 25 mg every 6 hours when necessary for anxiety Continue thiamine and multivitamin -When necessary Ativan and Haldol for agitation/aggression. -NRT - nicotine patch -SW on board for discharge planning. Encouraged the patient to participate in milieu.
[2020-09-10] MEDS: MULTIVITAMINS, THERA 1 EACH TAB PO SCH (12:04)
[2020-09-10] MEDS: FOLIC ACID 1 MG TAB PO SCH (12:04)
[2020-09-11 06:13] VITALS: RESP 16
[2020-09-11] MEDS: NICOTINE 14MG/24HR PATCH TRANSDERM SCH (08:38)
[2020-09-11] MEDS: THIAMINE 100 MG TAB PO SCH ×2 (08:39→16:30)
[2020-09-11] MEDS: chlordiazePOXIDE 25 MG CAP PO SCH ×2 (08:39→08:48)
[2020-09-11] MEDS ORDERED: ESCITALOPRAM 10 MG TAB PO SCH (09:00)
[2020-09-11] MEDS ORDERED: ESCITALOPRAM 10 MG TAB PO STA (09:27)
--- NOTE | 2020-09-11 10:09 | P.PN ---
Progress Note - Text Progress Note Date: 09/11/20 Interval History: Patient was seen resting in bed and was directable and agreeable to speak with senior grant writer in the office. Patient expressed that he is feeling much better. He continues to be very eager for discharge. He is not reporting any suicidal or homicidal ideation, intention, and/or plan. He is not reporting any auditory or visual hallucinations. He states that he is not craving any alcohol at this time and that his withdrawal symptoms appeared to be manageable. He states that he has been limiting his Ativan use. CIWA score was noted to be 2 as of this morning. He is agreeable to continue taper of his Librium. He has been adherent with his medications and is not reporting any significant side effects. Mental Status Exam: General Appearance: Patient appears to be stated age is alert, directable, and cooperative. Behavior: Patient is calmly seated without any agitated behavior. Speech: Patient's speech is fluent and nonpressured. Patient is often repetitive. Mood/Affect: Mood is improving mildly, affect appears mildly anxious. Constricted in range. Suicidality/Homicidality: Patient is denying any suicidal or homicidal ideation, intention and/or plan. Perceptions: Patient denies any visual hallucinations and denies any auditory hallucinations Though content/process: There is no evidence of any delusional thought content and thought process is linear and goal-directed. Memory and concentration: AOX3, grossly intact for the purposes of this session Judgment and insight: Improving mildly Assessment Alcohol use disorder, severe - CIWA score of 2 Major depressive disorder versus alcohol-induced depressive disorder Plan: -Patient continues to meet criteria for inpatient psychiatric admission for symptom stabilization and safety. Patient has signed adult voluntary form and medication consent and was placed in patient's chart. -Medications: We'll taper Librium to 50 mg by mouth every morning. Increase Lexapro to 20 mg by mouth daily for depression/anxiety Continue Vistaril 25 mg every 6 hours when necessary for anxiety Continue thiamine and multivitamin -When necessary Ativan and Haldol for agitation/aggression. -NRT - nicotine patch -SW on board for discharge planning. Encouraged the patient to participate in milieu. Anticipate discharge tomorrow.
[2020-09-11] MEDS: FOLIC ACID 1 MG TAB PO SCH (12:07)
[2020-09-11] MEDS: MULTIVITAMINS, THERA 1 EACH TAB PO SCH (12:08)
[2020-09-12 06:52] VITALS: BP 98/64; PULSE 77; TEMP 97.4
[2020-09-12] MEDS: NICOTINE 14MG/24HR PATCH TRANSDERM SCH (08:50)
[2020-09-12] MEDS: THIAMINE 100 MG TAB PO SCH (08:51)
[2020-09-12] MEDS ORDERED: ESCITALOPRAM 20 MG TAB PO SCH (09:00)
[2020-09-12] MEDS ORDERED: chlordiazePOXIDE 25 MG CAP PO SCH (09:00)
--- NOTE | 2020-09-12 10:27 | P.DS ---
Providers Date of admission: 09/08/20 06:37 Expected date of discharge: 09/12/20 Attending physician: Chicho Mc MD Consults: 09/08/20 06:45 Consult Physician Routine Consulting Provider: [facility] Consult Reason/Comments: For H & P for Medical Follow Up Do you want consulting provider notified?: Yes Primary care physician: Stated None - Discharge Diagnosis(es) (1) Major depression Current Visit: Yes Status: Acute Priority: High (2) Alcohol abuse Current Visit: No Status: Chronic Priority: Medium (3) Nicotine dependence Current Visit: Yes Status: Chronic Priority: Medium Hospital Course: Admission HPI: Initial psychiatric evaluation was completed by Dr. Amaya on 09/08/2020 who wrote: "He is a 50-year-old single male admitted to psychiatric unit involuntarily. The secretary of police completed the petition stating that Addison expressed a plan to tie an anchor around his neck and jump into the [place]. I reviewed the medical record and interviewed the patient. He has a history of an alcohol use disorder with multiple presentations to the emergency room and admissions to medical for the treatment of alcohol intoxication and alcohol withdrawal. Last year, he was admitted 7 times to the medicine unit for alcohol withdrawal or alcohol intoxication. In addition he's had 8 presentations to the emergency room for the same. He complained that he became acutely distressed the evening of admission. He w as drinking all day and became markedly anxious and overwhelmed. He began having thoughts of suicide and called the emergency services. He drinks every day as soon as he gets up in the morning until he falls asleep at night. He states he wakes up in the morning anxious, nauseous and unsteady. He has been drinking on a daily basis for all of his adult life. He cannot recall a period of sustained abstinence since he was 17 years old. He is only able stop drinking when he is made to the hospital. He is usually abstinent for a few weeks and no more than a month after discharge. He has had moderate to severe alcohol withdrawal symptoms since admission with CIWA scores ranging from 5-18. The symptoms include nausea, vomiting, tremor, sweating, increased anxiety, restlessness, headache and increased sensitivity to light and sound. He denied experiencing auditory, visual or olfactory hallucinations. He feels depressed and anxious but denied that he is currently experiencing suicidal ideation, thought or plan. His blood alcohol level on presentation to the ED was 204. On presentation to ED or admission to medicine and arrange for him 32 to 398. He has other signs of chronic alcohol use including elevated AST, ALT and MCV. He smokes marijuana but denied use of other drugs. His UDS was positive for benzodiazepines and marijuana. He alleged that he is unaware whether she is having withdrawal seizures or withdrawal delirium. We talked about treatment options and she declined referral to a residential substance abuse treatment program." Hospital course: Upon admission to the unit patient was initially presenting as disheveled, depressed, and anxious. Due to concerns for alcohol withdrawal, the patient was placed on CIWA protocol. Medicine evaluated the patient and started him on chlordiazepoxide 50 mg 3 times a day for withdrawals as well. The patient was started on Lexapro to manage depression/anxiety. Patient used Ativan quite frequently in the beginning of the hospitalization but admitted he was using it to manage things anxious symptoms.Vistaril was also started and lieu of his anxiety. The patient CIWA scores gradually trend downwards and the patient was adherent with his treatment and participated in groups. His chlordiazepoxide was gradually tapered off over the course of the hospitalization. The patient was adherent with his medications. The patient gradually improved in terms of mood and desire to quit alcohol. His anxiety also decreased. On the day of discharge, the patient expresses future orientation with plans to quit alcohol. He is not reporting any suicidal or homicidal ideation, intention, and/or plan. He is not reporting any auditory or visual hallucinations. He denies any paranoia or delusions. He denied any access to firearms or weapons. He dresses a strong desire to live for his health. The patient does have a significant history of alcohol abuse however was counseled on abstaining. Patient was offered but however declined inpatient substance-abuse rehab. The patient was counseled on the medications and need for regular compliance and was encouraged to follow-up with outpatient provider. Mental status exam: General Appearance: Patient appears to be stated age is alert, pleasant, and cooperative. Patient is in no acute distress and has fair hygiene and grooming Behavior: Patient is calmly seated without any agitated behavior. Speech: Patient's speech is fluent and nonpressured. Mood/Affect: Patient reports their mood is "much better", affect is congruent and euthymic to bright. Suicidality/Homicidality: Patient denies having any suicidal or homicidal ideation intent or plan. Perceptions: Patient denies any auditory or visual hallucinations. Though content/process: There is no evidence of any delusional thought content and thought process is linear and goal-directed and future oriented Memory and concentration: AOX3, grossly intact for the purposes of this session. Can spell "WORLD" backwards correctly. Judgment and insight: Improved Impression: Major depressive disorder Alcohol use disorder, severe Nicotine dependence Plan: -Continue with discharge today as patient has improved and stabilized psychiatrically and is not currently an imminent threat to himself and/or others. Patient will remain at chronically elevated risk for harm to self and/or others due to his alcohol abuse history. -Continue medications: Lexapro 20 mg by mouth daily for depression/anxiety Vistaril 25 mg by mouth every 6 hours when necessary for anxiety -Patient was counseled on the need for medication compliance and appropriate follow-up at mental health and also primary care for medical issues. Patient verbalized understanding and agreed. -Social work to arrange for and conduct family meeting to ensure safety upon discharge and answer any questions/concerns. Social work also to arrange for patients follow up appointments for psychiatric care along with follow up with primary care provider. -Patient counseled on abstaining from recreational drugs and marijuana and alcohol. Was informed/educated on the adverse effects on their physical and mental health. Patient verbally agreed and understood. Patient was offered substance abuse treatment however declined at this time. -Patient was instructed to return to the hospital or seek immediate medical care if their psychiatric or medical symptoms do worsen or reoccur. -Psychoeducation and supportive therapy provided to patient. Risks and benefits of pharmacological treatment versus the risks and benefits of nontreatment weight and discussed. Informed consent discussion held. Common side effects of psychotropics discussed such as, but not limited to headache, GI disturbance, sexual dysfunction, movement disorders, sedation, and orthostatic hypotension. Life threatening and blackbox warnings of prescribed medications also discussed. Potential risks of operating a vehicle or heavy machinery discussed with patient at length. Advised on importance of compliance and a reliable and responsible manner. Patient advised to review FDA consumer labeling of all medications prior to taking. Patient verbalized understanding of potential risks, and agrees with current treatment plan. Patient advised to medically contact physician/emergency personnel if any acute changes in condition occur. Vital Signs Temp 97.4 F L 09/12/20 06:51 Pulse 77 09/12/20 06:51 Resp 16 09/12/20 06:51 BP 98/64 09/12/20 06:51 Pulse Ox 98 09/12/20 06:51 Laboratory Results WBC 6.8 k/uL (3.8-10.6) 09/08/20 07:52 RBC 5.10 m/uL (4.30-5.90) 09/08/20 07:52 Hgb 17.1 gm/dL (13.0-17.5) 09/08/20 07:52 Hct 52.7 % (39.0-53.0) 09/08/20 07:52 MCV 103.3 fL (80.0-100.0) H 09/08/20 07:52 MCH 33.5 pg (25.0-35.0) 09/08/20 07:52 MCHC 32.5 g/dL (31.0-37.0) 09/08/20 07:52 RDW 14.3 % (11.5-15.5) 09/08/20 07:52 Plt Count 226 k/uL (150-450) 09/08/20 07:52 MPV 6.9 09/08/20 07:52 Neutrophils % 55 % 09/08/20 07:52 Lymphocytes % 30 % 09/08/20 07:52 Monocytes % 7 % 09/08/20 07:52 Eosinophils % 4 % 09/08/20 07:52 Basophils % 1 % 09/08/20 07:52 Neutrophils # 3.7 k/uL (1.3-7.7) 09/08/20 07:52 Lymphocytes # 2.1 k/uL (1.0-4.8) 09/08/20 07:52 Monocytes # 0.5 k/uL (0-1.0) 09/08/20 07:52 Eosinophils # 0.3 k/uL (0-0.7) 09/08/20 07:52 Basophils # 0.1 k/uL (0-0.2) 09/08/20 07:52 Macrocytosis Slight 09/08/20 07:52 Sodium 140 mmol/L (137-145) 09/08/20 07:52 Potassium 4.1 mmol/L (3.5-5.1) 09/08/20 07:52 Chloride 101 mmol/L (98-107) 09/08/20 07:52 Carbon Dioxide 30 mmol/L (22-30) 09/08/20 07:52 Anion Gap 9 mmol/L 09/08/20 07:52 BUN 4 mg/dL (9-20) L 09/08/20 07:52 Creatinine 0.73 mg/dL (0.66-1.25) 09/08/20 07:52 Est GFR (CKD-EPI)AfAm >90 (>60 ml/min/1.73 sqM) 09/08/20 07:52 Est GFR (CKD-EPI)NonAf >90 (>60 ml/min/1.73 sqM) 09/08/20 07:52 Glucose 109 mg/dL (74-99) H 09/08/20 07:[address] Glu mg/dL 103 09/08/20 07:52 Hemoglobin A1c 5.2 % (4.0-6.0) 09/08/20 07:52 Calcium 9.3 mg/dL (8.4-10.2) 09/08/20 07:52 Total Bilirubin 0.7 mg/dL (0.2-1.3) 09/08/20 07:52 Conjugated Bilirubin 0.0 mg/dL (0.0-0.3) 09/08/20 07:52 Unconjugated Bilirubin 0.4 mg/dL (0.0-1.1) 09/08/20 07:52 Delta Bilirubin 0.3 mg/dL (0.0-0.2) H 09/08/20 07:52 AST 69 U/L (17-59) H 09/08/20 07:52 ALT 63 U/L (4-49) H 09/08/20 07:52 Alkaline Phosphatase 85 U/L (38-126) 09/08/20 07:52 Total Protein 8.0 g/dL (6.3-8.2) 09/08/20 07:52 Albumin 4.5 g/dL (3.5-5.0) 09/08/20 07:52 Triglycerides 251 mg/dL (<150) H 09/08/20 07:52 Cholesterol 231 mg/dL (<200) H 09/08/20 07:52 LDL Cholesterol, Calc 112 mg/dL (0-99) H 09/08/20 07:52 HDL Cholesterol 69 mg/dL (40-60) H 09/08/20 07:52 TSH 1.600 mIU/L (0.465-4.680) 09/08/20 07:52 Urine Color Light Yellow 09/07/20 23:23 Urine Appearance Clear (Clear) 09/07/20 23:23 Urine pH 5.0 (5.0-8.0) 09/07/20 23:23 Ur Specific [place] 1.006 (1.001-1.035) 09/07/20 23:23 Urine Protein Negative (Negative) 09/07/20 23:23 Urine Glucose (UA) Negative (Negative) 09/07/20 23:23 Urine Ketones Negative (Negative) 09/07/20 23:23 Urine Blood Negative (Negative) 09/07/20 23:23 Urine Nitrite Negative (Negative) 09/07/20 23:23 Urine Bilirubin Negative (Negative) 09/07/20 23:23 Urine Urobilinogen <2.0 mg/dL (<2.0) 09/07/20 23:23 Ur Leukocyte Esterase Negative (Negative) 09/07/20 23:23 Urine Opiates Screen Not Detected (NotDetected) 09/07/20 23:23 Ur Oxycodone Screen Not Detected (NotDetected) 09/07/20 23:23 Urine Methadone Screen Not Detected (NotDetected) 09/07/20 23:23 Ur Propoxyphene Screen Not Detected (NotDetected) 09/07/20 23:23 Ur Barbiturates Screen Not Detected (NotDetected) 09/07/20 23:23 U Tricyclic Antidepress Not Detected (NotDetected) 09/07/20 23:23 Ur Phencyclidine Scrn Not Detected (NotDetected) 09/07/20 23:23 Ur Amphetamines Screen Not Detected (NotDetected) 09/07/20 23:23 U Methamphetamines Scrn Not Detected (NotDetected) 09/07/20 23:23 U Benzodiazepines Scrn Detected (NotDetected) H 09/07/20 23:23 Urine Cocaine Screen Not Detected (NotDetected) 09/07/20 23:23 U Marijuana (THC) Screen Detected (NotDetected) H 09/07/20 23:23 Coronavirus (PCR) Not Detected (Not Detectd) 09/08/20 01:44 Allergies Allergy/AdvReac Type Severity Reaction Status Date / Time No Known Allergies Allergy Verified 09/08/20 05:26 Patient Condition at Discharge: Stable Plan - Discharge Summary Discharge Rx Participant: Yes New Discharge Prescriptions: New Nicotine 14Mg/24Hr Patch [Habitrol] 1 patch TRANSDERM DAILY 30 Days patch Escitalopram [Lexapro] 20 mg PO DAILY 30 Days tab hydrOXYzine pamoate [Vistaril] 25 mg PO Q6HR PRN 30 Days cap PRN Reason: Anxiety Discontinued Magnesium 250 mg PO DAILY #30 tablet Folic Acid 1 mg PO DAILY@1200 #30 tab Multivitamins, Thera [Multivitamin (formulary)] 1 tab PO DAILY@1200 Thiamine [Vitamin B-1] 100 mg PO AC-BID LORazepam [Ativan] 0.5 mg PO BID PRN #10 tab PRN Reason: Withdrawal Symptoms Discharge Medication List Escitalopram [Lexapro] 20 mg PO DAILY 30 Days tab 09/12/20 [Rx] Nicotine 14Mg/24Hr Patch [Habitrol] 1 patch TRANSDERM DAILY 30 Days patch 09/12/20 [Rx] hydrOXYzine pamoate [Vistaril] 25 mg PO Q6HR PRN 30 Days cap 09/12/20 [Rx] Follow up Appointment(s)/Referral(s): None,Stated [Primary Care Provider] - 1-2 days Activity/Diet/Wound Care/Special Instructions: Activity and diet as tolerated. Avoid the use of street drugs and alcohol. Take all medications as prescribed. When you are in need of refills on your medications please contact your medical provider and/or outpatient psychiatrist to have this done. Please go to scheduled outpatient appointment for aftercare treatment. If symptoms return or become worse, call the crisis line at and/or go to the nearest emergency room for evaluation. Discharge Disposition: HOME SELF-CARE
[2020-09-12] MEDS: FOLIC ACID 1 MG TAB PO SCH (11:54)
[2020-09-12] MEDS: MULTIVITAMINS, THERA 1 EACH TAB PO SCH (11:54)
== END 2020-09-12 12:23 | disposition home or self-care (01) | DRG 881 ==
LOC: EC 23:00 → 3MHU 09-08 06:37
PROVIDERS: ADMIT Psychiatry & Neurology Psychiatry; ATTEND Psychiatry & Neurology Psychiatry
DX: F32.9 Major depressive disorder, single episode, unspecified (principal); R45.851 Suicidal ideations; F10.239 Alcohol dependence with withdrawal, unspecified; F17.200 Nicotine dependence, unspecified, uncomplicated; F41.9 Anxiety disorder, unspecified; J44.9 Chronic obstructive pulmonary disease, unspecified; R56.9 Unspecified convulsions; Z56.0 Unemployment, unspecified; Z79.899 Other long term (current) drug therapy; Z82.5 Family history of asthma and other chronic lower respiratory diseases
CPT/HCPCS: 80053; 80061; 80306; 81003; 82075; 82248; 83036; 84443; 85025; 87635; 96372; 99285

== ENCOUNTER 2020-09-19 19:30 | Emergency (ER) | payer OTHER ==
[2020-09-19] MEDS ORDERED: LORazepam 2 MG/ML INJ IM STA (20:29)
--- NOTE | 2020-09-19 20:44 | ED ---
Psych HPI <LittleJalen - Last Filed: 09/20/20 04:56> - General Source: patient Mode of arrival: ambulatory <Nathaly Peña - Last Filed: 09/20/20 19:05> - General Chief Complaint: Psychiatric Symptoms Stated Complaint: Mental Health/ETOH Time Seen by Provider: 09/19/20 19:56 - History of Present Illness Initial Comments: 50-year-old male patient presents to the emergency department today for evaluation of suicidal ideation and alcohol intoxication. Patient states that he is a "severe alcoholic and addicted to benzodiazepines". Patient states that he is coming in today because he only had a little bit of alcohol and knows he is going to be withdrawing. Patient states that he needs to be admitted to the mental health unit because he is having thoughts of killing himself. States this plan was to put his arms in snow or spray free-on on his arms to prevent pain when he cut his wrists. He does believe he is drinking himself to . Denies any recent illnesses or injury. States that he does have an appointment for counseling session but it is not for quite some time yet. Patient denies any recent rash, fever, chills, cough, shortness of breath, chest pain, abdominal pain, nausea, vomiting, diarrhea, constipation, back pain, numbness, tingling, dizziness, weakness, hematuria, dysuria, urinary urgency, urinary frequency, headache, visual changes, or any other complaints. (Nathaly Peña) - Related Data Previous Rx's Medication Instructions Recorded Escitalopram [Lexapro] 20 mg PO DAILY 30 Days tab 09/12/20 Nicotine 14Mg/24Hr Patch [Habitrol] 1 patch TRANSDERM DAILY 30 Days 09/12/20 patch hydrOXYzine pamoate [Vistaril] 25 mg PO Q6HR PRN 30 Days cap 09/12/20 Allergies Allergy/AdvReac Type Severity Reaction Status Date / Time No Known Allergies Allergy Verified 09/19/20 19:47 Review of Systems ROS Other: All systems not noted in ROS Statement are negative. <Jalen Fitch - Last Filed: 09/20/20 04:56> ROS Other: All systems not noted in ROS Statement are negative. <Nathaly Peña - Last Filed: 09/20/20 19:05> ROS Statement: Those systems with pertinent positive or pertinent negative responses have been documented in the HPI. Past Medical History Past Medical History: COPD Additional Past Medical History / Comment(s): ETOH abuse, smoker, History of Any Multi-Drug Resistant Organisms: None Reported Past Surgical History: Adenoidectomy, Hernia Repair, Tonsillectomy Past Anesthesia/Blood Transfusion Reactions: No Reported Reaction Past Psychological History: Anxiety, Depression Smoking Status: Current every day smoker Past Alcohol Use History: Abuse, Daily, Heavy Past Drug Use History: Marijuana - Past Family History Brother(s) Family Medical History: Osteoarthritis (OA) Mother Family Medical History: COPD Additional Family Medical History / Comment(s): pulmonary fibrosis <Nathaly Peña - Last Filed: 09/20/20 19:05> General Exam General appearance: alert, in no apparent distress, other (Physical well- developed, well-nourished adult male patient in no acute distress. Vital signs upon presentation are temperature 98.4F, pulse 117, respirations 24, blood pressure 146/103, pulse ox 96% on room air.) Eye exam: Present: normal appearance ENT exam: Present: normal exam, normal oropharynx, mucous membranes moist Respiratory exam: Present: normal lung sounds bilaterally. Absent: respiratory distress, wheezes, rales, rhonchi, stridor Cardiovascular Exam: Present: regular rate, normal rhythm, normal heart sounds. Absent: systolic murmur, diastolic murmur, rubs, gallop, clicks GI/Abdominal exam: Present: soft, normal bowel sounds. Absent: distended, tenderness, guarding, rebound, rigid Neurological exam: Present: alert, oriented X3, CN II-XII intact Psychiatric exam: Present: normal affect, normal mood, suicidal ideation. Absent: homicidal ideation Skin exam: Present: warm, dry, intact, normal color. Absent: rash <Nathaly Peña M - Last Filed: 09/20/20 19:05> Course Vital Signs 09/19/20 09/20/20 09/20/20 19:40 00:56 05:30 Temperature 98.4 F 98.1 F Pulse Rate 117 H 101 H 98 Respiratory 24 19 19 Rate Blood Pressure 146/103 117/81 121/89 O2 Sat by Pulse 96 93 L 94 L Oximetry Medical Decision Making <Nathaly Peña - Last Filed: 09/20/20 19:05> - Medical Decision Making 50 year-old male patient presents to the emergency department for evaluation of suicidal ideation and alcohol abuse. Patient physical exam was unremarkable. He was intoxicated, we waited until sober and he was evaluated by emergency psychiatric services. Care was handed over to my attending at 0300. Review of the chart shows he was evaluated and discharged home in stable condition. (Nathaly Peña) - Lab Data Lab Results 09/19/20 Range/Units 21:02 Urine Opiates Screen Not Detected (NotDetected) Ur Oxycodone Screen Not Detected (NotDetected) Urine Methadone Screen Not Detected (NotDetected) Ur Propoxyphene Screen Not Detected (NotDetected) Ur Barbiturates Screen Not Detected (NotDetected) U Tricyclic Antidepress Not Detected (NotDetected) Ur Phencyclidine Scrn Not Detected (NotDetected) Ur Amphetamines Screen Not Detected (NotDetected) U Methamphetamines Scrn Not Detected (NotDetected) U Benzodiazepines Scrn Detected H (NotDetected) Urine Cocaine Screen Not Detected (NotDetected) U Marijuana (THC) Screen Detected H (NotDetected) Disposition Is patient prescribed a controlled substance at d/c from ED?: No <Jalen Fitch - Last Filed: 09/20/20 04:56> Is patient prescribed a controlled substance at d/c from ED?: No <Nathaly Peña - Last Filed: 09/20/20 19:05> Clinical Impression: Alcohol abuse Disposition: HOME SELF-CARE Condition: Good Instructions (If sedation given, give patient instructions): Abuse of Alcohol (ED) Referrals: None,Stated [Primary Care Provider] - 1-2 days
[2020-09-19 21:25] LABS: Amphetamine Screen,Urine Not Detected (NotDetected); Barbiturate Screen,Urine Not Detected (NotDetected); Benzodiazepines Screen,Urine Detected (NotDetected); Cocaine Screen,Urine Not Detected (NotDetected); Methadone Screen, Urine Not Detected (NotDetected); Opiate Screen,Urine Not Detected (NotDetected); Oxycodone Screen, Urine Not Detected (NotDetected); Phencyclidine Screen,Urine Not Detected (NotDetected); Tricyclic Antidepressant,Urine Not Detected (NotDetected); Urn Cannabinoid Scrn Detected (NotDetected)
[2020-09-20] MEDS ORDERED: LORazepam 1 MG TAB PO STA ×2 (00:52→04:58)
[2020-09-20 01:01] VITALS: RESP 19
[2020-09-20] MEDS ORDERED: ONDANSETRON ODT 4 MG TAB PO STA (04:57)
[2020-09-20 05:49] VITALS: BP 121/89; PULSE 98; TEMP 98.1
== END 2020-09-20 05:31 | disposition home or self-care (01) ==
LOC: EC 19:30
DX: F10.129 Alcohol abuse with intoxication, unspecified (principal); R45.851 Suicidal ideations; F17.200 Nicotine dependence, unspecified, uncomplicated; J44.9 Chronic obstructive pulmonary disease, unspecified
CPT/HCPCS: 96372 ×2; 99285 ×2; 82075; 80306; J2060

== ENCOUNTER 2020-09-23 15:01 | Emergency (ER) | payer OTHER ==
[2020-09-23] MEDS ORDERED: LORazepam 1 MG TAB PO STA (15:36)
[2020-09-23 15:47] VITALS: BP 121/81; PULSE 79; RESP 18; TEMP 98.3
[2020-09-23] MEDS ORDERED: LORazepam 2 MG/ML INJ IM STA (15:50)
[2020-09-23 16:15] LABS: Amphetamine Screen,Urine Not Detected (NotDetected); Barbiturate Screen,Urine Not Detected (NotDetected); Benzodiazepines Screen,Urine Detected (NotDetected); Cocaine Screen,Urine Not Detected (NotDetected); Methadone Screen, Urine Not Detected (NotDetected); Opiate Screen,Urine Not Detected (NotDetected); Oxycodone Screen, Urine Not Detected (NotDetected); Phencyclidine Screen,Urine Not Detected (NotDetected); Tricyclic Antidepressant,Urine Not Detected (NotDetected); Urn Cannabinoid Scrn Detected (NotDetected)
--- NOTE | 2020-09-23 18:28 | ED ---
General Adult HPI - General Source: patient, RN notes reviewed Mode of arrival: ambulatory Limitations: altered mental status <Bo Damon - Last Filed: 09/23/20 18:26> <Cas Nath - Last Filed: 09/24/20 04:26> - General Chief complaint: Psychiatric Symptoms Stated complaint: Mental health Time Seen by Provider: 09/23/20 15:13 - History of Present Illness Initial comments: 50-year-old male presents emergency Department chief complaint of needs psychiatric help. Patient was recently admitted and discharged from [facility]. Patient states that he continues to drink alcohol states that he needs further help. Patient states that he is not suicidal or homicidal denies any drug use but he is use Ativan past. Patient denies any physical complaints. (Bo Damon) - Related Data Previous Rx's Medication Instructions Recorded Escitalopram [Lexapro] 20 mg PO DAILY 30 Days tab 09/12/20 Nicotine 14Mg/24Hr Patch [Habitrol] 1 patch TRANSDERM DAILY 30 Days 09/12/20 patch hydrOXYzine pamoate [Vistaril] 25 mg PO Q6HR PRN 30 Days cap 09/12/20 Allergies Allergy/AdvReac Type Severity Reaction Status Date / Time No Known Allergies Allergy Verified 09/19/20 19:47 Review of Systems ROS Other: All systems not noted in ROS Statement are negative. <Bo Damon - Last Filed: 09/23/20 18:26> ROS Other: All systems not noted in ROS Statement are negative. <Cas Nath - Last Filed: 09/24/20 04:26> ROS Statement: Those systems with pertinent positive or pertinent negative responses have been documented in the HPI. Past Medical History Past Medical History: COPD Additional Past Medical History / Comment(s): ETOH abuse, smoker, History of Any Multi-Drug Resistant Organisms: None Reported Past Surgical History: Adenoidectomy, Hernia Repair, Tonsillectomy Past Anesthesia/Blood Transfusion Reactions: No Reported Reaction Past Psychological History: Anxiety, Depression Smoking Status: Current every day smoker Past Alcohol Use History: Abuse, Daily, Heavy Past Drug Use History: Marijuana - Past Family History Brother(s) Family Medical History: Osteoarthritis (OA) Mother Family Medical History: COPD Additional Family Medical History / Comment(s): pulmonary fibrosis <Bo Damon - Last Filed: 09/23/20 18:26> General Exam Limitations: altered mental status General appearance: alert, in no apparent distress Head exam: Present: atraumatic, normocephalic, normal inspection Eye exam: Present: normal appearance, PERRL, EOMI. Absent: scleral icterus, conjunctival injection, periorbital swelling ENT exam: Present: normal exam, normal oropharynx, mucous membranes moist Neck exam: Present: normal inspection, full ROM. Absent: tenderness, meningismus, lymphadenopathy Respiratory exam: Present: normal lung sounds bilaterally. Absent: respiratory distress, wheezes, rales, rhonchi, stridor Cardiovascular Exam: Present: regular rate, normal rhythm, normal heart sounds. Absent: systolic murmur, diastolic murmur, rubs, gallop, clicks GI/Abdominal exam: Present: soft, normal bowel sounds. Absent: distended, tenderness, guarding, rebound, rigid Neurological exam: Present: alert, oriented X3 Psychiatric exam: Present: anxious Skin exam: Present: warm, dry, intact, normal color. Absent: rash <Bo Damon - Last Filed: 09/23/20 18:26> Course <Cas Nath - Last Filed: 09/24/20 04:26> Vital Signs 09/23/20 09/23/20 09/23/20 15:45 16:47 17:47 Temperature 98.3 F Pulse Rate 79 Respiratory 18 18 18 Rate Blood Pressure 121/81 O2 Sat by Pulse 97 Oximetry 09/23/20 09/23/20 18:00 19:09 Temperature Pulse Rate Respiratory 18 18 Rate Blood Pressure O2 Sat by Pulse Oximetry - Reevaluation(s) Reevaluation #1: record is reviewed Medical clear for psychiatric evaluation Patient seen eval by psychiatry (Cas Nath) Medical Decision Making <Cas Nath - Last Filed: 09/24/20 04:26> - Medical Decision Making 50 male DF for evaluation patient for psychiatric illness and alcohol intoxication. Seen and evaluated psychiatry deemed stable for discharge home (Cas Nath) - Lab Data Lab Results 09/23/20 Range/Units 15:55 Urine Opiates Screen Not Detected (NotDetected) Ur Oxycodone Screen Not Detected (NotDetected) Urine Methadone Screen Not Detected (NotDetected) Ur Propoxyphene Screen Not Detected (NotDetected) Ur Barbiturates Screen Not Detected (NotDetected) U Tricyclic Antidepress Not Detected (NotDetected) Ur Phencyclidine Scrn Not Detected (NotDetected) Ur Amphetamines Screen Not Detected (NotDetected) U Methamphetamines Scrn Not Detected (NotDetected) U Benzodiazepines Scrn Detected H (NotDetected) Urine Cocaine Screen Not Detected (NotDetected) U Marijuana (THC) Screen Detected H (NotDetected) Disposition <Bo Damon M - Last Filed: 09/23/20 18:26> Is patient prescribed a controlled substance at d/c from ED?: No <Cas Nath - Last Filed: 09/24/20 04:26> Clinical Impression: Elevated ETOH level, Alcohol withdrawal syndrome, Alcoholic intoxication, Depression Disposition: HOME SELF-CARE Condition: Fair Instructions (If sedation given, give patient instructions): Abuse of Alcohol (ED) Referrals: None,Stated [Primary Care Provider] - 1-2 days
[2020-09-24] MEDS ORDERED: LORazepam 1 MG TAB PO STA ×2 (01:29→01:31)
== END 2020-09-24 01:48 | disposition home or self-care (01) ==
LOC: EC 15:01
DX: F10.239 Alcohol dependence with withdrawal, unspecified (principal); F32.9 Major depressive disorder, single episode, unspecified; F17.200 Nicotine dependence, unspecified, uncomplicated; Z90.89 Acquired absence of other organs; Y90.9 Presence of alcohol in blood, level not specified
CPT/HCPCS: 82075; 80306; 99284; 96372; J2060

== ENCOUNTER 2020-09-28 23:37 | Emergency (ER) | payer OTHER ==
--- NOTE | 2020-09-29 00:11 | ED ---
Psych HPI - General Chief Complaint: Psychiatric Symptoms Stated Complaint: Mental Health Time Seen by Provider: 09/28/20 23:42 Source: patient Mode of arrival: ambulatory - History of Present Illness Initial Comments: This patient is 50-year-old man with chronic alcoholism who presents with concerns that he is not feeling safe. The patient states that he was drinking alcohol min and was concerned he may try to do something. MD Complaint: other -: hour(s) Associated Psychiatric Symptoms: suicidal ideation History of same: Yes Quality: constant Improves With: none Worsens With: alcohol Context: recent alcohol abuse Associated Symptoms: denies other symptoms - Related Data Previous Rx's Medication Instructions Recorded Escitalopram [Lexapro] 20 mg PO DAILY 30 Days tab 09/12/20 Nicotine 14Mg/24Hr Patch [Habitrol] 1 patch TRANSDERM DAILY 30 Days 09/12/20 patch hydrOXYzine pamoate [Vistaril] 25 mg PO Q6HR PRN 30 Days cap 09/12/20 Allergies Allergy/AdvReac Type Severity Reaction Status Date / Time No Known Allergies Allergy Verified 09/29/20 08:09 Review of Systems ROS Statement: Those systems with pertinent positive or pertinent negative responses have been documented in the HPI. ROS Other: All systems not noted in ROS Statement are negative. Constitutional: Denies: fever, chills Respiratory: Denies: cough, dyspnea Cardiovascular: Denies: chest pain, palpitations Gastrointestinal: Denies: abdominal pain, vomiting, diarrhea Musculoskeletal: Denies: back pain Skin: Denies: rash Neurological: Denies: headache, weakness, numbness Psychiatric: Reports: depression, suicidal thoughts Past Medical History Past Medical History: COPD Additional Past Medical History / Comment(s): ETOH abuse, smoker, History of Any Multi-Drug Resistant Organisms: None Reported Past Surgical History: Adenoidectomy, Hernia Repair, Tonsillectomy Past Anesthesia/Blood Transfusion Reactions: No Reported Reaction Past Psychological History: Anxiety, Depression Smoking Status: Current every day smoker Past Alcohol Use History: Abuse, Daily, Heavy Past Drug Use History: Marijuana - Past Family History Brother(s) Family Medical History: Osteoarthritis (OA) Mother Family Medical History: COPD Additional Family Medical History / Comment(s): pulmonary fibrosis General Exam General appearance: alert, in no apparent distress, appears intoxicated Head exam: Present: atraumatic, normocephalic Eye exam: Present: normal appearance. Absent: scleral icterus, conjunctival injection Neck exam: Present: normal inspection, full ROM Respiratory exam: Present: normal lung sounds bilaterally. Absent: respiratory distress, wheezes, rales, rhonchi, stridor Cardiovascular Exam: Present: regular rate, normal rhythm, normal heart sounds. Absent: systolic murmur, diastolic murmur, rubs, gallop GI/Abdominal exam: Present: soft. Absent: tenderness, guarding, rebound Extremities exam: Present: normal inspection Neurological exam: Present: alert Psychiatric exam: Present: suicidal ideation. Absent: agitated, anxious, flat affect, manic, homicidal ideation Skin exam: Present: warm, dry, intact, normal color. Absent: rash Course Vital Signs 09/28/20 09/29/20 23:55 04:30 Temperature 97.6 F 98.0 F Pulse Rate 92 107 H Respiratory 18 20 Rate Blood Pressure 141/86 105/71 O2 Sat by Pulse 96 98 Oximetry Medical Decision Making - Medical Decision Making Patient is 50-year-old man here for psychiatric evaluation. He is signed out to the physician following me at the end of my shift. From the review of the records it appears that the patient was seen by EPS and he must of been feeling better because he is deemed safe for outpatient care and discharged with appropriate follow-up. - Lab Data Lab Results 09/29/20 Range/Units 00:26 Urine Color Colorless Urine Appearance Clear (Clear) Urine pH 5.5 (5.0-8.0) Ur Specific [place] 1.003 (1.001-1.035) Urine Protein Negative (Negative) Urine Glucose (UA) Negative (Negative) Urine Ketones Negative (Negative) Urine Blood Negative (Negative) Urine Nitrite Negative (Negative) Urine Bilirubin Negative (Negative) Urine Urobilinogen <2.0 (<2.0) mg/dL Ur Leukocyte Esterase Negative (Negative) Urine Opiates Screen Not Detected (NotDetected) Ur Oxycodone Screen Not Detected (NotDetected) Urine Methadone Screen Not Detected (NotDetected) Ur Propoxyphene Screen Not Detected (NotDetected) Ur Barbiturates Screen Not Detected (NotDetected) U Tricyclic Antidepress Not Detected (NotDetected) Ur Phencyclidine Scrn Not Detected (NotDetected) Ur Amphetamines Screen Not Detected (NotDetected) U Methamphetamines Scrn Not Detected (NotDetected) U Benzodiazepines Scrn Detected H (NotDetected) Urine Cocaine Screen Not Detected (NotDetected) U Marijuana (THC) Screen Detected H (NotDetected) Disposition Clinical Impression: Alcohol abuse Disposition: HOME SELF-CARE Condition: Good Is patient prescribed a controlled substance at d/c from ED?: No Referrals: None,Stated [Primary Care Provider] - 1-2 days
[2020-09-29] MEDS ORDERED: chlordiazePOXIDE 25 MG CAP PO STA (00:49)
[2020-09-29 01:07] LABS: Appearance,Urine Clear (Clear); Bilirubin,Urine Negative (Negative); Blood,Urine Negative (Negative); Color,Urine Colorless; Glucose,Urine (UA) Negative (Negative); Ketones,Urine Negative (Negative); Leukocyte Esterase,Urine Negative (Negative); Nitrite,Urine Negative (Negative); PH, Urine 5.5 (5.0-8.0); Protein,Urine Negative (Negative); Specific Gravity,Urine 1.003 (1.001-1.035); Urobilinogen,Urine <2.0 mg/dL (<2.0)
[2020-09-29 01:21] LABS: Amphetamine Screen,Urine Not Detected (NotDetected); Benzodiazepines Screen,Urine Detected (NotDetected); Cocaine Screen,Urine Not Detected (NotDetected); Opiate Screen,Urine Not Detected (NotDetected); Phencyclidine Screen,Urine Not Detected (NotDetected)
[2020-09-29 01:22] LABS: Barbiturate Screen,Urine Not Detected (NotDetected); Methadone Screen, Urine Not Detected (NotDetected); Oxycodone Screen, Urine Not Detected (NotDetected); Tricyclic Antidepressant,Urine Not Detected (NotDetected); Urn Cannabinoid Scrn Detected (NotDetected)
[2020-09-29 04:41] VITALS: BP 105/71; PULSE 107; RESP 20; TEMP 98
[2020-09-29] MEDS ORDERED: LORazepam 1 MG TAB PO STA ×2 (05:00→08:14)
== END 2020-09-29 12:04 | disposition home or self-care (01) ==
LOC: EC 23:37
DX: F10.10 Alcohol abuse, uncomplicated (principal); R45.851 Suicidal ideations; Y90.9 Presence of alcohol in blood, level not specified; F17.200 Nicotine dependence, unspecified, uncomplicated
CPT/HCPCS: 80306; 81003; 82075; 99285

== ENCOUNTER 2020-10-12 08:38 | Inpatient (IN) | payer MEDICAID, OTHER ==
[2020-10-12] MEDS ORDERED: SODIUM CHLORIDE 0.9% 1,000 ML IV STA (09:00)
[2020-10-12] MEDS ORDERED: THIAMINE 100 MG/ML 2 ML VIAL IM STA (09:01)
--- NOTE | 2020-10-12 09:06 | ED ---
General Adult HPI - General Source: patient, RN notes reviewed Mode of arrival: ambulatory Limitations: no limitations <Bo Damon - Last Filed: 10/12/20 09:04> <Jase Cárdenas - Last Filed: 10/12/20 15:21> - General Chief complaint: Alcohol Stated complaint: Withdrawl Time Seen by Provider: 10/12/20 08:46 - History of Present Illness Initial comments: This a 50-year-old male presents emergency Department for evaluation of depression, alcohol abuse. Patient has had multiple recent ER visits for simil ar complaints. Patient states she's not suicidal at this time but has had some thoughts. Patient states he was drinking yesterday. Patient says complaints of nausea vomiting diarrhea diffuse abdominal cramping. Patient has been recently admitted to [facility]. Patient denies any headache, focal weakness. (Bo Damon) - Related Data Home Medications Medication Instructions Recorded Confirmed No Known Home Medications 10/12/20 10/12/20 Allergies Allergy/AdvReac Type Severity Reaction Status Date / Time No Known Allergies Allergy Verified 10/12/20 09:58 Review of Systems ROS Other: All systems not noted in ROS Statement are negative. <Bo Damon - Last Filed: 10/12/20 09:04> ROS Other: All systems not noted in ROS Statement are negative. <Jase Cárdenas - Last Filed: 10/12/20 15:21> ROS Statement: Those systems with pertinent positive or pertinent negative responses have been documented in the HPI. Past Medical History Past Medical History: COPD Additional Past Medical History / Comment(s): ETOH abuse, smoker, History of Any Multi-Drug Resistant Organisms: None Reported Past Surgical History: Adenoidectomy, Hernia Repair, Tonsillectomy Past Anesthesia/Blood Transfusion Reactions: No Reported Reaction Past Psychological History: Anxiety, Depression Smoking Status: Current every day smoker Past Alcohol Use History: Abuse, Daily, Heavy Past Drug Use History: Marijuana - Past Family History Brother(s) Family Medical History: Osteoarthritis (OA) Mother Family Medical History: COPD Additional Family Medical History / Comment(s): pulmonary fibrosis <Bo Damon - Last Filed: 10/12/20 09:04> General Exam Limitations: no limitations General appearance: alert, in no apparent distress, anxious Head exam: Present: atraumatic, normocephalic, normal inspection Eye exam: Present: normal appearance, PERRL, EOMI. Absent: scleral icterus, conjunctival injection, periorbital swelling ENT exam: Present: normal exam, normal oropharynx, mucous membranes moist Neck exam: Present: normal inspection. Absent: tenderness, meningismus, lymphadenopathy Respiratory exam: Present: normal lung sounds bilaterally. Absent: respiratory distress, wheezes, rales, rhonchi, stridor Cardiovascular Exam: Present: regular rate, normal rhythm, normal heart sounds. Absent: systolic murmur, diastolic murmur, rubs, gallop, clicks GI/Abdominal exam: Present: soft, tenderness (Minimal diffuse), normal bowel sounds. Absent: distended, guarding, rebound, rigid Extremities exam: Present: other ( induced tremor) Neurological exam: Present: alert, oriented X3, CN II-XII intact Skin exam: Present: warm, dry, intact, normal color. Absent: rash <Bo Damon - Last Filed: 10/12/20 09:04> Course Vital Signs 10/12/20 10/12/20 08:43 10:05 Temperature 98.9 F Pulse Rate 129 H 105 H Respiratory 20 20 Rate Blood Pressure 119/65 110/70 O2 Sat by Pulse 97 98 Oximetry Medical Decision Making - Lab Data Result diagrams: 10/12/20 09:10 10/12/20 09:10 <Jase Cárdenas - Last Filed: 10/12/20 15:21> - Medical Decision Making Patient has been evaluated by mental health and felt to require inpatient psychiatric evaluation and treatment. (Jase Cárdenas) - Lab Data Lab Results 10/12/20 10/12/20 10/12/20 Range/Units 09:10 09:10 09:10 WBC 7.3 (3.8-10.6) k/uL RBC 5.29 (4.30-5.90) m/uL Hgb 18.6 H (13.0-17.5) gm/dL Hct 54.6 H (39.0-53.0) % MCV 103.2 H (80.0-100.0) fL MCH 35.1 H (25.0-35.0) pg MCHC 34.0 (31.0-37.0) g/dL RDW 13.4 (11.5-15.5) % Plt Count 180 (150-450) k/uL MPV 6.9 Neutrophils % 74 % Lymphocytes % 17 % Monocytes % 6 % Eosinophils % 1 % Basophils % 1 % Neutrophils # 5.4 (1.3-7.7) k/uL Lymphocytes # 1.3 (1.0-4.8) k/uL Monocytes # 0.4 (0-1.0) k/uL Eosinophils # 0.1 (0-0.7) k/uL Basophils # 0.0 (0-0.2) k/uL Macrocytosis Slight Sodium 133 L (137-145) mmol/L Potassium 4.5 (3.5-5.1) mmol/L Chloride 96 L (98-107) mmol/L Carbon Dioxide 19 L (22-30) mmol/L Anion Gap 18 mmol/L BUN <2 L (9-20) mg/dL Creatinine 0.76 (0.66-1.25) mg/dL Est GFR (CKD-EPI)AfAm >90 (>60 ml/min/1.73 sqM) Est GFR (CKD-EPI)NonAf >90 (>60 ml/min/1.73 sqM) Glucose 130 H (74-99) mg/dL Calcium 9.1 (8.4-10.2) mg/dL Magnesium 1.7 (1.6-2.3) mg/dL Total Bilirubin 0.5 (0.2-1.3) mg/dL AST 61 H (17-59) U/L ALT 34 (4-49) U/L Alkaline Phosphatase 103 (38-126) U/L Total Protein 8.0 (6.3-8.2) g/dL Albumin 4.8 (3.5-5.0) g/dL Lipase 184 (23-300) U/L Urine Color Light Yellow Urine Appearance Clear (Clear) Urine pH 6.5 (5.0-8.0) Ur Specific [place] 1.003 (1.001-1.035) Urine Protein Negative (Negative) Urine Glucose (UA) Negative (Negative) Urine Ketones 1+ H (Negative) Urine Blood Negative (Negative) Urine Nitrite Negative (Negative) Urine Bilirubin Negative (Negative) Urine Urobilinogen <2.0 (<2.0) mg/dL Ur Leukocyte Esterase Negative (Negative) Urine Opiates Screen Not Detected (NotDetected) Ur Oxycodone Screen Not Detected (NotDetected) Urine Methadone Screen Not Detected (NotDetected) Ur Propoxyphene Screen Not Detected (NotDetected) Ur Barbiturates Screen Not Detected (NotDetected) U Tricyclic Antidepress Not Detected (NotDetected) Ur Phencyclidine Scrn Not Detected (NotDetected) Ur Amphetamines Screen Not Detected (NotDetected) U Methamphetamines Scrn Not Detected (NotDetected) U Benzodiazepines Scrn Detected H (NotDetected) Urine Cocaine Screen Not Detected (NotDetected) U Marijuana (THC) Screen Detected H (NotDetected) Coronavirus (PCR) (Not Detectd) 10/12/20 Range/Units 13:36 WBC (3.8-10.6) k/uL RBC (4.30-5.90) m/uL Hgb (13.0-17.5) gm/dL Hct (39.0-53.0) % MCV (80.0-100.0) fL MCH (25.0-35.0) pg MCHC (31.0-37.0) g/dL RDW (11.5-15.5) % Plt Count (150-450) k/uL MPV Neutrophils % % Lymphocytes % % Monocytes % % Eosinophils % % Basophils % % Neutrophils # (1.3-7.7) k/uL Lymphocytes # (1.0-4.8) k/uL Monocytes # (0-1.0) k/uL Eosinophils # (0-0.7) k/uL Basophils # (0-0.2) k/uL Macrocytosis Sodium (137-145) mmol/L Potassium (3.5-5.1) mmol/L Chloride (98-107) mmol/L Carbon Dioxide (22-30) mmol/L Anion Gap mmol/L BUN (9-20) mg/dL Creatinine (0.66-1.25) mg/dL Est GFR (CKD-EPI)AfAm (>60 ml/min/1.73 sqM) Est GFR (CKD-EPI)NonAf (>60 ml/min/1.73 sqM) Glucose (74-99) mg/dL Calcium (8.4-10.2) mg/dL Magnesium (1.6-2.3) mg/dL Total Bilirubin (0.2-1.3) mg/dL AST (17-59) U/L ALT (4-49) U/L Alkaline Phosphatase (38-126) U/L Total Protein (6.3-8.2) g/dL Albumin (3.5-5.0) g/dL Lipase (23-300) U/L Urine Color Urine Appearance (Clear) Urine pH (5.0-8.0) Ur Specific [place] (1.001-1.035) Urine Protein (Negative) Urine Glucose (UA) (Negative) Urine Ketones (Negative) Urine Blood (Negative) Urine Nitrite (Negative) Urine Bilirubin (Negative) Urine Urobilinogen (<2.0) mg/dL Ur Leukocyte Esterase (Negative) Urine Opiates Screen (NotDetected) Ur Oxycodone Screen (NotDetected) Urine Methadone Screen (NotDetected) Ur Propoxyphene Screen (NotDetected) Ur Barbiturates Screen (NotDetected) U Tricyclic Antidepress (NotDetected) Ur Phencyclidine Scrn (NotDetected) Ur Amphetamines Screen (NotDetected) U Methamphetamines Scrn (NotDetected) U Benzodiazepines Scrn (NotDetected) Urine Cocaine Screen (NotDetected) U Marijuana (THC) Screen (NotDetected) Coronavirus (PCR) Not Detected (Not Detectd) Disposition <Bo Damon M - Last Filed: 10/12/20 09:04> Is patient prescribed a controlled substance at d/c from ED?: No Decision to Admit Reason: Admit from EC Decision Date: 10/12/20 Decision Time: 15:21 <Jase Cárdenas - Last Filed: 10/12/20 15:21> Clinical Impression: Alcoholic intoxication, Depression Disposition: ADMITTED IP TO THIS [facility] Condition: Stable Referrals: None,Stated [Primary Care Provider] - 1-2 days
[2020-10-12 09:25] LABS: Basophils % (A) 1 %; Eosinophils # (A) 0.1 k/uL (0-0.7); Eosinophils % (A) 1 %; HCT 54.6 % (39.0-53.0); HGB 18.6 gm/dL (13.0-17.5); Lymphocytes # (A) 1.3 k/uL (1.0-4.8); Lymphocytes % (A) 17 %; MCH 35.1 pg (25.0-35.0); MCV 103.2 fL (80.0-100.0); Macrocytosis Slight; Mean Platelet Volume 6.9; Monocytes # (A) 0.4 k/uL (0-1.0); Monocytes % (A) 6 %; Neutrophils # (A) 5.4 k/uL (1.3-7.7); Neutrophils % (A) 74 %; Platelet Count 180 k/uL (150-450); RBC 5.29 m/uL (4.30-5.90); RDW 13.4 % (11.5-15.5); WBC 7.3 k/uL (3.8-10.6)
[2020-10-12 09:34] LABS: ALT 34 U/L (4-49); AST 61 U/L (17-59); African American GFR (CKD) >90 (>60 ml/min/1.73 sqM); Albumin 4.8 g/dL (3.5-5.0); Alkaline Phosphatase 103 U/L (38-126); Anion Gap 18 mmol/L; Blood Urea Nitrogen <2 mg/dL (9-20); Calcium 9.1 mg/dL (8.4-10.2); Carbon Dioxide 19 mmol/L (22-30); Chloride 96 mmol/L (98-107); Glucose 130 mg/dL (74-99); Lipase 184 U/L (23-300); Magnesium 1.7 mg/dL (1.6-2.3); Non-African American GFR(CKD) >90 (>60 ml/min/1.73 sqM); Potassium 4.5 mmol/L (3.5-5.1); Sodium 133 mmol/L (137-145); Total Bilirubin 0.5 mg/dL (0.2-1.3)
[2020-10-12] MEDS ORDERED: ONDANSETRON 4 MG/2 ML VIAL IVP STA (10:00)
[2020-10-12 10:18] LABS: Appearance,Urine Clear (Clear); Bilirubin,Urine Negative (Negative); Blood,Urine Negative (Negative); Color,Urine Light Yellow; Glucose,Urine (UA) Negative (Negative); Ketones,Urine 1+ (Negative); Leukocyte Esterase,Urine Negative (Negative); Nitrite,Urine Negative (Negative); PH, Urine 6.5 (5.0-8.0); Protein,Urine Negative (Negative); Specific Gravity,Urine 1.003 (1.001-1.035); Urobilinogen,Urine <2.0 mg/dL (<2.0)
[2020-10-12 10:39] LABS: Amphetamine Screen,Urine Not Detected (NotDetected); Barbiturate Screen,Urine Not Detected (NotDetected); Benzodiazepines Screen,Urine Detected (NotDetected); Cocaine Screen,Urine Not Detected (NotDetected); Methadone Screen, Urine Not Detected (NotDetected); Opiate Screen,Urine Not Detected (NotDetected); Oxycodone Screen, Urine Not Detected (NotDetected); Phencyclidine Screen,Urine Not Detected (NotDetected); Tricyclic Antidepressant,Urine Not Detected (NotDetected); Urn Cannabinoid Scrn Detected (NotDetected)
[2020-10-12] MEDS ORDERED: METOCLOPRAMIDE 5 MG/ML 2 ML VIAL IVP STA (12:37)
[2020-10-12] MEDS ORDERED: LORazepam 2 MG/ML INJ IV STA (14:30)
[2020-10-12] MEDS ORDERED: ACETAMINOPHEN TAB 325 MG TAB PO PRN (15:36)
[2020-10-12] MEDS ORDERED: MAGNESIUM HYDROXIDE 2,400 MG/10 ML CUP PO PRN (15:36)
[2020-10-12] MEDS ORDERED: LORazepam 2 MG/ML INJ IM PRN (15:40)
[2020-10-12] MEDS ORDERED: HALOPERIDOL LACTATE 5 MG/ML 1 ML VIAL IM PRN (15:41)
[2020-10-12] MEDS: MAG HYDROX/AL HYDROX/SIMETH 30 ML CUP PO PRN (18:22)
[2020-10-12] MEDS: LORazepam 1 MG TAB PO PRN (18:22)
[2020-10-13] MEDS: LORazepam 1 MG TAB PO PRN (08:41)
[2020-10-13] MEDS: MAG HYDROX/AL HYDROX/SIMETH 30 ML CUP PO PRN (08:41)
[2020-10-13] MEDS: NICOTINE 14MG/24HR PATCH TRANSDERM SCH (08:48)
[2020-10-13 09:36] LABS: ALT 32 U/L (4-49); AST 53 U/L (17-59); African American GFR (CKD) >90 (>60 ml/min/1.73 sqM); Albumin 4.6 g/dL (3.5-5.0); Alkaline Phosphatase 100 U/L (38-126); Anion Gap 11 mmol/L; Blood Urea Nitrogen 4 mg/dL (9-20); Calcium 9.5 mg/dL (8.4-10.2); Carbon Dioxide 23 mmol/L (22-30); Chloride 100 mmol/L (98-107); Cholesterol 212 mg/dL (<200); Glucose 106 mg/dL (74-99); HDL Cholesterol 98 mg/dL (40-60); LDL Cholesterol,Calculated 95 mg/dL (0-99); Non-African American GFR(CKD) >90 (>60 ml/min/1.73 sqM); Potassium 3.6 mmol/L (3.5-5.1); Sodium 134 mmol/L (137-145); Total Bilirubin 1.3 mg/dL (0.2-1.3); Triglycerides 94 mg/dL (<150)
[2020-10-13 09:42] LABS: Basophils % (A) 0 %; Eosinophils # (A) 0.1 k/uL (0-0.7); Eosinophils % (A) 2 %; HCT 53.4 % (39.0-53.0); HGB 18.7 gm/dL (13.0-17.5); Lymphocytes # (A) 1.2 k/uL (1.0-4.8); Lymphocytes % (A) 18 %; MCH 36.3 pg (25.0-35.0); MCV 103.8 fL (80.0-100.0); Macrocytosis Slight; Mean Platelet Volume 7.7; Monocytes # (A) 0.5 k/uL (0-1.0); Monocytes % (A) 8 %; Neutrophils # (A) 4.5 k/uL (1.3-7.7); Neutrophils % (A) 70 %; Platelet Count 141 k/uL (150-450); RBC 5.15 m/uL (4.30-5.90); RDW 13.2 % (11.5-15.5); WBC 6.4 k/uL (3.8-10.6)
[2020-10-13] MEDS ORDERED: cloNIDine 0.2 MG/24HR PATCH TRANSDERM SCH (12:00)
[2020-10-13] MEDS: LOPERAMIDE 2 MG CAP PO PRN (12:25)
[2020-10-13] MEDS: OLANZapine 5 MG TAB PO SCH ×3 (12:25→20:39)
[2020-10-13 12:45] VITALS: BMI 18.8
--- NOTE | 2020-10-13 13:02 | P.CONS ---
<Willem Mueller - Last Filed: 10/13/20 12:19> History of Present Illness - Reason for Consult Consult date: 10/13/20 Continued medical management - Chief Complaint Depression and anxiety with alcohol withdrawal - History of Present Illness History of presenting illness: Patient is a 50-year-old male with a past medical history of anxiety with panic attacks, depression, alcohol abuse reportedly drinking 24 cans of beer daily for greater than 20 years, marijuana use, and nicotine dependence on cigarettes reportedly smoking one pack of cigarettes daily 31 years. Patient currently admitted to inpatient psychiatric unit after expressing increased depression, anxiety, a panic attack, and thoughts of suicide. Patient is currently withdrawing from alcohol with last reported drink being on 10/11/20. Patient seen and fully evaluated and reports feeling anxious and jittery accompanied by nausea without any episodes of vomiting. Patient states that he has been going a very rough time in his life over the past year. Patient reports he recently received a notice of eviction from his apartment that he has lived in for over 20 years. Patient states he does not know what he is going to do. Patient reports he feels very depressed and anxious and just keeps having these panic attacks. Patient admits to previously having thoughts of suicide, but denies currently feeling suicidal or having a plan. Patient denies having any auditory, visual, or tactile hallucinations. Patient denies any other complaints at this time including headache, lightheadedness, dizziness, changes in vision or hearing, chest pain or palpitations, shortness of breath, dyspnea with exertion, abdominal pain, vomiting, or having any pain/swelling/weakness/numbness/tingling in extremities. Labs reviewed and TSH, CBC and BMP showing no significant abnormalities, liver profile normal findings, lipid profile revealing an elevated cholesterol of 212 and elevated HDL at 98. Urine drug screen positive for marijuana and benzodiazepines. Review of systems: Pertinent positives and negatives as discussed in HPI, a complete review of systems was performed and all other systems are negative. Physical exam: General: non toxic, no distress, appears at stated age, very thin build Derm: warm, dry Head: atraumatic, normocephalic, symmetric Eyes: EOMI, no lid lag, anicteric sclera Mouth: no lip lesion, mucus membranes moist Cardiovascular: S1S2 reg, no murmur, positive posterior tibial pulses bilaterally, cap refill less than 2 seconds. Lungs: Respirations even, regular, and unlabored. Lungs CTA bilaterally, no rhonchi, no rales, no wheezing and no accessory muscle use. Abdominal: Soft, nontender to palpation, no guarding, no appreciable organomegaly Ext: no gross muscle atrophy, no edema, no contractures Neuro: Speech clear, CN II-XII grossly intact, no focal neuro deficits, soft tremors present. Psych: Alert, oriented, anxious affect Assessment and Plan of care: Alcohol withdrawal -Continue [facility] protocol with symptom triggered medication management. -Fall precautions, seizure precautions, and aspiration precautions in place. Depression with expressed Suicidal ideations and denying a plan -Suicide precautions -Management per psychiatry team. Anxiety with recurrent and uncontrolled panic attacks -Orders are in place for by psychiatric team for Ativan to be given for anxiety and/or agitation as well as Haldol for agitation or acute psychosis. -Management per psychiatry team. Nicotine dependence on cigarettes -Long-standing history of and current use of tobacco products reportedly smoking one pack of cigarettes daily 31 years. -Nicorette gum -Continued encouragement and education on the benefits of smoking cessation and risks of continued use. Hyperlipidemia| -Lipid profile revealing an elevated cholesterol of 212 and elevated HDL at 98. -Encourage a heart healthy cardiac diet and follow-up with PCP in 6 months for repeat lipid profile.. Thank you for allowing us to participate in the care of this pleasant patient. Do not hesitate to contact us with questions. We will follow this patient on an as needed basis, please contact us as needed. Someone can be reached from the [facility] hospitalist group all hours of the day at [phone] or via [employer]. Past Medical History Past Medical History: COPD Additional Past Medical History / Comment(s): ETOH abuse, smoker, History of Any Multi-Drug Resistant Organisms: None Reported Past Surgical History: Adenoidectomy, Hernia Repair, Tonsillectomy Past Anesthesia/Blood Transfusion Reactions: No Reported Reaction Past Psychological History: Anxiety, Depression Smoking Status: Current every day smoker Past Alcohol Use History: Abuse, Daily, Heavy Additional Past Alcohol Use History / Comment(s): Patient states he smokes cigarattes. Last drink last night 06/15/2020 at 0600 and has been drinking 12 beers a day per patient. Past Drug Use History: Marijuana Additional Drug Use History / Comment(s): Crack addiction at age 19 until encarcerated for 15 years off and on for alcohol and crack addiction. Denies any crack addiction recently, states it "was years ago". Does state he smokes marijuana when he feels like it. - Past Family History Brother(s) Family Medical History: Osteoarthritis (OA) Mother Family Medical History: COPD Additional Family Medical History / Comment(s): pulmonary fibrosis Medications and Allergies Home Medications Medication Instructions Recorded Confirmed Type No Known Home Medications 10/12/20 10/12/20 History Allergies Allergy/AdvReac Type Severity Reaction Status Date / Time No Known Allergies Allergy Verified 10/12/20 16:47 Physical Exam Vitals: Vital Signs Temp Pulse Resp BP 10/13/20 08:35 114 H 133/78 10/13/20 06:15 98.4 F 101 H 150/86 10/12/20 17:54 97.8 F 10/12/20 16:29 98.6 F 110 H 20 124/76 Intake and Output 10/12/20 10/13/20 10/13/20 22:59 06:59 14:59 Other: Weight 59.421 kg Results CBC & Chem 7: 10/13/20 08:11 10/13/20 08:11 Labs: Abnormal Lab Results - Last 24 Hours (Table) 10/13/20 10/13/20 Range/Units 08:11 08:11 Hgb 18.7 H (13.0-17.5) gm/dL Hct 53.4 H (39.0-53.0) % MCV 103.8 H (80.0-100.0) fL MCH 36.3 H (25.0-35.0) pg Plt Count 141 L (150-450) k/uL Sodium 134 L (137-145) mmol/L BUN 4 L (9-20) mg/dL Glucose 106 H (74-99) mg/dL Cholesterol 212 H (<200) mg/dL HDL Cholesterol 98 H (40-60) mg/dL <Emily Munoz - Last Filed: 10/13/20 14:06> History of Present Illness - History of Present Illness I discussed the care with Willem Mueller NP and reviewed the findings and plan as documented in the note above. I did not staff this patient on this date. Physical Exam Osteopathic Statement: *. No significant issues noted on an osteopathic structural exam other than those noted in the History and Physical/Consult. Vitals: Vital Signs Temp Pulse Resp BP 10/13/20 12:28 109 H 136/77 10/13/20 08:35 114 H 133/78 10/13/20 06:15 98.4 F 101 H 150/86 10/12/20 17:54 97.8 F 10/12/20 16:29 98.6 F 110 H 20 124/76 Intake and Output 10/12/20 10/13/20 10/13/20 22:59 06:59 14:59 Other: Weight 59.421 kg 59.421 kg Results CBC & Chem 7: 10/13/20 08:11 10/13/20 08:11 Labs: Abnormal Lab Results - Last 24 Hours (Table) 10/13/20 10/13/20 Range/Units 08:11 08:11 Hgb 18.7 H (13.0-17.5) gm/dL Hct 53.4 H (39.0-53.0) % MCV 103.8 H (80.0-100.0) fL MCH 36.3 H (25.0-35.0) pg Plt Count 141 L (150-450) k/uL Sodium 134 L (137-145) mmol/L BUN 4 L (9-20) mg/dL Glucose 106 H (74-99) mg/dL Cholesterol 212 H (<200) mg/dL HDL Cholesterol 98 H (40-60) mg/dL
[2020-10-13 13:56] LABS: Hemoglobin A1C 5.2 % (4.0-6.0)
--- NOTE | 2020-10-13 15:49 | HP ---
DATE OF SERVICE: 10/13/2020 HISTORY AND PHYSICAL IDENTIFYING DATA: The patient is a 50-year-old male. He lives independently. He presented to the ED for evaluation. CHIEF COMPLAINT: The patient was depressed. He had suicide thinking. He has persistence of alcohol use and was having physical symptoms of nausea, vomiting, diarrhea and diffuse abdominal cramping. HISTORY OF PRESENTING ILLNESS: The patient has long-term substance use issues. He has had a number of psychiatric hospitalizations. He was hospitalized here 09/08/2020. I refer the reader to Dr. Amaya's admission note for details. His current presentation is essentially the same as that hospitalization and for the most part I will defer details other than interim history. It is noteworthy since his discharge from this facility he has been to the ED four times essentially for alcohol-related issues. It is noteworthy that since August 06, 2020 he has been to the ED ten times. He has been living independently, though says that he may be on the verge of being evicted. He notes that since discharge September 12, he got back into regular drinking and has been drinking about a case of beer a day. He says he smokes some marijuana. He was discharged on Lexapro 20 mg a day and Vistaril p.r.n. Since coming to the hospital his pulse has fluctuated between 101 and 114. Blood pressure has been for the most part in the normal range. He has been afebrile. The patient was vague as to whether he has been taking his psychotropic medications consistently. He is admitted for further evaluation. SUBSTANCE USE HISTORY: As above. PAST MEDICAL HISTORY: COPD. FAMILY / SOCIAL HISTORY: As per Dr. Amaya's previous admission note. MENTAL STATUS EXAM: The patient sat with some restlessness. He had a mild tremor. He gave fair eye contact. Psychomotor activity was slowed. Speech was monotone and soft. He answered questions with brief responses. He did not say a lot. He responded appropriately to questions. His affect was flat. His mood depressed. He was significantly distressed. There was no outward evidence of thought disorder. He acknowledged having some thoughts of self-harm coming to the hospital, though noted that he did not have any intent or plan. On cognitive exam, he did make an effort to answer formal cognitive questions. He was oriented to his circumstances and surroundings. PHYSICAL EXAM: As per medical consultation. ASSESSMENT: This 50-year-old male is admitted for alcohol dependence, acute alcohol withdrawal and depression issues secondary to substance use. The patient does state that he is willing to go into a treatment facility such as [facility]. He states that he needs to address some home issues as he is likely in the process of eviction and needs to get his possessions placed with family. DIAGNOSES: 1. Alcohol dependence. 2. Acute alcohol withdrawal. 3. Mood disorder. 4. Chronic obstructive pulmonary disease. RECOMMENDATIONS: Patient will be admitted for comprehensive medical psychiatric and psychosocial evaluation. We will engage the patient in the individual and group therapeutic activities. I will start the patient on Zyprexa 5 mg three times a day. The aim of Zyprexa is to help reduce physiologic stress response relating to acute withdrawal. We will monitor for any detox issues relating to alcohol withdrawal issues. I will have vital signs monitored every four hours. The patient anticipates making efforts to connect with [facility] or another substance abuse program on Thursday. We will focus on stabilization and discharge planning. JANETT / HALIE: [id number] / GARY
[2020-10-13 17:07] LABS: Appearance,Urine Clear (Clear); Bilirubin,Urine Negative (Negative); Blood,Urine Negative (Negative); Color,Urine Yellow; Glucose,Urine (UA) Negative (Negative); Ketones,Urine Negative (Negative); Leukocyte Esterase,Urine Negative (Negative); Nitrite,Urine Negative (Negative); PH, Urine 6.5 (5.0-8.0); Protein,Urine Negative (Negative); Specific Gravity,Urine 1.008 (1.001-1.035); Urobilinogen,Urine <2.0 mg/dL (<2.0)
[2020-10-13 20:41] VITALS: RESP 18
[2020-10-13 23:33] LABS: Urine Alcohol Negative (Negative); Urine Barbiturate Negative (Negative); Urine Cocaine Negative (Negative); Urine Methadone Negative (Negative); Urine Opiates Negative (Negative); Urine Phencyclidine Negative (Negative)
[2020-10-14] MEDS: OLANZapine 5 MG TAB PO SCH ×3 (08:34→19:58)
[2020-10-14] MEDS: NICOTINE 14MG/24HR PATCH TRANSDERM SCH (08:34)
[2020-10-14] MEDS ORDERED: cloNIDine 0.2 MG/24HR PATCH TRANSDERM SCH (10:15)
--- NOTE | 2020-10-14 11:27 | PN ---
PROGRESS NOTE DATE OF SERVICE: 10/14/2020 CHIEF COMPLAINT: The patient was depressed. He had suicidal thinking. He has persistence of alcohol use and was having physical symptoms of nausea, vomiting, diarrhea and diffuse abdominal cramping. INTERVAL HISTORY: The patient has been doing fairly well. He had a quiet day yesterday. He comes out in the day area. He attended groups. He was appropriate in group. He slept fairly well last night today he has been up. Today he notes that he is feeling quite well. He was upbeat in his manner. He said that he has not had any shaking or other issues of withdrawal. He notes that he has been talking with his girlfriend about discharge planning. He says that he agrees with discontinuation of Ativan and feels that he has not needed any further medications for alcohol withdrawal. It is noted that his vital signs have been stable with his last vital signs this morning including BP 148/63, pulse 86 and regular, temp 98.8, respirations 18. The patient says that his plan at this point is to be discharged to home. He has set up that he will be moving in with his girlfriend. He said the home where he will be living is one with other people where there will be high demand for him not to drink any alcohol at all. He believes that in that environment, he will have support to stop drinking. He talked about what arrangements he is starting to make to move out of his apartment where he is being evicted. He says that he is quite hopeful about things coming up upon discharge. He is hopeful to be discharged soon. He tolerates his psychotropic medications. MENTAL STATUS: Patient gave good eye contact. He had normal psychomotor activity. He responded appropriately to questions. His thoughts were clear. He was spontaneous and interactive. His affect was broad. He had a calm, friendly manner. He smiled throughout the interview. His mood was even. He did not appear to be distressed in any way. There was no indication of thought disorder. There was no thoughts of harm. Cognition was clear. ASSESSMENT: I will continue the current diagnosis and treatment plan. We will continue psychotropic medications the same. We will need to continue to monitor for vital signs over the next 24 hours for acute alcohol withdrawal. Patient is showing quite a bit of improvement in his mood, which in part may relate to his psychotropic medications including Zyprexa and Catapres. I had discussed with the patient that he will need to work on what plans he has for followup and that he can get support with Social Work to set up any referrals as needed. The patient seems to indicate that his plan would be towards outpatient followup as opposed to going into a substance abuse program such as [facility]. We will focus on stabilization and discharge planning. JANETT / HALIE: [phone] /
[2020-10-14] MEDS: MAG HYDROX/AL HYDROX/SIMETH 30 ML CUP PO PRN (19:58)
[2020-10-15 06:36] VITALS: BP 110/68; PULSE 98
[2020-10-15] MEDS: NICOTINE 14MG/24HR PATCH TRANSDERM SCH (08:51)
[2020-10-15] MEDS: OLANZapine 5 MG TAB PO SCH (08:51)
[2020-10-15] MEDS: LOPERAMIDE 2 MG CAP PO PRN (08:52)
[2020-10-15] MEDS ORDERED: cloNIDine 0.1 MG/24HR PATCH TRANSDERM SCH (09:00)
--- NOTE | 2020-10-15 12:09 | P.DS ---
Providers Date of admission: 10/12/20 15:35 Attending physician: Aakash Amaya MD Consults: 10/12/20 15:36 Consult Physician Routine Consulting Provider: Tom Physician Consult Reason/Comments: medical management Do you want consulting provider notified?: Yes Primary care physician: Stated None - Discharge Diagnosis(es) (1) Alcohol-induced mood disorder Current Visit: Yes Status: Acute (2) Alcoholic intoxication Current Visit: No Status: Acute Priority: Low (3) Alcohol withdrawal syndrome Current Visit: No Status: Acute Priority: High (4) Alcohol use disorder, severe, dependence Current Visit: Yes Status: Acute Hospital Course: HISTORY: He is a 50-year-old single male admitted to the psychiatric unit voluntarily with complaints of depression and suicidal ideation. His blood alcohol level on presentation to the ED was 0.110. She presented to the ED with complaints of suicidal ideation and told EPS nurse that he is "not safe to go home". He attributes the depression to relapse to alcohol use and being evicted from his apartment. He believes that the [facility] issued the eviction notice because landlord's opinion complaining about his behavior when he is intoxicated. He has a history of alcohol use disorder with multiple presentations to the [facility] ER for acute alcohol intoxication, multiple admissions to medicine service for acute alcohol intoxication and severe withdrawal and multiple admissions psychiatric unit for complaints of depression, suicidal ideation and alcohol intoxication. Since his discharge from this unit in September 2020 he presented to the ED 4 times for alcohol related issues. Since July 2020 he has presented to the ED 10 times. HOSPITAL COURSE: We admitted the psychiatric unit voluntarily under the care of this feature writer. We provided a comprehensive biopsychosocial assessment. The consult chute greaser completed initial physical exam and medical history diagnosed alcohol withdrawal, tobacco use and hyperlipidemia. The technical assistance consultant at the recommendations for treatment other than to continue with management of alcohol withdrawal symptoms. He had minimal alcohol withdrawal symptoms with CIWA scores ranging from 0-7. On the third day of admission she requested discharge stating that he needs began moving from his apartment. He alleged that he came to Hospital because he needed to "sobered up" in preparation for apartment searching. He also stated that he was not suicidal when he came to the emergency room. He knew that he would not be admitted to the hospital unless he "told us" that he was suicidal. He joked about the suicide stories that he told medical personnel the past when he did not want to be discharged from the emergency room. He was not interested in a referral for residential substance abuse treatment. He alleged that he plans to resume attendance to Alcoholics Anonymous. MENTAL STATUS ON DISCHARGE: At the time of discharge she presented as a casually groomed middle-aged male who was pleasant on approach. He made eye contact and attended to the interview. He had no distinguishing features or prominent physical abnormalities. He had a bright facial expression. He is alert and oriented to person, place and time. He showed no abnormality of psychomotor activity. Her speech was spontaneous with normal rate, rhythm and volume. His affect was bright, stable and appropriate. He denied suicidal ideation and wishes. He denied homicidal ideation. Denies feeling hopeless, helpless or worthless. He did not express ideas reference, paranoid ideation or delusions. His thinking was concrete but his associations were coherent, logical and goal directed. He denied hallucinations did not appear to be responding to internal stimuli. DISPOSITION: Return to his prior address. He was prescribed no psychotropic m edications at discharge. Follow-up with Alcoholics Anonymous. Patient Condition at Discharge: Stable Plan - Discharge Summary Discharge Rx Participant: No New Discharge Prescriptions: New Nicotine 14Mg/24Hr Patch [Habitrol] 1 patch TRANSDERM DAILY patch Discharge Medication List Nicotine 14Mg/24Hr Patch [Habitrol] 1 patch TRANSDERM DAILY patch 10/15/20 [Rx] Follow up Appointment(s)/Referral(s): None,Stated [Primary Care Provider] - 1-2 days Discharge Disposition: HOME SELF-CARE
[2020-10-15 13:36] VITALS: TEMP 97.6
== END 2020-10-15 13:44 | disposition home or self-care (01) | DRG 897 ==
LOC: EC 08:38 → 3MHU 15:35
PROVIDERS: ADMIT Psychiatry & Neurology Psychiatry; ATTEND Psychiatry & Neurology Psychiatry
DX: F10.24 Alcohol dependence with alcohol-induced mood disorder (principal); R45.851 Suicidal ideations; F10.239 Alcohol dependence with withdrawal, unspecified; J44.9 Chronic obstructive pulmonary disease, unspecified; F10.229 Alcohol dependence with intoxication, unspecified; Z20.822 Contact with and (suspected) exposure to COVID-19; F12.90 Cannabis use, unspecified, uncomplicated; F41.0 Panic disorder [episodic paroxysmal anxiety]; E78.5 Hyperlipidemia, unspecified; F17.210 Nicotine dependence, cigarettes, uncomplicated; Z71.6 Tobacco abuse counseling; Z90.89 Acquired absence of other organs; Z98.890 Other specified postprocedural states; Z87.19 Personal history of other diseases of the digestive system; Z82.62 Family history of osteoporosis; Z82.5 Family history of asthma and other chronic lower respiratory diseases
CPT/HCPCS: 36415; 80053; 80061; 80306; 81003; 82075; 83036; 83690; 83735; 84443; 85025; 87635; 96361; 96372; 96374; 96375; 99285

== ENCOUNTER 2021-04-27 09:48 | Emergency (ER) | payer OTHER ==
[2021-04-27] MEDS ORDERED: SODIUM CHLORIDE 0.9% 500 ML 500 ML IV ONE (10:12)
[2021-04-27] MEDS ORDERED: SODIUM CHLORIDE 0.9% 1,000 ML IV ONE (10:12)
[2021-04-27] MEDS ORDERED: ONDANSETRON 4 MG/2 ML VIAL IVP STA (10:13)
--- NOTE | 2021-04-27 10:23 | ED ---
General Adult HPI - General Chief complaint: Alcohol Stated complaint: Alcohol Withdrawal Time Seen by Provider: 04/27/21 09:55 Source: patient, RN notes reviewed, old records reviewed Mode of arrival: EMS Limitations: no limitations - History of Present Illness Initial comments: This is a 51-year-old male who states he is having alcohol withdrawal and he comes in stating he is been vomiting blood in the emergency department is just spitting saliva into a bucket. Patient states he had a last drink yesterday. Then later he told me he had 2 beers this morning. Patient denies any suicidal homicidal ideations. Patient denies any headache patient denies numbness weakness. Patient is chest pain difficult breathing shortest breath per patient denies abdominal pain. Patient has any diarrhea. Patient has any recent fever chills or cough. Patient's only complaint is going through alcohol withdrawal. - Related Data Home Medications Medication Instructions Recorded Confirmed No Known Home Medications 04/27/21 04/27/21 Allergies Allergy/AdvReac Type Severity Reaction Status Date / Time No Known Allergies Allergy Verified 04/27/21 12:36 Review of Systems ROS Statement: Those systems with pertinent positive or pertinent negative responses have been documented in the HPI. ROS Other: All systems not noted in ROS Statement are negative. Past Medical History Past Medical History: COPD Additional Past Medical History / Comment(s): ETOH abuse, smoker, History of Any Multi-Drug Resistant Organisms: None Reported Past Surgical History: Adenoidectomy, Hernia Repair, Tonsillectomy Past Anesthesia/Blood Transfusion Reactions: No Reported Reaction Past Psychological History: Anxiety, Depression Smoking Status: Current every day smoker Past Alcohol Use History: Abuse, Daily, Heavy Past Drug Use History: Marijuana - Past Family History Brother(s) Family Medical History: Osteoarthritis (OA) Mother Family Medical History: COPD Additional Family Medical History / Comment(s): pulmonary fibrosis General Exam - General Exam Comments Initial Comments: GENERAL: Patient is well-developed and well-nourished. Patient is nontoxic and well- hydrated and is in mild distress. ENT: Neck is soft and supple. No significant lymphadenopathy is noted. Oropharynx is clear. Moist mucous membranes. Neck has full range of motion without eliciting any pain. EYES: The sclera were anicteric and conjunctiva were pink and moist. Extraocular movements were intact and pupils were equal round and reactive to light. Eyelids were unremarkable. PULMONARY: Unlabored respirations. Good breath sounds bilaterally. No audible rales rhonchi or wheezing was noted. CARDIOVASCULAR: There is a regular rate and rhythm without any murmurs gallops or rubs. ABDOMEN: Soft and nontender with normal bowel sounds. No palpable organomegaly was noted. There is no palpable pulsatile mass. SKIN: Skin is clear with no lesions or rashes and otherwise unremarkable. NEUROLOGIC: Patient is alert and oriented x3. Cranial nerves II through XII are grossly intact. Motor and sensory are also intact. Normal speech, volume and content. Symmetrical smile. MUSCULOSKELETAL: Normal extremities with adequate strength and full range of motion. LYMPHATICS: No significant lymphadenopathy is noted PSYCHIATRIC: Normal psychiatric evaluation. Patient is anxious. Limitations: no limitations Course Vital Signs 04/27/21 04/27/21 09:53 11:41 Temperature 98.5 F Pulse Rate 128 H 98 Respiratory 24 18 Rate Blood Pressure 144/99 124/84 O2 Sat by Pulse 97 95 Oximetry Medical Decision Making - Medical Decision Making Patient received 1 mg of Ativan. I went back in and reevaluated the patient he was drinking water and eat crackers time stated he felt much better stated he was given a follow-up with [facility] for rehabilitation. Patient was requesting something for his possible withdrawal until he can get some follow-up I did give him one time prior to leaving. - Lab Data Result diagrams: 04/27/21 10:16 04/27/21 10:16 Lab Results 04/27/21 04/27/21 04/27/21 Range/Units 10:16 10:16 10:16 WBC 10.5 (3.8-10.6) k/uL RBC 5.46 (4.30-5.90) m/uL Hgb 18.7 H (13.0-17.5) gm/dL Hct 53.6 H (39.0-53.0) % MCV 98.2 (80.0-100.0) fL MCH 34.3 (25.0-35.0) pg MCHC 34.9 (31.0-37.0) g/dL RDW 14.3 (11.5-15.5) % Plt Count 172 (150-450) k/uL MPV 7.3 Neutrophils % 78 % Lymphocytes % 13 % Monocytes % 5 % Eosinophils % 0 % Basophils % 1 % Neutrophils # 8.1 H (1.3-7.7) k/uL Lymphocytes # 1.4 (1.0-4.8) k/uL Monocytes # 0.5 (0-1.0) k/uL Eosinophils # 0.0 (0-0.7) k/uL Basophils # 0.1 (0-0.2) k/uL PT 10.2 (9.0-12.0) sec INR 0.9 (<1.2) Sodium 132 L (137-145) mmol/L Potassium 4.4 (3.5-5.1) mmol/L Chloride 97 L (98-107) mmol/L Carbon Dioxide 15 L (22-30) mmol/L Anion Gap 20 mmol/L BUN <2 L (9-20) mg/dL Creatinine 0.74 (0.66-1.25) mg/dL Est GFR (CKD-EPI)AfAm >90 (>60 ml/min/1.73 sqM) Est GFR (CKD-EPI)NonAf >90 (>60 ml/min/1.73 sqM) Glucose 112 H (74-99) mg/dL Calcium 9.9 (8.4-10.2) mg/dL Magnesium 1.9 (1.6-2.3) mg/dL Total Bilirubin 0.6 (0.2-1.3) mg/dL AST 118 H (17-59) U/L ALT 88 H (4-49) U/L Alkaline Phosphatase 135 H (38-126) U/L Total Protein 8.4 H (6.3-8.2) g/dL Albumin 5.2 H (3.5-5.0) g/dL Urine Opiates Screen (NotDetected) Ur Oxycodone Screen (NotDetected) Urine Methadone Screen (NotDetected) Ur Propoxyphene Screen (NotDetected) Ur Barbiturates Screen (NotDetected) U Tricyclic Antidepress (NotDetected) Ur Phencyclidine Scrn (NotDetected) Ur Amphetamines Screen (NotDetected) U Methamphetamines Scrn (NotDetected) U Benzodiazepines Scrn (NotDetected) Urine Cocaine Screen (NotDetected) U Marijuana (THC) Screen (NotDetected) Serum Alcohol 77 mg/dL 04/27/21 Range/Units 10:46 WBC (3.8-10.6) k/uL RBC (4.30-5.90) m/uL Hgb (13.0-17.5) gm/dL Hct (39.0-53.0) % MCV (80.0-100.0) fL MCH (25.0-35.0) pg MCHC (31.0-37.0) g/dL RDW (11.5-15.5) % Plt Count (150-450) k/uL MPV Neutrophils % % Lymphocytes % % Monocytes % % Eosinophils % % Basophils % % Neutrophils # (1.3-7.7) k/uL Lymphocytes # (1.0-4.8) k/uL Monocytes # (0-1.0) k/uL Eosinophils # (0-0.7) k/uL Basophils # (0-0.2) k/uL PT (9.0-12.0) sec INR (<1.2) Sodium (137-145) mmol/L Potassium (3.5-5.1) mmol/L Chloride (98-107) mmol/L Carbon Dioxide (22-30) mmol/L Anion Gap mmol/L BUN (9-20) mg/dL Creatinine (0.66-1.25) mg/dL Est GFR (CKD-EPI)AfAm (>60 ml/min/1.73 sqM) Est GFR (CKD-EPI)NonAf (>60 ml/min/1.73 sqM) Glucose (74-99) mg/dL Calcium (8.4-10.2) mg/dL Magnesium (1.6-2.3) mg/dL Total Bilirubin (0.2-1.3) mg/dL AST (17-59) U/L ALT (4-49) U/L Alkaline Phosphatase (38-126) U/L Total Protein (6.3-8.2) g/dL Albumin (3.5-5.0) g/dL Urine Opiates Screen Not Detected (NotDetected) Ur Oxycodone Screen Not Detected (NotDetected) Urine Methadone Screen Not Detected (NotDetected) Ur Propoxyphene Screen Not Detected (NotDetected) Ur Barbiturates Screen Not Detected (NotDetected) U Tricyclic Antidepress Not Detected (NotDetected) Ur Phencyclidine Scrn Not Detected (NotDetected) Ur Amphetamines Screen Not Detected (NotDetected) U Methamphetamines Scrn Not Detected (NotDetected) U Benzodiazepines Scrn Not Detected (NotDetected) Urine Cocaine Screen Not Detected (NotDetected) U Marijuana (THC) Screen Detected H (NotDetected) Serum Alcohol mg/dL Disposition Clinical Impression: Alcohol abuse, Alcohol withdrawal syndrome Disposition: HOME SELF-CARE Condition: Good Instructions (If sedation given, give patient instructions): Alcohol Withdrawal (ED) Additional Instructions: As discussed with the patient he should follow-up at [facility] today. Is patient prescribed a controlled substance at d/c from ED?: No Referrals: None,Stated [Primary Care Provider] - 1-2 days Time of Disposition: 12:54
[2021-04-27 10:28] LABS: Basophils # (A) 0.1 k/uL (0-0.2); Basophils % (A) 1 %; Eosinophils % (A) 0 %; HCT 53.6 % (39.0-53.0); HGB 18.7 gm/dL (13.0-17.5); Lymphocytes # (A) 1.4 k/uL (1.0-4.8); Lymphocytes % (A) 13 %; MCH 34.3 pg (25.0-35.0); MCHC 34.9 g/dL (31.0-37.0); MCV 98.2 fL (80.0-100.0); Mean Platelet Volume 7.3; Monocytes # (A) 0.5 k/uL (0-1.0); Monocytes % (A) 5 %; Neutrophils # (A) 8.1 k/uL (1.3-7.7); Neutrophils % (A) 78 %; Platelet Count 172 k/uL (150-450); RBC 5.46 m/uL (4.30-5.90); RDW 14.3 % (11.5-15.5); WBC 10.5 k/uL (3.8-10.6)
[2021-04-27 10:34] LABS: INR 0.9 (<1.2); Prothrombin Time 10.2 sec (9.0-12.0)
[2021-04-27 10:40] LABS: ALT 88 U/L (4-49); AST 118 U/L (17-59); African American GFR (CKD) >90 (>60 ml/min/1.73 sqM); Albumin 5.2 g/dL (3.5-5.0); Alcohol 77 mg/dL; Alkaline Phosphatase 135 U/L (38-126); Anion Gap 20 mmol/L; Blood Urea Nitrogen <2 mg/dL (9-20); Calcium 9.9 mg/dL (8.4-10.2); Carbon Dioxide 15 mmol/L (22-30); Chloride 97 mmol/L (98-107); Glucose 112 mg/dL (74-99); Magnesium 1.9 mg/dL (1.6-2.3); Non-African American GFR(CKD) >90 (>60 ml/min/1.73 sqM); Potassium 4.4 mmol/L (3.5-5.1); Sodium 132 mmol/L (137-145); Total Bilirubin 0.6 mg/dL (0.2-1.3); Total Protein 8.4 g/dL (6.3-8.2)
[2021-04-27] MEDS ORDERED: LORazepam 2 MG/ML INJ IV STA (10:48)
[2021-04-27 11:31] LABS: Amphetamine Screen,Urine Not Detected (NotDetected); Barbiturate Screen,Urine Not Detected (NotDetected); Benzodiazepines Screen,Urine Not Detected (NotDetected); Cocaine Screen,Urine Not Detected (NotDetected); Methadone Screen, Urine Not Detected (NotDetected); Opiate Screen,Urine Not Detected (NotDetected); Oxycodone Screen, Urine Not Detected (NotDetected); Phencyclidine Screen,Urine Not Detected (NotDetected); Tricyclic Antidepressant,Urine Not Detected (NotDetected); Urn Cannabinoid Scrn Detected (NotDetected)
[2021-04-27] MEDS ORDERED: diazePAM 5 MG TAB PO STA (12:54)
[2021-04-27] MEDS ORDERED: ONDANSETRON 4 MG ODT STARTER PACK 2 TAB BTL PO STA (12:55)
[2021-04-27 13:09] VITALS: BP 130/78; PULSE 89; RESP 16; TEMP 98.2
== END 2021-04-27 13:07 | disposition home or self-care (01) ==
LOC: EC 09:48
DX: J44.9 Chronic obstructive pulmonary disease, unspecified (principal); F10.239 Alcohol dependence with withdrawal, unspecified; F17.200 Nicotine dependence, unspecified, uncomplicated
CPT/HCPCS: 36415; 80053; 83735; 85025; 85610; 80306; 99284; 96374; 96375; 96361; G0480; J2060; J2405; S0119; 80320

== ENCOUNTER 2021-05-03 12:22 | Emergency (ER) | payer OTHER ==
[2021-05-03 13:17] VITALS: BP 136/87; PULSE 125; RESP 20; TEMP 98
[2021-05-03 13:42] LABS: Amphetamine Screen,Urine Detected (NotDetected); Benzodiazepines Screen,Urine Detected (NotDetected); Cocaine Screen,Urine Not Detected (NotDetected); Opiate Screen,Urine Not Detected (NotDetected); Phencyclidine Screen,Urine Not Detected (NotDetected)
[2021-05-03 13:43] LABS: Barbiturate Screen,Urine Not Detected (NotDetected); Methadone Screen, Urine Not Detected (NotDetected); Oxycodone Screen, Urine Not Detected (NotDetected); Tricyclic Antidepressant,Urine Not Detected (NotDetected); Urn Cannabinoid Scrn Detected (NotDetected)
--- NOTE | 2021-05-03 14:09 | ED ---
Psych HPI - General Chief Complaint: Psychiatric Symptoms Stated Complaint: mental health Time Seen by Provider: 05/03/21 12:34 Source: patient, EMS, old records reviewed Mode of arrival: EMS Limitations: no limitations - History of Present Illness Initial Comments: This is a 51-year-old male presents emergency Department with chief complaint of drug abuse. Patient states she is methamphetamines he states his first time though he does have a long history of drug or alcohol use. Patient was brought by EMS as police requested. Patient has been paranoid after using methamphetamine history. Patient denies being suicidal homicidal no other complaints. - Related Data Home Medications Medication Instructions Recorded Confirmed No Known Home Medications 04/27/21 04/27/21 Allergies Allergy/AdvReac Type Severity Reaction Status Date / Time No Known Allergies Allergy Verified 04/27/21 12:36 Review of Systems ROS Statement: Those systems with pertinent positive or pertinent negative responses have been documented in the HPI. ROS Other: All systems not noted in ROS Statement are negative. Past Medical History Past Medical History: COPD Additional Past Medical History / Comment(s): ETOH abuse, smoker, History of Any Multi-Drug Resistant Organisms: None Reported Past Surgical History: Adenoidectomy, Hernia Repair, Tonsillectomy Past Anesthesia/Blood Transfusion Reactions: No Reported Reaction Past Psychological History: Anxiety, Depression Smoking Status: Current every day smoker Past Alcohol Use History: Abuse, Daily, Heavy Past Drug Use History: Marijuana - Past Family History Brother(s) Family Medical History: Osteoarthritis (OA) Mother Family Medical History: COPD Additional Family Medical History / Comment(s): pulmonary fibrosis General Exam Limitations: no limitations General appearance: alert, in no apparent distress, anxious Head exam: Present: atraumatic, normocephalic, normal inspection Eye exam: Present: normal appearance, PERRL, EOMI. Absent: scleral icterus, conjunctival injection, periorbital swelling ENT exam: Present: normal exam, mucous membranes moist Neck exam: Present: normal inspection. Absent: tenderness, meningismus, lymphadenopathy Respiratory exam: Present: normal lung sounds bilaterally. Absent: respiratory distress, wheezes, rales, rhonchi, stridor Cardiovascular Exam: Present: normal rhythm, tachycardia, normal heart sounds. Absent: systolic murmur, diastolic murmur, rubs, gallop, clicks Neurological exam: Present: alert, oriented X3 Psychiatric exam: Present: anxious Course Vital Signs 05/03/21 12:42 Temperature 98 F Pulse Rate 125 H Respiratory 20 Rate Blood Pressure 136/87 O2 Sat by Pulse 98 Oximetry Medical Decision Making - Medical Decision Making Patient was evaluated by EPS recommends patient be discharged. Patient is not suicidal homicidal. Patient had methamphetamines on board. - Lab Data Lab Results 05/03/21 Range/Units 13:05 Urine Opiates Screen Not Detected (NotDetected) Ur Oxycodone Screen Not Detected (NotDetected) Urine Methadone Screen Not Detected (NotDetected) Ur Propoxyphene Screen Not Detected (NotDetected) Ur Barbiturates Screen Not Detected (NotDetected) U Tricyclic Antidepress Not Detected (NotDetected) Ur Phencyclidine Scrn Not Detected (NotDetected) Ur Amphetamines Screen Detected H (NotDetected) U Methamphetamines Scrn Detected H (NotDetected) U Benzodiazepines Scrn Detected H (NotDetected) Urine Cocaine Screen Not Detected (NotDetected) U Marijuana (THC) Screen Detected H (NotDetected) Disposition Clinical Impression: Drug abuse, Methamphetamine use Disposition: HOME SELF-CARE Condition: Stable Instructions (If sedation given, give patient instructions): Methamphetamine Abuse (ED) Additional Instructions: Please return to the Emergency Department if symptoms worsen or any other concerns. Is patient prescribed a controlled substance at d/c from ED?: No Referrals: None,Stated [Primary Care Provider] - 1-2 days Time of Disposition: 14:08
== END 2021-05-03 14:50 | disposition home or self-care (01) ==
LOC: EC 12:22
DX: F15.10 Other stimulant abuse, uncomplicated (principal); F17.200 Nicotine dependence, unspecified, uncomplicated; J44.9 Chronic obstructive pulmonary disease, unspecified
CPT/HCPCS: 80306; 82075; 99285